=== PATIENT | male | born 1980 | race Caucasian/White ===

== ENCOUNTER 2024-05-30 06:26 | Inpatient (IN) | payer BC ==
[2024-05-30] MEDS: LORazepam 2 MG/ML INJ IV STA ×3 (06:37→07:33)
[2024-05-30] MEDS: SODIUM CHLORIDE 0.9% 1,000 ML IV STA (06:38)
--- NOTE | 2024-05-30 06:51 | ED ---
Seizure HPI <Bowen Ayers - Last Filed: 05/30/24 09:16> - General Source: EMS Mode of arrival: EMS Limitations: altered mental status - History of Present Illness MD Complaint: seizure -: minutes(s) Description of Episode: loss of consciousness, tonic-clonic movement -: second(s) Witnessed: yes - by bystander Trauma: No Seizure History: known seizure disorder Place: home Possible Precipitating Event: none <Amarjit Young - Last Filed: 05/30/24 18:15> - General Chief Complaint: Seizure Stated Complaint: Seizure Time Seen by Provider: 05/30/24 06:34 - History of Present Illness Initial Comments: This patient is a 44-year-old man who reportedly has history of PTSD, who presents by EMS to have evaluation after having had seizure. It was reported that the patient's had activated EMS. Patient reportedly had 1 seizure and then while EMS was in the process of the preparing to transfer he did have another seizure that was brief. On arrival the patient does appear postictal and not able to give any history. (Amarjit Young) - Related Data Home Medications Medication Instructions Recorded Confirmed Buprenorphine/Naloxone 8Mg/2Mg 1 film SL DAILY 05/30/24 05/30/24 [Suboxone 8-2Mg Film] Sertraline [Zoloft] 100 mg PO DAILY 05/30/24 05/30/24 Allergies Allergy/AdvReac Type Severity Reaction Status Date / Time Penicillins Allergy Unknown Verified 05/30/24 10:04 Review of Systems ROS Other: All systems not noted in ROS Statement are negative. <Bowen Ayers - Last Filed: 05/30/24 09:16> ROS Other: All systems not noted in ROS Statement are negative. Limitations: ROS unobtainable due to patients medical condition <Amarjit Young - Last Filed: 05/30/24 18:15> ROS Statement: Those systems with pertinent positive or pertinent negative responses have been documented in the HPI. Past Medical History - Past Family History Mother Family Medical History: Cancer, Diabetes Mellitus Additional Family Medical History / Comment(s): esophageal cancer resulting in (multiple aunts and uncles on the patient's mother side have various forms of cancer) Father Family Medical History: Congestive Heart Failure (CHF) <Amarjit Young - Last Filed: 07/28/24 18:15> General Exam Limitations: altered mental status General appearance: obtunded Head exam: Present: atraumatic, normocephalic Eye exam: Present: normal appearance, PERRL. Absent: scleral icterus, conjunctival injection ENT exam: Present: mucous membranes dry Neck exam: Present: normal inspection. Absent: tenderness Respiratory exam: Present: rhonchi. Absent: respiratory distress, wheezes, ral es, stridor, accessory muscle use Cardiovascular Exam: Present: normal rhythm, tachycardia, normal heart sounds. Absent: systolic murmur, diastolic murmur, rubs, gallop GI/Abdominal exam: Present: soft. Absent: distended, tenderness, guarding, rebo und, rigid, mass Extremities exam: Present: normal inspection, normal capillary refill. Absent: pedal edema, calf tenderness Back exam: Present: normal inspection Neurological exam: Present: altered. Absent: motor sensory deficit Skin exam: Present: warm, dry, intact, normal color. Absent: rash <Amarjit Young - Last Filed: 05/30/24 18:15> Course <Bowen Ayers - Last Filed: 05/30/24 09:16> Vital Signs 05/30/24 05/30/24 05/30/24 06:29 06:45 06:55 Temperature 97.5 F L Pulse Rate 117 H 81 91 Respiratory 22 16 24 Rate Blood Pressure 77/40 90/55 93/57 O2 Sat by Pulse 81 L 99 99 Oximetry Fraction of Inspired Oxygen (FIO2) 05/30/24 05/30/24 05/30/24 07:01 07:09 07:15 Temperature Pulse Rate 96 37 L 62 Respiratory 24 18 18 Rate Blood Pressure 92/62 61/33 153/89 O2 Sat by Pulse 98 90 L 94 L Oximetry Fraction of Inspired Oxygen (FIO2) 05/30/24 05/30/24 05/30/24 07:20 07:30 08:00 Temperature Pulse Rate 96 99 113 H Respiratory 18 36 H 20 Rate Blood Pressure 98/65 114/78 97/62 O2 Sat by Pulse 94 L 93 L 97 Oximetry Fraction of 100 Inspired Oxygen (FIO2) 05/30/24 05/30/24 05/30/24 08:08 08:35 08:54 Temperature Pulse Rate 112 H 112 H Respiratory 20 20 Rate Blood Pressure 98/63 108/69 O2 Sat by Pulse 96 96 Oximetry Fraction of 100 Inspired Oxygen (FIO2) 05/30/24 05/30/24 05/30/24 09:20 10:00 10:21 Temperature Pulse Rate 102 H 102 H 100 Respiratory 20 20 20 Rate Blood Pressure 91/64 91/64 94/66 O2 Sat by Pulse 99 99 99 Oximetry Fraction of Inspired Oxygen (FIO2) - Reevaluation(s) Reevaluation #1: 05/30/24 08:55 Patient reevaluated by myself several times. Case was discussed with cardiology, Dr. Mattson who will evaluate patient. He does agree with heparin. This will be started. (Bowen Ayers) Procedures - Intubation Laryngoscope: Porsha Size: 3 ET Tube Size: 8 ET Tube Uncuffed: Yes Tube Placement Confirmation: visualized tube passing through cords, equal breath sounds bilaterally, no breath sounds over epigastrium, confirmation by capnometry Patient Tolerated Procedure: well Intubation Complications: none - Restraint - Face to Face Restraint Occurrence 1 Patient's Immediate Situation: Endangers self safety, Endangers staff safety Patient's Reaction to the Intervention: Uncooperative, Fearful, Bizarre, Resistive to care Patient's Medical & Behavioral Condition: Agitated, Bizarre behavior Need to Continue or Terminate Restraint or Seclusion: Continue Face to Face Eval of Restraint Date: 05/30/24 Face to Face Eval of Restraint Time: 06:51 <Amarjit Young - Last Filed: 05/30/24 18:15> Medical Decision Making - Lab Data Result diagrams: 05/30/24 06:39 05/30/24 06:39 <Bowen Ayers - Last Filed: 05/30/24 09:16> - Lab Data Result diagrams: 05/30/24 06:39 05/30/24 14:44 - EKG Data -: EKG Interpreted by Tn EKG shows normal: sinus rhythm, axis, QRS complexes (For right ventricular conduction delay.) Rate: normal (Rate 79 bpm) Interpretation: nonspecific ST-T wave changes <Amarjit Young - Last Filed: 05/30/24 18:15> - Medical Decision Making Was pt. sent in by a medical professional or institution (, PA, OPHTHALMIC ASSISTANT, urgent care, hospital, or longterm...) When possible be specific @ -No Did you speak to anyone other than the patient for history (EMS, parent, family, police, friend...)? What history was obtained from this source @ -Family is present helps provide history including history of alcohol use and presentation Did you review nursing and triage notes (agree or disagree)? Why? @ -I reviewed and agree with nursing and triage notes Were old charts reviewed (outside hosp., previous admission, EMS record, old EKG, old radiological studies, urgent care reports/EKG's, longterm records)? Report findings @ -No old charts are available Differential Diagnosis (chest pain, altered mental status, abdominal pain women, abdominal pain men, vaginal bleeding, weakness, fever, dyspnea, syncope, headache, dizziness, GI bleed, back pain, seizure, CVA, palpatations, mental health, musculoskeletal)? @ -MDM differential ultimate this at EKG interpreted by me (3pts min.). @ -As above X-rays interpreted by me (1pt min.). @ -Chest x-ray shows right-sided infiltrates, endotracheal tube CT interpreted by me (1pt min.). @ -CT brain and CT abdomen pelvis without acute abnormality U/S interpreted by me (1pt. min.). @ -None done What testing was considered but not performed or refused? (CT, X-rays, U/S, labs)? Why? @ -None What meds were considered but not given or refused? Why? @ -None Did you discuss the management of the patient with other professionals (prof niravionals i.e. , PA, OPHTHALMIC ASSISTANT, lab, RT, psych nurse, elementary school social worker, dryland farmer, teacher, safety instruction police officer, internal controls manager)? Give summary @ -Case discussed with Dr. Rouse who will admit covering hospital call. Case is discussed with Dr. Mattson, see above. Case discussed with Dr. Whitlock who is evaluating patient emergency department. h Was smoking cessation discussed for >3mins.? @ -No Was critical care preformed (if so, how long)? @ -45 minutes critical care time Were there social determinants of health that impacted care today? How? (Homelessness, low income, unemployed, alcoholism, drug addiction, tra nsportation, low edu. Level, literacy, decrease access to med. care, residential, rehab)? @ -No Was there de-escalation of care discussed even if they declined (Discuss DNR or withdrawal of care, Hospice)? DNR status @ -No What co-morbidities impacted this encounter? (DM, HTN, Smoking, COPD, CAD, Cancer, CVA, ARF, Chemo, Hep., AIDS, mental health diagnosis, sleep apnea, morbid obesity)? @ -History of alcohol use, possibly relating to withdrawal seizure Was patient admitted / discharged? Hospital course, mention meds given and route, prescriptions, significant lab abnormalities, going to OR and other pertinent info. @ -Patient admitted. Patient presents with seizure, possibly 2-3 seizures. Patient became unresponsive and intubated and CPR through Dr. Henderson. Patient reevaluated by myself and stable at this time. Patient extremely acidotic. Troponin is elevated. Concern for pneumonia. Consults placed. Admission orders written. Undiagnosed new problem with uncertain prognosis? @ -No Drug Therapy requiring intensive monitoring for toxicity (Heparin, Nitro, Insulin, Cardizem)? @ -No Were any procedures done? @ -Intubation and CPR by Dr. Young Diagnosis/symptom? @ -Cardiac arrest, alcohol withdrawal seizure, acidosis, elevated troponin, pneumonia Acute, or Chronic, or Acute on Chronic? @ -Acute, acute, acute, acute, acute Uncomplicated (without systemic symptoms) or Complicated (systemic symptoms)? @ -Complicated multiple systemic symptoms Side effects of treatment? @ -No Exacerbation, Progression, or Severe Exacerbation? @ -No Poses a threat to life or bodily function? How? (Chest pain, USA, ID, pneumonia, PE, COPD, DKA, ARF, appy, cholecystitis, CVA, Diverticulitis, Homicidal, Suicidal, threat to staff... and all critical care pts) @ -Threat to life through cardiac arrest and others (Bowen Ayers) The patient's arrived and did give additional history. She states that the patient had been having a camp out in their living room with the patient's daughter. In the middle of the night he came and woke up his and stated th at something was wrong. She noted that his teeth were chattering. She told him that she was calling EMS. She states that he began to act strangely. She states that he sometimes does that when his PTSD flares. He told her that she was not his , and so she locked herself in the bathroom to make the EMS call. She states that when she got off the phone she checked him and he was having a seizure on the bed. EKG Following seizures in the department, the patient became bradycardic and hyp otensive. At 1 point the pulse was undetectable and ACLS was instituted. The patient did have epinephrine and bicarb, see the code sheet. The patient did regain spontaneous circulation. Patient was intubated. (Amarjit Young) - Lab Data Lab Results 05/30/24 05/30/24 05/30/24 Range/Units 06:39 06:39 06:39 WBC 16.6 H (3.8-10.6) k/uL RBC 4.45 (4.30-5.90) m/uL Hgb 14.8 (13.0-17.5) gm/dL Hct 46.1 (39.0-53.0) % MCV 103.6 H (80.0-100.0) fL MCH 33.2 (25.0-35.0) pg MCHC 32.0 (31.0-37.0) g/dL RDW 13.0 (11.5-15.5) % Plt Count 285 (150-450) k/uL MPV 9.1 Neutrophils % 24 % Lymphocytes % 64 % Monocytes % 5 % Eosinophils % 2 % Basophils % 1 % Neutrophils # 3.9 (1.3-7.7) k/uL Lymphocytes # 10.7 H (1.0-4.8) k/uL Monocytes # 0.8 (0-1.0) k/uL Eosinophils # 0.4 (0-0.7) k/uL Basophils # 0.2 (0-0.2) k/uL Manual Slide Review Performed Hypochromasia Moderate Macrocytosis Slight Sample Site ABG pH (7.35-7.45) ABG pCO2 (35-45) mmHg ABG pO2 (83-108) mmHg ABG HCO3 (21-25) mmol/L ABG Total CO2 (19-24) mmol/L ABG O2 Saturation (94-97) % ABG Base Excess mmol/L Jethro Test VBG pH (7.31-7.41) VBG pCO2 (37-51) mmHg VBG HCO3 (24-28) mmol/L FiO2 % Sodium 144 (137-145) mmol/L Potassium 5.8 H (3.5-5.1) mmol/L Chloride 105 (98-107) mmol/L Carbon Dioxide <5 L* (22-30) mmol/L Anion Gap mmol/L BUN 14 (9-20) mg/dL Creatinine 1.52 H (0.66-1.25) mg/dL Est GFR (CKD-EPI)AfAm 63 (>60 ml/min/1.73 sqM) Est GFR (CKD-EPI)NonAf 55 (>60 ml/min/1.73 sqM) Glucose 345 H (74-99) mg/dL POC Glucose (mg/dL) (70-110) mg/dL POC Glu Hunting Guide ID Plasma Lactic Acid Jonas (0.7-2.0) mmol/L Calcium 10.1 (8.4-10.2) mg/dL Magnesium 2.8 H (1.6-2.3) mg/dL Total Bilirubin 0.8 (0.2-1.3) mg/dL AST 52 (17-59) U/L ALT 29 (4-49) U/L Alkaline Phosphatase 74 (38-126) U/L Troponin I 0.151 H* (0.000-0.034) ng/mL NT-Pro-B Natriuret Pep pg/mL Total Protein 8.5 H (6.3-8.2) g/dL Albumin 5.3 H (3.5-5.0) g/dL Serum Alcohol <10 mg/dL Acetone, Qual (Negative) Influenza Type A (PCR) (Not Detectd) Influenza Type B (PCR) (Not Detectd) RSV (PCR) (Not Detectd) SARS-CoV-2 (PCR) (Not Detectd) 05/30/24 05/30/24 05/30/24 Range/Units 06:39 06:39 07:25 WBC (3.8-10.6) k/uL RBC (4.30-5.90) m/uL Hgb (13.0-17.5) gm/dL Hct (39.0-53.0) % MCV (80.0-100.0) fL MCH (25.0-35.0) pg MCHC (31.0-37.0) g/dL RDW (11.5-15.5) % Plt Count (150-450) k/uL MPV Neutrophils % % Lymphocytes % % Monocytes % % Eosinophils % % Basophils % % Neutrophils # (1.3-7.7) k/uL Lymphocytes # (1.0-4.8) k/uL Monocytes # (0-1.0) k/uL Eosinophils # (0-0.7) k/uL Basophils # (0-0.2) k/uL Manual Slide Review Hypochromasia Macrocytosis Sample Site ABG pH (7.35-7.45) ABG pCO2 (35-45) mmHg ABG pO2 (83-108) mmHg ABG HCO3 (21-25) mmol/L ABG Total CO2 (19-24) mmol/L ABG O2 Saturation (94-97) % ABG Base Excess mmol/L Jethro Test VBG pH 6.61 L* (7.31-7.41) VBG pCO2 62 H (37-51) mmHg VBG HCO3 6 L* (24-28) mmol/L FiO2 % Sodium (137-145) mmol/L Potassium (3.5-5.1) mmol/L Chloride (98-107) mmol/L Carbon Dioxide (22-30) mmol/L Anion Gap mmol/L BUN (9-20) mg/dL Creatinine (0.66-1.25) mg/dL Est GFR (CKD-EPI)AfAm (>60 ml/min/1.73 sqM) Est GFR (CKD-EPI)NonAf (>60 ml/min/1.73 sqM) Glucose (74-99) mg/dL POC Glucose (mg/dL) (70-110) mg/dL POC Glu Hunting Guide ID Plasma Lactic Acid Jonas (0.7-2.0) mmol/L Calcium (8.4-10.2) mg/dL Magnesium (1.6-2.3) mg/dL Total Bilirubin (0.2-1.3) mg/dL AST (17-59) U/L ALT (4-49) U/L Alkaline Phosphatase (38-126) U/L Troponin I (0.000-0.034) ng/mL NT-Pro-B Natriuret Pep 319 pg/mL Total Protein (6.3-8.2) g/dL Albumin (3.5-5.0) g/dL Serum Alcohol mg/dL Acetone, Qual Negative (Negative) Influenza Type A (PCR) (Not Detectd) Influenza Type B (PCR) (Not Detectd) RSV (PCR) (Not Detectd) SARS-CoV-2 (PCR) (Not Detectd) 05/30/24 05/30/24 05/30/24 Range/Units 08:11 08:17 08:53 WBC (3.8-10.6) k/uL RBC (4.30-5.90) m/uL Hgb (13.0-17.5) gm/dL Hct (39.0-53.0) % MCV (80.0-100.0) fL MCH (25.0-35.0) pg MCHC (31.0-37.0) g/dL RDW (11.5-15.5) % Plt Count (150-450) k/uL MPV Neutrophils % % Lymphocytes % % Monocytes % % Eosinophils % % Basophils % % Neutrophils # (1.3-7.7) k/uL Lymphocytes # (1.0-4.8) k/uL Monocytes # (0-1.0) k/uL Eosinophils # (0-0.7) k/uL Basophils # (0-0.2) k/uL Manual Slide Review Hypochromasia Macrocytosis Sample Site r rad ABG pH 6.99 L* (7.35-7.45) ABG pCO2 35 (35-45) mmHg ABG pO2 170 H (83-108) mmHg ABG HCO3 8 L* (21-25) mmol/L ABG Total CO2 9 L (19-24) mmol/L ABG O2 Saturation 98.2 H (94-97) % ABG Base Excess -22.4 mmol/L Jethro Test Yes VBG pH (7.31-7.41) VBG pCO2 (37-51) mmHg VBG HCO3 (24-28) mmol/L FiO2 100 % Sodium (137-145) mmol/L Potassium (3.5-5.1) mmol/L Chloride (98-107) mmol/L Carbon Dioxide (22-30) mmol/L Anion Gap mmol/L BUN (9-20) mg/dL Creatinine (0.66-1.25) mg/dL Est GFR (CKD-EPI)AfAm (>60 ml/min/1.73 sqM) Est GFR (CKD-EPI)NonAf (>60 ml/min/1.73 sqM) Glucose (74-99) mg/dL POC Glucose (mg/dL) 371 H (70-110) mg/dL POC Glu Hunting Guide ID Steven Jurado Plasma Lactic Acid Jonas 10.7 H* (0.7-2.0) mmol/L Calcium (8.4-10.2) mg/dL Magnesium (1.6-2.3) mg/dL Total Bilirubin (0.2-1.3) mg/dL AST (17-59) U/L ALT (4-49) U/L Alkaline Phosphatase (38-126) U/L Troponin I (0.000-0.034) ng/mL NT-Pro-B Natriuret Pep pg/mL Total Protein (6.3-8.2) g/dL Albumin (3.5-5.0) g/dL Serum Alcohol mg/dL Acetone, Qual (Negative) Influenza Type A (PCR) (Not Detectd) Influenza Type B (PCR) (Not Detectd) RSV (PCR) (Not Detectd) SARS-CoV-2 (PCR) (Not Detectd) 05/30/24 Range/Units 08:53 WBC (3.8-10.6) k/uL RBC (4.30-5.90) m/uL Hgb (13.0-17.5) gm/dL Hct (39.0-53.0) % MCV (80.0-100.0) fL MCH (25.0-35.0) pg MCHC (31.0-37.0) g/dL RDW (11.5-15.5) % Plt Count (150-450) k/uL MPV Neutrophils % % Lymphocytes % % Monocytes % % Eosinophils % % Basophils % % Neutrophils # (1.3-7.7) k/uL Lymphocytes # (1.0-4.8) k/uL Monocytes # (0-1.0) k/uL Eosinophils # (0-0.7) k/uL Basophils # (0-0.2) k/uL Manual Slide Review Hypochromasia Macrocytosis Sample Site ABG pH (7.35-7.45) ABG pCO2 (35-45) mmHg ABG pO2 (83-108) mmHg ABG HCO3 (21-25) mmol/L ABG Total CO2 (19-24) mmol/L ABG O2 Saturation (94-97) % ABG Base Excess mmol/L Jethro Test VBG pH (7.31-7.41) VBG pCO2 (37-51) mmHg VBG HCO3 (24-28) mmol/L FiO2 % Sodium (137-145) mmol/L Potassium (3.5-5.1) mmol/L Chloride (98-107) mmol/L Carbon Dioxide (22-30) mmol/L Anion Gap mmol/L BUN (9-20) mg/dL Creatinine (0.66-1.25) mg/dL Est GFR (CKD-EPI)AfAm (>60 ml/min/1.73 sqM) Est GFR (CKD-EPI)NonAf (>60 ml/min/1.73 sqM) Glucose (74-99) mg/dL POC Glucose (mg/dL) (70-110) mg/dL POC Glu Hunting Guide ID Plasma Lactic Acid Jonas (0.7-2.0) mmol/L Calcium (8.4-10.2) mg/dL Magnesium (1.6-2.3) mg/dL Total Bilirubin (0.2-1.3) mg/dL AST (17-59) U/L ALT (4-49) U/L Alkaline Phosphatase (38-126) U/L Troponin I (0.000-0.034) ng/mL NT-Pro-B Natriuret Pep pg/mL Total Protein (6.3-8.2) g/dL Albumin (3.5-5.0) g/dL Serum Alcohol mg/dL Acetone, Qual (Negative) Influenza Type A (PCR) Not Detected (Not Detectd) Influenza Type B (PCR) Not Detected (Not Detectd) RSV (PCR) Not Detected (Not Detectd) SARS-CoV-2 (PCR) Not Detected (Not Detectd) Critical Care Time Critical Care Time: Yes <Bowen Ayers - Last Filed: 05/30/24 09:16> Disposition Is patient prescribed a controlled substance at d/c from ED?: No Time of Disposition: 09:20 <Bowen Ayers - Last Filed: 05/30/24 09:16> <Amarjit Young - Last Filed: 05/30/24 18:15> Clinical Impression: New onset seizure Disposition: ADMITTED IP TO THIS HOSP Condition: Critical
[2024-05-30 06:57] LABS: Basophils # (A) 0.2 k/uL (0-0.2); Basophils % (A) 1 %; Eosinophils # (A) 0.4 k/uL (0-0.7); Eosinophils % (A) 2 %; HCT 46.1 % (39.0-53.0); HGB 14.8 gm/dL (13.0-17.5); Hypochromasia Moderate; Lymphocytes # (A) 10.7 k/uL (1.0-4.8); Lymphocytes % (A) 64 %; MCH 33.2 pg (25.0-35.0); MCV 103.6 fL (80.0-100.0); Macrocytosis Slight; Mean Platelet Volume 9.1; Monocytes # (A) 0.8 k/uL (0-1.0); Monocytes % (A) 5 %; Neutrophils # (A) 3.9 k/uL (1.3-7.7); Neutrophils % (A) 24 %; Platelet Count 285 k/uL (150-450); RBC 4.45 m/uL (4.30-5.90); WBC 16.6 k/uL (3.8-10.6)
[2024-05-30 07:03] LABS: ALT 29 U/L (4-49); AST 52 U/L (17-59); African American GFR (CKD) 63 (>60 ml/min/1.73 sqM); Albumin 5.3 g/dL (3.5-5.0); Alcohol <10 mg/dL; Alkaline Phosphatase 74 U/L (38-126); Blood Urea Nitrogen 14 mg/dL (9-20); Calcium 10.1 mg/dL (8.4-10.2); Chloride 105 mmol/L (98-107); Glucose 345 mg/dL (74-99); Magnesium 2.8 mg/dL (1.6-2.3); Non-African American GFR(CKD) 55 (>60 ml/min/1.73 sqM); Potassium 5.8 mmol/L (3.5-5.1); Sodium 144 mmol/L (137-145); Total Bilirubin 0.8 mg/dL (0.2-1.3); Total Protein 8.5 g/dL (6.3-8.2)
[2024-05-30 07:19] LABS: Carbon Dioxide <5 mmol/L (22-30)
[2024-05-30] MEDS: SODIUM CHLORIDE 0.9% 1,000 ML IV ONE (07:23)
--- NOTE | 2024-05-30 07:43 | XR ---
EXAMINATION TYPE: XR chest 1V confirm line [facility] DATE OF EXAM: 05/30/2024 COMPARISON: 05/30/2024 HISTORY: Line placement TECHNIQUE: Single frontal view of the chest is obtained. FINDINGS: ET tube is 7.8 cm above the erlinda. There is an NG tube within the stomach. Bilateral infiltrates are unchanged. IMPRESSION: IMPRESSION: 1. No change in acute cardiopulmonary disease. 2. ET tube 6.8 cm above the erlinda. 3. NG tube within the stomach
--- NOTE | 2024-05-30 07:45 | XR ---
EXAMINATION TYPE: XR chest 1V confirm line [facility] DATE OF EXAM: 05/30/2024 COMPARISON: 05/30/2024 HISTORY: Tube placement TECHNIQUE: Single frontal view of the chest is obtained. FINDINGS: The bilateral lung infiltrates are stable. ET tube is 6.8 cm above the erlinda. There is an NG tube within the stomach. IMPRESSION: 1. NG tube within stomach. 2. ET tube 6.8 cm above the erlinda 3. No change in acute cardiopulmonary disease.
[2024-05-30 08:00] LABS: VBG PH 6.61 (7.31-7.41)
--- NOTE | 2024-05-30 08:02 | CT ---
EXAMINATION TYPE: CT brain wo con DATE OF EXAM: 05/30/2024 COMPARISON: None HISTORY: ams/seizure CT DLP: 1154.4 mGycm. Automated Exposure Control for Dose Reduction was Utilized. TECHNIQUE: CT scan of the head is performed without contrast. Findings: The ventricles, basal cisterns and sulci over the convexities are within normal limits and there is n o mass effect or shift of midline structures. No abnormal density is seen throughout the brain parenchyma and there is no acute intra or extra-axia l hemorrhage. The posterior fossa including the brainstem, fourth ventricle and cerebellar pontine angles appear no rmal. Intraorbital contents appear normal and symmetric. Visualized paranasal sinuses and mastoid air cells are well aerated. The calvarium is intact. IMPRESSION: No significant abnormality seen. There is no acute bleed or mass effect.
--- NOTE | 2024-05-30 08:05 | CT ---
EXAMINATION TYPE: CT abdomen pelvis wo con DATE OF EXAM: 05/30/2024 HISTORY: seizure, unresponsive CT DLP: 695.7 mGycm. Automated Exposure Control for Dose Reduction was Utilized. TECHNIQUE: CT scan of the abdomen and pelvis is performed without oral or IV contrast. COMPARISON: None Findings: There are small to moderate bibasal infiltrates and small effusions. There is surgical absence of the gallbladder. There is an NG tube within the stomach. There is no biliary ductal dilatation. There is no organomegaly of the liver, pancreas, spleen or adrenal glands. There are no renal calcifications or hydronephrosis. The caliber of the abdominal aorta is normal and there is no retroperitoneal adenopathy or hemorrhage . The bowel loops are normal in caliber is no evidence of obstruction. No inflammatory changes are iden tified in the mesentery and there is no free intraperitoneal air or fluid. There is no pelvic mass, free fluid, abscess or adenopathy. . The osseous structures and soft tissues are unremarkable. IMPRESSION: No acute changes within the abdomen or pelvis.
[2024-05-30] MEDS: INSULIN REGULAR 100 UNIT/ML VIAL (IV) SQ STA (08:13)
[2024-05-30 08:20] LABS: Glucose,Whole Blood 371 mg/dL (70-110)
[2024-05-30] MEDS ORDERED: LORazepam 2 MG/ML INJ IV PRN ×2 (08:32)
[2024-05-30 08:48] LABS: ABG Base Excess -22.4 mmol/L; ABG Oxygen Saturation 98.2 % (94-97); ABG PCO2 35 mmHg (35-45); ABG PO2 170 mmHg (83-108); ABG TCO2 9 mmol/L (19-24); Allen Test Performed? Yes
[2024-05-30 08:49] LABS: ABG HCO3 8 mmol/L (21-25); ABG PH 6.99 (7.35-7.45)
[2024-05-30] MEDS: HEPARIN SODIUM 1,000 UN/ML (10ML VL) IV ONE (09:08)
[2024-05-30] MEDS: HEPARIN SOD,PORK IN 0.45% NACL 25,000 UNIT in 0.45% NACL 1 250ML.BAG IV SCH (09:10)
[2024-05-30] MEDS ORDERED: NALOXONE 0.4 MG/ML 1 ML VIAL IV PRN (09:20)
[2024-05-30] MEDS ORDERED: PNEUMONIA PROTOCOL UTILIZED 1 EACH MISC PO PRN ×2 (09:20→09:24)
[2024-05-30] MEDS: SODIUM BICARB 8.4% 50 ML SYR (1 MEQ/ML) IV STA (09:27)
[2024-05-30] MEDS: DEXTROSE 5% IN WATER 1,000 ML with SODIUM BICARB (1 MEQ/ML) 150 ML IV SCH (09:28)
[2024-05-30] MEDS: levETIRAcetam IV 500 MG/5 ML VIAL IVP SCH (09:29)
[2024-05-30] MEDS: SODIUM CHLORIDE 0.9% 1,000 ML IV SCH (09:58)
--- NOTE | 2024-05-30 10:32 | P.CRDCN ---
History of Present Illness Consult date: 05/30/24 History of present illness: This is a 45-year-old gentleman who requested to see the emergency department for further cardiac evaluation of abnormal cardiac enzymes. Currently the patient is intubated and he is on mechanical ventilation but the history was taken from the ER physician as well as from the patient's who was at bedside. The patient was noted to be in normal situation till yesterday. 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 Before that he was drinking excessively according to his . Ambulance was called and the patient was brought to the emergency department for further evaluation in the emergency department he was confused but subsequently he had a grand mal seizure witnessed by the ER staff. Subsequently the patient was intubated and placed on mechanical ventilation to protect the airway. Further evaluation was performed including an EKG. The first EKG showed sinus rhythm with nonspecific ST and T wave abnormalities and evidence of LVH. Second EKG showed sinus mechanism with no ST or T wave abnormalities. The troponin came in to be slightly elevated. According to the patient's he was not experiencing any cardiovascular symptoms of any chest pain or chest discomfort or shortness of breath. He never been diagnosed with diabetes. He was diagnosed in the past with hypertension and he was on medications but he stopped taking the medications. Please note that his blood glucose is elevated during the blood work today. The patient underwent also a CT scan of the brain which did show any acute abnormalities. Currently he is hemodynamically stable with soft blood pressure. Beside that he underwent a blood work and that revealed low GFR and elevated potassium. The chest x-ray showed possible underlying pneumonia and he was seen by the pulmonary/critical care team and he was placed on antibiotic. The examination is remarkable for patient to be intubated on mechanical ventilation with regular rate and rhythm and soft systolic murmur at the right upper sternal border and clear breathing sounds bilaterally and no edema was noted in the lower extremities with soft nontender abdomen Assessment Seizure, likely secondary to alcohol withdrawal. The patient's was drinking exc essively but alcohol level in the emergency department was within normal Evidence of myocardial injury with no evidence of ischemia. Renal failure Electrolytes abnormalities with hyperkalemia History of excessive alcohol use Plan Continue the current medical regimen Continue the current dose of aspirin Continue heparin IV Avoid any beta-kristian in the light of soft blood pressure Follow-up on the echocardiogram which was performed Further recommendation to follow Medications and Allergies Home Medications Medication Instructions Recorded Confirmed Type Buprenorphine/Naloxone 8Mg/2Mg 1 film SL DAILY 05/30/24 05/30/24 History [Suboxone 8-2Mg Film] Sertraline [Zoloft] 100 mg PO DAILY 05/30/24 05/30/24 History Allergies Allergy/AdvReac Type Severity Reaction Status Date / Time Penicillins Allergy Unknown Verified 05/30/24 10:04 Physical Exam Vitals: Vital Signs Temp Pulse Resp BP Pulse Ox FiO2 05/30/24 10:21 100 20 94/66 99 05/30/24 10:00 102 H 20 91/64 99 05/30/24 09:20 102 H 20 91/64 99 05/30/24 08:54 112 H 20 108/69 96 05/30/24 08:35 112 H 20 98/63 96 05/30/24 08:08 100 05/30/24 08:00 113 H 20 97/62 97 05/30/24 07:30 99 36 H 114/78 93 L 05/30/24 07:23 100 05/30/24 07:20 96 18 98/65 94 L 100 05/30/24 07:15 62 18 153/89 94 L 05/30/24 07:09 37 L 18 61/33 90 L 05/30/24 07:01 96 24 92/62 98 05/30/24 06:55 91 24 93/57 99 05/30/24 06:45 81 16 90/55 99 05/30/24 06:29 97.5 F L 117 H 22 77/40 81 L Intake and Output 05/29/24 05/30/24 05/30/24 22:59 06:59 14:59 Intake Total 0.112 Balance 0.112 Intake: Intake, IV Titration 0.112 Amount propofoL 1,000 mg In 0.112 Empty Bag 1 bag @ 15 MCG/ KG/MIN 6.736 mls/hr IV . [id number] [facility] Rx#:[id number] Other: Weight 74.843 kg Results 05/30/24 06:39 05/30/24 06:39 Cardiac Enzymes 05/30/24 05/30/24 Range/Units 06:39 06:39 AST 52 (17-59) U/L Troponin I 0.151 H* (0.000-0.034) ng/mL CBC 05/30/24 Range/Units 06:39 WBC 16.6 H (3.8-10.6) k/uL RBC 4.45 (4.30-5.90) m/uL Hgb 14.8 (13.0-17.5) gm/dL Hct 46.1 (39.0-53.0) % Plt Count 285 (150-450) k/uL Comprehensive Metabolic Panel 05/30/24 Range/Units 06:39 Sodium 144 (137-145) mmol/L Potassium 5.8 H (3.5-5.1) mmol/L Chloride 105 (98-107) mmol/L Carbon Dioxide <5 L* (22-30) mmol/L BUN 14 (9-20) mg/dL Creatinine 1.52 H (0.66-1.25) mg/dL Glucose 345 H (74-99) mg/dL Calcium 10.1 (8.4-10.2) mg/dL AST 52 (17-59) U/L ALT 29 (4-49) U/L Alkaline Phosphatase 74 (38-126) U/L Total Protein 8.5 H (6.3-8.2) g/dL Albumin 5.3 H (3.5-5.0) g/dL Current Medications Generic Name Dose Route Start Last Admin Trade Name Freq PRN Reason Stop Dose Admin Aspirin 325 mg 05/30/24 09:30 Aspirin 325 Mg Tab PO DAILY [facility] Heparin Sodium (Porcine) 0 unit 05/30/24 08:55 Heparin Sodium 1,000 Un/Ml (10ml Vl) IV PER PROTOCOL PRN Low PTT Protocol Propofol 1,000 mg/ IV Solution 100 mls @ 6.736 mls/hr 05/30/24 08:15 05/30/24 08:15 IV 30 mcg/kg/min .[id number] [facility] 13.472 mls/hr Titration Protocol 15 MCG/KG/MIN Heparin Sodium/Sodium Chloride 250 mls @ 8.981 mls/hr 05/30/24 09:00 05/30/24 09:10 25,000 unit/ Sodium Chloride IV 12 units/kg/hr .Q24H YESENIA 8.981 mls/hr Administration Protocol 12 UNITS/KG/HR Sodium Bicarbonate 150 ml/ 1,150 mls @ 100 mls/hr 05/30/24 09:00 05/30/24 09:28 Dextrose/Water IV 100 mls/hr .[id number] YESEN[facility] Administration Sodium Chloride 1,000 mls @ 130 mls/hr 05/30/24 09:30 05/30/24 09:58 Saline 0.9% IV 130 mls/hr .[id number] [facility] Administration Ceftriaxone Sodium 2 gm/ 50 mls @ 100 mls/hr 05/31/24 09:00 Sodium Chloride IVPB 06/03/24 09:29 Q24HR [facility] Protocol Metronidazole 500 mg/ IV 100 mls @ 100 mls/hr 05/30/24 10:00 Solution IVPB Q8H [facility] Protocol Levetiracetam 1,000 mg 05/30/24 09:30 05/30/24 09:29 Levetiracetam Iv 500 Mg/5 Ml Vial IVP 1,000 mg Q12HR [facility] Administration Lorazepam 2 mg 05/30/24 08:32 Lorazepam 2 Mg/Ml Inj IV 06/01/24 08:32 Q10M PRN CIWA 16 or higher Lorazepam 1 mg 05/30/24 08:32 Lorazepam 2 Mg/Ml Inj IV Q2HR PRN CIWA 8 or 9 Lorazepam 1 mg 05/30/24 08:32 Lorazepam 2 Mg/Ml Inj IV Q1HR PRN CIWA 10 to 15 Lorazepam 1 mg 05/30/24 09:20 Lorazepam 2 Mg/Ml Inj IV Q6HR PRN Anxiety Miscellaneous Information 1 each 05/30/24 09:20 Pneumonia Protocol Utilized 1 Each Misc PO ONCE PRN Per Protocol Miscellaneous Information 1 each 05/30/24 09:24 Pneumonia Protocol Utilized 1 Each Misc PO ONCE PRN Per Protocol Naloxone HCl 0.2 mg 05/30/24 09:20 Naloxone 0.4 Mg/Ml 1 Ml Vial IV Q2M PRN Opioid Reversal Intake and Output 05/29/24 05/30/24 05/30/24 22:59 06:59 14:59 Intake Total 0.112 Balance 0.112 Intake: Intake, IV Titration 0.112 Amount propofoL 1,000 mg In 0.112 Empty Bag 1 bag @ 15 MCG/ KG/MIN 6.736 mls/hr IV . [id number] [facility] Rx#:[id number] Other: Weight 74.843 kg 05/30/24 06:39 05/30/24 06:39
[2024-05-30 10:43] LABS: Glucose,Whole Blood 138 mg/dL (70-110)
[2024-05-30] MEDS ORDERED: IPRATROPIUM-ALBUTEROL 3 ML NEB INHALATION PRN (11:10)
[2024-05-30] MEDS ORDERED: DEXTROSE 50% SYRINGE 50 ML IVP PRN ×2 (11:12)
[2024-05-30] MEDS: metroNIDAZOLE-NS PMX 500 MG in SALINE 1 100ML.BAG IVPB SCH (11:41)
[2024-05-30] MEDS: IPRATROPIUM-ALBUTEROL 3 ML NEB INHALATION SCH (12:15)
[2024-05-30] MEDS: INSULIN ASPART (NovoLOG) 100 UNIT/ML VIAL SQ SCH (12:25)
[2024-05-30 12:32] LABS: ABG HCO3 25 mmol/L (21-25); ABG Oxygen Saturation 100.6 % (94-97); ABG PCO2 38 mmHg (35-45); ABG PH 7.43 (7.35-7.45); ABG TCO2 26 mmol/L (19-24); Allen Test Performed? Yes
[2024-05-30 12:36] LABS: ABG PO2 >420 mmHg (83-108)
[2024-05-30 12:42] LABS: Appearance,Urine Clear (Clear); Bacteria,Urine Rare /hpf; Benzodiazepines Screen,Urine Detected (NotDetected); Bilirubin,Urine Negative (Negative); Blood,Urine Moderate (Negative); Color,Urine Colorless; Glucose,Urine (UA) 3+ (Negative); Ketones,Urine Negative (Negative); Leukocyte Esterase,Urine Negative (Negative); Nitrite,Urine Negative (Negative); Protein,Urine 1+ (Negative); RBC,Urine 5 /hpf (0-5); Urn Cannabinoid Scrn Detected (NotDetected); Urobilinogen,Urine <2.0 mg/dL (<2.0); WBC,Urine 1 /hpf (0-5)
[2024-05-30 12:43] LABS: Amphetamine Screen,Urine Not Detected (NotDetected); Barbiturate Screen,Urine Not Detected (NotDetected); Cocaine Screen,Urine Not Detected (NotDetected); Methadone Screen, Urine Not Detected (NotDetected); Opiate Screen,Urine Not Detected (NotDetected); Oxycodone Screen, Urine Not Detected (NotDetected); Phencyclidine Screen,Urine Not Detected (NotDetected); Tricyclic Antidepressant,Urine Not Detected (NotDetected)
--- NOTE | 2024-05-30 12:49 | P.CNPUL ---
History of Present Illness Consult date: 05/30/24 Requesting physician: Kleber Keller Reason for consult: other Chief complaint: Respiratory failure, seizures. History of present illness: Pulmonary consult dated May 30, 2024. This is a 44-year-old male with a history of depression, possibly PTSD, and hypertension. The patient apparently had a new onset seizure today, and was found by his , at home. The patient apparently was acting strange, and subsequent to that, was found on the bedroom floor, having a seizure. EMS was called and brought the patient into the emergency room. The patient had at least 2 seizures in the emergency room, and could not protect his airway, and was intubated for airway protection. The patient is seen in the emergency department, in trauma room 1. The patient had a initial blood gas,, showing a pO2 of 170, pCO2 of 35, pH is 6.99. Subsequent blood gas on 100% showed a pO2 of greater than 420, pCO2 of 38, and a pH of 7.43. Lactic acid was 10.7. Glucose was 138. Additional labs include a white count of 16.6, hemoglobin 14.8, hematocrit 46.1, and a platelet count of 285,000. Sodium 144, potassium 5.8, chlorides 105, CO2 less than 5, BUN 14, creatinine 1.52. Glucose was 345. Lactic acid was 10.7. N-terminal proBNP was 319. Troponin was 0.151. Albumin 5.3. Viral screen was negative. Serum alcohol level was less than 10. Brain CT showed nothing acute. Chest x-ray showed no acute cardiopulmonary changes. CT of the abdomen and pelvis, was also negative. The did state, that the patient does use marijuana, does not smoke cigarettes at this time, and drinks occasionally heavily. Review of Systems REVIEW OF SYSTEMS: CONSTITUTIONAL: [Negative.] NEUROLOGIC: New onset seizures. HEENT: [ Negative.] CARDIAC: [Negative.] PULMONARY: [Negative.] GI: [Negative.] : [Negative.] RHEUMATOLOGIC: [ Negative.] IMMUNOLOGIC: [ Negative.] ENDOCRINE: [Negative. ] DERMATOLOGIC: [Negative.] Medications and Allergies Home Medications Medication Instructions Recorded Confirmed Type Buprenorphine/Naloxone 8Mg/2Mg 1 film SL DAILY 05/30/24 05/30/24 History [Suboxone 8-2Mg Film] Sertraline [Zoloft] 100 mg PO DAILY 05/30/24 05/30/24 History Allergies Allergy/AdvReac Type Severity Reaction Status Date / Time Penicillins Allergy Unknown Verified 05/30/24 10:04 Physical Exam Osteopathic Statement: *. No significant issues noted on an osteopathic structural exam other than those noted in the History and Physical/Consult. Vitals: Vital Signs Temp Pulse Resp BP Pulse Ox FiO2 05/30/24 12:38 50 05/30/24 12:36 50 05/30/24 12:29 93 05/30/24 12:15 91 05/30/24 11:00 100 05/30/24 10:21 100 20 94/66 99 05/30/24 10:00 102 H 20 91/64 99 05/30/24 09:20 102 H 20 91/64 99 05/30/24 08:54 112 H 20 108/69 96 05/30/24 08:35 112 H 20 98/63 96 05/30/24 08:08 100 05/30/24 08:00 113 H 20 97/62 97 05/30/24 07:30 99 36 H 114/78 93 L 05/30/24 07:20 96 18 98/65 94 L 100 05/30/24 07:15 62 18 153/89 94 L 05/30/24 07:09 37 L 18 61/33 90 L 05/30/24 07:01 96 24 92/62 98 05/30/24 06:55 91 24 93/57 99 05/30/24 06:45 81 16 90/55 99 05/30/24 06:29 97.5 F L 117 H 22 77/40 81 L Intake and Output 05/29/24 05/30/24 05/30/24 22:59 06:59 14:59 Intake Total 32.669 Balance 32.669 Intake: Intake, IV Titration 32.669 Amount propofoL 1,000 mg In 32.669 Empty Bag 1 bag @ 15 MCG/ KG/MIN 6.736 mls/hr IV . [id number] [facility] Rx#:[id number] Other: Weight 74.843 kg No acute distress, sedated, on propofol at 30 mcg/kg/min, with an orally placed endotracheal tube, and an NG tube. HEENT examination is grossly unremarkable. Neck supple. Full range of motion. No adenopathy thyromegaly or neck vein distention. Cardiovascular examination reveals regular rhythm rate. S1-S2 normal. No S3 or S4. No discernible murmur noted. Heart rate 93 bpm. Lungs reveal clear breath sounds. Breath sounds are equal bilaterally. No adventitious lung sounds including wheezes rhonchi or crackles. Abdomen soft without bowel sounds. No masses or tenderness. Extremities are intact. No cyanosis clubbing or edema. Skin is without rash or lesion. Neurologic examination cannot be adequately assessed as the patient is on the ventilator, and sedated. Results - Laboratory Findings CBC and BMP: 05/30/24 06:39 05/30/24 06:39 ABG ABG pH 7.43 (7.35-7.45) 05/30/24 12:25 ABG pCO2 38 mmHg (35-45) 05/30/24 12:25 ABG pO2 >420 mmHg (83-108) H 05/30/24 12:25 ABG O2 Saturation 100.6 % (94-97) H 05/30/24 12:25 Abnormal lab findings: Abnormal Labs 05/30/24 05/30/24 05/30/24 06:39 06:39 06:39 WBC 16.6 H MCV 103.6 H Lymphocytes # 10.7 H ABG pH ABG pO2 ABG HCO3 ABG Total CO2 ABG O2 Saturation VBG pH VBG pCO2 VBG HCO3 Potassium 5.8 H Carbon Dioxide <5 L* Creatinine 1.52 H Glucose 345 H POC Glucose (mg/dL) Plasma Lactic Acid Jonas Magnesium 2.8 H Troponin I 0.151 H* Total Protein 8.5 H Albumin 5.3 H 05/30/24 05/30/24 05/30/24 07:25 08:11 08:17 WBC MCV Lymphocytes # ABG pH 6.99 L* ABG pO2 170 H ABG HCO3 8 L* ABG Total CO2 9 L ABG O2 Saturation 98.2 H VBG pH 6.61 L* VBG pCO2 62 H VBG HCO3 6 L* Potassium Carbon Dioxide Creatinine Glucose POC Glucose (mg/dL) 371 H Plasma Lactic Acid Jonas Magnesium Troponin I Total Protein Albumin 05/30/24 05/30/24 05/30/24 08:53 10:41 12:25 WBC MCV Lymphocytes # ABG pH ABG pO2 >420 H ABG HCO3 ABG Total CO2 26 H ABG O2 Saturation 100.6 H VBG pH VBG pCO2 VBG HCO3 Potassium Carbon Dioxide Creatinine Glucose POC Glucose (mg/dL) 138 H Plasma Lactic Acid Jonas 10.7 H* Magnesium Troponin I Total Protein Albumin - Diagnostic Findings Chest x-ray: image reviewed Assessment and Plan Assessment: New onset seizures, with inability to protect his airway, S/P intubation with mechanical ventilation, May 30, 2024. History of hypertension. History of depression. History of PTSD. History of chronic alcohol use, and probably abuse. Plan: Plan dated May 30, 2024. The patient was seen in the emergency department, and at this point, the patient was intubated, and mechanically ventilated. The patient will be transferred to the intensive care unit for further monitoring and management. The patient presented with new onset seizure. The patient does have a history of hypertension, and also, may have a history of alcohol abuse. Additional recommendations and suggestions are forthcoming. Labs, x-rays, medications are reviewed. We were able to speak to the patient's , and get some additional history from her. Prognosis is guarded. Time with Patient: Greater than 30
[2024-05-30] MEDS: CISATRACURIUM 2 MG/ML 5 ML VIAL IV ONE (13:04)
[2024-05-30] MEDS: LACTATED RINGERS 1,000 ML IV SCH (13:38)
--- NOTE | 2024-05-30 13:46 | XR ---
EXAMINATION TYPE: XR chest 1V portable DATE OF EXAM: 05/30/2024 COMPARISON: 05/22/2024 HISTORY: New central line placement TECHNIQUE: Single frontal view of the chest is obtained. FINDINGS: There is an NG tube within the stomach. There is an ET tube 5.2 cm above the erlinda. There is a small caliber left subclavian central venous catheter the tip of which is in the SVC/RA ju nction. There is no pneumothorax or pleural effusion. There is no airspace consolidation. The heart and pulmonary vascularity are normal. IMPRESSION: 1. Central venous catheter tip in the SVC/RA junction. 2. ET tube 5.2 cm of the erlinda. 3. NG tube within the stomach. 4. No acute cardiopulmonary disease. Previous vascular congestion and infiltrates have resolved in e interval.
--- NOTE | 2024-05-30 14:35 | P.HPIM ---
History of Present Illness H&P Date: 05/30/24 44 year old M with PMH of EtOH abuse, PTSD, Depression, h/o hypertension presents to the ED. Patient is currently intubated and history is obtained from the at bedside. reports the patient woke up this morning and as he was coming back from the washroom he appeared to be shaking, confused and delirious. reports that he couldn't speak. She left the room to call EMS and found that patient having a seizure that lasted 3-4 minutes. 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 He recently lost his mother, father and sister in the past 7 years and has been dealing with depression. She reports that he drinks 2 tallboys daily (as far as she is aware). Previous history of drug abuse currently on Suboxone. Patient was noted to have a grand mal seizure in the ED given 7 mg of IV Ativan. Following his seizure, had an episode of bradycardia and hypotension with loss of pulse. ACLS was initiated requiring 4 minutes of CPR, epinephrine and bicarb, ROSC was achieved. CBC and CMP was significant for WBC 16.6, MCV 103.6, K 5.8, bicarb < 5, Cr 1.52, glu 345, alb 5.3. Mag 2.8, Lactic acid 10.7-2.6. UA 3+ glucose and moderate blood, no LE or nitrite. UDS + benzo and THC. Serum alcohol and acetone negative. COVID/RSV/Flu negative. VBG pH 6.61, pCO2 62. Troponin 0.151, 7.01. ABG post cardiac arrest pH 6.99, pCO2 35 and subsequently pH 7.43, pCO2 38. CXR shows ET tube with no acute process. Brain CT negative. CT AP negative. EKG showed sinus rhythm with nonspecific ST and T wave abnormalities and evidence of LVH. Patient is admitted to ICU for further workup and management. General: Intubated and sedated Derm: warm, dry Head: atraumatic, normocephalic, symmetric Eyes: no lid lag, anicteric sclera Mouth: no lip lesion, mucus membranes moist Cardiovascular: S1S2 reg, no murmur Lungs: Coarse ventilator BS bilateral, no rhonchi, no rales , no accessory muscle use Ext: no gross muscle atrophy, no edema, no contractures Neuro: Moving all 4 extremities Psych: Sedated Based on my assessment of this patient, this patient meets a high complexity level of care. Acute hypoxic respiratory failure likely related to below Cardiac arrest likely related to seizure and severe metabolic derangement: Underwent CPR and ROSC achieved in the ED. Grand mal seizure likely related to alcohol withdrawal: CIWA protocol with Ativan PRN. Keppra 1000 mg IV BID. EEG ordered. Seizure pads and precautions. Neurology consulted. NSTEMI: Uptrending troponins. ASA 325 mg PO QD. Started on low intensity Heparin drip. Add beta kristian when BP permits. Telemetry monitoring. Echocardiogram ordered. Cardiology consulted. Anion gap metabolic acidosis: Lactic acidosis. Likely related to multiple seizures. Status post multiple amps of sodium bicarb and sodium bicarb drip in the ED now discontinued. Most recent ABG shows improved bicarb of 25. Sepsis with unknown etiology: Versus SIRS. Leukocytosis, tachycardia, hypotensive which could all be reactive. No signs of active infection (CXR, UA). Antibiotics on hold at this time. Hyperkalemia: Status post IV insulin and bicarb. EKG with no peaked T waves. Repeat BMP tomorrow. Acute kidney injury: Currently on LR at 125 cc/hr. Avoid nephrotoxins. Repeat BMP tomorrow. Macrocytosis likely due to EtOH abuse PTSD and Depression: On Zoloft at home. History of drug abuse: On Suboxone at home. CODE STATUS: FULL CODE DVT Prophylaxis: Heparin drip. GI Prophylaxis: Protonix IV Designated medical POA if patient is not able to make medical decisions for themselves: I have reviewed the following software sales consultant notes: ED, Cardiology, Pulmonary note. I have reviewed the results of the following tests: As above. I have ordered the following tests: Echo and EEG. CBC and CMP tomorrow. Troponins I have discussed the care of this patient with the following independent historian: at bedside in the ED I have independently interpreted the following test below: EKG, CXR. I have discussed the management of this patient with the following physician: Dr. Henderson, Dr. Fish Medications and Allergies Home Medications Medication Instructions Recorded Confirmed Type Buprenorphine/Naloxone 8Mg/2Mg 1 film SL DAILY 05/30/24 05/30/24 History [Suboxone 8-2Mg Film] Sertraline [Zoloft] 100 mg PO DAILY 05/30/24 05/30/24 History Allergies Allergy/AdvReac Type Severity Reaction Status Date / Time Penicillins Allergy Unknown Verified 05/30/24 10:04 Physical Exam Vitals: Vital Signs Temp Pulse Resp BP Pulse Ox FiO2 05/30/24 13:00 87 20 92/70 100 50 05/30/24 12:45 91 90/63 99 05/30/24 12:38 50 05/30/24 12:36 50 05/30/24 12:30 95 91/68 100 05/30/24 12:29 93 05/30/24 12:15 92 93/69 100 05/30/24 12:00 93 20 89/67 100 50 05/30/24 11:45 94 87/66 100 05/30/24 11:30 96 86/65 99 05/30/24 11:15 98.3 F 93 20 86/69 100 100 05/30/24 11:00 100 05/30/24 10:21 100 20 94/66 99 05/30/24 10:00 102 H 20 91/64 99 05/30/24 09:20 102 H 20 91/64 99 05/30/24 08:54 112 H 20 108/69 96 05/30/24 08:35 112 H 20 98/63 96 05/30/24 08:08 100 05/30/24 08:00 113 H 20 97/62 97 05/30/24 07:30 99 36 H 114/78 93 L 05/30/24 07:20 96 18 98/65 94 L 100 05/30/24 07:15 62 18 153/89 94 L 05/30/24 07:09 37 L 18 61/33 90 L 05/30/24 07:01 96 24 92/62 98 05/30/24 06:55 91 24 93/57 99 05/30/24 06:45 81 16 90/55 99 05/30/24 06:29 97.5 F L 117 H 22 77/40 81 L Intake and Output 05/29/24 05/30/24 05/30/24 22:59 06:59 14:59 Intake Total 770.669 Output Total 420 Balance 350.669 Intake: IV 738 Dextrose 5% in Water 1, 250 000 ml @ 100 mls/hr IV . [id number] [facility] with Sodium Bicarb (1 Meq/ml) 150 ml Rx#:[id number] Lactated Ringers 1,000 ml 60 @ 125 mls/hr IV .Q8H [facility] Rx#:[id number] Normal Saline Pressure 3 Bag Sodium Chloride 0.9% 1, 325 000 ml @ 130 mls/hr IV . Q7H42M [facility] Rx#:[id number] metroNIDAZOLE-NS PMX 500 100 mg In Saline 1 100ml.bag @ 100 mls/hr IVPB Q8H [facility] Rx#:[id number] Intake, IV Titration 32.669 Amount propofoL 1,000 mg In 32.669 Empty Bag 1 bag @ 15 MCG/ KG/MIN 6.736 mls/hr IV . [id number] [facility] Rx#:[id number] Output: Urine 420 Other: Weight 74.843 kg Results CBC & Chem 7: 05/30/24 06:39 05/30/24 06:39 Labs: Abnormal Lab Results - Last 24 Hours (Table) 05/30/24 05/30/24 05/30/24 Range/Units 06:39 06:39 06:39 WBC 16.6 H (3.8-10.6) k/uL MCV 103.6 H (80.0-100.0) fL Lymphocytes # 10.7 H (1.0-4.8) k/uL ABG pH (7.35-7.45) ABG pO2 (83-108) mmHg ABG HCO3 (21-25) mmol/L ABG Total CO2 (19-24) mmol/L ABG O2 Saturation (94-97) % VBG pH (7.31-7.41) VBG pCO2 (37-51) mmHg VBG HCO3 (24-28) mmol/L Potassium 5.8 H (3.5-5.1) mmol/L Carbon Dioxide <5 L* (22-30) mmol/L Creatinine 1.52 H (0.66-1.25) mg/dL Glucose 345 H (74-99) mg/dL POC Glucose (mg/dL) (70-110) mg/dL Plasma Lactic Acid Jonas (0.7-2.0) mmol/L Magnesium 2.8 H (1.6-2.3) mg/dL Troponin I 0.151 H* (0.000-0.034) ng/mL Total Protein 8.5 H (6.3-8.2) g/dL Albumin 5.3 H (3.5-5.0) g/dL Urine Protein (Negative) Urine Glucose (UA) (Negative) Urine Blood (Negative) Urine Bacteria (None) /hpf U Benzodiazepines Scrn (NotDetected) U Marijuana (THC) Screen (NotDetected) 05/30/24 05/30/24 05/30/24 Range/Units 07:25 08:11 08:17 WBC (3.8-10.6) k/uL MCV (80.0-100.0) fL Lymphocytes # (1.0-4.8) k/uL ABG pH 6.99 L* (7.35-7.45) ABG pO2 170 H (83-108) mmHg ABG HCO3 8 L* (21-25) mmol/L ABG Total CO2 9 L (19-24) mmol/L ABG O2 Saturation 98.2 H (94-97) % VBG pH 6.61 L* (7.31-7.41) VBG pCO2 62 H (37-51) mmHg VBG HCO3 6 L* (24-28) mmol/L Potassium (3.5-5.1) mmol/L Carbon Dioxide (22-30) mmol/L Creatinine (0.66-1.25) mg/dL Glucose (74-99) mg/dL POC Glucose (mg/dL) 371 H (70-110) mg/dL Plasma Lactic Acid Jonas (0.7-2.0) mmol/L Magnesium (1.6-2.3) mg/dL Troponin I (0.000-0.034) ng/mL Total Protein (6.3-8.2) g/dL Albumin (3.5-5.0) g/dL Urine Protein (Negative) Urine Glucose (UA) (Negative) Urine Blood (Negative) Urine Bacteria (None) /hpf U Benzodiazepines Scrn (NotDetected) U Marijuana (THC) Screen (NotDetected) 05/30/24 05/30/24 05/30/24 Range/Units 08:53 10:41 11:00 WBC (3.8-10.6) k/uL MCV (80.0-100.0) fL Lymphocytes # (1.0-4.8) k/uL ABG pH (7.35-7.45) ABG pO2 (83-108) mmHg ABG HCO3 (21-25) mmol/L ABG Total CO2 (19-24) mmol/L ABG O2 Saturation (94-97) % VBG pH (7.31-7.41) VBG pCO2 (37-51) mmHg VBG HCO3 (24-28) mmol/L Potassium (3.5-5.1) mmol/L Carbon Dioxide (22-30) mmol/L Creatinine (0.66-1.25) mg/dL Glucose (74-99) mg/dL POC Glucose (mg/dL) 138 H (70-110) mg/dL Plasma Lactic Acid Jonas 10.7 H* (0.7-2.0) mmol/L Magnesium (1.6-2.3) mg/dL Troponin I (0.000-0.034) ng/mL Total Protein (6.3-8.2) g/dL Albumin (3.5-5.0) g/dL Urine Protein 1+ H (Negative) Urine Glucose (UA) 3+ H (Negative) Urine Blood Moderate H (Negative) Urine Bacteria Rare H (None) /hpf U Benzodiazepines Scrn Detected H (NotDetected) U Marijuana (THC) Screen Detected H (NotDetected) 05/30/24 05/30/24 05/30/24 Range/Units 12:18 12:25 12:25 WBC (3.8-10.6) k/uL MCV (80.0-100.0) fL Lymphocytes # (1.0-4.8) k/uL ABG pH (7.35-7.45) ABG pO2 >420 H (83-108) mmHg ABG HCO3 (21-25) mmol/L ABG Total CO2 26 H (19-24) mmol/L ABG O2 Saturation 100.6 H (94-97) % VBG pH (7.31-7.41) VBG pCO2 (37-51) mmHg VBG HCO3 (24-28) mmol/L Potassium (3.5-5.1) mmol/L Carbon Dioxide (22-30) mmol/L Creatinine (0.66-1.25) mg/dL Glucose (74-99) mg/dL POC Glucose (mg/dL) (70-110) mg/dL Plasma Lactic Acid Jonas 2.6 H* (0.7-2.0) mmol/L Magnesium (1.6-2.3) mg/dL Troponin I 7.010 H* (0.000-0.034) ng/mL Total Protein (6.3-8.2) g/dL Albumin (3.5-5.0) g/dL Urine Protein (Negative) Urine Glucose (UA) (Negative) Urine Blood (Negative) Urine Bacteria (None) /hpf U Benzodiazepines Scrn (NotDetected) U Marijuana (THC) Screen (NotDetected)
[2024-05-30] MEDS: ASPIRIN 325 MG TAB PO SCH (16:02)
[2024-05-30 16:13] LABS: African American GFR (CKD) 62 (>60 ml/min/1.73 sqM); Anion Gap 9 mmol/L; Calcium 8.1 mg/dL (8.4-10.2); Carbon Dioxide 22 mmol/L (22-30); Chloride 110 mmol/L (98-107); Glucose 103 mg/dL (74-99); Non-African American GFR(CKD) 54 (>60 ml/min/1.73 sqM); Potassium 2.8 mmol/L (3.5-5.1); Sodium 141 mmol/L (137-145)
--- NOTE | 2024-05-30 16:17 | P.CNNES ---
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 EMS flowsheet not available in the chart. Patient's was present, who provided with a history. She mentions that yesterday was a normal day, he made dinner at night and plan to do camping inside the living room with his daughter. At 10:30 PM, he told her that he was tired and wanted to sleep. Patient was laying on the couch and went to sleep. She went in her room. At around 5:30 AM this morning she heard him coughing in the bathroom. He then came into the bedroom, lifted her covers, trembling, told her that something is not right. He went back to the bathroom, threw some water on his face, dried with a towel, came in, and at that time was not able to formulate words or sentences. Patient then said to his "you are not my " and then had a blank stare. Patient's got very concerned, started calling 911. She closed the door behind him for her safety and then when she slowly opened the door after calling 911, patient was on the bed, seizing. He seized for about 3 to 4 minutes and was foaming from the mouth, was "out of it". He did not bite his tongue. He was brought to the hospital by ambulance. While patient was being prepared to transfer in the ambulance, patient had a second seizure. Vital signs on arrival blood pressure 77/40, pulse rate 1 and 17, temperature 97.5. Blood test shows WBC 16.6, hemoglobin 14.8 with elevated MCV 103.6. Platelets are normal. Sodium is normal potassium 5.8, BUN 14 creatinine 1.52. Hepatic panel is normal. Troponin is elevated. Blood alcohol level negative. Acetone negative. Influenza, RSV and coronavirus PCR negative. Lactate was 10.7. EKG showed sinus rhythm. Chest x-ray showed no change in acute cardiopulmonary disease. NG tube and ET tube present. CT of the head showed no significant abnormality. There is no acute process. I personally reviewed CT head, agree w ith the findings. On my review, there is somewhat questionable effacement of the sulci particularly in the frontal parietal region. No previous CT scans available for comparison. CT of the abdomen pelvis revealed no acute changes within the abdomen or pelvis. When patient arrived to the ER, patient was in postictal state. Patient had a third seizure in the ER, in which he had a cardiac arrest for about 4 minutes. Patient received 2 rounds of epi and 1 bicarbonate infusion. He was intubated, and transferred to ICU. No subsequent seizures has been noted since he arrived to the ICU. Patient takes Suboxone and Zoloft 100 mg. No previous history of seizure, childhood epilepsy, or any family history of epilepsy. No previous history of concussions. Patient vapes. He smokes marijuana. No drug use. He does drink 2 tall boys beer every day for as long as she can remember. They have been together for about 12 years. Patient's mentions that last week they went to [facility] where they stayed for 5 days. While he was in [place], he was drinking about 6 tall boys every day. On Friday he did not drink as he was driving back home. On Friday, yesterday he drank as usual 2 tall boys. And he had seizure this morning on Friday. Patient also suffered from confirmed COVID infection on 05/06/2024. Patient has history of PTSD. Patient has history of prescription pill abuse in his 20s. He has been on Suboxone, and has been clean for the last 11 or 12 years. They have an mutual daughter. Review of Systems Completely unremarkable, except as mentioned in HPI as per patient's . He has been otherwise healthy, although has sometimes anxiety. Medications and Allergies Home Medications Medication Instructions Recorded Confirmed Type Buprenorphine/Naloxone 8Mg/2Mg 1 film SL DAILY 05/30/24 05/30/24 History [Suboxone 8-2Mg Film] Sertraline [Zoloft] 100 mg PO DAILY 05/30/24 05/30/24 History Allergies Allergy/AdvReac Type Severity Reaction Status Date / Time Penicillins Allergy Unknown Verified 05/30/24 10:04 Physical Examination - Vital Signs Vital Signs: Vital Signs Temp Pulse Resp BP Pulse Ox FiO2 05/30/24 11:00 100 05/30/24 10:21 100 20 94/66 99 05/30/24 10:00 102 H 20 91/64 99 05/30/24 09:20 102 H 20 91/64 99 05/30/24 08:54 112 H 20 108/69 96 05/30/24 08:35 112 H 20 98/63 96 05/30/24 08:08 100 05/30/24 08:00 113 H 20 97/62 97 05/30/24 07:30 99 36 H 114/78 93 L 05/30/24 07:23 100 05/30/24 07:20 96 18 98/65 94 L 100 05/30/24 07:15 62 18 153/89 94 L 05/30/24 07:09 37 L 18 61/33 90 L 05/30/24 07:01 96 24 92/62 98 05/30/24 06:55 91 24 93/57 99 05/30/24 06:45 81 16 90/55 99 05/30/24 06:29 97.5 F L 117 H 22 77/40 81 L Intake and Output 05/29/24 05/30/24 05/30/24 22:59 06:59 14:59 Intake Total 32.669 Balance 32.669 Intake: Intake, IV Titration 32.669 Amount propofoL 1,000 mg In 32.669 Empty Bag 1 bag @ 15 MCG/ KG/MIN 6.736 mls/hr IV . [id number] [facility] Rx#:[id number] Other: Weight 74.843 kg Patient is a middle aged male, intubated, sedated with propofol 50 mcg/kg/min. No obvious seizure-like activity noted. Patient is medically sedated, completely unresponsive. On cranial nerve examination, pupils are equal, round and reacting to light, oculocephalics are absent. Patient does have a gag. On muscle strength testing, patient is not responding to painful stimuli. Deep tendon reflexes are symmetric 1 at the biceps, 1 brachioradialis, 2 at the knees, plantars are flat bilaterally. Sensory to touch and noxious stimuli does not produce any response. Patient is sedated. Cerebellar function cannot be assessed. Tone and bulk of muscles normal. Gait deferred.. On general examination, there is no carotid bruit or murmur, S1-S2 audible. Chest is clear on consultation. Abdomen is soft nontender. No organomegaly, bowel sounds present. Peripheral pulses are present. No peripheral edema. Neck is supple, no rigidity. Results - Laboratory Findings CBC and BMP: 05/30/24 06:39 05/30/24 14:44 Abnormal Lab Findings: Abnormal Labs 05/30/24 05/30/24 05/30/24 06:39 06:39 06:39 WBC 16.6 H MCV 103.6 H Lymphocytes # 10.7 H ABG pH ABG pO2 ABG HCO3 ABG Total CO2 ABG O2 Saturation VBG pH VBG pCO2 VBG HCO3 Potassium 5.8 H Carbon Dioxide <5 L* Creatinine 1.52 H Glucose 345 H POC Glucose (mg/dL) Plasma Lactic Acid Jonas Magnesium 2.8 H Troponin I 0.151 H* Total Protein 8.5 H Albumin 5.3 H 05/30/24 05/30/24 05/30/24 07:25 08:11 08:17 WBC MCV Lymphocytes # ABG pH 6.99 L* ABG pO2 170 H ABG HCO3 8 L* ABG Total CO2 9 L ABG O2 Saturation 98.2 H VBG pH 6.61 L* VBG pCO2 62 H VBG HCO3 6 L* Potassium Carbon Dioxide Creatinine Glucose POC Glucose (mg/dL) 371 H Plasma Lactic Acid Jonas Magnesium Troponin I Total Protein Albumin 05/30/24 05/30/24 08:53 10:41 WBC MCV Lymphocytes # ABG pH ABG pO2 ABG HCO3 ABG Total CO2 ABG O2 Saturation VBG pH VBG pCO2 VBG HCO3 Potassium Carbon Dioxide Creatinine Glucose POC Glucose (mg/dL) 138 H Plasma Lactic Acid Jonas 10.7 H* Magnesium Troponin I Total Protein Albumin Assessment and Plan Assessment: * New onset seizures, likely due to alcohol withdrawal. Patient has l ongstanding history of drinking 2 tall boys every day. He recently went to [facility] for 5 days where he was drinking much more heavily, then stop drinking on Friday, drank 2 tall boys on Friday and had a seizure this morning. Blood alcohol level was negative, likely indicating alcohol withdrawal seizure. * Status postcardiac arrest after third seizure, with downtime of 4 minutes. * Elevated cardiac enzymes, rule out acute MS * Lactic acidosis, due to recurrent seizures * Hyperkalemia * Elevated troponin * History of moderate alcoholism * Macrocytosis, likely due to alcoholism * Marijuana use * Vapes * History of PTSD Plan: * Patient is intubated, sedated with propofol 50 mcg/kg/min. No obvious signs of recurrent seizures. * Patient is on heparin for elevated cardiac enzymes. Cardiology on board. * Stat EEG rule out status epilepticus. * Hemoglobin A1c * Repeat CT head in the next 24 to 48 hours, if mentation does not improve. * Hold off on acyclovir, as seizure likely from alcohol withdrawal. Discussed with primary physician. * Patient's was informed of [place] state law of no driving unless seizure-free for 6 months, climbing ladders, operating dangerous machinery or unsupervised swimming. * Recommend abstinence from marijuana, alcoholism and vaping. * Other medical management as per IM and other specialties on board. * Dr. Bud Whitlock to resume neurology service in the morning. * Thank you for the consultation. Time with Patient: Greater than 30
[2024-05-30 16:23] LABS: Blood Urea Nitrogen 20 mg/dL (9-20)
[2024-05-30] MEDS ORDERED: Potassium Replacement Protocol 1 EACH MISC MISCELLANE PRN (16:29)
[2024-05-30] MEDS: POTASSIUM BICARBONATE/CIT AC 20 MEQ TABLET.EFF NG-TUBE SCH (17:02)
--- NOTE | 2024-05-30 20:12 | PCN ---
PROCEDURE NOTE PULMONARY/CRITICAL CARE PROCEDURE NOTE: PROCEDURE PERFORMED: Left subclavian triple-lumen catheter. PREOPERATIVE DIAGNOSIS: Administration of fluids and pressors. POSTOPERATIVE DIAGNOSIS: Administration of fluids and pressors. HYDRAULIC ROCKBREAKER OPERATOR: Dr. Whitlock. FIRST REINFORCING METAL WORKER: Dr. Lilliana Valentine. There was informed consent, there was universal time-out. A time-out was completed verifying correct patient, procedure, site, positioning, and implant or special equipment if applicable. DESCRIPTION OF PROCEDURE: The patient's procedure took place in room #259. We used the left subclavian approach. The patient was placed in a dependent position appropriate for triple lumen catheter placement based on the vein to be cannulated. The patient's left shoulder was prepped and draped in sterile fashion. 1% Lidocaine was used to anesthetize the surrounding skin area. A triple lumen 9F Cordis catheter was introduced into the left subclavian vein using Seldinger technique. The catheter was threaded smoothly over the guide wire and appropriate blood return was obtained. Each lumen of the catheter was evacuated of air and flushed with sterile saline. The catheter was then sutured in place to the skin and a sterile dressing applied. Perfusion to the extremity distal to the point of catheter insertion was checked and found to be adequate. There was good blood return from all 3 ports the patient tolerated the procedure well. There was no immediate complication. Triple catheter was seen at the junction of superior vena cava right atrium. A chest x-ray was ordered. The patient tolerated the procedure well without any difficulty. MMODL / IJN: [id number] /
--- NOTE | 2024-05-30 20:22 | PCN ---
PROCEDURE NOTE PULMONARY/CRITICAL CARE PROCEDURE NOTE PROCEDURE: Right radial art line. PREOPERATIVE DIAGNOSIS: Frequent blood draws and blood gas monitoring. POSTOPERATIVE DIAGNOSIS: Frequent blood draws and blood gas monitoring. FIRST GAS PLANT OPERATOR: Dr. Lilliana Valentine. The patient's procedure took place in room #259. There was informed consent. ARTERIAL LINE PLACEMENT: Indications: Hemodynamic monitoring. A time-out was completed verifying correct patient, procedure, site, positioning, and implant(s) or special equipment if applicable. Jethro's test was performed to ensure adequate perfusion. The patient's right wrist was prepped and draped in sterile fashion. 1% Lidocaine was used to anesthetize the area. An 18G Arrow arterial line was introduced into the radial/femoral artery. The catheter was threaded over the guide wire and the needle was removed with appropriate pulsatile blood return. Blood loss was minimal. The catheter was then sutured in place to the skin and a sterile dressing applied. Perfusion to the extremity distal to the point of catheter insertion was checked and found to be adequate. The patient tolerated the procedure well and there were no complications. There was good blood return and waveform. The patient tolerated the procedure well. There was no immediate complication. The catheter was sutured in place. A sterile dressing was applied by the nurse. MMODL / IJN: [id number] /
[2024-05-30] MEDS: CHLORHEXIDINE GLUCONATE 15 ML CUP MUCOUS MEM SCH (20:57)
[2024-05-30 22:00] LABS: Glucose,Whole Blood 112 mg/dL (70-110)
[2024-05-31 00:12] LABS: Glucose,Whole Blood 96 mg/dL (70-110)
[2024-05-31] MEDS: POTASSIUM BICARBONATE/CIT AC 20 MEQ TABLET.EFF NG-TUBE SCH (00:51)
--- NOTE | 2024-05-31 03:03 | EEG ---
ELECTROENCEPHALOGRAM REPORT PREAMBLE: This is a 44-year-old male with new-onset seizure and the third one was associated with cardiac arrest with down time of 4 minutes. This study is performed to evaluate for encephalopathy, rule out any epileptiform activity. EEG FINDINGS: This is a 21-channel digital EEG recorded with video component, utilizing 10/20 international system with referential and bipolar montages. The recording starts and continues with presence of predominantly low to medium amplitude fast frequency beta activity seen in bihemispheric region. Intermittent slowing in theta and occasional delta range was seen. Occasional periods of suppression were seen. Different stages of sleep were not clearly seen. No focal or generalized epileptiform activity was seen. No electrographic seizure was recorded. IMPRESSION: This is an abnormal EEG due to the presence of excessive amount of low-voltage fast frequency beta activity suggestive of benzodiazepine effect. Otherwise, some intermittent slowing was seen with some periods of suppression, suggestive of encephalopathy/medication effect. No focal, lateralized, or epileptiform activity was seen. Clinical correlation strongly recommended. MMYASMNAI / AGUSTO: [id number] /
[2024-05-31] MEDS: LORazepam 2 MG/ML INJ IV PRN (03:19)
[2024-05-31 05:10] LABS: Glucose,Whole Blood 121 mg/dL (70-110)
[2024-05-31 05:13] LABS: ABG HCO3 25 mmol/L (21-25); ABG PCO2 34 mmHg (35-45); ABG PH 7.48 (7.35-7.45); ABG PO2 155 mmHg (83-108); ABG TCO2 26 mmol/L (19-24)
[2024-05-31 05:28] LABS: Allen Test Performed? no
[2024-05-31 05:45] LABS: Partial Thromboplastin Time 60.1 sec (22.0-30.0); Prothrombin Time 11.1 sec (10.0-12.5)
[2024-05-31 05:57] LABS: Basophils % (A) 0 %; Eosinophils % (A) 1 %; HCT 28.7 % (39.0-53.0); Lymphocytes % (A) 16 %; MCH 32.9 pg (25.0-35.0); MCHC 34.9 g/dL (31.0-37.0); Mean Platelet Volume 8.2; Monocytes # (A) 0.4 k/uL (0-1.0); Monocytes % (A) 7 %; Neutrophils # (A) 4.6 k/uL (1.3-7.7); Neutrophils % (A) 75 %; RBC 3.05 m/uL (4.30-5.90); RDW 13.5 % (11.5-15.5); WBC 6.1 k/uL (3.8-10.6)
[2024-05-31 06:06] LABS: MCV 94.2 fL (80.0-100.0)
[2024-05-31 06:37] LABS: Platelet Count 101 k/uL (150-450); RBC Morphology Normal
[2024-05-31 07:01] LABS: ALT 41 U/L (4-49); AST 102 U/L (17-59); African American GFR (CKD) 28 (>60 ml/min/1.73 sqM); Alkaline Phosphatase 68 U/L (38-126); Anion Gap 7 mmol/L; Blood Urea Nitrogen 24 mg/dL (9-20); Carbon Dioxide 23 mmol/L (22-30); Chloride 111 mmol/L (98-107); Glucose 121 mg/dL (74-99); Magnesium 2.9 mg/dL (1.6-2.3); Non-African American GFR(CKD) 24 (>60 ml/min/1.73 sqM); Potassium 4.4 mmol/L (3.5-5.1); Sodium 141 mmol/L (137-145); Total Bilirubin 0.5 mg/dL (0.2-1.3); Total Protein 5.6 g/dL (6.3-8.2)
--- NOTE | 2024-05-31 08:05 | XR ---
EXAMINATION TYPE: XR chest 1V portable DATE OF EXAM: 05/31/2024 4:54 AM CLINICAL INDICATION:Male, 44 years old with history of Tube placement; [facility] COMPARISON: Chest radiographs from TECHNIQUE: XR chest 1V portable Frontal view of the chest. FINDINGS: Lungs/Pleura: There is no evidence of pleural effusion, focal consolidation, or pneumothorax. Pulmonary vascularity: Unremarkable. Heart/mediastinum: Cardiomediastinal silhouette is unremarkable. Musculoskeletal: No acute osseous pathology. Other findings: None Lines/Tubes: Endotracheal tube with distal tip 5.5 cm above the erlinda. Nasogastric tube with its distal tip and side-port projecting under the diaphragm. Left internal jugular central venous catheter with distal tip at the cavoatrial junction. IMPRESSION: Stable exam, stable support tubes and line.
[2024-05-31] MEDS: PANTOPRAZOLE 40 MG/10 ML VIAL IV SCH (08:09)
--- NOTE | 2024-05-31 09:50 | US ---
EXAMINATION TYPE: US renals and bladder DATE OF EXAM: 05/31/2024 COMPARISON: 05/22/2024. CLINICAL INDICATION: Male, 44 years old with history of raine; Intubated ICU patient with seizures, abn labs EXAM MEASUREMENTS: Right Kidney: 10.7 x 5.3 x 4.7 cm Left Kidney: 13.0 x 5.0 x 5.3 cm Right Kidney: mild hydronephrosis Left Kidney: No hydronephrosis or masses seen Bladder: fatima seen There is no evidence for hydronephrosis at this point in time. No nephrolithiasis is seen. No griselda s are identified. The urinary bladder is anechoic. Bilateral ureteral jets are seen. IMPRESSION: 1. Mild right renal dilation possibly extrarenal pelvis. Findings similar CT. 2. Fatima catheter in place.
--- NOTE | 2024-05-31 11:34 | P.PN ---
Subjective Progress Note Date: 05/31/24 44 year old M with PMH of EtOH abuse, PTSD, Depression, h/o hypertension presents to the ED. Patient is currently intubated and history is obtained from the at bedside. reports the patient woke up this morning and as he was coming back from the washroom he appeared to be shaking, confused and delirious. reports that he couldn't speak. She left the room to call EMS and found that patient having a seizure that lasted 3-4 minutes. 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 He recently lost his mother, father and sister in the past 7 years and has been dealing with depression. She reports that he drinks 2 tallboys daily (as far as she is aware). Previous his tory of drug abuse currently on Suboxone. Patient was noted to have a grand mal seizure in the ED given 7 mg of IV Ativan. Following his seizure, had an episode of bradycardia and hypotension with loss of pulse. ACLS was initiated requiring 4 minutes of CPR, epinephrine and bicarb, ROSC was achieved. CBC and CMP was significant for WBC 16.6, MCV 103.6, K 5.8, bicarb < 5, Cr 1.52, glu 345, alb 5.3. Mag 2.8, Lactic acid 10.7-2.6. UA 3+ glucose and moderate blood, no LE or nitrite. UDS + benzo and THC. Serum alcohol and acetone negative. COVID/RSV/Flu negative. VBG pH 6.61, pCO2 62. Troponin 0.151, 7.01. ABG post cardiac arrest pH 6.99, pCO2 35 and subsequently pH 7.43, pCO2 38. CXR shows ET tube with no acute process. Brain CT negative. CT AP negative. EKG showed sinus rhythm with nonspecific ST and T wave abnormalities and evidence of LVH. Patient is admitted to ICU for further workup and management. Started on Keppra 1000 mg IV BID, Neurology consulted, EEG ordered showing excessive amount of low-voltage fast frequency beta activity suggestive of benzodiazepine effect. Troponin 0.151, 7.01, 7.08, 4.[address] elevation on EKG. Cardiology consulted, started on a Heparin drip and Echo ordered. Worsening renal function, renal US showing mild R hydro, Urology and Nephrology consulted. Sputum Cx growing Group C strep. ID consulted to guide antibiotic therapy. 7/29 Patient was seen and examined. Currently intubated. Currently on Propofol 50 mcg/kg/min. Maintained on Keppra 1000 mg IV BID. Maintained on Heparin drip at 10 units/kg/hr. LR running at 125 cc/hr. Sputum Cx growing beta hemolytic strep. CXR shows no focal consolidation. Renal US shows mild right renal dilation. ABG pH 7.48, pCO2 34. CBC, Coag panel, CMP significant for RBC 3.05, Hg 10, Hct 28.7, Plt 101, APTT 60.1, Cl 111, BUN 24, Cr 2.99, glu 121, AST 102, alb 3. Mag 2.9. Pro-elisabeth is 3.96. General: Intubated and sedated Derm: warm, dry Head: atraumatic, normocephalic, symmetric Eyes: no lid lag, anicteric sclera Mouth: no lip lesion, mucus membranes moist Cardiovascular: S1S2 reg, no murmur Lungs: Coarse ventilator BS bilateral, no rhonchi, no rales , no accessory muscle use Ext: no gross muscle atrophy, no edema, no contractures Neuro: Moving all 4 extremities Psych: Sedated Based on my assessment of this patient, this patient meets a high complexity level of care. Acute hypoxic respiratory failure likely related to below Cardiac arrest likely related to seizure and severe metabolic derangement: Underwent CPR and ROSC achieved in the ED. Grand mal seizure likely related to alcohol withdrawal: CIWA protocol with Ativan PRN. Keppra 1000 mg IV BID. EEG as above. Seizure pads and precautions. Neurology on board. NSTEMI: Uptrending troponins. ASA 325 mg PO QD. Started on low intensity Heparin drip. Add beta kristian when BP permits. Telemetry monitoring. Echocardiogram pending. Cardiology on board. Sepsis with unknown etiology: Versus SIRS. Leukocytosis, tachycardia, hypotensive which could all be reactive. No signs of active infection (CXR, UA). Sputum Cx growing Group C strep. Allergy to PCN. Follow BCx. Consult ID. Acute kidney injury: Prerenal component given cardiac arrest. Renal US shows mild right hydro. Currently on LR at 125 cc/hr. Avoid nephrotoxins. Nephrology and Urology consulted. Macrocytic anemia likely due to EtOH abuse: Drop in Hg is likely dilutional. Thrombocytopenia: Likely related to EtOH abuse. Intermediate probability of HIT. Order HIT panel. Trend. PTSD and Depression: On Zoloft at home. History of drug abuse: On Suboxone at home. Resolved: Anion gap metabolic acidosis due to lactic acidosis, HyperK CODE STATUS: FULL CODE DVT Prophylaxis: Heparin drip. GI Prophylaxis: Protonix IV Designated medical POA if patient is not able to make medical decisions for themselves: I have reviewed the following store sales consultant notes: Neurology note. I have reviewed the results of the following tests: CBC, Coag panel, CMP, Troponin, Mag, Pro-elisabeth, Renal US, ABG, Sputum Cx, EEG. I have ordered the following tests: CBC and BMP tomorrow. HIT panel. Echo is sherry amato. I have discussed the care of this patient with the following independent historian: RN at bedside. I have independently interpreted the following test below: CXR. I have discussed the management of this patient with the following physician: Objective - Vital Signs Vital signs: Vital Signs Temp 98.2 F 05/31/24 08:00 Pulse 76 05/31/24 11:00 Resp 18 05/31/24 11:00 BP 126/91 05/31/24 11:00 Pulse Ox 99 05/31/24 11:00 FiO2 35 05/31/24 11:00 Intake & Output 05/30/24 05/31/24 05/31/24 18:59 06:59 18:59 Intake Total 8276.984 7609.543 83.861 Output Total 503 715 Balance 3065.896 4625.543 83.861 Weight 81.9 kg 86 kg Intake: IV 1378 1664 Dextrose 5% in Water 1, 250 000 ml @ 100 mls/hr IV . [id number] YESENIA with Sodium Bicarb (1 Meq/ml) 150 ml Rx#:[id number] Lactated Ringers 1,000 ml 685 1625 @ 125 mls/hr IV .Q8H YESENIA Rx#:[id number] Normal Saline Pressure 18 39 Bag Sodium Chloride 0.9% 1, 325 000 ml @ 130 mls/hr IV . [id number] YESENIA Rx#:[id number] metroNIDAZOLE-NS PMX 500 100 mg In Saline 1 100ml.bag @ 100 mls/hr IVPB Q8H YESENIA Rx#:[id number] Intake, IV Titration 163.466 300.543 83.861 Amount Heparin Sod,Pork in 0.45% 63.466 NaCl 25,000 unit In 0.45 % NaCl 1 250ml.bag @ 12 UNITS/KG/HR 8.981 mls/hr IV .Q24H YESENIA Rx#: [id number] propofoL 1,000 mg In 100.000 300.543 83.861 Empty Bag 1 bag @ 15 MCG/ KG/MIN 6.736 mls/hr IV . [id number] YESENIA Rx#:[id number] Output: Urine 503 715 Other: Voiding Method Indwelling Catheter Indwelling Catheter ABP, PAP, CO, CI - Last Documented Arterial Blood Pressure 144/89 - Labs CBC & Chem 7: 05/31/24 05:10 05/31/24 05:10 Labs: Abnormal Lab Results - Last 24 Hours (Table) 05/30/24 05/30/24 05/30/24 Range/Units 06:39 11:00 12:18 RBC (4.30-5.90) m/uL Hgb (13.0-17.5) gm/dL Hct (39.0-53.0) % Plt Count (150-450) k/uL APTT (22.0-30.0) sec ABG pH (7.35-7.45) ABG pCO2 (35-45) mmHg ABG pO2 (83-108) mmHg ABG Total CO2 (19-24) mmol/L ABG O2 Saturation (94-97) % Potassium (3.5-5.1) mmol/L Chloride (98-107) mmol/L BUN (9-20) mg/dL Creatinine (0.66-1.25) mg/dL Glucose (74-99) mg/dL POC Glucose (mg/dL) (70-110) mg/dL Plasma Lactic Acid Jonas (0.7-2.0) mmol/L Calcium (8.4-10.2) mg/dL Magnesium (1.6-2.3) mg/dL AST (17-59) U/L Troponin I 7.010 H* (0.000-0.034) ng/mL Total Protein (6.3-8.2) g/dL Albumin (3.5-5.0) g/dL Procalcitonin 3.96 H (0.02-0.50) ng/mL Urine Protein 1+ H (Negative) Urine Glucose (UA) 3+ H (Negative) Urine Blood Moderate H (Negative) Urine Bacteria Rare H (None) /hpf U Benzodiazepines Scrn Detected H (NotDetected) U Marijuana (THC) Screen Detected H (NotDetected) 05/30/24 05/30/24 05/30/24 Range/Units 12:25 12:25 14:44 RBC (4.30-5.90) m/uL Hgb (13.0-17.5) gm/dL Hct (39.0-53.0) % Plt Count (150-450) k/uL APTT 84.4 H (22.0-30.0) sec ABG pH (7.35-7.45) ABG pCO2 (35-45) mmHg ABG pO2 >420 H (83-108) mmHg ABG Total CO2 26 H (19-24) mmol/L ABG O2 Saturation 100.6 H (94-97) % Potassium (3.5-5.1) mmol/L Chloride (98-107) mmol/L BUN (9-20) mg/dL Creatinine (0.66-1.25) mg/dL Glucose (74-99) mg/dL POC Glucose (mg/dL) (70-110) mg/dL Plasma Lactic Acid Jonas 2.6 H* (0.7-2.0) mmol/L Calcium (8.4-10.2) mg/dL Magnesium (1.6-2.3) mg/dL AST (17-59) U/L Troponin I (0.000-0.034) ng/mL Total Protein (6.3-8.2) g/dL Albumin (3.5-5.0) g/dL Procalcitonin (0.02-0.50) ng/mL Urine Protein (Negative) Urine Glucose (UA) (Negative) Urine Blood (Negative) Urine Bacteria (None) /hpf U Benzodiazepines Scrn (NotDetected) U Marijuana (THC) Screen (NotDetected) 05/30/24 05/30/24 05/30/24 Range/Units 14:44 17:54 21:59 RBC (4.30-5.90) m/uL Hgb (13.0-17.5) gm/dL Hct (39.0-53.0) % Plt Count (150-450) k/uL APTT (22.0-30.0) sec ABG pH (7.35-7.45) ABG pCO2 (35-45) mmHg ABG pO2 (83-108) mmHg ABG Total CO2 (19-24) mmol/L ABG O2 Saturation (94-97) % Potassium 2.8 L (3.5-5.1) mmol/L Chloride 110 H (98-107) mmol/L BUN (9-20) mg/dL Creatinine 1.54 H (0.66-1.25) mg/dL Glucose 103 H (74-99) mg/dL POC Glucose (mg/dL) 112 H (70-110) mg/dL Plasma Lactic Acid Jonas (0.7-2.0) mmol/L Calcium 8.1 L (8.4-10.2) mg/dL Magnesium (1.6-2.3) mg/dL AST (17-59) U/L Troponin I 7.080 H* (0.000-0.034) ng/mL Total Protein (6.3-8.2) g/dL Albumin (3.5-5.0) g/dL Procalcitonin (0.02-0.50) ng/mL Urine Protein (Negative) Urine Glucose (UA) (Negative) Urine Blood (Negative) Urine Bacteria (None) /hpf U Benzodiazepines Scrn (NotDetected) U Marijuana (THC) Screen (NotDetected) 05/30/24 05/31/24 05/31/24 Range/Units 22:01 00:56 05:08 RBC (4.30-5.90) m/uL Hgb (13.0-17.5) gm/dL Hct (39.0-53.0) % Plt Count (150-450) k/uL APTT 66.2 H (22.0-30.0) sec ABG pH (7.35-7.45) ABG pCO2 (35-45) mmHg ABG pO2 (83-108) mmHg ABG Total CO2 (19-24) mmol/L ABG O2 Saturation (94-97) % Potassium (3.5-5.1) mmol/L Chloride (98-107) mmol/L BUN (9-20) mg/dL Creatinine (0.66-1.25) mg/dL Glucose (74-99) mg/dL POC Glucose (mg/dL) 121 H (70-110) mg/dL Plasma Lactic Acid Jonas (0.7-2.0) mmol/L Calcium (8.4-10.2) mg/dL Magnesium (1.6-2.3) mg/dL AST (17-59) U/L Troponin I 4.320 H* (0.000-0.034) ng/mL Total Protein (6.3-8.2) g/dL Albumin (3.5-5.0) g/dL Procalcitonin (0.02-0.50) ng/mL Urine Protein (Negative) Urine Glucose (UA) (Negative) Urine Blood (Negative) Urine Bacteria (None) /hpf U Benzodiazepines Scrn (NotDetected) U Marijuana (THC) Screen (NotDetected) 05/31/24 05/31/24 05/31/24 Range/Units 05:10 05:10 05:10 RBC 3.05 L (4.30-5.90) m/uL Hgb 10.0 L D (13.0-17.5) gm/dL Hct 28.7 L (39.0-53.0) % Plt Count 101 L D (150-450) k/uL APTT 60.1 H (22.0-30.0) sec ABG pH (7.35-7.45) ABG pCO2 (35-45) mmHg ABG pO2 (83-108) mmHg ABG Total CO2 (19-24) mmol/L ABG O2 Saturation (94-97) % Potassium (3.5-5.1) mmol/L Chloride 111 H (98-107) mmol/L BUN 24 H (9-20) mg/dL Creatinine 2.99 H (0.66-1.25) mg/dL Glucose 121 H (74-99) mg/dL POC Glucose (mg/dL) (70-110) mg/dL Plasma Lactic Acid Jonas (0.7-2.0) mmol/L Calcium (8.4-10.2) mg/dL Magnesium 2.9 H (1.6-2.3) mg/dL AST 102 H (17-59) U/L Troponin I (0.000-0.034) ng/mL Total Protein 5.6 L (6.3-8.2) g/dL Albumin 3.0 L (3.5-5.0) g/dL Procalcitonin (0.02-0.50) ng/mL Urine Protein (Negative) Urine Glucose (UA) (Negative) Urine Blood (Negative) Urine Bacteria (None) /hpf U Benzodiazepines Scrn (NotDetected) U Marijuana (THC) Screen (NotDetected) 05/31/24 Range/Units 05:11 RBC (4.30-5.90) m/uL Hgb (13.0-17.5) gm/dL Hct (39.0-53.0) % Plt Count (150-450) k/uL APTT (22.0-30.0) sec ABG pH 7.48 H (7.35-7.45) ABG pCO2 34 L (35-45) mmHg ABG pO2 155 H (83-108) mmHg ABG Total CO2 26 H (19-24) mmol/L ABG O2 Saturation 100.0 H (94-97) % Potassium (3.5-5.1) mmol/L Chloride (98-107) mmol/L BUN (9-20) mg/dL Creatinine (0.66-1.25) mg/dL Glucose (74-99) mg/dL POC Glucose (mg/dL) (70-110) mg/dL Plasma Lactic Acid Jonas (0.7-2.0) mmol/L Calcium (8.4-10.2) mg/dL Magnesium (1.6-2.3) mg/dL AST (17-59) U/L Troponin I (0.000-0.034) ng/mL Total Protein (6.3-8.2) g/dL Albumin (3.5-5.0) g/dL Procalcitonin (0.02-0.50) ng/mL Urine Protein (Negative) Urine Glucose (UA) (Negative) Urine Blood (Negative) Urine Bacteria (None) /hpf U Benzodiazepines Scrn (NotDetected) U Marijuana (THC) Screen (NotDetected) Microbiology - Last 24 Hours (Table) 05/30/24 08:12 Gram Stain - Preliminary Sputum Sputum Culture - Preliminary Beta Hemolytic Strep Group C
[2024-05-31 11:37] LABS: Glucose,Whole Blood 113 mg/dL (70-110)
--- NOTE | 2024-05-31 13:15 | P.PN ---
Subjective Progress Note Date: 05/31/24 Principal diagnosis: New onset seizures, inability to protect airways, requiring intubation mechanical ventilation, May 30 2024 This is a 44-year-old male with a history of depression, possibly PTSD, and hypertension. The patient apparently had a new onset seizure today, and was found by his , at home. The patient apparently was acting strange, and subsequent to that, was found on the bedroom floor, having a seizure. EMS was called and brought the patient into the emergency room. The patient had at least 2 seizures in the emergency room, and could not protect his airway, and was intubated for airway protection. The patient is seen in the emergency department, in trauma room 1. The patient had a initial blood gas,, showing a pO2 of 170, pCO2 of 35, pH is 6.99. Subsequent blood gas on 100% showed a pO2 of greater than 420, pCO2 of 38, and a pH of 7.43. Lactic acid was 10.7. Glucose was 138. Additional labs include a white count of 16.6, hemoglobin 14. 8, hematocrit 46.1, and a platelet count of 285,000. Sodium 144, potassium 5.8, chlorides 105, CO2 less than 5, BUN 14, creatinine 1.52. Glucose was 345. Lactic acid was 10.7. N-terminal proBNP was 319. Troponin was 0.151. Albumin 5.3. Viral screen was negative. Serum alcohol level was less than 10. Brain CT showed nothing acute. Chest x-ray showed no acute cardiopulmonary changes. CT of the abdomen and pelvis, was also negative. The did state, that the patient does use marijuana, does not smoke cigarettes at this time, and drinks occasionally heavily. Patient was evaluated today on 05/31/2024, patient remains intubated Niccoli ventilated. He is on assist-control rate of 20 tidal volume 500 FiO2 40% PEEP of 5 ABG showed a pO2 of 155 pCO2 34 pH of 7.48. Patient remains on the [facility] protocol for history of alcoholism. Remains on propofol at 40 mcg/kg/min he is also on LR at 125 mL/h chest x-ray showed no evidence of active disease. Labs were reviewed WBC count 6.1 hemoglobin is 10.0. PTT is 60 ABG showed a pO2 of 155 pCO2 34 pH of 7.48, hence vent settings were adjusted with rate down to 18 FiO2 down to 35%. Basic metabolic profile is normal however BUN is 24 cr eatinine 2.99, patient apparently developed acute tubular necrosis/acute kidney injury being addressed by nephrology on the case CPK is elevated at 799, troponin 4.32 and total protein is 5.6 albumin 3.0, looking back at this patient presentation, he had a brief cardiac arrest in the ER, received 2 epinephrines, downtime was few minutes, hence we will try to assess his mental status today for possible weaning and extubation. After going off sedation, patient seems to be arousable, follows simple instructions but was extremely agitated and restless, could not proceed to full extubation on this patient. Objective - Vital Signs Vital signs: Vital Signs Temp 98.2 F 05/31/24 08:00 Pulse 74 05/31/24 11:47 Resp 18 05/31/24 11:00 BP 126/91 05/31/24 11:00 Pulse Ox 99 05/31/24 11:00 FiO2 35 05/31/24 12:00 Intake & Output 05/30/24 05/31/24 05/31/24 18:59 06:59 18:59 Intake Total 4598.732 2459.543 723.861 Output Total 503 715 540 Balance 0659.257 9879.543 183.861 Weight 81.9 kg 86 kg 86 kg Intake: IV 1378 1664 640 Dextrose 5% in Water 1, 250 000 ml @ 100 mls/hr IV . [id number] YESENIA with Sodium Bicarb (1 Meq/ml) 150 ml Rx#:[id number] Lactated Ringers 1,000 ml 685 1625 625 @ 125 mls/hr IV .Q8H YESENIA Rx#:[id number] Normal Saline Pressure 18 39 15 Bag Sodium Chloride 0.9% 1, 325 000 ml @ 130 mls/hr IV . Q7H42M YESENIA Rx#:[id number] metroNIDAZOLE-NS PMX 500 100 mg In Saline 1 100ml.bag @ 100 mls/hr IVPB Q8H [facility] Rx#:[id number] Intake, IV Titration 163.466 300.543 83.861 Amount Heparin Sod,Pork in 0.45% 63.466 NaCl 25,000 unit In 0.45 % NaCl 1 250ml.bag @ 12 UNITS/KG/HR 8.981 mls/hr IV .Q24H YESENIA Rx#: [id number] propofoL 1,000 mg In 100.000 300.543 83.861 Empty Bag 1 bag @ 15 MCG/ KG/MIN 6.736 mls/hr IV . [id number] YESENIA Rx#:[id number] Output: Urine 503 715 540 Other: Voiding Method Indwelling Catheter Indwelling Catheter Indwelling Catheter ABP, PAP, CO, CI - Last Documented Arterial Blood Pressure 144/89 - Exam General: Revealed 44-year-old white male intubated mechanically ventilated. Endotracheal tube and orogastric tube are intact. Skin: Skin is warm and dry and no rashes or lesions are noted. Eye: Pupils are equal, round and reactive to light, extra-ocular movements are intact; there is normal conjunctiva bilaterally. Ears, nose, mouth and throat: There are moist mucous membranes and no oral lesions. Neck: The neck is supple, there is no tenderness or JVD. Cardiovascular: There is a regular rate and rhythm. No murmur, rub or gallop is appreciated. Respiratory: Clear throughout no crackles rhonchi or wheezes Gastrointestinal: Soft, non-distended, non-tender abdomen without masses or organomegaly noted. There is no rebound or guarding present. Bowel sounds are unremarkable. Neurological: Brief assessment of sedation showed that the patient is appropriate, but seems to be extremely restless and agitated. Psychiatric: Anxious mood, but relatively normal mental status, and flat affect - Labs CBC & Chem 7: 05/31/24 05:10 05/31/24 05:10 Labs: Abnormal Lab Results - Last 24 Hours (Table) 05/30/24 05/30/24 05/30/24 Range/Units 06:39 12:18 14:44 RBC (4.30-5.90) m/uL Hgb (13.0-17.5) gm/dL Hct (39.0-53.0) % Plt Count (150-450) k/uL APTT 84.4 H (22.0-30.0) sec ABG pH (7.35-7.45) ABG pCO2 (35-45) mmHg ABG pO2 (83-108) mmHg ABG Total CO2 (19-24) mmol/L ABG O2 Saturation (94-97) % Potassium (3.5-5.1) mmol/L Chloride (98-107) mmol/L BUN (9-20) mg/dL Creatinine (0.66-1.25) mg/dL Glucose (74-99) mg/dL POC Glucose (mg/dL) (70-110) mg/dL Calcium (8.4-10.2) mg/dL Magnesium (1.6-2.3) mg/dL AST (17-59) U/L Troponin I 7.010 H* (0.000-0.034) ng/mL Total Protein (6.3-8.2) g/dL Albumin (3.5-5.0) g/dL Procalcitonin 3.96 H (0.02-0.50) ng/mL 05/30/24 05/30/24 05/30/24 Range/Units 14:44 17:54 21:59 RBC (4.30-5.90) m/uL Hgb (13.0-17.5) gm/dL Hct (39.0-53.0) % Plt Count (150-450) k/uL APTT (22.0-30.0) sec ABG pH (7.35-7.45) ABG pCO2 (35-45) mmHg ABG pO2 (83-108) mmHg ABG Total CO2 (19-24) mmol/L ABG O2 Saturation (94-97) % Potassium 2.8 L (3.5-5.1) mmol/L Chloride 110 H (98-107) mmol/L BUN (9-20) mg/dL Creatinine 1.54 H (0.66-1.25) mg/dL Glucose 103 H (74-99) mg/dL POC Glucose (mg/dL) 112 H (70-110) mg/dL Calcium 8.1 L (8.4-10.2) mg/dL Magnesium (1.6-2.3) mg/dL AST (17-59) U/L Troponin I 7.080 H* (0.000-0.034) ng/mL Total Protein (6.3-8.2) g/dL Albumin (3.5-5.0) g/dL Procalcitonin (0.02-0.50) ng/mL 05/30/24 05/31/24 05/31/24 Range/Units 22:01 00:56 05:08 RBC (4.30-5.90) m/uL Hgb (13.0-17.5) gm/dL Hct (39.0-53.0) % Plt Count (150-450) k/uL APTT 66.2 H (22.0-30.0) sec ABG pH (7.35-7.45) ABG pCO2 (35-45) mmHg ABG pO2 (83-108) mmHg ABG Total CO2 (19-24) mmol/L ABG O2 Saturation (94-97) % Potassium (3.5-5.1) mmol/L Chloride (98-107) mmol/L BUN (9-20) mg/dL Creatinine (0.66-1.25) mg/dL Glucose (74-99) mg/dL POC Glucose (mg/dL) 121 H (70-110) mg/dL Calcium (8.4-10.2) mg/dL Magnesium (1.6-2.3) mg/dL AST (17-59) U/L Troponin I 4.320 H* (0.000-0.034) ng/mL Total Protein (6.3-8.2) g/dL Albumin (3.5-5.0) g/dL Procalcitonin (0.02-0.50) ng/mL 05/31/24 05/31/24 05/31/24 Range/Units 05:10 05:10 05:10 RBC 3.05 L (4.30-5.90) m/uL Hgb 10.0 L D (13.0-17.5) gm/dL Hct 28.7 L (39.0-53.0) % Plt Count 101 L D (150-450) k/uL APTT 60.1 H (22.0-30.0) sec ABG pH (7.35-7.45) ABG pCO2 (35-45) mmHg ABG pO2 (83-108) mmHg ABG Total CO2 (19-24) mmol/L ABG O2 Saturation (94-97) % Potassium (3.5-5.1) mmol/L Chloride 111 H (98-107) mmol/L BUN 24 H (9-20) mg/dL Creatinine 2.99 H (0.66-1.25) mg/dL Glucose 121 H (74-99) mg/dL POC Glucose (mg/dL) (70-110) mg/dL Calcium (8.4-10.2) mg/dL Magnesium 2.9 H (1.6-2.3) mg/dL AST 102 H (17-59) U/L Troponin I (0.000-0.034) ng/mL Total Protein 5.6 L (6.3-8.2) g/dL Albumin 3.0 L (3.5-5.0) g/dL Procalcitonin (0.02-0.50) ng/mL 05/31/24 05/31/24 Range/Units 05:11 11:36 RBC (4.30-5.90) m/uL Hgb (13.0-17.5) gm/dL Hct (39.0-53.0) % Plt Count (150-450) k/uL APTT (22.0-30.0) sec ABG pH 7.48 H (7.35-7.45) ABG pCO2 34 L (35-45) mmHg ABG pO2 155 H (83-108) mmHg ABG Total CO2 26 H (19-24) mmol/L ABG O2 Saturation 100.0 H (94-97) % Potassium (3.5-5.1) mmol/L Chloride (98-107) mmol/L BUN (9-20) mg/dL Creatinine (0.66-1.25) mg/dL Glucose (74-99) mg/dL POC Glucose (mg/dL) 113 H (70-110) mg/dL Calcium (8.4-10.2) mg/dL Magnesium (1.6-2.3) mg/dL AST (17-59) U/L Troponin I (0.000-0.034) ng/mL Total Protein (6.3-8.2) g/dL Albumin (3.5-5.0) g/dL Procalcitonin (0.02-0.50) ng/mL Microbiology - Last 24 Hours (Table) 05/30/24 08:12 Gram Stain - Preliminary Sputum Sputum Culture - Preliminary Beta Hemolytic Strep Group C Assessment and Plan Assessment: Impression: New onset seizures with inability to protect airway is required requiring intubation mechanical ventilation May 30 Brief cardiac arrest/asystole while in the ER requiring 2 doses of epinephrine History of alcoholism History of PTSD History of depression Benign essential hypertension Acute kidney injury, acute tubular necrosis Recommendations: Continue ventilatory support Patient was given a trial off sedation but was extremely restless and agitated, hence did not proceed to extubating the patient Continue seizure meds and seizure precautions Continue nutritional support/enteral feeding Continue DVT prophylaxis and GI prophylaxis Continue CIWA protocol Resume home meds Continue Keppra Will continue to Patient is critically ill and updated on his condition at bedside. Critical care time is over 30-minute Time with Patient: Greater than 30
--- NOTE | 2024-05-31 13:15 | P.NPCON ---
History of Present Illness - Reason for Consult acute renal failure - History of Present Illness patient is a 44-year-old male with history of depression, EtOH abuse who was admitted to the hospital with history of mental status changes and seizures reported by . Family had noticed that patient was acting weird and confused a few hours of before. there is no history of fever nausea vomiting abdominal pain or diarrhea. It appears that they had just returned from [place] a few days ago. Patient had another seizure in the ER and unfortunately also had a cardiac arrest. Initial labs showed significant metabolic acidosis. Drug screen was negative for alcohol and positive for benzodiazepines and marijuana. Serum acetone was negative as well. Blood sugar was elevated at 371. No previous history of diabetes. No major medications except for Zoloft and Suboxone. Lactic acid was elevated at 10.3, this was drawn after cardiac arrest. Initial CO2 was less than 5 with potassium of 5.8 and creatinine 1.5 currently maintained on LR. Neurology has been consulted. urine output has improved to about 50-60 mL an hour. Review of Systems as per HPI Past Medical History Past Medical History: GERD/Reflux, Hypertension, Seizure Disorder Additional Past Medical History / Comment(s): Hep C - treated and resolved "when we see the doctor in 2022 they tell use everything is ok", new onset SZ May 2024 History of Any Multi-Drug Resistant Organisms: None Reported Past Surgical History: Cholecystectomy Additional Past Surgical History / Comment(s): Choley 2020 Past Anesthesia/Blood Transfusion Reactions: No Reported Reaction Past Psychological History: Anxiety, Depression, PTSD Additional Psychological History / Comment(s): Bipolar runs on pt.'s mother side of family Smoking Status: Vaper Past Alcohol Use History: Heavy Additional Past Alcohol Use History / Comment(s): "he can't just have one when he does drink but can go days without drinking" Past Drug Use History: Heroin, Marijuana - Past Family History Mother Family Medical History: Cancer, Diabetes Mellitus Additional Family Medical History / Comment(s): esophageal cancer resulting in (multiple aunts and uncles on the patient's mother side have various forms of cancer) Father Family Medical History: Congestive Heart Failure (CHF) Medications and Allergies Home Medications Medication Instructions Recorded Confirmed Type Buprenorphine/Naloxone 8Mg/2Mg 1 film SL DAILY 05/30/24 05/30/24 History [Suboxone 8-2Mg Film] Sertraline [Zoloft] 100 mg PO DAILY 05/30/24 05/30/24 History Allergies Allergy/AdvReac Type Severity Reaction Status Date / Time Penicillins Allergy Unknown Verified 05/30/24 10:04 Physical Exam Vitals: Vital Signs Temp Pulse Resp BP Pulse Ox FiO2 05/31/24 12:00 35 05/31/24 11:47 74 05/31/24 11:37 73 05/31/24 11:12 35 05/31/24 11:00 76 18 126/91 99 35 05/31/24 10:01 35 05/31/24 10:00 98 34 H 116/88 98 35 05/31/24 09:30 35 05/31/24 09:00 79 24 113/82 99 40 05/31/24 08:15 82 05/31/24 08:04 81 05/31/24 08:00 98.2 F 78 26 H 121/91 99 40 05/31/24 07:34 40 05/31/24 07:00 81 20 100 05/31/24 06:30 85 24 99 05/31/24 06:00 80 20 99 05/31/24 05:30 81 24 99 05/31/24 05:00 85 21 99 05/31/24 04:30 83 21 99 05/31/24 04:00 98.8 F 84 24 99 40 05/31/24 03:30 86 24 99 05/31/24 03:23 86 05/31/24 03:08 89 40 05/31/24 03:00 86 20 99 05/31/24 02:30 85 20 99 05/31/24 02:00 85 20 99 05/31/24 01:30 87 24 99 05/31/24 01:00 87 20 99 05/31/24 00:30 90 24 100 05/31/24 00:16 94 20 100 05/31/24 00:11 93 05/31/24 00:00 98.6 F 99 20 100 40 05/30/24 23:49 86 05/30/24 23:48 40 05/30/24 23:30 80 20 99 05/30/24 23:00 80 20 99 05/30/24 22:30 82 20 99 05/30/24 22:00 80 20 99 05/30/24 21:30 85 20 99 05/30/24 21:00 86 20 98 05/30/24 20:30 86 20 98 05/30/24 20:14 84 05/30/24 20:00 98.1 F 83 20 98 40 05/30/24 19:57 82 40 05/30/24 19:30 81 22 98 05/30/24 19:00 81 20 99/73 98 40 05/30/24 18:30 83 20 99 05/30/24 18:00 81 20 104/74 99 40 05/30/24 17:30 84 20 99 05/30/24 17:00 84 20 92/69 99 40 05/30/24 16:42 82 05/30/24 16:40 40 05/30/24 16:39 40 05/30/24 16:35 86 05/30/24 16:30 80 20 99 05/30/24 16:00 98.1 F 80 20 99 40 05/30/24 15:30 82 20 99 05/30/24 15:00 83 20 94/66 99 40 05/30/24 14:45 84 20 99 05/30/24 14:30 83 20 99 05/30/24 14:15 81 20 100 05/30/24 14:00 84 20 99 40 05/30/24 13:45 86 20 99 05/30/24 13:30 89 20 93/67 100 05/30/24 13:15 89 20 93/67 100 05/30/24 13:00 87 20 92/70 100 50 Intake and Output 05/30/24 05/31/24 05/31/24 22:59 06:59 14:59 Intake Total 3433.270 2235.169 723.861 Output Total 213 575 540 Balance 974.840 777.169 183.861 Intake: IV 1024 1152 640 Lactated Ringers 1,000 ml 1000 1125 625 @ 125 mls/hr IV .Q8H [facility] Rx#:[id number] Normal Saline Pressure 24 27 15 Bag Intake, IV Titration 163.840 200.169 83.861 Amount Heparin Sod,Pork in 0.45% 63.466 NaCl 25,000 unit In 0.45 % NaCl 1 250ml.bag @ 12 UNITS/KG/HR 8.981 mls/hr IV .Q24H [facility] Rx#: [id number] propofoL 1,000 mg In 100.374 200.169 83.861 Empty Bag 1 bag @ 15 MCG/ KG/MIN 6.736 mls/hr IV . [id number] [facility] Rx#:[id number] Output: Urine 213 575 540 Other: Voiding Method Indwelling Catheter Indwelling Catheter Indwelling Catheter Weight 81.9 kg 86 kg 86 kg ABP, PAP, CO, CI - Last 8 Hours Arterial Blood Pressure 144/89 Arterial Blood Pressure 137/86 Arterial Blood Pressure 110/68 Arterial Blood Pressure 110/67 Arterial Blood Pressure 120/76 Arterial Blood Pressure 121/77 Arterial Blood Pressure 110/64 Arterial Blood Pressure 101/59 Arterial Blood Pressure 116/69 patient is currently sedated and on the vent. Examination of the heart S1 and S2 Examination of the lungs bilateral breath sounds are heard Abdomen is soft nontender Examination of lower extremity shows no evidence of edema No rashes noted Results - Lab Results Most recent lab results ABG pH 7.48 (7.35-7.45) H 05/31/24 05:11 ABG pCO2 34 mmHg (35-45) L 05/31/24 05:11 ABG pO2 155 mmHg (83-108) H 05/31/24 05:11 ABG HCO3 25 mmol/L (21-25) 05/31/24 05:11 ABG O2 Saturation 100.0 % (94-97) H 05/31/24 05:11 Calcium 9.0 mg/dL (8.4-10.2) 05/31/24 05:10 Magnesium 2.9 mg/dL (1.6-2.3) H 05/31/24 05:10 05/31/24 05:10 05/31/24 05:10 Assessment and Plan Assessment: 1. Acute kidney injury, ATN, nonoliguric secondary to hypotension and cardiac arrest. UA shows 1+ protein 3+ blood in ( it was a difficult Castellanos catheter placement). CT of the abdomen negative for any obstructive uropathy. Rule out rhabdomyolysis 2. New onset seizures, maintained on Keppra. Neurology on consult. ? related to alcohol withdrawal. 3. Severe metabolic acidosis possibly related to lactic acidosis and rule out other causes including salicylate and volatile screen will also be sent out. Serum acetone and alcohol is negative. 4. Hyperkalemia associated with acute kidney injury and severe metabolic acidosis, improved. 5. New onset diabetes 6. Elevated troponins being followed by cardiology. Rule out acute ischemic event. Plan: check CK level to rule out rhabdo myolysis continue with LR, aggressive IV hydration Add volatile screen and salicylate level for workup for acidosis.. repeat labs in a.m. Avoid nephrotoxic medications. check phosphorus. Thank you for the consultation. We will continue to follow the patient with you during his hospitalization.
--- NOTE | 2024-05-31 14:58 | P.PN ---
Subjective Progress Note Date: 05/31/24 I am seeing the patient for the first time during this admission. Please refer to Dr. Fish's notes for further details. Seems the patient has new onset seizure likely due to alcohol withdrawal. Per the nurse she stated that it seems that the patient had a recent trip recently outside of [place] and he has been behaving off returning. Patient continues to be intubated on the ventilator. His white blood cell has resolved and patient is afebrile. No seizure-like activity noted. He is on IV propofol drip. His sputum culture is positive for beta-hemolytic strep group C. Objective - Vital Signs Vital signs: Vital Signs Temp 98.4 F 05/31/24 12:00 Pulse 76 05/31/24 14:00 Resp 18 05/31/24 14:00 BP 115/81 05/31/24 14:00 Pulse Ox 99 05/31/24 14:00 FiO2 35 05/31/24 14:00 Intake & Output 05/30/24 05/31/24 05/31/24 18:59 06:59 18:59 Intake Total 8796.920 8122.543 979.861 Output Total 503 715 760 Balance 9476.495 9368.543 219.861 Weight 81.9 kg 86 kg 86 kg Intake: IV 1378 1664 896 Dextrose 5% in Water 1, 250 000 ml @ 100 mls/hr IV . [id number] [facility] with Sodium Bicarb (1 Meq/ml) 150 ml Rx#:[id number] Lactated Ringers 1,000 ml 685 1625 875 @ 125 mls/hr IV .Q8H [facility] Rx#:[id number] Normal Saline Pressure 18 39 21 Bag Sodium Chloride 0.9% 1, 325 000 ml @ 130 mls/hr IV . [id number] [facility] Rx#:[id number] metroNIDAZOLE-NS PMX 500 100 mg In Saline 1 100ml.bag @ 100 mls/hr IVPB Q8H [facility] Rx#:[id number] Intake, IV Titration 163.466 300.543 83.861 Amount Heparin Sod,Pork in 0.45% 63.466 NaCl 25,000 unit In 0.45 % NaCl 1 250ml.bag @ 12 UNITS/KG/HR 8.981 mls/hr IV .Q24H [facility] Rx#: [id number] propofoL 1,000 mg In 100.000 300.543 83.861 Empty Bag 1 bag @ 15 MCG/ KG/MIN 6.736 mls/hr IV . [id number] [facility] Rx#:[id number] Output: Urine 503 715 760 Other: Voiding Method Indwelling Catheter Indwelling Catheter Indwelling Catheter ABP, PAP, CO, CI - Last Documented Arterial Blood Pressure 120/66 - Exam General: Lying in bed and does not appear in acute distress. Resp: Intubated on a ventilator. Neuro: Limited. Patient is on IV Propofol 50mcg/kg/min. I have to manually open his eyes and pupils are pinpoint. Primary gaze is midline. Motor strength is unable to assess because of his overall condition. He has decreased tone throughout. - Labs CBC & Chem 7: 05/31/24 05:10 05/31/24 05:10 Labs: Abnormal Lab Results - Last 24 Hours (Table) 05/30/24 05/30/24 05/30/24 Range/Units 06:39 14:44 14:44 RBC (4.30-5.90) m/uL Hgb (13.0-17.5) gm/dL Hct (39.0-53.0) % Plt Count (150-450) k/uL APTT 84.4 H (22.0-30.0) sec ABG pH (7.35-7.45) ABG pCO2 (35-45) mmHg ABG pO2 (83-108) mmHg ABG Total CO2 (19-24) mmol/L ABG O2 Saturation (94-97) % Potassium 2.8 L (3.5-5.1) mmol/L Chloride 110 H (98-107) mmol/L BUN (9-20) mg/dL Creatinine 1.54 H (0.66-1.25) mg/dL Glucose 103 H (74-99) mg/dL POC Glucose (mg/dL) (70-110) mg/dL Calcium 8.1 L (8.4-10.2) mg/dL Magnesium (1.6-2.3) mg/dL AST (17-59) U/L Creatine Kinase (55-170) U/L Troponin I (0.000-0.034) ng/mL Total Protein (6.3-8.2) g/dL Albumin (3.5-5.0) g/dL Procalcitonin 3.96 H (0.02-0.50) ng/mL 05/30/24 05/30/24 05/30/24 Range/Units 17:54 21:59 22:01 RBC (4.30-5.90) m/uL Hgb (13.0-17.5) gm/dL Hct (39.0-53.0) % Plt Count (150-450) k/uL APTT 66.2 H (22.0-30.0) sec ABG pH (7.35-7.45) ABG pCO2 (35-45) mmHg ABG pO2 (83-108) mmHg ABG Total CO2 (19-24) mmol/L ABG O2 Saturation (94-97) % Potassium (3.5-5.1) mmol/L Chloride (98-107) mmol/L BUN (9-20) mg/dL Creatinine (0.66-1.25) mg/dL Glucose (74-99) mg/dL POC Glucose (mg/dL) 112 H (70-110) mg/dL Calcium (8.4-10.2) mg/dL Magnesium (1.6-2.3) mg/dL AST (17-59) U/L Creatine Kinase (55-170) U/L Troponin I 7.080 H* (0.000-0.034) ng/mL Total Protein (6.3-8.2) g/dL Albumin (3.5-5.0) g/dL Procalcitonin (0.02-0.50) ng/mL 05/31/24 05/31/24 05/31/24 Range/Units 00:56 05:08 05:10 RBC (4.30-5.90) m/uL Hgb (13.0-17.5) gm/dL Hct (39.0-53.0) % Plt Count (150-450) k/uL APTT (22.0-30.0) sec ABG pH (7.35-7.45) ABG pCO2 (35-45) mmHg ABG pO2 (83-108) mmHg ABG Total CO2 (19-24) mmol/L ABG O2 Saturation (94-97) % Potassium (3.5-5.1) mmol/L Chloride 111 H (98-107) mmol/L BUN 24 H (9-20) mg/dL Creatinine 2.99 H (0.66-1.25) mg/dL Glucose 121 H (74-99) mg/dL POC Glucose (mg/dL) 121 H (70-110) mg/dL Calcium (8.4-10.2) mg/dL Magnesium 2.9 H (1.6-2.3) mg/dL AST 102 H (17-59) U/L Creatine Kinase (55-170) U/L Troponin I 4.320 H* (0.000-0.034) ng/mL Total Protein 5.6 L (6.3-8.2) g/dL Albumin 3.0 L (3.5-5.0) g/dL Procalcitonin (0.02-0.50) ng/mL 05/31/24 05/31/24 05/31/24 Range/Units 05:10 05:10 05:11 RBC 3.05 L (4.30-5.90) m/uL Hgb 10.0 L D (13.0-17.5) gm/dL Hct 28.7 L (39.0-53.0) % Plt Count 101 L D (150-450) k/uL APTT 60.1 H (22.0-30.0) sec ABG pH 7.48 H (7.35-7.45) ABG pCO2 34 L (35-45) mmHg ABG pO2 155 H (83-108) mmHg ABG Total CO2 26 H (19-24) mmol/L ABG O2 Saturation 100.0 H (94-97) % Potassium (3.5-5.1) mmol/L Chloride (98-107) mmol/L BUN (9-20) mg/dL Creatinine (0.66-1.25) mg/dL Glucose (74-99) mg/dL POC Glucose (mg/dL) (70-110) mg/dL Calcium (8.4-10.2) mg/dL Magnesium (1.6-2.3) mg/dL AST (17-59) U/L Creatine Kinase (55-170) U/L Troponin I (0.000-0.034) ng/mL Total Protein (6.3-8.2) g/dL Albumin (3.5-5.0) g/dL Procalcitonin (0.02-0.50) ng/mL 05/31/24 05/31/24 Range/Units 11:36 11:36 RBC (4.30-5.90) m/uL Hgb (13.0-17.5) gm/dL Hct (39.0-53.0) % Plt Count (150-450) k/uL APTT (22.0-30.0) sec ABG pH (7.35-7.45) ABG pCO2 (35-45) mmHg ABG pO2 (83-108) mmHg ABG Total CO2 (19-24) mmol/L ABG O2 Saturation (94-97) % Potassium (3.5-5.1) mmol/L Chloride (98-107) mmol/L BUN (9-20) mg/dL Creatinine (0.66-1.25) mg/dL Glucose (74-99) mg/dL POC Glucose (mg/dL) 113 H (70-110) mg/dL Calcium (8.4-10.2) mg/dL Magnesium (1.6-2.3) mg/dL AST (17-59) U/L Creatine Kinase 799 H (55-170) U/L Troponin I (0.000-0.034) ng/mL Total Protein (6.3-8.2) g/dL Albumin (3.5-5.0) g/dL Procalcitonin (0.02-0.50) ng/mL Microbiology - Last 24 Hours (Table) 05/30/24 08:12 Gram Stain - Preliminary Sputum Sputum Culture - Preliminary Beta Hemolytic Strep Group C Assessment and Plan Assessment: * New onset seizures, and there is suspicion of alcohol withdrawal. Patient presented afebrile and felt likely leukocytosis are reactive due to seizure which resolved. Rule out any underlying central infection (?viral) because of his recent confusion but highly doubt it. * Status postcardiac arrest after third seizure, with downtime of 4 minutes. * Elevated cardiac enzymes, rule out acute CT * Lactic acidosis, due to recurrent seizures * Hyperkalemia * Elevated troponin * Leukocytosis on presentation that resolved--likely reactive. Is afebrile * History of moderate alcoholism * Macrocytosis, likely due to alcoholism * Marijuana use * Vapes * History of PTSD Plan: * Patient is intubated, sedated with propofol 50 mcg/kg/min. No obvious signs of recurrent seizures per Dr. Fish yesterday and today no further recurrent seizure. * Patient is on heparin for elevated cardiac enzymes. Cardiology on board. * EEG: It is reported as abnormal with the presence of excessive amount of low voltage fast frequency beta activity suggestions of benzodiazepine effect. Otherwise some intermittent slowing was seen with some periods of suppression, suggestive of encephalopathy/medication effect. No focal, lateralizing or epileptiform activity was seen. * Hemoglobin A1c 5.5 * Will consider repeat EEG tomorrow. * Repeat CT head in the next 24 hours, if mentation does not improve. * I will consider obtaining lumbar puncture tomorrow because of his current episode of confusion to rule out any central cause besides alcohol withdrawal. Spoke with primary team and will coordinate Lumbar puncture tomorrow and coordinate stopping heparin drip if possible prior to lumbar puncture. * Ordered Herpes 1/2 PCR, VZV PCR and Lyme testing. * Per Dr. Fish, Hold off on acyclovir, as seizure likely from alcohol withdrawal. Discussed with primary physician. * His sputum culture is positive for beta hemolytic strep group C. * Patient's was informed of [place] state law of no driving unless seizure-free for 6 months, climbing ladders, operating dangerous machinery or unsupervised swimming. * Recommend abstinence from marijuana, alcoholism and vaping. * Other medical management as per IM and other specialties on board. The plan is discussed with patient's primary attending and his nurse. ADDENDUM: I spoke later again with primary attending and we agree to start on Acylcovir for viral infection coverage and will obtain Lumbar puncture. Will start on Acyclovir every 8 hours and will adjust dose because of LUCY (rather than typical dose of 10mg/kg). Time with Patient: Less than 30
--- NOTE | 2024-05-31 17:27 | CA ---
Transthoracic Echo Report Name: Power Felix Age: 44 Gender: M : 1980 Exam Date: 05/31/2024 08:27 Exam Location: [facility] Ht (in): 68 Wt (lb): 165 Ordering Physician: Kleber Keller MD Attending/Referring Phys: Olive Grower Bette Pinedo RDCS Procedure CPT: Indications: trop Cardiac Hx: Technical Quality: Fair Contrast 1: Total Dose (mL): Contrast 2: Total Dose (mL): MEASUREMENTS (Male / Female) Normal Values 2D ECHO LV Diastolic Diameter PLAX 4.9 cm 4.2 - 5.9 / 3.9 - 5.3 cm LV Systolic Diameter PLAX 4.2 cm IVS Diastolic Thickness 1.0 cm 0.6 - 1.0 / 0.6 - 0.9 cm LVPW Diastolic Thickness 1.1 cm 0.6 - 1.0 / 0.6 - 0.9 cm LV Relative Wall Thickness 0.4 LVOT Diameter 2.4 cm LV Diastolic Volume MOD BP 241.1 cm??? 67 - 155 / 56 - 104 cm??? LV Systolic Volume MOD BP 144.0 cm??? 22 - 58 / 19 - 49 cm??? LV Ejection Fraction MOD BP 40.3 % >= 55 % LV Cardiac Index MOD BP 4078.1 cm???/min???m??? LV Diastolic Volume MOD 4C 220.5 cm??? LV Systolic Volume MOD 4C 148.0 cm??? LV Ejection Fraction MOD 4C 32.9 % LV Cardiac Index MOD 4C 3042.8 cm???/min???m??? LV Diastolic Length 4C 8.9 cm LV Systolic Length 4C 7.6 cm LV Diastolic Volume MOD 2C 234.3 cm??? LV Systolic Volume MOD 2C 129.6 cm??? LV Ejection Fraction MOD 2C 44.7 % LV Cardiac Index MOD 2C 4398.4 cm???/min???m??? LV Diastolic Length 2C 10.1 cm LV Systolic Length 2C 8.3 cm LA Volume 64.2 cm??? 18 - 58 / 22 - 52 cm??? LA Volume Index 33.7 cm???/m??? 16 - 28 cm???/m??? DOPPLER AV Peak Velocity 83.5 cm/s AV Peak Gradient 2.8 mmHg AV Mean Velocity 60.9 cm/s AV Mean Gradient 1.6 mmHg AV Velocity Time Integral 15.9 cm LVOT Peak Velocity 75.7 cm/s LVOT Peak Gradient 2.3 mmHg LVOT Velocity Time Integral 14.8 cm LVOT Stroke Volume 65.8 cm??? LVOT Stroke Volume Index 34.9 ml/m??? LVOT Cardiac Index 2763.7 cm???/min???m??? AV Area Cont Eq vti 4.1 cm??? AV Area Cont Eq pk 4.0 cm??? MV Area PHT 5.1 cm??? Mitral E Point Velocity 51.0 cm/s Mitral A Point Velocity 45.9 cm/s Mitral E to A Ratio 1.1 MV Deceleration Time 149.3 ms TR Peak Velocity 234.6 cm/s TR Peak Gradient 22.0 mmHg Right Atrial Pressure 20.0 mmHg Pulmonary Artery Systolic Pressu 42.0 mmHg Right Ventricular Systolic Press 42.0 mmHg PV Peak Velocity 76.3 cm/s PV Peak Gradient 2.3 mmHg FINDINGS Left Ventricle Left ventricular ejection fraction is estimated at 35-40 %. Severely increased left ventricular diastolic volume. Severely increased left ventricular systolic volume. Moderately decreased left ventricular ejection fraction with regional variability. Right Ventricle Right ventricular dilatation with mildly reduced function. Mild pulmonary hypertension. Right Atrium Right atrial dilatation. Left Atrium Mildly increased left atrial volume. Mildly increased left atrial area. Mitral Valve Structurally normal mitral valve. No evidence for mitral valve prolapse. No mitral stenosis. Mild mitral regurgitation. Aortic Valve Trileaflet aortic valve. No aortic valve stenosis or regurgitation. Tricuspid Valve Structurally normal tricuspid valve. No tricuspid stenosis. Mild tricuspid regurgitation. Pulmonic Valve Pulmonic valve not well visualized. No pulmonic stenosis. No pulmonic regurgitation. Pericardium No pericardial effusion. Aorta Aortic annulus normal. Ascending aorta not well visualized. CONCLUSIONS Dilated LV with severe LV dysfunction Dilated RV with reduced systolic function Previewed by: Dr. Ming Roberto MD (Electronically Signed) Final Date: 31 May 2024 17:26
[2024-05-31] MEDS ORDERED: SODIUM CHLORIDE 0.9% IVPB SCH (18:00)
[2024-05-31] MEDS ORDERED: ACYCLOVIR SODIUM IVPB SCH (18:00)
[2024-05-31 18:01] LABS: Chol/HDL Ratio 3.71 Ratio
[2024-05-31 18:06] LABS: Glucose,Whole Blood 124 mg/dL (70-110)
[2024-05-31] MEDS: ACYCLOVIR SODIUM 450 MG in SODIUM CHLORIDE 0.9% 100 ML IVPB SCH (18:17)
--- NOTE | 2024-05-31 21:56 | P.CONS ---
History of Present Illness - Reason for Consult Consult date: 05/31/24 Positive sputum culture and penicillin allergy Requesting physician: Klebre Keller - Chief Complaint Seizure x 1 day - History of Present Illness Patient is a 44-year-old male with a past medical history significant for hypertension reflux chronic hepatitis C treated seizure disorder heavy drinking presented to hospital yesterday morning for evaluation of having a seizure at home patient was brought into the ER by the EMS and apparently the patient continued to have seizure activity ended up getting intubated to protect his airways patient on presentation to the hospital was afebrile and no fever have recorded subsequently patient was tachycardic at 1 point but that resolved not hypotensive not on pressor support patient is currently on the vent FiO2 stable at 35% patient did have a white count of 16.6 on admission repeat is down to 6.1 creatinine is 1.5 4 repeat is 2.99 liver isms are normal urine has been negative urine drug screen was positive for benzos marijuana influenza RSV COVID testing was negative patient did have a chest x-ray bilateral lung infiltrates patient sputum came back positive for beta-hemolytic group C strep from blood culture has been negative patient received of ceftriaxone which was subsequently discontinued infectious disease was consulted today for further management of antibiotic therapy most information has been obtained from review the chart talking to nursing staff as the patient was on the vent and did not provide any history Review of Systems Positive points has been mentioned in HPI complete review could not be obtained because patient intubated on the vent Past Medical History Past Medical History: GERD/Reflux, Hypertension, Seizure Disorder Additional Past Medical History / Comment(s): Hep C - treated and resolved "when we see the doctor in 2022 they tell use everything is ok", new onset SZ May 22 History of Any Multi-Drug Resistant Organisms: None Reported Past Surgical History: Cholecystectomy Additional Past Surgical History / Comment(s): Reuben 2020 Past Anesthesia/Blood Transfusion Reactions: No Reported Reaction Past Psychological History: Anxiety, Depression, PTSD Additional Psychological History / Comment(s): Bipolar runs on pt.'s mother side of family Smoking Status: Vaper Past Alcohol Use History: Heavy Additional Past Alcohol Use History / Comment(s): "he can't just have one when he does drink but can go days without drinking" Past Drug Use History: Heroin, Marijuana - Past Family History Mother Family Medical History: Cancer, Diabetes Mellitus Additional Family Medical History / Comment(s): esophageal cancer resulting in (multiple aunts and uncles on the patient's mother side have various forms of cancer) Father Family Medical History: Congestive Heart Failure (CHF) Medications and Allergies Home Medications Medication Instructions Recorded Confirmed Type Buprenorphine/Naloxone 8Mg/2Mg 1 film SL DAILY 05/30/24 05/30/24 History [Suboxone 8-2Mg Film] Sertraline [Zoloft] 100 mg PO DAILY 05/30/24 05/30/24 History Allergies Allergy/AdvReac Type Severity Reaction Status Date / Time Penicillins Allergy Unknown Verified 05/30/24 10:04 Physical Exam Vitals: Vital Signs Temp Pulse Resp BP Pulse Ox FiO2 05/31/24 12:00 35 05/31/24 11:47 74 05/31/24 11:37 73 05/31/24 11:12 35 05/31/24 11:00 76 18 126/91 99 35 05/31/24 10:01 35 05/31/24 10:00 98 34 H 116/88 98 35 05/31/24 09:30 35 05/31/24 09:00 79 24 113/82 99 40 05/31/24 08:15 82 05/31/24 08:04 81 05/31/24 08:00 98.2 F 78 26 H 121/91 99 40 05/31/24 07:34 40 05/31/24 07:00 81 20 100 05/31/24 06:30 85 24 99 05/31/24 06:00 80 20 99 05/31/24 05:30 81 24 99 05/31/24 05:00 85 21 99 05/31/24 04:30 83 21 99 05/31/24 04:00 98.8 F 84 24 99 40 05/31/24 03:30 86 24 99 05/31/24 03:23 86 05/31/24 03:08 89 40 05/31/24 03:00 86 20 99 05/31/24 02:30 85 20 99 05/31/24 02:00 85 20 99 05/31/24 01:30 87 24 99 05/31/24 01:00 87 20 99 05/31/24 00:30 90 24 100 05/31/24 00:16 94 20 100 05/31/24 00:11 93 05/31/24 00:00 98.6 F 99 20 100 40 05/30/24 23:49 86 05/30/24 23:48 40 05/30/24 23:30 80 20 99 05/30/24 23:00 80 20 99 05/30/24 22:30 82 20 99 05/30/24 22:00 80 20 99 05/30/24 21:30 85 20 99 05/30/24 21:00 86 20 98 05/30/24 20:30 86 20 98 05/30/24 20:14 84 05/30/24 20:00 98.1 F 83 20 98 40 05/30/24 19:57 82 40 05/30/24 19:30 81 22 98 05/30/24 19:00 81 20 99/73 98 40 05/30/24 18:30 83 20 99 05/30/24 18:00 81 20 104/74 99 40 05/30/24 17:30 84 20 99 05/30/24 17:00 84 20 92/69 99 40 05/30/24 16:42 82 05/30/24 16:40 40 05/30/24 16:39 40 05/30/24 16:35 86 05/30/24 16:30 80 20 99 05/30/24 16:00 98.1 F 80 20 99 40 05/30/24 15:30 82 20 99 05/30/24 15:00 83 20 94/66 99 40 05/30/24 14:45 84 20 99 05/30/24 14:30 83 20 99 05/30/24 14:15 81 20 100 05/30/24 14:00 84 20 99 40 05/30/24 13:45 86 20 99 05/30/24 13:30 89 20 93/67 100 05/30/24 13:15 89 20 93/67 100 05/30/24 13:00 87 20 92/70 100 50 05/30/24 12:45 91 90/63 99 05/30/24 12:36 50 05/30/24 12:30 95 91/68 100 05/30/24 12:29 93 Intake and Output 05/30/24 05/31/24 05/31/24 22:59 06:59 14:59 Intake Total 9952.411 1188.169 723.861 Output Total 213 575 540 Balance 974.840 777.169 183.861 Intake: IV 1024 1152 640 Lactated Ringers 1,000 ml 1000 1125 625 @ 125 mls/hr IV .Q8H YESENIA Rx#:[id number] Normal Saline Pressure 24 27 15 Bag Intake, IV Titration 163.840 200.169 83.861 Amount Heparin Sod,Pork in 0.45% 63.466 NaCl 25,000 unit In 0.45 % NaCl 1 250ml.bag @ 12 UNITS/KG/HR 8.981 mls/hr IV .Q24H YESENIA Rx#: [id number] propofoL 1,000 mg In 100.374 200.169 83.861 Empty Bag 1 bag @ 15 MCG/ KG/MIN 6.736 mls/hr IV . [id number] YESENIA Rx#:[id number] Output: Urine 213 575 540 Other: Voiding Method Indwelling Catheter Indwelling Catheter Indwelling Catheter Weight 81.9 kg 86 kg ABP, PAP, CO, CI - Last 8 Hours Arterial Blood Pressure 144/89 Arterial Blood Pressure 137/86 Arterial Blood Pressure 110/68 Arterial Blood Pressure 110/67 Arterial Blood Pressure 120/76 Arterial Blood Pressure 121/77 Arterial Blood Pressure 110/64 Arterial Blood Pressure 101/59 Arterial Blood Pressure 116/69 Arterial Blood Pressure 104/59 GENERAL DESCRIPTION: Middle-age male intubated on the vent HEENT: Shows Pallor , no scleral icterus. Oral mucous membrane is dry. NECK: Trachea central, no thyromegaly. LUNGS: Unlabored breathing. Decreased breath sounds at the base HEART: S1, S2, regular rate and rhythm. No loud murmur ABDOMEN: Soft, no tenderness , guarding or rigidity, no organomegaly EXTREMITIES: No edema of feet. SKIN: No rash, no masses palpable. NEUROLOGICAL: The patient is sedated on the vent Results CBC & Chem 7: 05/31/24 05:10 05/31/24 05:10 Labs: Abnormal Lab Results - Last 24 Hours (Table) 05/30/24 05/30/24 05/30/24 Range/Units 06:39 11:00 12:18 RBC (4.30-5.90) m/uL Hgb (13.0-17.5) gm/dL Hct (39.0-53.0) % Plt Count (150-450) k/uL APTT (22.0-30.0) sec ABG pH (7.35-7.45) ABG pCO2 (35-45) mmHg ABG pO2 (83-108) mmHg ABG Total CO2 (19-24) mmol/L ABG O2 Saturation (94-97) % Potassium (3.5-5.1) mmol/L Chloride (98-107) mmol/L BUN (9-20) mg/dL Creatinine (0.66-1.25) mg/dL Glucose (74-99) mg/dL POC Glucose (mg/dL) (70-110) mg/dL Plasma Lactic Acid Jonas (0.7-2.0) mmol/L Calcium (8.4-10.2) mg/dL Magnesium (1.6-2.3) mg/dL AST (17-59) U/L Troponin I 7.010 H* (0.000-0.034) ng/mL Total Protein (6.3-8.2) g/dL Albumin (3.5-5.0) g/dL Procalcitonin 3.96 H (0.02-0.50) ng/mL Urine Protein 1+ H (Negative) Urine Glucose (UA) 3+ H (Negative) Urine Blood Moderate H (Negative) Urine Bacteria Rare H (None) /hpf U Benzodiazepines Scrn Detected H (NotDetected) U Marijuana (THC) Screen Detected H (NotDetected) 05/30/24 05/30/24 05/30/24 Range/Units 12:25 12:25 14:44 RBC (4.30-5.90) m/uL Hgb (13.0-17.5) gm/dL Hct (39.0-53.0) % Plt Count (150-450) k/uL APTT 84.4 H (22.0-30.0) sec ABG pH (7.35-7.45) ABG pCO2 (35-45) mmHg ABG pO2 >420 H (83-108) mmHg ABG Total CO2 26 H (19-24) mmol/L ABG O2 Saturation 100.6 H (94-97) % Potassium (3.5-5.1) mmol/L Chloride (98-107) mmol/L BUN (9-20) mg/dL Creatinine (0.66-1.25) mg/dL Glucose (74-99) mg/dL POC Glucose (mg/dL) (70-110) mg/dL Plasma Lactic Acid Jonas 2.6 H* (0.7-2.0) mmol/L Calcium (8.4-10.2) mg/dL Magnesium (1.6-2.3) mg/dL AST (17-59) U/L Troponin I (0.000-0.034) ng/mL Total Protein (6.3-8.2) g/dL Albumin (3.5-5.0) g/dL Procalcitonin (0.02-0.50) ng/mL Urine Protein (Negative) Urine Glucose (UA) (Negative) Urine Blood (Negative) Urine Bacteria (None) /hpf U Benzodiazepines Scrn (NotDetected) U Marijuana (THC) Screen (NotDetected) 05/30/24 05/30/24 05/30/24 Range/Units 14:44 17:54 21:59 RBC (4.30-5.90) m/uL Hgb (13.0-17.5) gm/dL Hct (39.0-53.0) % Plt Count (150-450) k/uL APTT (22.0-30.0) sec ABG pH (7.35-7.45) ABG pCO2 (35-45) mmHg ABG pO2 (83-108) mmHg ABG Total CO2 (19-24) mmol/L ABG O2 Saturation (94-97) % Potassium 2.8 L (3.5-5.1) mmol/L Chloride 110 H (98-107) mmol/L BUN (9-20) mg/dL Creatinine 1.54 H (0.66-1.25) mg/dL Glucose 103 H (74-99) mg/dL POC Glucose (mg/dL) 112 H (70-110) mg/dL Plasma Lactic Acid Jonas (0.7-2.0) mmol/L Calcium 8.1 L (8.4-10.2) mg/dL Magnesium (1.6-2.3) mg/dL AST (17-59) U/L Troponin I 7.080 H* (0.000-0.034) ng/mL Total Protein (6.3-8.2) g/dL Albumin (3.5-5.0) g/dL Procalcitonin (0.02-0.50) ng/mL Urine Protein (Negative) Urine Glucose (UA) (Negative) Urine Blood (Negative) Urine Bacteria (None) /hpf U Benzodiazepines Scrn (NotDetected) U Marijuana (THC) Screen (NotDetected) 05/30/24 05/31/24 05/31/24 Range/Units 22:01 00:56 05:08 RBC (4.30-5.90) m/uL Hgb (13.0-17.5) gm/dL Hct (39.0-53.0) % Plt Count (150-450) k/uL APTT 66.2 H (22.0-30.0) sec ABG pH (7.35-7.45) ABG pCO2 (35-45) mmHg ABG pO2 (83-108) mmHg ABG Total CO2 (19-24) mmol/L ABG O2 Saturation (94-97) % Potassium (3.5-5.1) mmol/L Chloride (98-107) mmol/L BUN (9-20) mg/dL Creatinine (0.66-1.25) mg/dL Glucose (74-99) mg/dL POC Glucose (mg/dL) 121 H (70-110) mg/dL Plasma Lactic Acid Jonas (0.7-2.0) mmol/L Calcium (8.4-10.2) mg/dL Magnesium (1.6-2.3) mg/dL AST (17-59) U/L Troponin I 4.320 H* (0.000-0.034) ng/mL Total Protein (6.3-8.2) g/dL Albumin (3.5-5.0) g/dL Procalcitonin (0.02-0.50) ng/mL Urine Protein (Negative) Urine Glucose (UA) (Negative) Urine Blood (Negative) Urine Bacteria (None) /hpf U Benzodiazepines Scrn (NotDetected) U Marijuana (THC) Screen (NotDetected) 05/31/24 05/31/24 05/31/24 Range/Units 05:10 05:10 05:10 RBC 3.05 L (4.30-5.90) m/uL Hgb 10.0 L D (13.0-17.5) gm/dL Hct 28.7 L (39.0-53.0) % Plt Count 101 L D (150-450) k/uL APTT 60.1 H (22.0-30.0) sec ABG pH (7.35-7.45) ABG pCO2 (35-45) mmHg ABG pO2 (83-108) mmHg ABG Total CO2 (19-24) mmol/L ABG O2 Saturation (94-97) % Potassium (3.5-5.1) mmol/L Chloride 111 H (98-107) mmol/L BUN 24 H (9-20) mg/dL Creatinine 2.99 H (0.66-1.25) mg/dL Glucose 121 H (74-99) mg/dL POC Glucose (mg/dL) (70-110) mg/dL Plasma Lactic Acid Jonas (0.7-2.0) mmol/L Calcium (8.4-10.2) mg/dL Magnesium 2.9 H (1.6-2.3) mg/dL AST 102 H (17-59) U/L Troponin I (0.000-0.034) ng/mL Total Protein 5.6 L (6.3-8.2) g/dL Albumin 3.0 L (3.5-5.0) g/dL Procalcitonin (0.02-0.50) ng/mL Urine Protein (Negative) Urine Glucose (UA) (Negative) Urine Blood (Negative) Urine Bacteria (None) /hpf U Benzodiazepines Scrn (NotDetected) U Marijuana (THC) Screen (NotDetected) 05/31/24 05/31/24 Range/Units 05:11 11:36 RBC (4.30-5.90) m/uL Hgb (13.0-17.5) gm/dL Hct (39.0-53.0) % Plt Count (150-450) k/uL APTT (22.0-30.0) sec ABG pH 7.48 H (7.35-7.45) ABG pCO2 34 L (35-45) mmHg ABG pO2 155 H (83-108) mmHg ABG Total CO2 26 H (19-24) mmol/L ABG O2 Saturation 100.0 H (94-97) % Potassium (3.5-5.1) mmol/L Chloride (98-107) mmol/L BUN (9-20) mg/dL Creatinine (0.66-1.25) mg/dL Glucose (74-99) mg/dL POC Glucose (mg/dL) 113 H (70-110) mg/dL Plasma Lactic Acid Jonas (0.7-2.0) mmol/L Calcium (8.4-10.2) mg/dL Magnesium (1.6-2.3) mg/dL AST (17-59) U/L Troponin I (0.000-0.034) ng/mL Total Protein (6.3-8.2) g/dL Albumin (3.5-5.0) g/dL Procalcitonin (0.02-0.50) ng/mL Urine Protein (Negative) Urine Glucose (UA) (Negative) Urine Blood (Negative) Urine Bacteria (None) /hpf U Benzodiazepines Scrn (NotDetected) U Marijuana (THC) Screen (NotDetected) Microbiology - Last 24 Hours (Table) 05/30/24 08:12 Gram Stain - Preliminary Sputum Sputum Culture - Preliminary Beta Hemolytic Strep Group C Assessment and Plan (1) Positive culture findings in sputum Current Visit: Yes Status: Acute Code(s): R84.5 - ABNORMAL MICROBIOLOG FINDINGS IN SPECMN FROM RESP ORG/THRX SNOMED Code(s): 698029804 (2) Penicillin allergy Current Visit: Yes Status: Acute Code(s): Z88.0 - ALLERGY STATUS TO PENICILLIN SNOMED Code(s): 84477178 (3) Pneumonia Current Visit: Yes Status: Acute Code(s): J18.9 - PNEUMONIA, UNSPECIFIED ORGANISM SNOMED Code(s): 534254405 Plan: 1patient presented to hospital with seizure activity and this patient got intubated to protect airways chest x-ray did shows bilateral basilar infiltrate and concern for possible pneumonia not entirely excluded with a sputum positive for group C strep blood culture has been negative 2-penicillin allergy that will limit the number of antibiotics safe to use 3-we will obtain CRP and a procalcitonin level 4-start the patient Rocephin 2 g daily We will follow on clinical condition and cultures to further adjust medication if needed Thank you for this consultation we will follow the patient along with you Dictation was produced using [employer] dictation software. please excuse any grammatical, word or spelling errors. Time with Patient: Greater than 30
[2024-05-31 23:05] LABS: Glucose,Whole Blood 122 mg/dL (70-110)
[2024-06-01 05:09] LABS: ABG Base Excess 0.9 mmol/L; ABG HCO3 26 mmol/L (21-25); ABG Oxygen Saturation 99.6 % (94-97); ABG PCO2 40 mmHg (35-45); ABG PH 7.42 (7.35-7.45); ABG PO2 132 mmHg (83-108); ABG TCO2 27 mmol/L (19-24)
[2024-06-01 05:30] LABS: HCT 29.1 % (39.0-53.0); MCHC 34.3 g/dL (31.0-37.0); MCV 96.3 fL (80.0-100.0); Mean Platelet Volume 8.4; Platelet Count 109 k/uL (150-450); RBC 3.02 m/uL (4.30-5.90); RDW 13.4 % (11.5-15.5); WBC 5.2 k/uL (3.8-10.6)
[2024-06-01 05:34] LABS: Glucose,Whole Blood 114 mg/dL (70-110)
[2024-06-01 05:46] LABS: ALT 30 U/L (4-49); AST 63 U/L (17-59); African American GFR (CKD) 24 (>60 ml/min/1.73 sqM); Albumin 2.8 g/dL (3.5-5.0); Alkaline Phosphatase 58 U/L (38-126); Anion Gap 6 mmol/L; Blood Urea Nitrogen 29 mg/dL (9-20); Calcium 7.9 mg/dL (8.4-10.2); Carbon Dioxide 24 mmol/L (22-30); Chloride 111 mmol/L (98-107); Glucose 114 mg/dL (74-99); Magnesium 2.4 mg/dL (1.6-2.3); Non-African American GFR(CKD) 21 (>60 ml/min/1.73 sqM); Phosphorus 4.7 mg/dL (2.5-4.5); Potassium 3.5 mmol/L (3.5-5.1); Sodium 141 mmol/L (137-145); Total Bilirubin 0.3 mg/dL (0.2-1.3); Total Protein 5.2 g/dL (6.3-8.2)
[2024-06-01 05:48] LABS: Allen Test Performed? no
[2024-06-01] MEDS: POTASSIUM BICARBONATE/CIT AC 20 MEQ TABLET.EFF NG-TUBE SCH (06:59)
--- NOTE | 2024-06-01 08:13 | XR ---
EXAMINATION TYPE: XR chest 1V portable DATE OF EXAM: 06/01/2024 5:19 AM CLINICAL INDICATION:Male, 44 years old with history of Tube placement; COMPARISON: Chest radiographs from 05/31/2024. TECHNIQUE: XR chest 1V portable Frontal view of the chest. FINDINGS: Lungs/Pleura: Diffuse haziness the lungs. Low lung volumes are present. There is no evidence of pleur al effusion, focal consolidation, or pneumothorax. Pulmonary vascularity: Unremarkable. Heart/mediastinum: Cardiomediastinal silhouette is unremarkable. Musculoskeletal: No acute osseous pathology. Other findings: None Lines/Tubes: Endotracheal tube with distal tip 4.7 cm above the erlinda. Nasogastric tube with its distal tip and side-port projecting under the diaphragm. Left internal jugular central venous catheter with distal tip at the cavoatrial junction. IMPRESSION: 1. Stable support tubes. 2. Low lung volumes with diffuse haziness likely representing atelectasis..
--- NOTE | 2024-06-01 08:23 | CT ---
EXAMINATION TYPE: CT brain wo con DATE OF EXAM: 06/01/2024 COMPARISON: 05/30/2024 HISTORY: mental status changes, intubated, multiple seizures CT DLP: 1154.[address] of the brain was performed. The ventricles, basal cisterns and sulci overlying the cerebral convexities demonstrate a normal appe arance. There is no evidence for intracranial hemorrhage or sulcal effacement. No mass effects are seen. Osseous calvarium is intact. If symptoms persist consider MRI as clinically warranted. IMPRESSION: 1. No acute intracranial process is seen at this time.
[2024-06-01] MEDS: NICOTINE 21MG/24HR PATCH TRANSDERM SCH (10:22)
[2024-06-01] MEDS: DEXMEDETOMIDINE/0.9% NACL(PMX) 400 MCG in EMPTY BAG 1 BAG IV SCH (10:23)
--- NOTE | 2024-06-01 10:36 | P.PN ---
Subjective Progress Note Date: 06/01/24 44 year old M with PMH of EtOH abuse, PTSD, Depression, h/o hypertension presents to the ED. Patient is currently intubated and history is obtained from the at bedside. reports the patient woke up this morning and as he was coming back from the washroom he appeared to be shaking, confused and delirious. reports that he couldn't speak. She left the room to call EMS and found that patient having a seizure that lasted 3-4 minutes. 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 He recently lost his mother, father and sister in the past 7 years and has been dealing with depression. She reports that he drinks 2 tallboys daily (as far as she is aware). Previous his tory of drug abuse currently on Suboxone. Patient was noted to have a grand mal seizure in the ED given 7 mg of IV Ativan. Following his seizure, had an episode of bradycardia and hypotension with loss of pulse. ACLS was initiated requiring 4 minutes of CPR, epinephrine and bicarb, ROSC was achieved. CBC and CMP was significant for WBC 16.6, MCV 103.6, K 5.8, bicarb < 5, Cr 1.52, glu 345, alb 5.3. Mag 2.8, Lactic acid 10.7-2.6. UA 3+ glucose and moderate blood, no LE or nitrite. UDS + benzo and THC. Serum alcohol and acetone negative. COVID/RSV/Flu negative. VBG pH 6.61, pCO2 62. Troponin 0.151, 7.01. ABG post cardiac arrest pH 6.99, pCO2 35 and subsequently pH 7.43, pCO2 38. CXR shows ET tube with no acute process. Brain CT negative. CT AP negative. EKG showed sinus rhythm with nonspecific ST and T wave abnormalities and evidence of LVH. Patient is admitted to ICU for further workup and management. Started on Keppra 1000 mg IV BID, Neurology consulted, EEG ordered showing excessive amount of low-voltage fast frequency beta activity suggestive of benzodiazepine effect. Started on Acyclovir and HSV/VZV/Lyme ordered. Plans for LP on 06/01. Troponin 0.151, 7.01, 7.08, 4.[address] elevation on EKG. Cardiology consulted, started on a Heparin drip and Echo ordered. Echo showing EF 35-40%. Worsening renal function, renal US showing mild R hydro (not seen on CT), Nephrology consulted. Sputum Cx growing Group C strep. ID consulted to guide antibiotic therapy. Started on Rocephin 05/31. 06/01 Patient was seen and examined. Currently intubated. Currently on Propofol 50 mcg/kg/min. Maintained on Keppra 1000 mg IV BID. Started on Acyclovir 450 mg IV TID yesterday by Neurology. Maintained on Heparin drip at 10 units/kg/hr. LR running at 125 cc/hr. Sputum Cx growing beta hemolytic strep, maintained on Rocephin 2g IV QD by ID. CXR shows diffuse haziness likely atelectasis. Discus sed with Dr. Whitlock yesterday, plans for LP today. Discussed with ANGELES Ramos to hold Heparin drip for 6 hours in preparation for LP. ABG pH 7.42, pCO2 40. CBC, Coag panel, CMP significant for RBC 3.02, Hg 10, Hct 29.1, Plt 109, APTT 49.9, Cl 111, BUN 29, Cr 3.41, glu 114, Ca 7.9, AST 63, alb 2.8. Mag 2.8. Phos 4.7. UCx negative. Blood Cx prelim negative. Echo shows EF 35-40%. General: Intubated and sedated Derm: warm, dry Head: atraumatic, normocephalic, symmetric Eyes: no lid lag, anicteric sclera Mouth: no lip lesion, mucus membranes moist Cardiovascular: S1S2 reg, no murmur Lungs: Coarse ventilator BS bilateral, no rhonchi, no rales , no accessory muscle use Ext: no gross muscle atrophy, no edema, no contractures Neuro: Unable to determine Psych: Sedated Based on my assessment of this patient, this patient meets a high complexity level of care. Acute hypoxic respiratory failure likely related to below Cardiac arrest likely related to seizure and severe metabolic derangement: U nderwent CPR and ROSC achieved in the ED. Grand mal seizure likely related to alcohol withdrawal: CIWA protocol with Ativan PRN. Keppra 1000 mg IV BID. EEG as above. Seizure pads and precautions. Repeat CT head ordered today and pending. Neurology on board. NSTEMI: Uptrending troponins in the setting of cardiac arrest. ASA 325 mg PO QD. Started on low intensity Heparin drip. Add beta kristian when BP permits. Telemetry monitoring. Echocardiogram as above. Cardiology on board. Sepsis with unknown etiology: Versus SIRS. Leukocytosis, tachycardia, hypotensive which could all be reactive. Pro-elisabeth 3.96. Sputum Cx growing Group C strep. Rocephin 2g IV QD (D2). Concerns for encephalitis, started on Acyclovir 450 mg IV TID (D2), plans for LP 06/01. ID on board. Acute kidney injury: Worsening. Prerenal component given cardiac arrest. Renal US shows mild right hydro (not seen on CT). Currently on LR at 125 cc/hr. Avoid nephrotoxins. Nephrology on board. HFrEF: EF 35-40% seen on Echo. Not in acute exacerbation. Cardiology on board. Macrocytic anemia likely due to EtOH abuse: Drop in Hg is likely dilutional. Thrombocytopenia: Likely related to EtOH abuse. Intermediate probability of HIT. Order HIT panel. Trend. PTSD and Depression: On Zoloft at home. History of drug abuse: On Suboxone at home. Resolved: Anion gap metabolic acidosis due to lactic acidosis, HyperK CODE STATUS: FULL CODE DVT Prophylaxis: Heparin drip. GI Prophylaxis: Protonix IV Designated medical POA if patient is not able to make medical decisions for themselves: I have reviewed the following digital marketing consultant notes: Neurology note. I have reviewed the results of the following tests: CBC, Coag panel, CMP, Phos, Mag, Echo, UCx, BCx. I have ordered the following tests: CBC and BMP tomorrow. HIT panel pending. I have discussed the care of this patient with the following independent historian: RN regarding holding heparin drip. at bedside I have independently interpreted the following test below: I have discussed the management of this patient with the following physician: Dr. Whitlock, Dr. Bridges. Objective - Vital Signs Vital signs: Vital Signs Temp 98.1 F 06/01/24 04:00 Pulse 79 06/01/24 07:00 Resp 24 06/01/24 07:00 BP 133/80 06/01/24 07:00 Pulse Ox 99 06/01/24 07:00 FiO2 35 06/01/24 07:37 Intake & Output 05/31/24 06/01/24 06/01/24 18:59 06:59 18:59 Intake Total 2044.221 2124.335 148 Output Total 1315 1615 150 Balance 729.221 509.335 -2 Weight 86 kg 85 kg Intake: IV 1608 1636 128 Acyclovir Sodium 450 mg 100 100 In Sodium Chloride 0.9% 100 ml @ 100 mls/hr IVPB Q8H [facility] Rx#:[id number] Lactated Ringers 1,000 ml 1375 1500 125 @ 125 mls/hr IV .Q8H [facility] Rx#:[id number] Normal Saline Pressure 33 36 3 Bag cefTRIAXone 2 gm In 100 Sodium Chloride 0.9% 50 ml @ 100 mls/hr IVPB Q24HR [facility] Rx#:[id number] Intake, IV Titration 366.221 198.335 Amount Heparin Sod,Pork in 0.45% 182.36 NaCl 25,000 unit In 0.45 % NaCl 1 250ml.bag @ 12 UNITS/KG/HR 8.981 mls/hr IV .Q24H [facility] Rx#: [id number] propofoL 1,000 mg In 183.861 198.335 Empty Bag 1 bag @ 15 MCG/ KG/MIN 6.736 mls/hr IV . [id number] [facility] Rx#:[id number] Tube Feeding 40 200 20 Other 30 90 Output: Urine 1315 1615 150 Other: Voiding Method Indwelling Catheter Indwelling Catheter ABP, PAP, CO, CI - Last Documented Arterial Blood Pressure 151/73 - Labs CBC & Chem 7: 06/01/24 05:10 06/01/24 05:10 Labs: Abnormal Lab Results - Last 24 Hours (Table) 05/30/24 05/31/24 05/31/24 Range/Units 06:39 05:10 11:36 RBC (4.30-5.90) m/uL Hgb (13.0-17.5) gm/dL Hct (39.0-53.0) % Plt Count (150-450) k/uL APTT (22.0-30.0) sec ABG pO2 (83-108) mmHg ABG HCO3 (21-25) mmol/L ABG Total CO2 (19-24) mmol/L ABG O2 Saturation (94-97) % Chloride 111 H (98-107) mmol/L BUN 24 H (9-20) mg/dL Creatinine 2.99 H (0.66-1.25) mg/dL Glucose 121 H (74-99) mg/dL POC Glucose (mg/dL) 113 H (70-110) mg/dL Calcium (8.4-10.2) mg/dL Phosphorus (2.5-4.5) mg/dL Magnesium 2.9 H (1.6-2.3) mg/dL AST 102 H (17-59) U/L Creatine Kinase (55-170) U/L Total Protein 5.6 L (6.3-8.2) g/dL Albumin 3.0 L (3.5-5.0) g/dL Procalcitonin 3.96 H (0.02-0.50) ng/mL 05/31/24 05/31/24 05/31/24 Range/Units 11:36 18:05 23:02 RBC (4.30-5.90) m/uL Hgb (13.0-17.5) gm/dL Hct (39.0-53.0) % Plt Count (150-450) k/uL APTT (22.0-30.0) sec ABG pO2 (83-108) mmHg ABG HCO3 (21-25) mmol/L ABG Total CO2 (19-24) mmol/L ABG O2 Saturation (94-97) % Chloride (98-107) mmol/L BUN (9-20) mg/dL Creatinine (0.66-1.25) mg/dL Glucose (74-99) mg/dL POC Glucose (mg/dL) 124 H 122 H (70-110) mg/dL Calcium (8.4-10.2) mg/dL Phosphorus (2.5-4.5) mg/dL Magnesium (1.6-2.3) mg/dL AST (17-59) U/L Creatine Kinase 799 H (55-170) U/L Total Protein (6.3-8.2) g/dL Albumin (3.5-5.0) g/dL Procalcitonin (0.02-0.50) ng/mL 06/01/24 06/01/24 06/01/24 Range/Units 05:06 05:10 05:10 RBC 3.02 L (4.30-5.90) m/uL Hgb 10.0 L (13.0-17.5) gm/dL Hct 29.1 L (39.0-53.0) % Plt Count 109 L (150-450) k/uL APTT (22.0-30.0) sec ABG pO2 132 H (83-108) mmHg ABG HCO3 26 H (21-25) mmol/L ABG Total CO2 27 H (19-24) mmol/L ABG O2 Saturation 99.6 H (94-97) % Chloride 111 H (98-107) mmol/L BUN 29 H (9-20) mg/dL Creatinine 3.41 H (0.66-1.25) mg/dL Glucose 114 H (74-99) mg/dL POC Glucose (mg/dL) (70-110) mg/dL Calcium 7.9 L (8.4-10.2) mg/dL Phosphorus 4.7 H (2.5-4.5) mg/dL Magnesium 2.4 H (1.6-2.3) mg/dL AST 63 H (17-59) U/L Creatine Kinase (55-170) U/L Total Protein 5.2 L (6.3-8.2) g/dL Albumin 2.8 L (3.5-5.0) g/dL Procalcitonin (0.02-0.50) ng/mL 06/01/24 06/01/24 Range/Units 05:10 05:33 RBC (4.30-5.90) m/uL Hgb (13.0-17.5) gm/dL Hct (39.0-53.0) % Plt Count (150-450) k/uL APTT 49.9 H (22.0-30.0) sec ABG pO2 (83-108) mmHg ABG HCO3 (21-25) mmol/L ABG Total CO2 (19-24) mmol/L ABG O2 Saturation (94-97) % Chloride (98-107) mmol/L BUN (9-20) mg/dL Creatinine (0.66-1.25) mg/dL Glucose (74-99) mg/dL POC Glucose (mg/dL) 114 H (70-110) mg/dL Calcium (8.4-10.2) mg/dL Phosphorus (2.5-4.5) mg/dL Magnesium (1.6-2.3) mg/dL AST (17-59) U/L Creatine Kinase (55-170) U/L Total Protein (6.3-8.2) g/dL Albumin (3.5-5.0) g/dL Procalcitonin (0.02-0.50) ng/mL Microbiology - Last 24 Hours (Table) 05/30/24 08:12 Gram Stain - Final Sputum Sputum Culture - Final Beta Hemolytic Strep Group C 05/30/24 11:00 Urine Culture - Final Urine,Catheterized 05/30/24 07:30 Blood Culture - Preliminary Blood 05/30/24 07:25 Blood Culture - Preliminary Blood
[2024-06-01 11:28] LABS: Glucose,Whole Blood 123 mg/dL (70-110)
[2024-06-01 12:27] LABS: Ethanol Negative (Negative); Isopropanol Negative (Negative)
--- NOTE | 2024-06-01 12:43 | P.GSCN ---
History of Present Illness Consult date: 06/01/24 Reason for Consult: Right-sided hydronephrosis History of present illness: This is a 44 old male with history of alcohol abuse, presented to the hospital with seizures, subsequently had an another seizure while in the hospital and developed cardiac arrest requiring CPR for 4 minutes. He underwent a CT abdomen and pelvis on presentation that showed evidence of an extrarenal pelvis on the right side, subsequently underwent a renal ultrasound that showed a possible mild mild right hide sided hydronephrosis. Creatinine today is 3.4, on pre sentation was 1.5. He is making urine. No previous history of kidney stones recurrent UTIs or renal surgeries per . Review of Systems ROS unobtainable: due to endotracheal tube Past Medical History Past Medical History: GERD/Reflux, Hypertension, Seizure Disorder Additional Past Medical History / Comment(s): Hep C - treated and resolved "when we see the doctor in 2022 they tell use everything is ok", new onset SZ May 2024 History of Any Multi-Drug Resistant Organisms: None Reported Past Surgical History: Cholecystectomy Additional Past Surgical History / Comment(s): Choley 2020 Past Anesthesia/Blood Transfusion Reactions: No Reported Reaction Past Psychological History: Anxiety, Depression, PTSD Additional Psychological History / Comment(s): Bipolar runs on pt.'s mother side of family Smoking Status: Vaper Past Alcohol Use History: Heavy Additional Past Alcohol Use History / Comment(s): "he can't just have one when he does drink but can go days without drinking" Past Drug Use History: Heroin, Marijuana - Past Family History Mother Family Medical History: Cancer, Diabetes Mellitus Additional Family Medical History / Comment(s): esophageal cancer resulting in (multiple aunts and uncles on the patient's mother side have various forms of cancer) Father Family Medical History: Congestive Heart Failure (CHF) Medications and Allergies Home Medications Medication Instructions Recorded Confirmed Type Buprenorphine/Naloxone 8Mg/2Mg 1 film SL DAILY 05/30/24 05/30/24 History [Suboxone 8-2Mg Film] Sertraline [Zoloft] 100 mg PO DAILY 05/30/24 05/30/24 History Allergies Allergy/AdvReac Type Severity Reaction Status Date / Time Penicillins Allergy Unknown Verified 05/30/24 10:04 Surgical - Exam Vital Signs Temp Pulse Resp BP Pulse Ox 97.5 F L 117 H 22 77/40 81 L 07/28/24 06:29 05/30/24 06:29 05/30/24 06:29 05/30/24 06:29 05/30/24 06:29 - General no distress, no pain - Respiratory Intubated on the ventilator - Abdomen Abdomen: soft, non tender, no distended - Genitourinary Castellanos catheter in place draining clear yellow urine Results - Labs 06/01/24 05:10 06/01/24 05:10 Abnormal Lab Results - Last 24 Hours (Table) 05/31/24 05/31/24 05/31/24 Range/Units 05:10 11:36 11:36 RBC (4.30-5.90) m/uL Hgb (13.0-17.5) gm/dL Hct (39.0-53.0) % Plt Count (150-450) k/uL APTT (22.0-30.0) sec ABG pO2 (83-108) mmHg ABG HCO3 (21-25) mmol/L ABG Total CO2 (19-24) mmol/L ABG O2 Saturation (94-97) % Chloride 111 H (98-107) mmol/L BUN 24 H (9-20) mg/dL Creatinine 2.99 H (0.66-1.25) mg/dL Glucose 121 H (74-99) mg/dL POC Glucose (mg/dL) 113 H (70-110) mg/dL Calcium (8.4-10.2) mg/dL Phosphorus (2.5-4.5) mg/dL Magnesium 2.9 H (1.6-2.3) mg/dL AST 102 H (17-59) U/L Creatine Kinase 799 H (55-170) U/L Total Protein 5.6 L (6.3-8.2) g/dL Albumin 3.0 L (3.5-5.0) g/dL 05/31/24 05/31/24 06/01/24 Range/Units 18:05 23:02 05:06 RBC (4.30-5.90) m/uL Hgb (13.0-17.5) gm/dL Hct (39.0-53.0) % Plt Count (150-450) k/uL APTT (22.0-30.0) sec ABG pO2 132 H (83-108) mmHg ABG HCO3 26 H (21-25) mmol/L ABG Total CO2 27 H (19-24) mmol/L ABG O2 Saturation 99.6 H (94-97) % Chloride (98-107) mmol/L BUN (9-20) mg/dL Creatinine (0.66-1.25) mg/dL Glucose (74-99) mg/dL POC Glucose (mg/dL) 124 H 122 H (70-110) mg/dL Calcium (8.4-10.2) mg/dL Phosphorus (2.5-4.5) mg/dL Magnesium (1.6-2.3) mg/dL AST (17-59) U/L Creatine Kinase (55-170) U/L Total Protein (6.3-8.2) g/dL Albumin (3.5-5.0) g/dL 06/01/24 06/01/24 06/01/24 Range/Units 05:10 05:10 05:10 RBC 3.02 L (4.30-5.90) m/uL Hgb 10.0 L (13.0-17.5) gm/dL Hct 29.1 L (39.0-53.0) % Plt Count 109 L (150-450) k/uL APTT 49.9 H (22.0-30.0) sec ABG pO2 (83-108) mmHg ABG HCO3 (21-25) mmol/L ABG Total CO2 (19-24) mmol/L ABG O2 Saturation (94-97) % Chloride 111 H (98-107) mmol/L BUN 29 H (9-20) mg/dL Creatinine 3.41 H (0.66-1.25) mg/dL Glucose 114 H (74-99) mg/dL POC Glucose (mg/dL) (70-110) mg/dL Calcium 7.9 L (8.4-10.2) mg/dL Phosphorus 4.7 H (2.5-4.5) mg/dL Magnesium 2.4 H (1.6-2.3) mg/dL AST 63 H (17-59) U/L Creatine Kinase (55-170) U/L Total Protein 5.2 L (6.3-8.2) g/dL Albumin 2.8 L (3.5-5.0) g/dL 06/01/24 06/01/24 Range/Units 05:33 11:26 RBC (4.30-5.90) m/uL Hgb (13.0-17.5) gm/dL Hct (39.0-53.0) % Plt Count (150-450) k/uL APTT (22.0-30.0) sec ABG pO2 (83-108) mmHg ABG HCO3 (21-25) mmol/L ABG Total CO2 (19-24) mmol/L ABG O2 Saturation (94-97) % Chloride (98-107) mmol/L BUN (9-20) mg/dL Creatinine (0.66-1.25) mg/dL Glucose (74-99) mg/dL POC Glucose (mg/dL) 114 H 123 H (70-110) mg/dL Calcium (8.4-10.2) mg/dL Phosphorus (2.5-4.5) mg/dL Magnesium (1.6-2.3) mg/dL AST (17-59) U/L Creatine Kinase (55-170) U/L Total Protein (6.3-8.2) g/dL Albumin (3.5-5.0) g/dL Microbiology - Last 24 Hours (Table) 05/30/24 08:12 Gram Stain - Final Sputum Sputum Culture - Final Beta Hemolytic Strep Group C 05/30/24 11:00 Urine Culture - Final Urine,Catheterized 05/30/24 07:30 Blood Culture - Preliminary Blood 05/30/24 07:25 Blood Culture - Preliminary Blood Diabetes panel 05/31/24 06/01/24 Range/Units 05:10 05:10 Sodium 141 141 (137-145) mmol/L Potassium 4.4 3.5 (3.5-5.1) mmol/L Chloride 111 H 111 H (98-107) mmol/L Carbon Dioxide 23 24 (22-30) mmol/L BUN 24 H 29 H (9-20) mg/dL Creatinine 2.99 H 3.41 H (0.66-1.25) mg/dL Glucose 121 H 114 H (74-99) mg/dL Calcium 9.0 7.9 L (8.4-10.2) mg/dL AST 102 H 63 H (17-59) U/L ALT 41 30 (4-49) U/L Alkaline Phosphatase 68 58 (38-126) U/L Total Protein 5.6 L 5.2 L (6.3-8.2) g/dL Albumin 3.0 L 2.8 L (3.5-5.0) g/dL Triglycerides 141.00 (0.00-149.00) mg/dL HDL Cholesterol 45.80 (40.00-60.00) mg/dL Calcium panel 05/31/24 06/01/24 Range/Units 05:10 05:10 Calcium 9.0 7.9 L (8.4-10.2) mg/dL Phosphorus 4.7 H (2.5-4.5) mg/dL Albumin 3.0 L 2.8 L (3.5-5.0) g/dL Pituitary panel 05/31/24 06/01/24 Range/Units 05:10 05:10 Sodium 141 141 (137-145) mmol/L Potassium 4.4 3.5 (3.5-5.1) mmol/L Chloride 111 H 111 H (98-107) mmol/L Carbon Dioxide 23 24 (22-30) mmol/L BUN 24 H 29 H (9-20) mg/dL Creatinine 2.99 H 3.41 H (0.66-1.25) mg/dL Glucose 121 H 114 H (74-99) mg/dL Calcium 9.0 7.9 L (8.4-10.2) mg/dL Adrenal panel 05/31/24 06/01/24 Range/Units 05:10 05:10 Sodium 141 141 (137-145) mmol/L Potassium 4.4 3.5 (3.5-5.1) mmol/L Chloride 111 H 111 H (98-107) mmol/L Carbon Dioxide 23 24 (22-30) mmol/L BUN 24 H 29 H (9-20) mg/dL Creatinine 2.99 H 3.41 H (0.66-1.25) mg/dL Glucose 121 H 114 H (74-99) mg/dL Calcium 9.0 7.9 L (8.4-10.2) mg/dL Total Bilirubin 0.5 0.3 (0.2-1.3) mg/dL AST 102 H 63 H (17-59) U/L ALT 41 30 (4-49) U/L Alkaline Phosphatase 68 58 (38-126) U/L Total Protein 5.6 L 5.2 L (6.3-8.2) g/dL Albumin 3.0 L 2.8 L (3.5-5.0) g/dL Assessment and Plan Assessment: This is a 44-year-old male admitted to the hospital with seizure and cardiac arrest requiring 4 minutes of CPR. Urology is consulted for possible right- sided hydronephrosis. Reviewed his CT there is evidence of an extrarenal pelvis on the right side not hydronephrosis, this is a normal anatomical variation. His acute kidney injury is not secondary to an obstructive etiology. Nephrology is on board. From urology standpoint no further intervention is needed.
[2024-06-01 12:59] LABS: INR 0.9 (<1.2); Prothrombin Time 10.4 sec (10.0-12.5)
--- NOTE | 2024-06-01 13:01 | P.PN ---
Subjective patient is seen for follow-up for acute kidney injury. He is sedated and on the ventilator. Urine output at 175-200 ML per hour. Maintained on LR at 1 25 mL an hour. Serum creatinine at 3.4 today Objective - Vital Signs Vital signs: Vital Signs Temp 98.2 F 06/01/24 09:00 Pulse 75 06/01/24 12:00 Resp 18 06/01/24 12:00 BP 132/83 06/01/24 12:00 Pulse Ox 98 06/01/24 12:00 FiO2 35 06/01/24 12:00 Intake & Output 05/31/24 06/01/24 06/01/24 18:59 06:59 18:59 Intake Total 2044.221 2124.335 1144.501 Output Total 1315 1615 1100 Balance 729.221 509.335 44.501 Weight 86 kg 85 kg 85 kg Intake: IV 1608 1636 768 Acyclovir Sodium 450 mg 100 100 In Sodium Chloride 0.9% 100 ml @ 100 mls/hr IVPB Q8H [facility] Rx#:[id number] Lactated Ringers 1,000 ml 1375 1500 750 @ 125 mls/hr IV .Q8H [facility] Rx#:[id number] Normal Saline Pressure 33 36 18 Bag cefTRIAXone 2 gm In 100 Sodium Chloride 0.9% 50 ml @ 100 mls/hr IVPB Q24HR [facility] Rx#:[id number] Intake, IV Titration 366.221 198.335 216.501 Amount Heparin Sod,Pork in 0.45% 182.36 116.501 NaCl 25,000 unit In 0.45 % NaCl 1 250ml.bag @ 12 UNITS/KG/HR 8.981 mls/hr IV .Q24H [facility] Rx#: [id number] propofoL 1,000 mg In 183.861 198.335 100 Empty Bag 1 bag @ 15 MCG/ KG/MIN 6.736 mls/hr IV . [id number] [facility] Rx#:[id number] Tube Feeding 40 200 160 Other 30 90 Output: Urine 1315 1615 1100 Other: Voiding Method Indwelling Catheter Indwelling Catheter Indwelling Catheter ABP, PAP, CO, CI - Last Documented Arterial Blood Pressure 138/71 - Exam patient is sedated and on the vent Examination of the heart S1 and S2 Examination of the lungs bilateral breath sounds are heard Abdomen is soft nontender Examination of lower extremity shows no significant edema - Labs CBC & Chem 7: 06/01/24 05:10 06/01/24 05:10 Labs: Abnormal Lab Results - Last 24 Hours (Table) 05/31/24 05/31/24 05/31/24 Range/Units 05:10 11:36 18:05 RBC (4.30-5.90) m/uL Hgb (13.0-17.5) gm/dL Hct (39.0-53.0) % Plt Count (150-450) k/uL APTT (22.0-30.0) sec ABG pO2 (83-108) mmHg ABG HCO3 (21-25) mmol/L ABG Total CO2 (19-24) mmol/L ABG O2 Saturation (94-97) % Chloride 111 H (98-107) mmol/L BUN 24 H (9-20) mg/dL Creatinine 2.99 H (0.66-1.25) mg/dL Glucose 121 H (74-99) mg/dL POC Glucose (mg/dL) 124 H (70-110) mg/dL Calcium (8.4-10.2) mg/dL Phosphorus (2.5-4.5) mg/dL Magnesium 2.9 H (1.6-2.3) mg/dL AST 102 H (17-59) U/L Creatine Kinase 799 H (55-170) U/L Total Protein 5.6 L (6.3-8.2) g/dL Albumin 3.0 L (3.5-5.0) g/dL 05/31/24 06/01/24 06/01/24 Range/Units 23:02 05:06 05:10 RBC 3.02 L (4.30-5.90) m/uL Hgb 10.0 L (13.0-17.5) gm/dL Hct 29.1 L (39.0-53.0) % Plt Count 109 L (150-450) k/uL APTT (22.0-30.0) sec ABG pO2 132 H (83-108) mmHg ABG HCO3 26 H (21-25) mmol/L ABG Total CO2 27 H (19-24) mmol/L ABG O2 Saturation 99.6 H (94-97) % Chloride (98-107) mmol/L BUN (9-20) mg/dL Creatinine (0.66-1.25) mg/dL Glucose (74-99) mg/dL POC Glucose (mg/dL) 122 H (70-110) mg/dL Calcium (8.4-10.2) mg/dL Phosphorus (2.5-4.5) mg/dL Magnesium (1.6-2.3) mg/dL AST (17-59) U/L Creatine Kinase (55-170) U/L Total Protein (6.3-8.2) g/dL Albumin (3.5-5.0) g/dL 06/01/24 06/01/24 06/01/24 Range/Units 05:10 05:10 05:33 RBC (4.30-5.90) m/uL Hgb (13.0-17.5) gm/dL Hct (39.0-53.0) % Plt Count (150-450) k/uL APTT 49.9 H (22.0-30.0) sec ABG pO2 (83-108) mmHg ABG HCO3 (21-25) mmol/L ABG Total CO2 (19-24) mmol/L ABG O2 Saturation (94-97) % Chloride 111 H (98-107) mmol/L BUN 29 H (9-20) mg/dL Creatinine 3.41 H (0.66-1.25) mg/dL Glucose 114 H (74-99) mg/dL POC Glucose (mg/dL) 114 H (70-110) mg/dL Calcium 7.9 L (8.4-10.2) mg/dL Phosphorus 4.7 H (2.5-4.5) mg/dL Magnesium 2.4 H (1.6-2.3) mg/dL AST 63 H (17-59) U/L Creatine Kinase (55-170) U/L Total Protein 5.2 L (6.3-8.2) g/dL Albumin 2.8 L (3.5-5.0) g/dL 06/01/24 Range/Units 11:26 RBC (4.30-5.90) m/uL Hgb (13.0-17.5) gm/dL Hct (39.0-53.0) % Plt Count (150-450) k/uL APTT (22.0-30.0) sec ABG pO2 (83-108) mmHg ABG HCO3 (21-25) mmol/L ABG Total CO2 (19-24) mmol/L ABG O2 Saturation (94-97) % Chloride (98-107) mmol/L BUN (9-20) mg/dL Creatinine (0.66-1.25) mg/dL Glucose (74-99) mg/dL POC Glucose (mg/dL) 123 H (70-110) mg/dL Calcium (8.4-10.2) mg/dL Phosphorus (2.5-4.5) mg/dL Magnesium (1.6-2.3) mg/dL AST (17-59) U/L Creatine Kinase (55-170) U/L Total Protein (6.3-8.2) g/dL Albumin (3.5-5.0) g/dL Microbiology - Last 24 Hours (Table) 05/30/24 08:12 Gram Stain - Final Sputum Sputum Culture - Final Beta Hemolytic Strep Group C 05/30/24 11:00 Urine Culture - Final Urine,Catheterized 05/30/24 07:30 Blood Culture - Preliminary Blood 05/30/24 07:25 Blood Culture - Preliminary Blood Assessment and Plan Assessment: 1. Acute kidney injury, ATN, nonoliguric secondary to hypotension and cardiac arrest. UA shows 1+ protein 3+ blood in ( it was a difficult Castellanos catheter placement). CT of the abdomen negative for any obstructive uropathy. CK is mildly elevated at 799 2. New onset seizures, maintained on Keppra. Neurology on consult. ? related to alcohol withdrawal. 3. Severe metabolic acidosis possibly related to lactic acidosis volatile screen is pending.. Serum acetone, salicylate and alcohol is negative. 4. Hyperkalemia associated with acute kidney injury and severe metabolic acidosis, improved. 5. New onset diabetes 6. Elevated troponins being followed by cardiology. Rule out acute ischemic event. Plan: continue IV fluids. Repeat labs in a.m. Expect improvement in labs over the next 1-2 days given the increased urine output. Continue to avoid nephrotoxic agents.
--- NOTE | 2024-06-01 13:05 | P.PN ---
Subjective Progress Note Date: 06/01/24 Principal diagnosis: New onset seizures, inability to protect airways, requiring intubation mechanical ventilation, May 30 2024 This is a 44-year-old male with a history of depression, possibly PTSD, and hypertension. The patient apparently had a new onset seizure today, and was found by his , at home. The patient apparently was acting strange, and subsequent to that, was found on the bedroom floor, having a seizure. EMS was called and brought the patient into the emergency room. The patient had at least 2 seizures in the emergency room, and could not protect his airway, and was intubated for airway protection. The patient is seen in the emergency department, in trauma room 1. The patient had a initial blood gas,, showing a pO2 of 170, pCO2 of 35, pH is 6.99. Subsequent blood gas on 100% showed a pO2 of greater than 420, pCO2 of 38, and a pH of 7.43. Lactic acid was 10.7. Glucose was 138. Additional labs include a white count of 16.6, hemoglobin 14. 8, hematocrit 46.1, and a platelet count of 285,000. Sodium 144, potassium 5.8, chlorides 105, CO2 less than 5, BUN 14, creatinine 1.52. Glucose was 345. Lactic acid was 10.7. N-terminal proBNP was 319. Troponin was 0.151. Albumin 5.3. Viral screen was negative. Serum alcohol level was less than 10. Brain CT showed nothing acute. Chest x-ray showed no acute cardiopulmonary changes. CT of the abdomen and pelvis, was also negative. The did state, that the patient does use marijuana, does not smoke cigarettes at this time, and drinks occasionally heavily. Patient was evaluated today on 05/31/2024, patient remains intubated [place] ventilated. He is on assist-control rate of 20 tidal volume 500 FiO2 40% PEEP of 5 ABG showed a pO2 of 155 pCO2 34 pH of 7.48. Patient remains on the [facility] protocol for history of alcoholism. Remains on propofol at 40 mcg/kg/min he is also on LR at 125 mL/h chest x-ray showed no evidence of active disease. Labs were reviewed WBC count 6.1 hemoglobin is 10.0. PTT is 60 ABG showed a pO2 of 155 pCO2 34 pH of 7.48, hence vent settings were adjusted with rate down to 18 FiO2 down to 35%. Basic metabolic profile is normal however BUN is 24 cr eatinine 2.99, patient apparently developed acute tubular necrosis/acute kidney injury being addressed by nephrology on the case CPK is elevated at 799, troponin 4.32 and total protein is 5.6 albumin 3.0, looking back at this patient presentation, he had a brief cardiac arrest in the ER, received 2 epinephrines, downtime was few minutes, hence we will try to assess his mental status today for possible weaning and extubation. After going off sedation, patient seems to be arousable, follows simple instructions but was extremely agitated and restless, could not proceed to full extubation on this patient. Patient was evaluated today on , patient remains in the ICU, intubated and mechanically ventilated. He is presently on assist-control rate of 18 tidal volume 500 FiO2 35% PEEP of 5 ABG showed a pO2 of 132 pCO2 40 pH of 7.42 hence no changes were made in present vent settings. Patient is being considered for lumbar puncture today by neurology. Patient remains on propofol at 50 mcg/kg/min, he is also on LR at 125 cc/h heparin drip, and I will likely transition the patient from propofol to Precedex to hopefully consider a weaning trial and possibly extubation. Patient has not had any seizures overnight, he is maintained on Keppra and ceftriaxone and he was also placed on acyclovir. Again neurology is considering a lumbar puncture to be done today. WBC count today is 5.2 hemoglobin is 10 electrolytes are normal BUN is 29 creatinine on the rise up to 3.41. Patient was seen by urology, did not feel that the patient had hydronephrosis, and recommended no intervention. Did not feel his acute kidney injury is secondary to any obstructive uropathy renal status is being closely monitored by nephrology on the case. X-ray showed no pulmonary process. Patient is showing group C beta-hemolytic strep in the sputum significance of which is not clear Objective - Vital Signs Vital signs: Vital Signs Temp 98.2 F 06/01/24 09:00 Pulse 75 06/01/24 12:00 Resp 18 06/01/24 12:00 BP 132/83 06/01/24 12:00 Pulse Ox 98 06/01/24 12:00 FiO2 35 06/01/24 12:00 Intake & Output 05/31/24 06/01/24 06/01/24 18:59 06:59 18:59 Intake Total 2044.221 2124.335 1203.462 Output Total 1315 1615 1100 Balance 729.221 509.335 103.462 Weight 86 kg 85 kg 85 kg Intake: IV 1608 1636 768 Acyclovir Sodium 450 mg 100 100 In Sodium Chloride 0.9% 100 ml @ 100 mls/hr IVPB Q8H [facility] Rx#:[id number] Lactated Ringers 1,000 ml 1375 1500 750 @ 125 mls/hr IV .Q8H [facility] Rx#:[id number] Normal Saline Pressure 33 36 18 Bag cefTRIAXone 2 gm In 100 Sodium Chloride 0.9% 50 ml @ 100 mls/hr IVPB Q24HR [facility] Rx#:[id number] Intake, IV Titration 366.221 198.335 275.462 Amount Dexmedetomidine/0.9% NaCl 12.184 (Pmx) 400 mcg In Empty Bag 1 bag @ 0.2 MCG/KG/HR 4.25 mls/hr IV .[id number] [facility] Rx#:[id number] Heparin Sod,Pork in 0.45% 182.36 116.501 NaCl 25,000 unit In 0.45 % NaCl 1 250ml.bag @ 12 UNITS/KG/HR 8.981 mls/hr IV .Q24H [facility] Rx#: [id number] propofoL 1,000 mg In 183.861 198.335 146.777 Empty Bag 1 bag @ 15 MCG/ KG/MIN 6.736 mls/hr IV . [id number] [facility] Rx#:[id number] Tube Feeding 40 200 160 Other 30 90 Output: Urine 1315 1615 1100 Other: Voiding Method Indwelling Catheter Indwelling Catheter Indwelling Catheter ABP, PAP, CO, CI - Last Documented Arterial Blood Pressure 138/71 - Exam General: Revealed 44-year-old white male intubated mechanically ventilated. Endotracheal tube and orogastric tube are intact. Skin: Skin is warm and dry and no rashes or lesions are noted. Eye: Pupils are equal, round and reactive to light, extra-ocular movements are intact; there is normal conjunctiva bilaterally. Ears, nose, mouth and throat: There are moist mucous membranes and no oral lesions. Neck: The neck is supple, there is no tenderness or JVD. Cardiovascular: There is a regular rate and rhythm. No murmur, rub or gallop is appreciated. Respiratory: Clear throughout no crackles rhonchi or wheezes Gastrointestinal: Soft, non-distended, non-tender abdomen without masses or organomegaly noted. There is no rebound or guarding present. Bowel sounds are unremarkable. Neurological: Sedated, could not assess Psychiatric: Fully sedated, could not assess - Labs CBC & Chem 7: 06/01/24 05:10 06/01/24 05:10 Labs: Abnormal Lab Results - Last 24 Hours (Table) 05/31/24 05/31/24 05/31/24 Range/Units 05:10 11:36 18:05 RBC (4.30-5.90) m/uL Hgb (13.0-17.5) gm/dL Hct (39.0-53.0) % Plt Count (150-450) k/uL APTT (22.0-30.0) sec ABG pO2 (83-108) mmHg ABG HCO3 (21-25) mmol/L ABG Total CO2 (19-24) mmol/L ABG O2 Saturation (94-97) % Chloride 111 H (98-107) mmol/L BUN 24 H (9-20) mg/dL Creatinine 2.99 H (0.66-1.25) mg/dL Glucose 121 H (74-99) mg/dL POC Glucose (mg/dL) 124 H (70-110) mg/dL Calcium (8.4-10.2) mg/dL Phosphorus (2.5-4.5) mg/dL Magnesium 2.9 H (1.6-2.3) mg/dL AST 102 H (17-59) U/L Creatine Kinase 799 H (55-170) U/L Total Protein 5.6 L (6.3-8.2) g/dL Albumin 3.0 L (3.5-5.0) g/dL 05/31/24 06/01/24 06/01/24 Range/Units 23:02 05:06 05:10 RBC 3.02 L (4.30-5.90) m/uL Hgb 10.0 L (13.0-17.5) gm/dL Hct 29.1 L (39.0-53.0) % Plt Count 109 L (150-450) k/uL APTT (22.0-30.0) sec ABG pO2 132 H (83-108) mmHg ABG HCO3 26 H (21-25) mmol/L ABG Total CO2 27 H (19-24) mmol/L ABG O2 Saturation 99.6 H (94-97) % Chloride (98-107) mmol/L BUN (9-20) mg/dL Creatinine (0.66-1.25) mg/dL Glucose (74-99) mg/dL POC Glucose (mg/dL) 122 H (70-110) mg/dL Calcium (8.4-10.2) mg/dL Phosphorus (2.5-4.5) mg/dL Magnesium (1.6-2.3) mg/dL AST (17-59) U/L Creatine Kinase (55-170) U/L Total Protein (6.3-8.2) g/dL Albumin (3.5-5.0) g/dL 06/01/24 06/01/24 06/01/24 Range/Units 05:10 05:10 05:33 RBC (4.30-5.90) m/uL Hgb (13.0-17.5) gm/dL Hct (39.0-53.0) % Plt Count (150-450) k/uL APTT 49.9 H (22.0-30.0) sec ABG pO2 (83-108) mmHg ABG HCO3 (21-25) mmol/L ABG Total CO2 (19-24) mmol/L ABG O2 Saturation (94-97) % Chloride 111 H (98-107) mmol/L BUN 29 H (9-20) mg/dL Creatinine 3.41 H (0.66-1.25) mg/dL Glucose 114 H (74-99) mg/dL POC Glucose (mg/dL) 114 H (70-110) mg/dL Calcium 7.9 L (8.4-10.2) mg/dL Phosphorus 4.7 H (2.5-4.5) mg/dL Magnesium 2.4 H (1.6-2.3) mg/dL AST 63 H (17-59) U/L Creatine Kinase (55-170) U/L Total Protein 5.2 L (6.3-8.2) g/dL Albumin 2.8 L (3.5-5.0) g/dL 06/01/24 Range/Units 11:26 RBC (4.30-5.90) m/uL Hgb (13.0-17.5) gm/dL Hct (39.0-53.0) % Plt Count (150-450) k/uL APTT (22.0-30.0) sec ABG pO2 (83-108) mmHg ABG HCO3 (21-25) mmol/L ABG Total CO2 (19-24) mmol/L ABG O2 Saturation (94-97) % Chloride (98-107) mmol/L BUN (9-20) mg/dL Creatinine (0.66-1.25) mg/dL Glucose (74-99) mg/dL POC Glucose (mg/dL) 123 H (70-110) mg/dL Calcium (8.4-10.2) mg/dL Phosphorus (2.5-4.5) mg/dL Magnesium (1.6-2.3) mg/dL AST (17-59) U/L Creatine Kinase (55-170) U/L Total Protein (6.3-8.2) g/dL Albumin (3.5-5.0) g/dL Microbiology - Last 24 Hours (Table) 05/30/24 08:12 Gram Stain - Final Sputum Sputum Culture - Final Beta Hemolytic Strep Group C 05/30/24 11:00 Urine Culture - Final Urine,Catheterized 05/30/24 07:30 Blood Culture - Preliminary Blood 05/30/24 07:25 Blood Culture - Preliminary Blood Assessment and Plan Assessment: Impression: New onset seizures with inability to protect airway is required requiring intubation mechanical ventilation May 30 Brief cardiac arrest/asystole while in the ER requiring 2 doses of epinephrine Acute kidney injury/acute tubular necrosis History of alcoholism History of PTSD History of depression Benign essential hypertension Recommendations: Continue ventilatory support Continue antibiotics and continue acyclovir, neurology is planning lumbar puncture on this patient. Continue seizure meds and seizure precautions Continue nutritional support/enteral feeding Continue DVT prophylaxis and GI prophylaxis Continue CIWA protocol Continue Lidia Updated his on his condition Consider giving the patient a weaning trial today on Precedex. Instead of propofol Discussed his overall condition with the neurologist on the case Patient is critically ill Critical care time is over 30-minute Time with Patient: Greater than 30
--- NOTE | 2024-06-01 13:31 | P.PN ---
Subjective Progress Note Date: 06/01/24 I am following up with the patient. Patient continues to be intubated on a ventilator and is on IV propofol 50mcg/kg/min and per nurse no further clinical seizures. Patient's is at bedside who states that the patient has history of hepatitis C due to substance abuse in the past but he is in remission. She stated that the patient drinks about 2 tall boys of beer almost daily without any significant alcohol use. She stated that the patient and herself had COVID- 19 symptoms beginning of May of this year and she stated patient was doing well otherwise and did not require any hospitalization and was functional. Then towards the /end of May they went to [place] and they did multiple outdoor activity and the patient was fine without any issues. She did acknowledge that he did drink more than normal during that 1 week but still he was doing well. Then they headed back to [place] This past Friday and the patient was still doing well. Then Friday he was also doing well and he went back to his usual 2 tall boy of beer. But then the next day which is Friday he stated that the patient notified her that he was not feeling well. Then it seems that he was having nausea vomiting episode. Patient behavior was different and he notified her that she was not his . Initially she that she thought the patient symptoms were due to his PTSD. Then later she noticed the patient was having new onset seizure-like activity. Patient does not have any history of seizures. Does not have any history of stroke. Objective - Vital Signs Vital signs: Vital Signs Temp 98.2 F 06/01/24 09:00 Pulse 75 06/01/24 12:00 Resp 18 06/01/24 12:00 BP 132/83 06/01/24 12:00 Pulse Ox 98 06/01/24 12:00 FiO2 35 06/01/24 12:00 Intake & Output 05/31/24 06/01/24 06/01/24 18:59 06:59 18:59 Intake Total 2044.221 2124.335 1203.462 Output Total 1315 1615 1100 Balance 729.221 509.335 103.462 Weight 86 kg 85 kg 85 kg Intake: IV 1608 1636 768 Acyclovir Sodium 450 mg 100 100 In Sodium Chloride 0.9% 100 ml @ 100 mls/hr IVPB Q8H [facility] Rx#:[id number] Lactated Ringers 1,000 ml 1375 1500 750 @ 125 mls/hr IV .Q8H [facility] Rx#:[id number] Normal Saline Pressure 33 36 18 Bag cefTRIAXone 2 gm In 100 Sodium Chloride 0.9% 50 ml @ 100 mls/hr IVPB Q24HR [facility] Rx#:[id number] Intake, IV Titration 366.221 198.335 275.462 Amount Dexmedetomidine/0.9% NaCl 12.184 (Pmx) 400 mcg In Empty Bag 1 bag @ 0.2 MCG/KG/HR 4.25 mls/hr IV .[id number] [facility] Rx#:[id number] Heparin Sod,Pork in 0.45% 182.36 116.501 NaCl 25,000 unit In 0.45 % NaCl 1 250ml.bag @ 12 UNITS/KG/HR 8.981 mls/hr IV .Q24H [facility] Rx#: [id number] propofoL 1,000 mg In 183.861 198.335 146.777 Empty Bag 1 bag @ 15 MCG/ KG/MIN 6.736 mls/hr IV . [id number] [facility] Rx#:[id number] Tube Feeding 40 200 160 Other 30 90 Output: Urine 1315 1615 1100 Other: Voiding Method Indwelling Catheter Indwelling Catheter Indwelling Catheter ABP, PAP, CO, CI - Last Documented Arterial Blood Pressure 138/71 - Exam General: Lying in bed and does not appear in acute distress. Resp: Intubated on a ventilator. Neuro: Limited. Patient is on IV Propofol 50mcg/kg/min. I have to manually open his eyes and pupils are pinpoint. Primary gaze is midline. Motor strength is unable to assess because of his overall condition. He has decreased tone throughout. - Labs CBC & Chem 7: 06/01/24 05:10 06/01/24 05:10 Labs: Abnormal Lab Results - Last 24 Hours (Table) 05/31/24 05/31/24 05/31/24 Range/Units 05:10 18:05 23:02 RBC (4.30-5.90) m/uL Hgb (13.0-17.5) gm/dL Hct (39.0-53.0) % Plt Count (150-450) k/uL APTT (22.0-30.0) sec ABG pO2 (83-108) mmHg ABG HCO3 (21-25) mmol/L ABG Total CO2 (19-24) mmol/L ABG O2 Saturation (94-97) % Chloride 111 H (98-107) mmol/L BUN 24 H (9-20) mg/dL Creatinine 2.99 H (0.66-1.25) mg/dL Glucose 121 H (74-99) mg/dL POC Glucose (mg/dL) 124 H 122 H (70-110) mg/dL Calcium (8.4-10.2) mg/dL Phosphorus (2.5-4.5) mg/dL Magnesium 2.9 H (1.6-2.3) mg/dL AST 102 H (17-59) U/L Total Protein 5.6 L (6.3-8.2) g/dL Albumin 3.0 L (3.5-5.0) g/dL 06/01/24 06/01/24 06/01/24 Range/Units 05:06 05:10 05:10 RBC 3.02 L (4.30-5.90) m/uL Hgb 10.0 L (13.0-17.5) gm/dL Hct 29.1 L (39.0-53.0) % Plt Count 109 L (150-450) k/uL APTT (22.0-30.0) sec ABG pO2 132 H (83-108) mmHg ABG HCO3 26 H (21-25) mmol/L ABG Total CO2 27 H (19-24) mmol/L ABG O2 Saturation 99.6 H (94-97) % Chloride 111 H (98-107) mmol/L BUN 29 H (9-20) mg/dL Creatinine 3.41 H (0.66-1.25) mg/dL Glucose 114 H (74-99) mg/dL POC Glucose (mg/dL) (70-110) mg/dL Calcium 7.9 L (8.4-10.2) mg/dL Phosphorus 4.7 H (2.5-4.5) mg/dL Magnesium 2.4 H (1.6-2.3) mg/dL AST 63 H (17-59) U/L Total Protein 5.2 L (6.3-8.2) g/dL Albumin 2.8 L (3.5-5.0) g/dL 06/01/24 06/01/24 06/01/24 Range/Units 05:10 05:33 11:26 RBC (4.30-5.90) m/uL Hgb (13.0-17.5) gm/dL Hct (39.0-53.0) % Plt Count (150-450) k/uL APTT 49.9 H (22.0-30.0) sec ABG pO2 (83-108) mmHg ABG HCO3 (21-25) mmol/L ABG Total CO2 (19-24) mmol/L ABG O2 Saturation (94-97) % Chloride (98-107) mmol/L BUN (9-20) mg/dL Creatinine (0.66-1.25) mg/dL Glucose (74-99) mg/dL POC Glucose (mg/dL) 114 H 123 H (70-110) mg/dL Calcium (8.4-10.2) mg/dL Phosphorus (2.5-4.5) mg/dL Magnesium (1.6-2.3) mg/dL AST (17-59) U/L Total Protein (6.3-8.2) g/dL Albumin (3.5-5.0) g/dL Microbiology - Last 24 Hours (Table) 05/30/24 08:12 Gram Stain - Final Sputum Sputum Culture - Final Beta Hemolytic Strep Group C 05/30/24 11:00 Urine Culture - Final Urine,Catheterized 05/30/24 07:30 Blood Culture - Preliminary Blood 05/30/24 07:25 Blood Culture - Preliminary Blood Assessment and Plan Assessment: Is a 44-year-old gentleman with a history of alcohol use in which she drinks 2 tall boys who recently went to [place] for a week and was in multiple outdoor events. He did drink heavily during that week 1 week. They headed back him and his this past Friday and there is no issues. Also the next day he was doing well which was Friday and he was drinking back to his baseline without any issues. Then this past Friday he started having behavioral changes and had new onset seizure. Then had further seizure that led to postcardiac arrest. * New onset seizures, and there is ? due to alcohol withdrawal but I am not totally convinced since patient drank heavily only for 1 week and I am not sure how much dependence a person get only for 1 week. Secondly we need to rule out other central infection especially since the patient had multiple outdoor activity while at [place]. Patient presented afebrile and felt likely leukocytosis are reactive due to seizure which resolved. Urine culture is positive for beta-hemolytic strep group C and unsure if this is normal remy vs ?pathogenic. Secondly patient's states that he does a lot of gardening and chews tobacco and unsure if he developed an infection while picking up contaminated soil. * Status postcardiac arrest after third seizure, with downtime of 4 minutes. * Elevated cardiac enzymes, rule out acute [place] * Lactic acidosis, due to recurrent seizures * Hyperkalemia * Elevated troponin * Leukocytosis on presentation that resolved--likely reactive. Is afebrile---resolved * Acute kidney injury * History of moderate alcoholism * Macrocytosis, likely due to alcoholism--resolved * Marijuana use * Vapes * History of PTSD Plan: * Is on Keppra 1gm bid. * Seizure precaution and pads. * EEG: It is reported as abnormal with the presence of excessive amount of low voltage fast frequency beta activity suggestions of benzodiazepine effect. Otherwise some intermittent slowing was seen with some periods of suppression, suggestive of encephalopathy/medication effect. No focal, lateralizing or epileptiform activity was seen. * I will get repeat EEG * Will plan for lumbar puncture today. consented for it. Will get routine CSF study and comprehensive viral panel. Primary team spoke with cardiology team who okayed holding heparin drip for LP. * Pending lyme testing, VZV, Herpes 1/2 PCR. * Repeat CT head: No acute intracranial process seen at this time. * Hemoglobin A1c 5.5 * I started the patient on Acylovir IV for empiric treatment of viral encephalitis which I feel is unlikely and patient is on renal dose. If CSF study is negative will discontinue it. * His sputum culture is positive for beta hemolytic strep group C. * I.D. is on board * Patient is on heparin for elevated cardiac enzymes. Cardiology on board. * Recommend abstinence from marijuana, alcoholism and vaping. * Other medical management as per IM and other specialties on board. The plan is discussed with patient's , ICU attending, primary attending and I.D. team. primary attending and his nurse. Spent a total of 50 minutes on care. Time with Patient: Greater than 30
--- NOTE | 2024-06-01 16:55 | P.PN ---
Progress Note - Text Progress Note Date: 06/01/24 Lumbar Puncture Date: 06/01/2024 Time: 2:40pm Indication: Altered Mental Status Resident: Dr. Stew Dow Attending: Dr. Bud Whitlock The patient was placed in the LEFT lateral decubitus position in a semi- position with help from the nursing staff. The area was cleansed and draped in usual sterile fashion. 1% lidocaine was used anesthetize the surrounding skin area. A 20-gauge 3.5-inch spinal needle was placed in the L4-L5 interspace. Clear cerebral spinal fluid was obtained and the opening pressure was noted to be 27cm H20. Four tubes were filled with 3-3.5 mL of CSF in each tube. Closing pressure was noted to be 26cm H20. These were sent for the usual tests. Estimated Blood Loss: Minimal. The patient tolerated the procedure well and there were no complications. Bud Whitlock M.D.
[2024-06-01] MEDS: hydrALAZINE HCL 25 MG TAB PO SCH (17:11)
[2024-06-01 17:17] LABS: Glucose,Whole Blood 121 mg/dL (70-110)
[2024-06-01 18:07] LABS: Glucose,CSF 71 mg/dL (40-70); Total Protein,CSF 45 mg/dL (12-60)
[2024-06-01] MEDS: CLEVIDIPINE BUTYRATE 25 MG in EMPTY BAG 1 BAG IV SCH (18:44)
[2024-06-01 19:00] LABS: Appearance,CSF Clear; CSF Tube Number 3; CSF Tube Volume 3.2
[2024-06-01 19:01] LABS: Nucleated Cells, CSF 3 u/L (0-5); Red Blood Cell,CSF 108 u/L (0-10)
[2024-06-01 19:05] LABS: Red Blood Cell, CSF Crenated 0 %; Red Blood Cell, CSF Fresh 100 %
--- NOTE | 2024-06-01 20:54 | P.PN ---
Subjective Progress Note Date: 05/31/24 This is a 45-year-old gentleman who requested to see the emergency department for further cardiac evaluation of abnormal cardiac enzymes. Currently the patient is intubated and he is on mechanical ventilation but the history was taken from the ER physician as well as from the patient's who was at be dside. The patient was noted to be in normal situation till yesterday. 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 Before that he was drinking excessively according to his . Ambulance was called and the patient was brought to the emergency department for further evaluation in the emergency department he was confused but subsequently he had a grand mal seizure witnessed by the ER staff. Subsequently the patient was intubated and placed on mechanical ventilation to protect the airway. Further evaluation was performed including an EKG. The first EKG showed sinus rhythm with nonspecific ST and T wave abnormalities and evidence of LVH. Second EKG showed sinus mechanism with no ST or T wave abnormalities. The troponin came in to be slightly elevated. According to the patient's he was not experiencing any cardiovascular symptoms of any chest pain or chest discomfort or shortness of breath. He never been diagnosed with diabetes. He was diagnosed in the past with hypertension and he was on medications but he stopped taking the medications. Please note that his blood glucose is elevated during the blood work today. The patient underwent also a CT scan of the brain which did show any acute abnormalities. Currently he is hemodynamically stable with soft blood pressure. Beside that he underwent a blood work and that revealed low GFR and elevated potassium. The chest x-ray showed possible underlying pneumonia and he was seen by the pulmon acosta/critical care team and he was placed on antibiotic. The examination is remarkable for patient to be intubated on mechanical ventilation with regular rate and rhythm and soft systolic murmur at the right upper sternal border and clear breathing sounds bilaterally and no edema was noted in the lower extremities with soft nontender abdomen May 31, 2024 Patient seen and examined at bedside. Family was present at bedside. Echocardiogram still pending, hemodynamic stable. No further episodes of asystole or any other pauses or any arrhythmias on telemetry monitoring. Appropriate urine output. No signs of bleeding on IV heparin drip. Assessment Asystolic cardiac arrest after a Grand mall seziure, required 4 mins of CPR Elevated troponin due to cardiac arrest, Likely Type II nstemi Vent dependent respiratory failure after cardiac arrest Grand Mal seizure Electrolytes abnormalities with hyperkalemia History of excessive alcohol use Plan Continue the current dose of aspirin Continue heparin IV Avoid any beta-kristian in the light of soft blood pressure Follow-up on the echocardiogram which was performed Further recommendation to follow Objective - Vital Signs Vital signs: Vital Signs Temp 97.6 F 06/01/24 20:00 Pulse 86 06/01/24 20:44 Resp 18 06/01/24 20:15 BP 135/92 06/01/24 20:15 Pulse Ox 98 06/01/24 20:15 FiO2 35 06/01/24 20:44 Intake & Output 06/01/24 06/01/24 06/02/24 06:59 18:59 06:59 Intake Total 2124.335 2167.696 251.167 Output Total 1615 2250 550 Balance 509.335 -82.304 -298.833 Weight 85 kg 85 kg Intake: IV 1636 1533 250 Acyclovir Sodium 450 mg 100 In Sodium Chloride 0.9% 100 ml @ 100 mls/hr IVPB Q8H [facility] Rx#:[id number] Lactated Ringers 1,000 ml 1500 1500 250 @ 125 mls/hr IV .Q8H YESENIA Rx#:[id number] Normal Saline Pressure 36 33 Bag Intake, IV Titration 198.335 474.696 1.167 Amount Clevidipine Butyrate 25 1.167 mg In Empty Bag 1 bag @ 1 MG/HR 2 mls/hr IV .Q24H [facility] Rx#:[id number] Dexmedetomidine/0.9% NaCl 76.430 (Pmx) 400 mcg In Empty Bag 1 bag @ 0.2 MCG/KG/HR 4.25 mls/hr IV .[id number] [facility] Rx#:[id number] Heparin Sod,Pork in 0.45% 116.501 NaCl 25,000 unit In 0.45 % NaCl 1 250ml.bag @ 12 UNITS/KG/HR 8.981 mls/hr IV .Q24H YESENIA Rx#: [id number] propofoL 1,000 mg In 198.335 281.765 Empty Bag 1 bag @ 15 MCG/ KG/MIN 6.736 mls/hr IV . [id number] [facility]ENIA Rx#:[id number] Tube Feeding 200 160 Other 90 Output: Urine 1615 2250 550 Other: Voiding Method Indwelling Catheter Indwelling Catheter ABP, PAP, CO, CI - Last Documented Arterial Blood Pressure 140/78 - Labs CBC & Chem 7: 06/01/24 05:10 06/01/24 17:01 Labs: Abnormal Lab Results - Last 24 Hours (Table) 05/31/24 06/01/24 06/01/24 Range/Units 23:02 05:06 05:10 RBC 3.02 L (4.30-5.90) m/uL Hgb 10.0 L (13.0-17.5) gm/dL Hct 29.1 L (39.0-53.0) % Plt Count 109 L (150-450) k/uL APTT (22.0-30.0) sec ABG pO2 132 H (83-108) mmHg ABG HCO3 26 H (21-25) mmol/L ABG Total CO2 27 H (19-24) mmol/L ABG O2 Saturation 99.6 H (94-97) % Chloride (98-107) mmol/L BUN (9-20) mg/dL Creatinine (0.66-1.25) mg/dL Glucose (74-99) mg/dL POC Glucose (mg/dL) 122 H (70-110) mg/dL Calcium (8.4-10.2) mg/dL Phosphorus (2.5-4.5) mg/dL Magnesium (1.6-2.3) mg/dL AST (17-59) U/L Total Protein (6.3-8.2) g/dL Albumin (3.5-5.0) g/dL CSF RBC (0-10) u/L CSF Glucose (40-70) mg/dL 06/01/24 06/01/24 06/01/24 Range/Units 05:10 05:10 05:33 RBC (4.30-5.90) m/uL Hgb (13.0-17.5) gm/dL Hct (39.0-53.0) % Plt Count (150-450) k/uL APTT 49.9 H (22.0-30.0) sec ABG pO2 (83-108) mmHg ABG HCO3 (21-25) mmol/L ABG Total CO2 (19-24) mmol/L ABG O2 Saturation (94-97) % Chloride 111 H (98-107) mmol/L BUN 29 H (9-20) mg/dL Creatinine 3.41 H (0.66-1.25) mg/dL Glucose 114 H (74-99) mg/dL POC Glucose (mg/dL) 114 H (70-110) mg/dL Calcium 7.9 L (8.4-10.2) mg/dL Phosphorus 4.7 H (2.5-4.5) mg/dL Magnesium 2.4 H (1.6-2.3) mg/dL AST 63 H (17-59) U/L Total Protein 5.2 L (6.3-8.2) g/dL Albumin 2.8 L (3.5-5.0) g/dL CSF RBC (0-10) u/L CSF Glucose (40-70) mg/dL 06/01/24 06/01/24 06/01/24 Range/Units 11:26 14:45 17:01 RBC (4.30-5.90) m/uL Hgb (13.0-17.5) gm/dL Hct (39.0-53.0) % Plt Count (150-450) k/uL APTT (22.0-30.0) sec ABG pO2 (83-108) mmHg ABG HCO3 (21-25) mmol/L ABG Total CO2 (19-24) mmol/L ABG O2 Saturation (94-97) % Chloride (98-107) mmol/L BUN (9-20) mg/dL Creatinine (0.66-1.25) mg/dL Glucose 116 H (74-99) mg/dL POC Glucose (mg/dL) 123 H (70-110) mg/dL Calcium (8.4-10.2) mg/dL Phosphorus (2.5-4.5) mg/dL Magnesium (1.6-2.3) mg/dL AST (17-59) U/L Total Protein (6.3-8.2) g/dL Albumin (3.5-5.0) g/dL CSF RBC 108 H (0-10) u/L CSF Glucose 71 H (40-70) mg/dL 06/01/24 Range/Units 17:16 RBC (4.30-5.90) m/uL Hgb (13.0-17.5) gm/dL Hct (39.0-53.0) % Plt Count (150-450) k/uL APTT (22.0-30.0) sec ABG pO2 (83-108) mmHg ABG HCO3 (21-25) mmol/L ABG Total CO2 (19-24) mmol/L ABG O2 Saturation (94-97) % Chloride (98-107) mmol/L BUN (9-20) mg/dL Creatinine (0.66-1.25) mg/dL Glucose (74-99) mg/dL POC Glucose (mg/dL) 121 H (70-110) mg/dL Calcium (8.4-10.2) mg/dL Phosphorus (2.5-4.5) mg/dL Magnesium (1.6-2.3) mg/dL AST (17-59) U/L Total Protein (6.3-8.2) g/dL Albumin (3.5-5.0) g/dL CSF RBC (0-10) u/L CSF Glucose (40-70) mg/dL Microbiology - Last 24 Hours (Table) 05/30/24 07:30 Blood Culture - Preliminary Blood 05/30/24 07:25 Blood Culture - Preliminary Blood 05/30/24 08:12 Gram Stain - Final Sputum Sputum Culture - Final Beta Hemolytic Strep Group C 05/30/24 11:00 Urine Culture - Final Urine,Catheterized
--- NOTE | 2024-06-01 20:58 | P.PN ---
Subjective Progress Note Date: 06/01/24 This is a 45-year-old gentleman who requested to see the emergency department for further cardiac evaluation of abnormal cardiac enzymes. Currently the patient is intubated and he is on mechanical ventilation but the history was taken from the ER physician as well as from the patient's who was at be dside. The patient was noted to be in normal situation till yesterday. 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 Before that he was drinking excessively according to his . Ambulance was called and the patient was brought to the emergency department for further evaluation in the emergency department he was confused but subsequently he had a grand mal seizure witnessed by the ER staff. Subsequently the patient was intubated and placed on mechanical ventilation to protect the airway. Further evaluation was performed including an EKG. The first EKG showed sinus rhythm with nonspecific ST and T wave abnormalities and evidence of LVH. Second EKG showed sinus mechanism with no ST or T wave abnormalities. The troponin came in to be slightly elevated. According to the patient's he was not experiencing any cardiovascular symptoms of any chest pain or chest discomfort or shortness of breath. He never been diagnosed with diabetes. He was diagnosed in the past with hypertension and he was on medications but he stopped taking the medications. Please note that his blood glucose is elevated during the blood work today. The patient underwent also a CT scan of the brain which did show any acute abnormalities. Currently he is hemodynamically stable with soft blood pressure. Beside that he underwent a blood work and that revealed low GFR and elevated potassium. The chest x-ray showed possible underlying pneumonia and he was seen by the pulmon acosta/critical care team and he was placed on antibiotic. The examination is remarkable for patient to be intubated on mechanical ventilation with regular rate and rhythm and soft systolic murmur at the right upper sternal border and clear breathing sounds bilaterally and no edema was noted in the lower extremities with soft nontender abdomen May 31, 2024 Patient seen and examined at bedside. Family was present at bedside. Echocardiogram still pending, hemodynamic stable. No further episodes of asystole or any other pauses or any arrhythmias on telemetry monitoring. Appropriate urine output. No signs of bleeding on IV heparin drip. June 01, 2024 Patient is seen and examined at bedside this a.m. patient's echocardiogram showed an EF of 35 to 40% with no significant valvular abnormality. Appropriate urine output. No further episodes of seizure. Propofol was reduced and was started on Precedex. On exam S1-S2 is audible, regular pulses, On vent support, ET tube in place, good air entry bilateral lung lzao with no significant crackles or rhonchi Mild swelling in right upper extremity, no JVD, left IJ central line in place On propofol and Precedex, due to neuroexam was not performed Assessment Asystolic cardiac arrest after a [place] seziure, required 4 mins of CPR Elevated troponin due to cardiac arrest, Likely Type II nstemi Vent dependent respiratory failure after cardiac arrest Cardiomyopathy with EF 35 to 40%, likely stress-induced cardiomyopathy. Possibility of ischemic heart disease cannot be ruled out LUCY, due to ATN likely due to hypoxic injury from cardiac arrest Grand Mal seizure Electrolytes abnormalities with hyperkalemia History of excessive alcohol use Plan Continue aspirin Okay to hold IV heparin for lumbar puncture. Okay to resume IV heparin 2 hours after the lumbar puncture Consider starting hydralazine 25 mg 4 times daily for elevated blood pressure Monitor renal function and urine output. Once kidney function improves and patient is weaned off from ventilator, patient should get ischemic evaluation by heart catheterization. Eventually patient would benefit from dilated to medical therapy for cardiomyopathy Avoid any beta-kristian or other AV davie blocking agents at present Objective - Vital Signs Vital signs: Vital Signs Temp 97.6 F 06/01/24 20:00 Pulse 88 06/01/24 20:53 Resp 18 06/01/24 20:15 BP 135/92 06/01/24 20:15 Pulse Ox 98 06/01/24 20:15 FiO2 35 06/01/24 20:44 Intake & Output 06/01/24 06/01/24 06/02/24 06:59 18:59 06:59 Intake Total 2124.335 2167.696 251.167 Output Total 1615 2250 550 Balance 509.335 -82.304 -298.833 Weight 85 kg 85 kg Intake: IV 1636 1533 250 Acyclovir Sodium 450 mg 100 In Sodium Chloride 0.9% 100 ml @ 100 mls/hr IVPB Q8H [facility] Rx#:[id number] Lactated Ringers 1,000 ml 1500 1500 250 @ 125 mls/hr IV .Q8H [facility] Rx#:[id number] Normal Saline Pressure 36 33 Bag Intake, IV Titration 198.335 474.696 1.167 Amount Clevidipine Butyrate 25 1.167 mg In Empty Bag 1 bag @ 1 MG/HR 2 mls/hr IV .Q24H [facility] Rx#:[id number] Dexmedetomidine/0.9% NaCl 76.430 (Pmx) 400 mcg In Empty Bag 1 bag @ 0.2 MCG/KG/HR 4.25 mls/hr IV .[id number] [facility] Rx#:[id number] Heparin Sod,Pork in 0.45% 116.501 NaCl 25,000 unit In 0.45 % NaCl 1 250ml.bag @ 12 UNITS/KG/HR 8.981 mls/hr IV .Q24H [facility] Rx#: [id number] propofoL 1,000 mg In 198.335 281.765 Empty Bag 1 bag @ 15 MCG/ KG/MIN 6.736 mls/hr IV . [id number] [facility] Rx#:[id number] Tube Feeding 200 160 Other 90 Output: Urine 1615 2250 550 Other: Voiding Method Indwelling Catheter Indwelling Catheter Indwelling Catheter ABP, PAP, CO, CI - Last Documented Arterial Blood Pressure 140/78 - Labs CBC & Chem 7: 06/01/24 05:10 06/01/24 17:01 Labs: Abnormal Lab Results - Last 24 Hours (Table) 05/31/24 06/01/24 06/01/24 Range/Units 23:02 05:06 05:10 RBC 3.02 L (4.30-5.90) m/uL Hgb 10.0 L (13.0-17.5) gm/dL Hct 29.1 L (39.0-53.0) % Plt Count 109 L (150-450) k/uL APTT (22.0-30.0) sec ABG pO2 132 H (83-108) mmHg ABG HCO3 26 H (21-25) mmol/L ABG Total CO2 27 H (19-24) mmol/L ABG O2 Saturation 99.6 H (94-97) % Chloride (98-107) mmol/L BUN (9-20) mg/dL Creatinine (0.66-1.25) mg/dL Glucose (74-99) mg/dL POC Glucose (mg/dL) 122 H (70-110) mg/dL Calcium (8.4-10.2) mg/dL Phosphorus (2.5-4.5) mg/dL Magnesium (1.6-2.3) mg/dL AST (17-59) U/L Total Protein (6.3-8.2) g/dL Albumin (3.5-5.0) g/dL CSF RBC (0-10) u/L CSF Glucose (40-70) mg/dL 06/01/24 06/01/24 06/01/24 Range/Units 05:10 05:10 05:33 RBC (4.30-5.90) m/uL Hgb (13.0-17.5) gm/dL Hct (39.0-53.0) % Plt Count (150-450) k/uL APTT 49.9 H (22.0-30.0) sec ABG pO2 (83-108) mmHg ABG HCO3 (21-25) mmol/L ABG Total CO2 (19-24) mmol/L ABG O2 Saturation (94-97) % Chloride 111 H (98-107) mmol/L BUN 29 H (9-20) mg/dL Creatinine 3.41 H (0.66-1.25) mg/dL Glucose 114 H (74-99) mg/dL POC Glucose (mg/dL) 114 H (70-110) mg/dL Calcium 7.9 L (8.4-10.2) mg/dL Phosphorus 4.7 H (2.5-4.5) mg/dL Magnesium 2.4 H (1.6-2.3) mg/dL AST 63 H (17-59) U/L Total Protein 5.2 L (6.3-8.2) g/dL Albumin 2.8 L (3.5-5.0) g/dL CSF RBC (0-10) u/L CSF Glucose (40-70) mg/dL 06/01/24 06/01/24 06/01/24 Range/Units 11:26 14:45 17:01 RBC (4.30-5.90) m/uL Hgb (13.0-17.5) gm/dL Hct (39.0-53.0) % Plt Count (150-450) k/uL APTT (22.0-30.0) sec ABG pO2 (83-108) mmHg ABG HCO3 (21-25) mmol/L ABG Total CO2 (19-24) mmol/L ABG O2 Saturation (94-97) % Chloride (98-107) mmol/L BUN (9-20) mg/dL Creatinine (0.66-1.25) mg/dL Glucose 116 H (74-99) mg/dL POC Glucose (mg/dL) 123 H (70-110) mg/dL Calcium (8.4-10.2) mg/dL Phosphorus (2.5-4.5) mg/dL Magnesium (1.6-2.3) mg/dL AST (17-59) U/L Total Protein (6.3-8.2) g/dL Albumin (3.5-5.0) g/dL CSF RBC 108 H (0-10) u/L CSF Glucose 71 H (40-70) mg/dL 06/01/24 Range/Units 17:16 RBC (4.30-5.90) m/uL Hgb (13.0-17.5) gm/dL Hct (39.0-53.0) % Plt Count (150-450) k/uL APTT (22.0-30.0) sec ABG pO2 (83-108) mmHg ABG HCO3 (21-25) mmol/L ABG Total CO2 (19-24) mmol/L ABG O2 Saturation (94-97) % Chloride (98-107) mmol/L BUN (9-20) mg/dL Creatinine (0.66-1.25) mg/dL Glucose (74-99) mg/dL POC Glucose (mg/dL) 121 H (70-110) mg/dL Calcium (8.4-10.2) mg/dL Phosphorus (2.5-4.5) mg/dL Magnesium (1.6-2.3) mg/dL AST (17-59) U/L Total Protein (6.3-8.2) g/dL Albumin (3.5-5.0) g/dL CSF RBC (0-10) u/L CSF Glucose (40-70) mg/dL Microbiology - Last 24 Hours (Table) 05/30/24 07:30 Blood Culture - Preliminary Blood 05/30/24 07:25 Blood Culture - Preliminary Blood 05/30/24 08:12 Gram Stain - Final Sputum Sputum Culture - Final Beta Hemolytic Strep Group C 05/30/24 11:00 Urine Culture - Final Urine,Catheterized
[2024-06-01] MEDS: ACYCLOVIR SODIUM 450 MG in SODIUM CHLORIDE 0.9% 100 ML IVPB SCH (21:13)
--- NOTE | 2024-06-01 21:48 | EEG ---
ELECTROENCEPHALOGRAM REPORT CLINICAL HISTORY: This is a 44-year-old gentleman with altered mental status and recent new onset seizure. The video EEG is obtained to evaluate for seizure epileptiform activity. RELEVANT MEDICATIONS: 1. IV propofol. 2. Keppra. EEG TYPE: This is a routine 21-channel EEG with video using the 10/20 electrode placement system. DESCRIPTION: The patient is intubated on a ventilator. The background consists of [id number] voltage of 7.5 to 8.5 hertz activity alternating with diffuse nonrhythmic, polymorphic delta activity. There is no physiological stage 2 sleep architecture. There is no focal slowing. Interictal and ictal is none. ACTIVATION PROCEDURE: Photic stimulation did not evoke a posterior driving response. There is no abnormality during the photic stimulation. Hyperventilation was not performed. CLINICAL INTERPRETATION: This is an abnormal routine EEG. The background slowing is suggestive of mild to moderate encephalopathy. Otherwise, there is no focal slowing, epileptiform discharge, or seizure on the EEG. Clinical correlation is recommended. JOVANA / AGUSTO: [id number] / JEANNIE
[2024-06-01] MEDS: HEPARIN SODIUM 1,000 UN/ML (10ML VL) IV PRN (23:29)
[2024-06-01 23:40] LABS: Glucose,Whole Blood 142 mg/dL (70-110)
[2024-06-02 04:17] LABS: HCT 33.8 % (39.0-53.0); HGB 11.8 gm/dL (13.0-17.5); MCH 33.7 pg (25.0-35.0); MCHC 34.9 g/dL (31.0-37.0); MCV 96.6 fL (80.0-100.0); Mean Platelet Volume 8.8; Platelet Count 129 k/uL (150-450); RDW 13.3 % (11.5-15.5); WBC 6.1 k/uL (3.8-10.6)
[2024-06-02 05:32] LABS: Glucose,Whole Blood 160 mg/dL (70-110)
[2024-06-02 05:53] LABS: ALT 35 U/L (4-49); AST 58 U/L (17-59); African American GFR (CKD) 36 (>60 ml/min/1.73 sqM); Albumin 3.7 g/dL (3.5-5.0); Alkaline Phosphatase 87 U/L (38-126); Anion Gap 7 mmol/L; Blood Urea Nitrogen 22 mg/dL (9-20); Calcium 9.7 mg/dL (8.4-10.2); Carbon Dioxide 25 mmol/L (22-30); Chloride 113 mmol/L (98-107); Glucose 140 mg/dL (74-99); Non-African American GFR(CKD) 31 (>60 ml/min/1.73 sqM); Potassium 4.4 mmol/L (3.5-5.1); Sodium 145 mmol/L (137-145); Total Bilirubin 0.5 mg/dL (0.2-1.3); Total Protein 6.6 g/dL (6.3-8.2)
[2024-06-02 06:25] LABS: ABG Base Excess 3.9 mmol/L; ABG HCO3 28 mmol/L (21-25); ABG Oxygen Saturation 98.7 % (94-97); ABG PCO2 40 mmHg (35-45); ABG PH 7.46 (7.35-7.45); ABG PO2 102 mmHg (83-108); ABG TCO2 29 mmol/L (19-24); Allen Test Performed? Yes
--- NOTE | 2024-06-02 08:32 | XR ---
EXAMINATION TYPE: XR chest 1V portable DATE OF EXAM: 06/02/2024 5:50 AM CLINICAL INDICATION:Male, 44 years old with history of Tube placement; [facility] COMPARISON: Chest radiograph from one day prior. TECHNIQUE: XR chest 1V portable Frontal view of the chest. FINDINGS: Lungs/Pleura: There is no evidence of pleural effusion, focal consolidation, or pneumothorax. Pulmonary vascularity: Unremarkable. Heart/mediastinum: Cardiomediastinal silhouette is unremarkable. Musculoskeletal: No acute osseous pathology. Other findings: None Lines/Tubes: Endotracheal tube with distal tip 6.7 cm above the erlinda. Nasogastric tube with its distal tip and side-port projecting under the diaphragm. Left internal jugular central venous catheter with distal tip at the cavoatrial junction. IMPRESSION: Basilar atelectasis with support tubes and left central venous catheter in appropriate position.
--- NOTE | 2024-06-02 10:49 | P.PN ---
Subjective Progress Note Date: 06/02/24 Hospital Course: 44 year old M with PMH of EtOH abuse, PTSD, Depression, h/o hypertension prese nts to the ED with seizure lasting 3 to 4 minutes. Patient was noted to have a grand mal seizure in the ED given 7 mg of IV Ativan. Following his seizure, had an episode of bradycardia and hypotension with loss of pulse. ACLS was initiated requiring 4 minutes of CPR, epinephrine and bicarb, ROSC was achieved. CBC and CMP was significant for WBC 16.6, MCV 103.6, K 5.8, bicarb < 5, Cr 1.52, glu 345, alb 5.3. Mag 2.8, Lactic acid 10.7-2.6. UA 3+ glucose and moderate blood, no LE or nitrite. UDS + benzo and THC. Serum alcohol and acetone negative. COVID/RSV/Flu negative. VBG pH 6.61, pCO2 62. Troponin 0.151, 7.01. ABG post cardiac arrest pH 6.99, pCO2 35 and subsequently pH 7.43, pCO2 38. CXR shows ET tube with no acute process. Brain CT negative. CT AP negative. EKG showed sinus rhythm with nonspecific ST and T wave abnormalities and evidence of LVH. Patient is admitted to ICU for further workup and management. Started on Keppra 1000 mg IV BID, Neurology consulted, EEG ordered showing excessive amount of low-voltage fast frequency beta activity suggestive of benzodiazepine effect. Due to elevated troponin, Cardiology consulted, started on a Heparin drip and Echo ordered. Echo showing EF 35-40%. Due to worsening renal function, nephrology also consulted. LP completed, unlikely to be meningitis. Patient remains on IV antibiotics per ID, on IV Keppra. Now extubated. Subjective: Patient seen and examined at bedside. No acute events overnight. Extubated this morning. Pertinent positives and negatives as discussed above, a complete review of systems was performed and all other systems are negative. Vitals Signs Reviewed. General: Nontoxic, no distress, appears at stated age Derm: Warm, dry Head: Atraumatic, normocephalic, symmetric Eyes: EOMI, no lid lag, anicteric sclera Mouth: No lip lesion, mucus membranes moist Cardiovascular: S1S2 reg, no murmur Lungs: CTA bilateral, no rhonchi, no rales, no accessory muscle use Abdominal: Soft, nontender to palpation, no guarding, no appreciable organomegaly, NG tube in place Ext: No gross muscle atrophy, no edema, no contractures Neuro: CN II-XI grossly intact, no focal neuro deficits Psych: Alert, appropriate affect Data Reviewed Today: Pertinent Labs: WBC 6.1, hemoglobin 11.8, platelet 129, pH 7.46, pCO2 40, potassium 4.4, BUN 22, creatinine 2.43, glucose range between 1 40-1 60 Imaging: Chest x-ray independently interpreted from this morning, shows no significant opacities, blunting of bilateral CP angles, concerning for possible atelectasis Assessment and Plan: Status post cardiac arrest New onset seizures NSTEMI, likely secondary to cardiac arrest Cardiomyopathy, possibly secondary to above, EF 35 to 40%, not in exacerbation Hypertension Acute hypoxic respiratory failure, secondary to above LUCY, likely ATN secondary to above Sepsis, suspected pneumonia versus [employer] source (less likely) -Discussed management with neurology, discontinued acyclovir as LP does not show any signs of viral meningitis, continue IV Keppra 1000 mg every 12 hours, Ativan as needed for seizures -May benefit from MRI brain now that the patient is extubated, is unsure if he has any history of concussions or TBI -Continue telemetry monitoring -Currently on aspirin 325 mg daily, also continued on IV heparin, monitor APTT -Cardiology following, he will likely need ischemic evaluation and will need to be started on guideline directed medical therapy for heart failure, also started on hydralazine 25 every 6 hours -Shot Bagger following, continue to wean oxygen -Nephrology following, patient is maintained on lactated Ringer at 60 cc an hour, renal function improving, strict I's and O's, Castellanos in place -ID following, patient maintained on Rocephin 2 g IV every 24 hours Alcohol dependence History of opioid dependence -On CIWA protocol, IV Ativan as needed, monitor for sedation, started on oral thiamine 100 mg daily -Was on Suboxone at home, will continue once patient is more stable PTSD/depression - Restarted home sertraline 100 mg daily Macrocytic anemia Thrombocytopenia -Stable, likely secondary to alcohol use Resolved: Anion gap metabolic acidosis due to lactic acidosis, HyperK DVT ppx: Heparin drip Code status: Full code Anticipated discharge place: Pending clinical course Anticipated discharge time: Pending clinical course Objective - Vital Signs Vital signs: Vital Signs Temp 98.2 F 06/02/24 04:00 Pulse 98 06/02/24 10:15 Resp 9 L 06/02/24 10:15 BP 135/94 06/02/24 10:15 Pulse Ox 96 06/02/24 10:15 FiO2 35 06/02/24 09:29 Intake & Output 06/01/24 06/02/24 06/02/24 18:59 06:59 18:59 Intake Total 2167.696 2575.976 678.677 Output Total 2250 4555 950 Balance -82.304 -1979.024 -271.323 Weight 85 kg 82.6 kg Intake: IV 1533 1500 500 Lactated Ringers 1,000 ml 1500 1500 500 @ 60 mls/hr IV .[id number] [facility] Rx#:[id number] Normal Saline Pressure 33 Bag Intake, IV Titration 474.696 545.976 138.677 Amount Clevidipine Butyrate 25 24.567 37 mg In Empty Bag 1 bag @ 1 MG/HR 2 mls/hr IV .Q24H [facility] Rx#:[id number] Dexmedetomidine/0.9% NaCl 76.430 227.075 31.805 (Pmx) 400 mcg In Empty Bag 1 bag @ 0.2 MCG/KG/HR 4.25 mls/hr IV .[id number] [facility] Rx#:[id number] Heparin Sod,Pork in 0.45% 116.501 114.112 NaCl 25,000 unit In 0.45 % NaCl 1 250ml.bag @ 12 UNITS/KG/HR 8.981 mls/hr IV .Q24H [facility] Rx#: [id number] cefTRIAXone 2 gm In 50 Sodium Chloride 0.9% 50 ml @ 100 mls/hr IVPB Q24HR [facility] Rx#:[id number] propofoL 1,000 mg In 281.765 180.222 19.872 Empty Bag 1 bag @ 15 MCG/ KG/MIN 6.736 mls/hr IV . [id number] [facility] Rx#:[id number] Tube Feeding 160 440 40 Other 90 Output: Urine 2250 4555 950 Other: Voiding Method Indwelling Catheter Indwelling Catheter Indwelling Catheter ABP, PAP, CO, CI - Last Documented Arterial Blood Pressure 141/84 - Labs CBC & Chem 7: 06/02/24 04:09 06/02/24 04:09 Labs: Abnormal Lab Results - Last 24 Hours (Table) 06/01/24 06/01/24 06/01/24 Range/Units 11:26 14:45 17:01 RBC (4.30-5.90) m/uL Hgb (13.0-17.5) gm/dL Hct (39.0-53.0) % Plt Count (150-450) k/uL APTT (22.0-30.0) sec ABG pH (7.35-7.45) ABG HCO3 (21-25) mmol/L ABG Total CO2 (19-24) mmol/L ABG O2 Saturation (94-97) % Chloride (98-107) mmol/L BUN (9-20) mg/dL Creatinine (0.66-1.25) mg/dL Glucose 116 H (74-99) mg/dL POC Glucose (mg/dL) 123 H (70-110) mg/dL CSF RBC 108 H (0-10) u/L CSF Glucose 71 H (40-70) mg/dL 06/01/24 06/01/24 06/01/24 Range/Units 17:16 22:42 23:38 RBC (4.30-5.90) m/uL Hgb (13.0-17.5) gm/dL Hct (39.0-53.0) % Plt Count (150-450) k/uL APTT 33.1 H (22.0-30.0) sec ABG pH (7.35-7.45) ABG HCO3 (21-25) mmol/L ABG Total CO2 (19-24) mmol/L ABG O2 Saturation (94-97) % Chloride (98-107) mmol/L BUN (9-20) mg/dL Creatinine (0.66-1.25) mg/dL Glucose (74-99) mg/dL POC Glucose (mg/dL) 121 H 142 H (70-110) mg/dL CSF RBC (0-10) u/L CSF Glucose (40-70) mg/dL 06/02/24 06/02/24 06/02/24 Range/Units 04:09 04:09 05:30 RBC 3.50 L (4.30-5.90) m/uL Hgb 11.8 L (13.0-17.5) gm/dL Hct 33.8 L (39.0-53.0) % Plt Count 129 L (150-450) k/uL APTT (22.0-30.0) sec ABG pH (7.35-7.45) ABG HCO3 (21-25) mmol/L ABG Total CO2 (19-24) mmol/L ABG O2 Saturation (94-97) % Chloride 113 H (98-107) mmol/L BUN 22 H (9-20) mg/dL Creatinine 2.43 H (0.66-1.25) mg/dL Glucose 140 H (74-99) mg/dL POC Glucose (mg/dL) 160 H (70-110) mg/dL CSF RBC (0-10) u/L CSF Glucose (40-70) mg/dL 06/02/24 06/02/24 Range/Units 06:20 06:32 RBC (4.30-5.90) m/uL Hgb (13.0-17.5) gm/dL Hct (39.0-53.0) % Plt Count (150-450) k/uL APTT 49.4 H (22.0-30.0) sec ABG pH 7.46 H (7.35-7.45) ABG HCO3 28 H (21-25) mmol/L ABG Total CO2 29 H (19-24) mmol/L ABG O2 Saturation 98.7 H (94-97) % Chloride (98-107) mmol/L BUN (9-20) mg/dL Creatinine (0.66-1.25) mg/dL Glucose (74-99) mg/dL POC Glucose (mg/dL) (70-110) mg/dL CSF RBC (0-10) u/L CSF Glucose (40-70) mg/dL Microbiology - Last 24 Hours (Table) 06/01/24 14:45 CSF Gram Stain - Preliminary Cerebral Spinal Fluid 05/30/24 07:30 Blood Culture - Preliminary Blood 05/30/24 07:25 Blood Culture - Preliminary Blood 05/30/24 08:12 Gram Stain - Final Sputum Sputum Culture - Final Beta Hemolytic Strep Group C
[2024-06-02] MEDS: THIAMINE 100 MG TAB PO SCH (11:07)
[2024-06-02 11:39] LABS: Glucose,Whole Blood 133 mg/dL (70-110)
--- NOTE | 2024-06-02 11:45 | P.PN ---
Subjective Patient is seen for follow-up for acute kidney injury. He is extubated this morning. Urine output at 175-200 ML per hour. Maintained on LR at 1 25 mL an hour. Serum creatinine it is down to 2.4 today. Maintained on Cleviprex drip for hypertension. Blood pressure has improved and the drip is being weaned. Objective - Vital Signs Vital signs: Vital Signs Temp 98.2 F 06/02/24 04:00 Pulse 96 06/02/24 11:00 Resp 28 H 06/02/24 11:00 BP 135/94 06/02/24 11:00 Pulse Ox 95 06/02/24 11:00 FiO2 35 06/02/24 09:29 Intake & Output 06/01/24 06/02/24 06/02/24 18:59 06:59 18:59 Intake Total 2167.696 2575.976 780.472 Output Total 2250 4555 1300 Balance -82.304 -1979.024 -519.528 Weight 85 kg 82.6 kg Intake: IV 1533 1500 560 Lactated Ringers 1,000 ml 1500 1500 560 @ 60 mls/hr IV .[id number] [facility] Rx#:[id number] Normal Saline Pressure 33 Bag Intake, IV Titration 474.696 545.976 180.472 Amount Clevidipine Butyrate 25 24.567 41 mg In Empty Bag 1 bag @ 1 MG/HR 2 mls/hr IV .Q24H [facility] Rx#:[id number] Dexmedetomidine/0.9% NaCl 76.430 227.075 31.805 (Pmx) 400 mcg In Empty Bag 1 bag @ 0.2 MCG/KG/HR 4.25 mls/hr IV .[id number] [facility] Rx#:[id number] Heparin Sod,Pork in 0.45% 116.501 114.112 NaCl 25,000 unit In 0.45 % NaCl 1 250ml.bag @ 12 UNITS/KG/HR 8.981 mls/hr IV .Q24H [facility] Rx#: [id number] cefTRIAXone 2 gm In 50 Sodium Chloride 0.9% 50 ml @ 100 mls/hr IVPB Q24HR [facility] Rx#:[id number] propofoL 1,000 mg In 281.765 180.222 57.667 Empty Bag 1 bag @ 15 MCG/ KG/MIN 6.736 mls/hr IV . [id number] [facility] Rx#:[id number] Tube Feeding 160 440 40 Other 90 Output: Urine 2250 4555 1300 Other: Voiding Method Indwelling Catheter Indwelling Catheter Indwelling Catheter ABP, PAP, CO, CI - Last Documented Arterial Blood Pressure 141/85 - Exam patient is awake and extubated. Examination of the heart S1 and S2 Examination of the lungs bilateral breath sounds are heard Abdomen is soft nontender Examination of lower extremity shows no significant edema - Labs CBC & Chem 7: 06/02/24 04:09 06/02/24 04:09 Labs: Abnormal Lab Results - Last 24 Hours (Table) 06/01/24 06/01/24 06/01/24 Range/Units 14:45 17:01 17:16 RBC (4.30-5.90) m/uL Hgb (13.0-17.5) gm/dL Hct (39.0-53.0) % Plt Count (150-450) k/uL APTT (22.0-30.0) sec ABG pH (7.35-7.45) ABG HCO3 (21-25) mmol/L ABG Total CO2 (19-24) mmol/L ABG O2 Saturation (94-97) % Chloride (98-107) mmol/L BUN (9-20) mg/dL Creatinine (0.66-1.25) mg/dL Glucose 116 H (74-99) mg/dL POC Glucose (mg/dL) 121 H (70-110) mg/dL CSF RBC 108 H (0-10) u/L CSF Glucose 71 H (40-70) mg/dL 06/01/24 06/01/24 06/02/24 Range/Units 22:42 23:38 04:09 RBC 3.50 L (4.30-5.90) m/uL Hgb 11.8 L (13.0-17.5) gm/dL Hct 33.8 L (39.0-53.0) % Plt Count 129 L (150-450) k/uL APTT 33.1 H (22.0-30.0) sec ABG pH (7.35-7.45) ABG HCO3 (21-25) mmol/L ABG Total CO2 (19-24) mmol/L ABG O2 Saturation (94-97) % Chloride (98-107) mmol/L BUN (9-20) mg/dL Creatinine (0.66-1.25) mg/dL Glucose (74-99) mg/dL POC Glucose (mg/dL) 142 H (70-110) mg/dL CSF RBC (0-10) u/L CSF Glucose (40-70) mg/dL 06/02/24 06/02/24 06/02/24 Range/Units 04:09 05:30 06:20 RBC (4.30-5.90) m/uL Hgb (13.0-17.5) gm/dL Hct (39.0-53.0) % Plt Count (150-450) k/uL APTT (22.0-30.0) sec ABG pH 7.46 H (7.35-7.45) ABG HCO3 28 H (21-25) mmol/L ABG Total CO2 29 H (19-24) mmol/L ABG O2 Saturation 98.7 H (94-97) % Chloride 113 H (98-107) mmol/L BUN 22 H (9-20) mg/dL Creatinine 2.43 H (0.66-1.25) mg/dL Glucose 140 H (74-99) mg/dL POC Glucose (mg/dL) 160 H (70-110) mg/dL CSF RBC (0-10) u/L CSF Glucose (40-70) mg/dL 06/02/24 06/02/24 Range/Units 06:32 11:38 RBC (4.30-5.90) m/uL Hgb (13.0-17.5) gm/dL Hct (39.0-53.0) % Plt Count (150-450) k/uL APTT 49.4 H (22.0-30.0) sec ABG pH (7.35-7.45) ABG HCO3 (21-25) mmol/L ABG Total CO2 (19-24) mmol/L ABG O2 Saturation (94-97) % Chloride (98-107) mmol/L BUN (9-20) mg/dL Creatinine (0.66-1.25) mg/dL Glucose (74-99) mg/dL POC Glucose (mg/dL) 133 H (70-110) mg/dL CSF RBC (0-10) u/L CSF Glucose (40-70) mg/dL Microbiology - Last 24 Hours (Table) 06/01/24 14:45 CSF Gram Stain - Preliminary Cerebral Spinal Fluid 05/30/24 07:30 Blood Culture - Preliminary Blood 05/30/24 07:25 Blood Culture - Preliminary Blood Assessment and Plan Assessment: 1. Acute kidney injury, ATN, nonoliguric secondary to hypotension and cardiac arrest. UA shows 1+ protein 3+ blood in ( it was a difficult Castellanos catheter placement). CT of the abdomen negative for any obstructive uropathy. CK is mildly elevated at 799 2. New onset seizures, maintained on Keppra. Neurology on consult. ? related to alcohol withdrawal. 3. Severe metabolic acidosis possibly related to lactic acidosis volatile screen is negative. Serum acetone, salicylate and alcohol is negative. 4. Hyperkalemia associated with acute kidney injury and severe metabolic acidosis, improved. 5. New onset diabetes 6. Elevated troponins being followed by cardiology. Plan: decrease IV fluids. Continue to wean off cleviprex Add Norvasc if blood pressure remains elevated. Repeat labs in a.m. Continue to avoid nephrotoxic agents.
--- NOTE | 2024-06-02 11:46 | P.PN ---
Subjective Progress Note Date: 06/02/24 Principal diagnosis: New onset seizures, inability to protect airways, requiring intubation mechanical ventilation, May 30 2024 This is a 44-year-old male with a history of depression, possibly PTSD, and hypertension. The patient apparently had a new onset seizure today, and was found by his , at home. The patient apparently was acting strange, and subsequent to that, was found on the bedroom floor, having a seizure. EMS was called and brought the patient into the emergency room. The patient had at least 2 seizures in the emergency room, and could not protect his airway, and was intubated for airway protection. The patient is seen in the emergency department, in trauma room 1. The patient had a initial blood gas,, showing a pO2 of 170, pCO2 of 35, pH is 6.99. Subsequent blood gas on 100% showed a pO2 of greater than 420, pCO2 of 38, and a pH of 7.43. Lactic acid was 10.7. Glucose was 138. Additional labs include a white count of 16.6, hemoglobin 14. 8, hematocrit 46.1, and a platelet count of 285,000. Sodium 144, potassium 5.8, chlorides 105, CO2 less than 5, BUN 14, creatinine 1.52. Glucose was 345. Lactic acid was 10.7. N-terminal proBNP was 319. Troponin was 0.151. Albumin 5.3. Viral screen was negative. Serum alcohol level was less than 10. Brain CT showed nothing acute. Chest x-ray showed no acute cardiopulmonary changes. CT of the abdomen and pelvis, was also negative. The did state, that the patient does use marijuana, does not smoke cigarettes at this time, and drinks occasionally heavily. Patient was evaluated today on 05/31/2024, patient remains intubated Niccoli ventilated. He is on assist-control rate of 20 tidal volume 500 FiO2 40% PEEP of 5 ABG showed a pO2 of 155 pCO2 34 pH of 7.48. Patient remains on the [facility] protocol for history of alcoholism. Remains on propofol at 40 mcg/kg/min he is also on LR at 125 mL/h chest x-ray showed no evidence of active disease. Labs were reviewed WBC count 6.1 hemoglobin is 10.0. PTT is 60 ABG showed a pO2 of 155 pCO2 34 pH of 7.48, hence vent settings were adjusted with rate down to 18 FiO2 down to 35%. Basic metabolic profile is normal however BUN is 24 cr eatinine 2.99, patient apparently developed acute tubular necrosis/acute kidney injury being addressed by nephrology on the case CPK is elevated at 799, troponin 4.32 and total protein is 5.6 albumin 3.0, looking back at this patient presentation, he had a brief cardiac arrest in the ER, received 2 epinephrines, downtime was few minutes, hence we will try to assess his mental status today for possible weaning and extubation. After going off sedation, patient seems to be arousable, follows simple instructions but was extremely agitated and restless, could not proceed to full extubation on this patient. Patient was evaluated today on 06/01/24, patient remains in the ICU, intubated and mechanically ventilated. He is presently on assist-control rate of 18 tidal volume 500 FiO2 35% PEEP of 5 ABG showed a pO2 of 132 pCO2 40 pH of 7.42 hence no changes were made in present vent settings. Patient is being considered for lumbar puncture today by neurology. Patient remains on propofol at 50 mcg/kg/min, he is also on LR at 125 cc/h heparin drip, and I will likely transition the patient from propofol to Precedex to hopefully consider a weaning trial and possibly extubation. Patient has not had any seizures overnight, he is maintained on Keppra and ceftriaxone and he was also placed on acyclovir. Again neurology is considering a lumbar puncture to be done today. WBC count today is 5.2 hemoglobin is 10 electrolytes are normal BUN is 29 creatinine on the rise up to 3.41. Patient was seen by urology, did not feel that the patient had hydronephrosis, and recommended no intervention. Did not feel his acute kidney injury is secondary to any obstructive uropathy renal status is being closely monitored by nephrology on the case. X-ray showed no pulmonary process. Patient is showing group C beta-hemolytic strep in the sputum significance of which is not clear Patient was a on 06/02/24, patient remains in the tube, intubated and mechanically ventilated. He is on assist-control rate of 18 tidal volume 500 FiO2 35% and PEEP of 5 his ABG showed a pO2 of 102 pCO2 40 0 pH of 7.46. Patient remains on multiple drips including Precedex at 1.1 mcg/kg/h Cleviprex at 2 mg/h he is on LR at 125 cc/h he is also on propofol which was 30 mcg/kg/min, and I stopped it to wean and extubate the patient hopefully today. Patient remains on acyclovir and ceftriaxone, his preliminary findings on the spinal fluid seems to be unremarkable. Patient did undergo a lumbar puncture yesterday, the preliminary report is relatively normal. Chest x-ray is relatively unremarkable, endotracheal tube is sitting high up in the trachea. PTT is 49.4 WBC count is 6.1 hemoglobin 11.8 electrolytes are normal BUN is 22 creatinine trending down to 2.43. Liver enzymes are unremarkable Objective - Vital Signs Vital signs: Vital Signs Temp 98.2 F 06/02/24 04:00 Pulse 96 06/02/24 11:00 Resp 28 H 06/02/24 11:00 BP 135/94 06/02/24 11:00 Pulse Ox 95 06/02/24 11:00 FiO2 35 06/02/24 09:29 Intake & Output 06/01/24 06/02/24 06/02/24 18:59 06:59 18:59 Intake Total 2167.696 2575.976 780.472 Output Total 2250 4555 1300 Balance -82.304 -1979.024 -519.528 Weight 85 kg 82.6 kg Intake: IV 1533 1500 560 Lactated Ringers 1,000 ml 1500 1500 560 @ 60 mls/hr IV .[id number] [facility] Rx#:[id number] Normal Saline Pressure 33 Bag Intake, IV Titration 474.696 545.976 180.472 Amount Clevidipine Butyrate 25 24.567 41 mg In Empty Bag 1 bag @ 1 MG/HR 2 mls/hr IV .Q24H [facility] Rx#:[id number] Dexmedetomidine/0.9% NaCl 76.430 227.075 31.805 (Pmx) 400 mcg In Empty Bag 1 bag @ 0.2 MCG/KG/HR 4.25 mls/hr IV .[id number] [facility] Rx#:[id number] Heparin Sod,Pork in 0.45% 116.501 114.112 NaCl 25,000 unit In 0.45 % NaCl 1 250ml.bag @ 12 UNITS/KG/HR 8.981 mls/hr IV .Q24H [facility] Rx#: [id number] cefTRIAXone 2 gm In 50 Sodium Chloride 0.9% 50 ml @ 100 mls/hr IVPB Q24HR [facility] Rx#:[id number] propofoL 1,000 mg In 281.765 180.222 57.667 Empty Bag 1 bag @ 15 MCG/ KG/MIN 6.736 mls/hr IV . [id number] [facility] Rx#:[id number] Tube Feeding 160 440 40 Other 90 Output: Urine 2250 4555 1300 Other: Voiding Method Indwelling Catheter Indwelling Catheter Indwelling Catheter ABP, PAP, CO, CI - Last Documented Arterial Blood Pressure 141/85 - Exam General: Revealed 44-year-old white male intubated mechanically ventilated. Endotracheal tube and orogastric tube are intact. Skin: Skin is warm and dry and no rashes or lesions are noted. Eye: Pupils are equal, round and reactive to light, extra-ocular movements are intact; there is normal conjunctiva bilaterally. Ears, nose, mouth and throat: There are moist mucous membranes and no oral lesions. Neck: The neck is supple, there is no tenderness or JVD. Cardiovascular: There is a regular rate and rhythm. No murmur, rub or gallop is appreciated. Respiratory: Clear throughout no crackles rhonchi or wheezes Gastrointestinal: Soft, non-distended, non-tender abdomen without masses or organomegaly noted. There is no rebound or guarding present. Bowel sounds are unremarkable. Neurological: Patient is arousable, gets better restless and agitated but follows simple instructions. Psychiatric: Flat affect, anxious mood, relatively normal mental status for - Labs CBC & Chem 7: 06/02/24 04:09 06/02/24 04:09 Labs: Abnormal Lab Results - Last 24 Hours (Table) 06/01/24 06/01/24 06/01/24 Range/Units 14:45 17:01 17:16 RBC (4.30-5.90) m/uL Hgb (13.0-17.5) gm/dL Hct (39.0-53.0) % Plt Count (150-450) k/uL APTT (22.0-30.0) sec ABG pH (7.35-7.45) ABG HCO3 (21-25) mmol/L ABG Total CO2 (19-24) mmol/L ABG O2 Saturation (94-97) % Chloride (98-107) mmol/L BUN (9-20) mg/dL Creatinine (0.66-1.25) mg/dL Glucose 116 H (74-99) mg/dL POC Glucose (mg/dL) 121 H (70-110) mg/dL CSF RBC 108 H (0-10) u/L CSF Glucose 71 H (40-70) mg/dL 06/01/24 06/01/24 06/02/24 Range/Units 22:42 23:38 04:09 RBC 3.50 L (4.30-5.90) m/uL Hgb 11.8 L (13.0-17.5) gm/dL Hct 33.8 L (39.0-53.0) % Plt Count 129 L (150-450) k/uL APTT 33.1 H (22.0-30.0) sec ABG pH (7.35-7.45) ABG HCO3 (21-25) mmol/L ABG Total CO2 (19-24) mmol/L ABG O2 Saturation (94-97) % Chloride (98-107) mmol/L BUN (9-20) mg/dL Creatinine (0.66-1.25) mg/dL Glucose (74-99) mg/dL POC Glucose (mg/dL) 142 H (70-110) mg/dL CSF RBC (0-10) u/L CSF Glucose (40-70) mg/dL 06/02/24 06/02/24 06/02/24 Range/Units 04:09 05:30 06:20 RBC (4.30-5.90) m/uL Hgb (13.0-17.5) gm/dL Hct (39.0-53.0) % Plt Count (150-450) k/uL APTT (22.0-30.0) sec ABG pH 7.46 H (7.35-7.45) ABG HCO3 28 H (21-25) mmol/L ABG Total CO2 29 H (19-24) mmol/L ABG O2 Saturation 98.7 H (94-97) % Chloride 113 H (98-107) mmol/L BUN 22 H (9-20) mg/dL Creatinine 2.43 H (0.66-1.25) mg/dL Glucose 140 H (74-99) mg/dL POC Glucose (mg/dL) 160 H (70-110) mg/dL CSF RBC (0-10) u/L CSF Glucose (40-70) mg/dL 06/02/24 06/02/24 Range/Units 06:32 11:38 RBC (4.30-5.90) m/uL Hgb (13.0-17.5) gm/dL Hct (39.0-53.0) % Plt Count (150-450) k/uL APTT 49.4 H (22.0-30.0) sec ABG pH (7.35-7.45) ABG HCO3 (21-25) mmol/L ABG Total CO2 (19-24) mmol/L ABG O2 Saturation (94-97) % Chloride (98-107) mmol/L BUN (9-20) mg/dL Creatinine (0.66-1.25) mg/dL Glucose (74-99) mg/dL POC Glucose (mg/dL) 133 H (70-110) mg/dL CSF RBC (0-10) u/L CSF Glucose (40-70) mg/dL Microbiology - Last 24 Hours (Table) 06/01/24 14:45 CSF Gram Stain - Preliminary Cerebral Spinal Fluid 05/30/24 07:30 Blood Culture - Preliminary Blood 05/30/24 07:25 Blood Culture - Preliminary Blood Assessment and Plan Assessment: Impression: New onset seizures with inability to protect airway is required requiring intubation mechanical ventilation May 30 Brief cardiac arrest/asystole while in the ER requiring 2 doses of epinephrine Acute kidney injury/acute tubular necrosis, improving today History of alcoholism History of PTSD History of depression Benign essential hypertension Recommendations: Continue ventilatory support, however the patient will be given a weaning trial and if tolerated may extubate Continue antibiotics and continue acyclovir, results from spinal fluid were noted. Final report is pending Continue seizure meds and seizure precautions Continue nutritional support/enteral feeding Continue DVT prophylaxis and GI prophylaxis Continue CIWA protocol Continue Keppra Continue Precedex, discontinue propofol, continue Cleviprex Remains relatively critically ill and will need to be in the ICU even if extubated today Critical care time is over 30-minute Time with Patient: Greater than 30
--- NOTE | 2024-06-02 13:07 | P.PN ---
Subjective Progress Note Date: 06/01/24 Principal diagnosis: Reason for follow-up is positive sputum cultures with group C strep/pneumonia Patient is a 44-year-old male with a past medical history significant for hypertension reflux chronic hepatitis C treated seizure disorder heavy drinking presented to hospital for evaluation of some weakness mental status changes did have seizure activity subsequently got intubated and admitted to ICU. On today's visit that is 06/01/2024, Patient remains to be afebrile patient is currently on ventilator FiO2 is down to 35% no significant purulent secretions through the ET patient not requiring any pressor support no diarrhea has been reported. Patient white count is 5.2, creatinine 3.41 blood cultures pending Objective - Vital Signs Vital signs: Vital Signs Temp 98.2 F 06/01/24 09:00 Pulse 75 06/01/24 12:00 Resp 18 06/01/24 12:00 BP 132/83 06/01/24 12:00 Pulse Ox 98 06/01/24 12:00 FiO2 35 06/01/24 12:00 Intake & Output 05/31/24 06/01/24 06/01/24 18:59 06:59 18:59 Intake Total 2044.221 2124.335 1203.462 Output Total 1315 1615 1100 Balance 729.221 509.335 103.462 Weight 86 kg 85 kg 85 kg Intake: IV 1608 1636 768 Acyclovir Sodium 450 mg 100 100 In Sodium Chloride 0.9% 100 ml @ 100 mls/hr IVPB Q8H [facility] Rx#:[id number] Lactated Ringers 1,000 ml 1375 1500 750 @ 125 mls/hr IV .Q8H [facility] Rx#:[id number] Normal Saline Pressure 33 36 18 Bag cefTRIAXone 2 gm In 100 Sodium Chloride 0.9% 50 ml @ 100 mls/hr IVPB Q24HR [facility] Rx#:[id number] Intake, IV Titration 366.221 198.335 275.462 Amount Dexmedetomidine/0.9% NaCl 12.184 (Pmx) 400 mcg In Empty Bag 1 bag @ 0.2 MCG/KG/HR 4.25 mls/hr IV .[id number] [facility] Rx#:[id number] Heparin Sod,Pork in 0.45% 182.36 116.501 NaCl 25,000 unit In 0.45 % NaCl 1 250ml.bag @ 12 UNITS/KG/HR 8.981 mls/hr IV .Q24H [facility] Rx#: [id number] propofoL 1,000 mg In 183.861 198.335 146.777 Empty Bag 1 bag @ 15 MCG/ KG/MIN 6.736 mls/hr IV . [id number] [facility] Rx#:[id number] Tube Feeding 40 200 160 Other 30 90 Output: Urine 1315 1615 1100 Other: Voiding Method Indwelling Catheter Indwelling Catheter Indwelling Catheter ABP, PAP, CO, CI - Last Documented Arterial Blood Pressure 138/71 - Exam GENERAL DESCRIPTION: Middle-age male intubated on the vent RESPIRATORY SYSTEM: Unlabored breathing , decreased breath sounds at bases HEART: S1 S2 regular rate and rhythm , ABDOMEN: Soft , no tenderness EXTREMITIES: No edema feet - Labs CBC & Chem 7: 06/01/24 05:10 06/01/24 05:10 Labs: Abnormal Lab Results - Last 24 Hours (Table) 05/31/24 05/31/24 05/31/24 Range/Units 05:10 18:05 23:02 RBC (4.30-5.90) m/uL Hgb (13.0-17.5) gm/dL Hct (39.0-53.0) % Plt Count (150-450) k/uL APTT (22.0-30.0) sec ABG pO2 (83-108) mmHg ABG HCO3 (21-25) mmol/L ABG Total CO2 (19-24) mmol/L ABG O2 Saturation (94-97) % Chloride 111 H (98-107) mmol/L BUN 24 H (9-20) mg/dL Creatinine 2.99 H (0.66-1.25) mg/dL Glucose 121 H (74-99) mg/dL POC Glucose (mg/dL) 124 H 122 H (70-110) mg/dL Calcium (8.4-10.2) mg/dL Phosphorus (2.5-4.5) mg/dL Magnesium 2.9 H (1.6-2.3) mg/dL AST 102 H (17-59) U/L Total Protein 5.6 L (6.3-8.2) g/dL Albumin 3.0 L (3.5-5.0) g/dL 06/01/24 06/01/24 06/01/24 Range/Units 05:06 05:10 05:10 RBC 3.02 L (4.30-5.90) m/uL Hgb 10.0 L (13.0-17.5) gm/dL Hct 29.1 L (39.0-53.0) % Plt Count 109 L (150-450) k/uL APTT (22.0-30.0) sec ABG pO2 132 H (83-108) mmHg ABG HCO3 26 H (21-25) mmol/L ABG Total CO2 27 H (19-24) mmol/L ABG O2 Saturation 99.6 H (94-97) % Chloride 111 H (98-107) mmol/L BUN 29 H (9-20) mg/dL Creatinine 3.41 H (0.66-1.25) mg/dL Glucose 114 H (74-99) mg/dL POC Glucose (mg/dL) (70-110) mg/dL Calcium 7.9 L (8.4-10.2) mg/dL Phosphorus 4.7 H (2.5-4.5) mg/dL Magnesium 2.4 H (1.6-2.3) mg/dL AST 63 H (17-59) U/L Total Protein 5.2 L (6.3-8.2) g/dL Albumin 2.8 L (3.5-5.0) g/dL 06/01/24 06/01/24 06/01/24 Range/Units 05:10 05:33 11:26 RBC (4.30-5.90) m/uL Hgb (13.0-17.5) gm/dL Hct (39.0-53.0) % Plt Count (150-450) k/uL APTT 49.9 H (22.0-30.0) sec ABG pO2 (83-108) mmHg ABG HCO3 (21-25) mmol/L ABG Total CO2 (19-24) mmol/L ABG O2 Saturation (94-97) % Chloride (98-107) mmol/L BUN (9-20) mg/dL Creatinine (0.66-1.25) mg/dL Glucose (74-99) mg/dL POC Glucose (mg/dL) 114 H 123 H (70-110) mg/dL Calcium (8.4-10.2) mg/dL Phosphorus (2.5-4.5) mg/dL Magnesium (1.6-2.3) mg/dL AST (17-59) U/L Total Protein (6.3-8.2) g/dL Albumin (3.5-5.0) g/dL Microbiology - Last 24 Hours (Table) 05/30/24 08:12 Gram Stain - Final Sputum Sputum Culture - Final Beta Hemolytic Strep Group C 05/30/24 11:00 Urine Culture - Final Urine,Catheterized 05/30/24 07:30 Blood Culture - Preliminary Blood 05/30/24 07:25 Blood Culture - Preliminary Blood Assessment and Plan (1) Positive culture findings in sputum Current Visit: Yes Status: Acute Code(s): R84.5 - ABNORMAL MICROBIOLOG FINDINGS IN SPECMN FROM RESP ORG/THRX SNOMED Code(s): 282495267 (2) Penicillin allergy Current Visit: Yes Status: Acute Code(s): Z88.0 - ALLERGY STATUS TO PENICILLIN SNOMED Code(s): 36400241 (3) Pneumonia Current Visit: Yes Status: Acute Code(s): J18.9 - PNEUMONIA, UNSPECIFIED ORGANISM SNOMED Code(s): 874194502 Plan: 1patient presented to hospital with seizure activity and this patient got intubated to protect airways chest x-ray did shows bilateral basilar infiltrate and concern for possible pneumonia not entirely excluded with a sputum positive for group C strep blood culture has been negative 2-penicillin allergy that will limit the number of antibiotics safe to use 3-patient to continue with Rocephin 2 g daily antibiotic and monitor clinical course closely Dictation was produced using [employer] dictation software. please excuse any grammatical, word or spelling errors.
[2024-06-02] MEDS ORDERED: NITROGLYCERIN SL TABS 0.4 MG TAB SUBLINGUAL PRN (15:52)
[2024-06-02 17:48] LABS: Glucose,Whole Blood 135 mg/dL (70-110)
--- NOTE | 2024-06-02 17:48 | P.PN ---
Subjective Progress Note Date: 06/02/24 I am following up with the patient and the patient was extubated in the morning today. He seems somewhat agitated. Per the he is doing better but as stated earlier he was agitated and is confused not back to baseline. Patient feels he is doing better. He denies of any headache. Objective - Vital Signs Vital signs: Vital Signs Temp 98.2 F 06/02/24 12:15 Pulse 82 06/02/24 17:00 Resp 11 L 06/02/24 17:00 BP 136/95 06/02/24 17:00 Pulse Ox 96 06/02/24 17:00 FiO2 35 06/02/24 09:29 Intake & Output 06/01/24 06/02/24 06/02/24 18:59 06:59 18:59 Intake Total 2167.696 2575.976 1291.901 Output Total 2250 4555 1795 Balance -82.304 -1979.024 -503.099 Weight 85 kg 82.6 kg Intake: IV 1533 1500 932 Lactated Ringers 1,000 ml 1500 1500 920 @ 60 mls/hr IV .[id number] [facility] Rx#:[id number] Normal Saline Pressure 33 12 Bag Intake, IV Titration 474.696 545.976 319.901 Amount Clevidipine Butyrate 25 24.567 41 mg In Empty Bag 1 bag @ 1 MG/HR 2 mls/hr IV .Q24H [facility] Rx#:[id number] Dexmedetomidine/0.9% NaCl 76.430 227.075 171.047 (Pmx) 400 mcg In Empty Bag 1 bag @ 0.2 MCG/KG/HR 4.25 mls/hr IV .[id number] [facility] Rx#:[id number] Heparin Sod,Pork in 0.45% 116.501 114.112 NaCl 25,000 unit In 0.45 % NaCl 1 250ml.bag @ 12 UNITS/KG/HR 8.981 mls/hr IV .Q24H [facility] Rx#: [id number] cefTRIAXone 2 gm In 50 Sodium Chloride 0.9% 50 ml @ 100 mls/hr IVPB Q24HR [facility] Rx#:[id number] propofoL 1,000 mg In 281.765 180.222 57.854 Empty Bag 1 bag @ 15 MCG/ KG/MIN 6.736 mls/hr IV . [id number] [facility] Rx#:[id number] Tube Feeding 160 440 40 Other 90 Output: Urine 2250 4965 1795 Other: Voiding Method Indwelling Catheter Indwelling Catheter Indwelling Catheter ABP, PAP, CO, CI - Last Documented Arterial Blood Pressure 146/92 - Exam General: Lying in bed and is not in acute distress. Neuro: Limited. Patient is awake alert oriented to self place. He stated that the year is 2000 and then later to stated it is 2001. Stated the month is June. His attention is poor and seems easily agitated. Is following some simple commands. No aphasia. Pupils are round equal reactive to light. Visual lazo are full to confrontation. Extraocular is intact no nystagmus. No facial weakness. No dysarthria. Tongue is midline moves [id number] without any difficulty Motor: Strength is limited in assessment of individual muscle strength because of his cooperation but is able to lift all extremities above gravity and appears symmetrical. Cerebellar: Normal of upper extremity bilaterally - Labs CBC & Chem 7: 06/02/24 04:09 06/02/24 04:09 Labs: Abnormal Lab Results - Last 24 Hours (Table) 06/01/24 06/01/24 06/01/24 Range/Units 14:45 22:42 23:38 RBC (4.30-5.90) m/uL Hgb (13.0-17.5) gm/dL Hct (39.0-53.0) % Plt Count (150-450) k/uL APTT 33.1 H (22.0-30.0) sec ABG pH (7.35-7.45) ABG HCO3 (21-25) mmol/L ABG Total CO2 (19-24) mmol/L ABG O2 Saturation (94-97) % Chloride (98-107) mmol/L BUN (9-20) mg/dL Creatinine (0.66-1.25) mg/dL Glucose (74-99) mg/dL POC Glucose (mg/dL) 142 H (70-110) mg/dL CSF RBC 108 H (0-10) u/L CSF Glucose 71 H (40-70) mg/dL 06/02/24 06/02/24 06/02/24 Range/Units 04:09 04:09 05:30 RBC 3.50 L (4.30-5.90) m/uL Hgb 11.8 L (13.0-17.5) gm/dL Hct 33.8 L (39.0-53.0) % Plt Count 129 L (150-450) k/uL APTT (22.0-30.0) sec ABG pH (7.35-7.45) ABG HCO3 (21-25) mmol/L ABG Total CO2 (19-24) mmol/L ABG O2 Saturation (94-97) % Chloride 113 H (98-107) mmol/L BUN 22 H (9-20) mg/dL Creatinine 2.43 H (0.66-1.25) mg/dL Glucose 140 H (74-99) mg/dL POC Glucose (mg/dL) 160 H (70-110) mg/dL CSF RBC (0-10) u/L CSF Glucose (40-70) mg/dL 06/02/24 06/02/24 06/02/24 Range/Units 06:20 06:32 11:38 RBC (4.30-5.90) m/uL Hgb (13.0-17.5) gm/dL Hct (39.0-53.0) % Plt Count (150-450) k/uL APTT 49.4 H (22.0-30.0) sec ABG pH 7.46 H (7.35-7.45) ABG HCO3 28 H (21-25) mmol/L ABG Total CO2 29 H (19-24) mmol/L ABG O2 Saturation 98.7 H (94-97) % Chloride (98-107) mmol/L BUN (9-20) mg/dL Creatinine (0.66-1.25) mg/dL Glucose (74-99) mg/dL POC Glucose (mg/dL) 133 H (70-110) mg/dL CSF RBC (0-10) u/L CSF Glucose (40-70) mg/dL Microbiology - Last 24 Hours (Table) 05/30/24 07:30 Blood Culture - Preliminary Blood 05/30/24 07:25 Blood Culture - Preliminary Blood 06/01/24 14:45 CSF Gram Stain - Preliminary Cerebral Spinal Fluid Assessment and Plan Assessment: Is a 44-year-old gentleman with a history of alcohol use in which she drinks 2 tall boys who recently went to [place] for a week and was in multiple outdoor events. He did drink heavily during that week 1 week. They headed back him and his this past Friday and there is no issues. Also the next day he was doing well which was Friday and he was drinking back to his baseline without any issues. Then this past Friday he started having behavioral changes and had new onset seizure. Then had further seizure that led to postcardiac arrest. * New onset seizures, and there is ? due to alcohol withdrawal but I am not totally convinced since patient drank heavily only for 1 week and I am not sure how much dependence a person get only for 1 week. This is not encephalitis or meningitis and CSF nucleated cell is 3 which is normal and during this hospitalization patient is afebrile. He had one-time leukocytosis and I felt was reactive and which resolved. Sputum culture is positive for beta-hemolytic strep group C and unsure if this is normal remy vs ?pathogenic. Secondly patient's states that he does a lot of gardening and chews tobacco and unsure if he developed an infection while picking up contaminated soil. * Status postcardiac arrest after third seizure, with downtime of 4 minutes. * Elevated cardiac enzymes, rule out acute NE * Lactic acidosis, due to recurrent seizures * Hyperkalemia * Elevated troponin * Leukocytosis on presentation that resolved--likely reactive. Is afebrile---resolved * Acute kidney injury * History of moderate alcoholism * Macrocytosis, likely due to alcoholism--resolved * Marijuana use * Vapes * History of PTSD Plan: * Is on Keppra 1gm bid. * Seizure precaution and pads. * EEG: It is reported as abnormal with the presence of excessive amount of low voltage fast frequency beta activity suggestions of benzodiazepine effect. Otherwise some intermittent slowing was seen with some periods of suppression, suggestive of encephalopathy/medication effect. No focal, lateralizing or epileptiform activity was seen. * Repeat EEG: Is abnormal. The background slowing suggestive of mild to moderate encephalopathy. Otherwise there is no focal slowing, OptiForm discharge or seizure on the EEG. * CSF study: Clear, colorless, red blood cells 108, total nucleated cells 3, fresh red blood cells 100, CSF glucose is 71 and the total protein is 45. CSF culture is no organisms detected * Lyme serum is negative. * VZV, Herpes 1/2 PCR is pending * Repeat CT head: No acute intracranial process seen at this time. * I will plan for MRI Brain tomorrow (not today since patient will not cooperate for it). * Hemoglobin A1c 5.5 * No need for acyclovir from my side and I notified the primary team early in the morning and they discontinue it. * Patient is on thiamine 100mg daily. * His sputum culture is positive for beta hemolytic strep group C. * I.D. is on board * Patient is on heparin for elevated cardiac enzymes. Cardiology on board. * Recommend abstinence from marijuana, alcoholism and vaping. * Other medical management as per IM and other specialties on board. The plan is discussed with patient, his who is at bedside, primary attending and ICU nurse. Time with Patient: Less than 30
--- NOTE | 2024-06-02 18:32 | P.PN ---
Subjective Progress Note Date: 06/02/24 This is a 45-year-old gentleman who requested to see the emergency department for further cardiac evaluation of abnormal cardiac enzymes. Currently the patient is intubated and he is on mechanical ventilation but the history was taken from the ER physician as well as from the patient's who was at be dside. The patient was noted to be in normal situation till yesterday. 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 Before that he was drinking excessively according to his . Ambulance was called and the patient was brought to the emergency department for further evaluation in the emergency department he was confused but subsequently he had a grand mal seizure witnessed by the ER staff. Subsequently the patient was intubated and placed on mechanical ventilation to protect the airway. Further evaluation was performed including an EKG. The first EKG showed sinus rhythm with nonspecific ST and T wave abnormalities and evidence of LVH. Second EKG showed sinus mechanism with no ST or T wave abnormalities. The troponin came in to be slightly elevated. According to the patient's he was not experiencing any cardiovascular symptoms of any chest pain or chest discomfort or shortness of breath. He never been diagnosed with diabetes. He was diagnosed in the past with hypertension and he was on medications but he stopped taking the medications. Please note that his blood glucose is elevated during the blood work today. The patient underwent also a CT scan of the brain which did show any acute abnormalities. Currently he is hemodynamically stable with soft blood pressure. Beside that he underwent a blood work and that revealed low GFR and elevated potassium. The chest x-ray showed possible underlying pneumonia and he was seen by the pulmon acosta/critical care team and he was placed on antibiotic. The examination is remarkable for patient to be intubated on mechanical ventilation with regular rate and rhythm and soft systolic murmur at the right upper sternal border and clear breathing sounds bilaterally and no edema was noted in the lower extremities with soft nontender abdomen May 31, 2024 Patient seen and examined at bedside. Family was present at bedside. Echocardiogram still pending, hemodynamic stable. No further episodes of asystole or any other pauses or any arrhythmias on telemetry monitoring. Appropriate urine output. No signs of bleeding on IV heparin drip. June 01, 2024 Patient is seen and examined at bedside this a.m. patient's echocardiogram showed an EF of 35 to 40% with no significant valvular abnormality. Appropriate urine output. No further episodes of seizure. Propofol was reduced and was started on Precedex. June 02, 2024 Patient is seen and examined at bedside this a.m. Patient was successfully extubated this morning. Since extubation patient's heart rate is much better. He was hypertensive last night for which she was started on clevidipine drip. This was weaned off this morning. He is currently under restraints as since extubation he has been confused and agitated. Renal function is improving, appropriate urine output On exam S1-S2 is audible, regular pulses, Mild crackles audible in bilateral lung lazo, diminished breath sounds, no significant rhonchi Patient is slightly agitated and is in delirium since extubation No swelling in bilateral lower extremity Assessment Asystolic cardiac arrest after a [place] seziure, required 4 mins of CPR Elevated troponin due to cardiac arrest, Likely Type II nstemi Vent dependent respiratory failure after cardiac arrest Cardiomyopathy with EF 35 to 40%, likely stress-induced cardiomyopathy. Possibility of ischemic heart disease cannot be ruled out LUCY, due to ATN likely due to hypoxic injury from cardiac arrest Grand Mal seizure Electrolytes abnormalities with hyperkalemia History of excessive alcohol use Plan Continue aspirin Continue IV heparin drip Plan for cardiac catheterization on Friday with Dr. Mattson Continue hydralazine 25 mg every 6 hours. Start Coreg 3.125 mg twice daily Once renal function improves, consider starting Entresto and Jardiance for cardiomyopathy Monitor renal function and urine output. Once kidney function improves and patient is weaned off from ventilator, patient should get ischemic evaluation by heart catheterization. Objective - Vital Signs Vital signs: Vital Signs Temp 98.2 F 06/02/24 12:15 Pulse 90 06/02/24 18:00 Resp 16 06/02/24 18:00 BP 138/99 06/02/24 18:00 Pulse Ox 95 06/02/24 18:00 FiO2 35 06/02/24 09:29 Intake & Output 06/01/24 06/02/24 06/02/24 18:59 06:59 18:59 Intake Total 2167.696 2575.976 1415.659 Output Total 2250 4555 1855 Balance -82.304 -1979.024 -439.341 Weight 85 kg 82.6 kg Intake: IV 1533 1500 995 Lactated Ringers 1,000 ml 1500 1500 980 @ 60 mls/hr IV .[id number] [facility] Rx#:[id number] Normal Saline Pressure 33 15 Bag Intake, IV Titration 474.696 545.976 380.659 Amount Clevidipine Butyrate 25 24.567 41 mg In Empty Bag 1 bag @ 1 MG/HR 2 mls/hr IV .Q24H [facility] Rx#:[id number] Dexmedetomidine/0.9% NaCl 76.430 227.075 231.805 (Pmx) 400 mcg In Empty Bag 1 bag @ 0.2 MCG/KG/HR 4.25 mls/hr IV .[id number] [facility] Rx#:[id number] Heparin Sod,Pork in 0.45% 116.501 114.112 NaCl 25,000 unit In 0.45 % NaCl 1 250ml.bag @ 12 UNITS/KG/HR 8.981 mls/hr IV .Q24H [facility] Rx#: [id number] cefTRIAXone 2 gm In 50 Sodium Chloride 0.9% 50 ml @ 100 mls/hr IVPB Q24HR [facility] Rx#:[id number] propofoL 1,000 mg In 281.765 180.222 57.854 Empty Bag 1 bag @ 15 MCG/ KG/MIN 6.736 mls/hr IV . [id number] [facility] Rx#:[id number] Tube Feeding 160 440 40 Other 90 Output: Urine 2250 4555 1855 Other: Voiding Method Indwelling Catheter Indwelling Catheter Indwelling Catheter ABP, PAP, CO, CI - Last Documented Arterial Blood Pressure 139/94 - Labs CBC & Chem 7: 06/02/24 04:09 06/02/24 04:09 Labs: Abnormal Lab Results - Last 24 Hours (Table) 06/01/24 06/01/24 06/01/24 Range/Units 14:45 22:42 23:38 RBC (4.30-5.90) m/uL Hgb (13.0-17.5) gm/dL Hct (39.0-53.0) % Plt Count (150-450) k/uL APTT 33.1 H (22.0-30.0) sec ABG pH (7.35-7.45) ABG HCO3 (21-25) mmol/L ABG Total CO2 (19-24) mmol/L ABG O2 Saturation (94-97) % Chloride (98-107) mmol/L BUN (9-20) mg/dL Creatinine (0.66-1.25) mg/dL Glucose (74-99) mg/dL POC Glucose (mg/dL) 142 H (70-110) mg/dL CSF RBC 108 H (0-10) u/L CSF Glucose 71 H (40-70) mg/dL 06/02/24 06/02/24 06/02/24 Range/Units 04:09 04:09 05:30 RBC 3.50 L (4.30-5.90) m/uL Hgb 11.8 L (13.0-17.5) gm/dL Hct 33.8 L (39.0-53.0) % Plt Count 129 L (150-450) k/uL APTT (22.0-30.0) sec ABG pH (7.35-7.45) ABG HCO3 (21-25) mmol/L ABG Total CO2 (19-24) mmol/L ABG O2 Saturation (94-97) % Chloride 113 H (98-107) mmol/L BUN 22 H (9-20) mg/dL Creatinine 2.43 H (0.66-1.25) mg/dL Glucose 140 H (74-99) mg/dL POC Glucose (mg/dL) 160 H (70-110) mg/dL CSF RBC (0-10) u/L CSF Glucose (40-70) mg/dL 06/02/24 06/02/24 06/02/24 Range/Units 06:20 06:32 11:38 RBC (4.30-5.90) m/uL Hgb (13.0-17.5) gm/dL Hct (39.0-53.0) % Plt Count (150-450) k/uL APTT 49.4 H (22.0-30.0) sec ABG pH 7.46 H (7.35-7.45) ABG HCO3 28 H (21-25) mmol/L ABG Total CO2 29 H (19-24) mmol/L ABG O2 Saturation 98.7 H (94-97) % Chloride (98-107) mmol/L BUN (9-20) mg/dL Creatinine (0.66-1.25) mg/dL Glucose (74-99) mg/dL POC Glucose (mg/dL) 133 H (70-110) mg/dL CSF RBC (0-10) u/L CSF Glucose (40-70) mg/dL 06/02/24 Range/Units 17:47 RBC (4.30-5.90) m/uL Hgb (13.0-17.5) gm/dL Hct (39.0-53.0) % Plt Count (150-450) k/uL APTT (22.0-30.0) sec ABG pH (7.35-7.45) ABG HCO3 (21-25) mmol/L ABG Total CO2 (19-24) mmol/L ABG O2 Saturation (94-97) % Chloride (98-107) mmol/L BUN (9-20) mg/dL Creatinine (0.66-1.25) mg/dL Glucose (74-99) mg/dL POC Glucose (mg/dL) 135 H (70-110) mg/dL CSF RBC (0-10) u/L CSF Glucose (40-70) mg/dL Microbiology - Last 24 Hours (Table) 05/30/24 07:30 Blood Culture - Preliminary Blood 05/30/24 07:25 Blood Culture - Preliminary Blood 06/01/24 14:45 CSF Gram Stain - Preliminary Cerebral Spinal Fluid
[2024-06-02] MEDS: carvediloL 3.125 MG TAB PO SCH (21:14)
[2024-06-02 23:41] LABS: Glucose,Whole Blood 95 mg/dL (70-110)
[2024-06-03 04:20] LABS: Basophils % (A) 0 %; Eosinophils # (A) 0.2 k/uL (0-0.7); Eosinophils % (A) 2 %; HCT 32.9 % (39.0-53.0); HGB 11.2 gm/dL (13.0-17.5); Lymphocytes # (A) 1.4 k/uL (1.0-4.8); Lymphocytes % (A) 16 %; MCH 33.2 pg (25.0-35.0); MCHC 34.1 g/dL (31.0-37.0); MCV 97.3 fL (80.0-100.0); Mean Platelet Volume 8.5; Monocytes # (A) 0.6 k/uL (0-1.0); Monocytes % (A) 6 %; Neutrophils # (A) 6.6 k/uL (1.3-7.7); Neutrophils % (A) 75 %; Platelet Count 119 k/uL (150-450); RBC 3.38 m/uL (4.30-5.90); RDW 13.3 % (11.5-15.5); WBC 8.9 k/uL (3.8-10.6)
[2024-06-03 04:49] LABS: ALT 44 U/L (4-49); AST 108 U/L (17-59); African American GFR (CKD) 59 (>60 ml/min/1.73 sqM); Albumin 3.4 g/dL (3.5-5.0); Alkaline Phosphatase 106 U/L (38-126); Anion Gap 7 mmol/L; Blood Urea Nitrogen 22 mg/dL (9-20); Calcium 8.8 mg/dL (8.4-10.2); Carbon Dioxide 24 mmol/L (22-30); Chloride 111 mmol/L (98-107); Glucose 97 mg/dL (74-99); Non-African American GFR(CKD) 51 (>60 ml/min/1.73 sqM); Potassium 4.1 mmol/L (3.5-5.1); Sodium 142 mmol/L (137-145); Total Bilirubin 1.1 mg/dL (0.2-1.3); Total Protein 6.2 g/dL (6.3-8.2)
[2024-06-03 06:11] LABS: Glucose,Whole Blood 87 mg/dL (70-110)
[2024-06-03] MEDS ORDERED: HEPARIN SODIUM,PORCINE 10,000 UNIT in SODIUM CHLORIDE 0.9% 1,000 ML IRRIGATION PRN (07:00)
[2024-06-03] MEDS ORDERED: HEPARIN SODIUM,PORCINE (1 ML) 2,500 UNIT in SODIUM CHLORIDE 0.9% 250 ML IRRIGATION PRN (07:00)
[2024-06-03 07:45] LABS: V. zoster Source Blood - Plasma; Varicella zoster Virus by PCR Not detected (Not detected)
[2024-06-03] MEDS: LORazepam 2 MG/ML INJ IV PRN (09:26)
[2024-06-03] MEDS: SERTRALINE 100 MG TAB PO SCH (10:42)
[2024-06-03] MEDS: ATORVASTATIN 20 MG TAB PO SCH (10:42)
[2024-06-03] MEDS: ASPIRIN 81 MG PO SCH (10:42)
[2024-06-03 11:43] LABS: Glucose,Whole Blood 108 mg/dL (70-110)
--- NOTE | 2024-06-03 12:39 | P.PN ---
Subjective Progress Note Date: 06/03/24 Principal diagnosis: New onset seizures, inability to protect airways, requiring intubation mechanical ventilation, May 30 2024 This is a 44-year-old male with a history of depression, possibly PTSD, and hypertension. The patient apparently had a new onset seizure today, and was found by his , at home. The patient apparently was acting strange, and subsequent to that, was found on the bedroom floor, having a seizure. EMS was called and brought the patient into the emergency room. The patient had at least 2 seizures in the emergency room, and could not protect his airway, and was intubated for airway protection. The patient is seen in the emergency department, in trauma room 1. The patient had a initial blood gas,, showing a pO2 of 170, pCO2 of 35, pH is 6.99. Subsequent blood gas on 100% showed a pO2 of greater than 420, pCO2 of 38, and a pH of 7.43. Lactic acid was 10.7. Glucose was 138. Additional labs include a white count of 16.6, hemoglobin 14. 8, hematocrit 46.1, and a platelet count of 285,000. Sodium 144, potassium 5.8, chlorides 105, CO2 less than 5, BUN 14, creatinine 1.52. Glucose was 345. Lactic acid was 10.7. N-terminal proBNP was 319. Troponin was 0.151. Albumin 5.3. Viral screen was negative. Serum alcohol level was less than 10. Brain CT showed nothing acute. Chest x-ray showed no acute cardiopulmonary changes. CT of the abdomen and pelvis, was also negative. The did state, that the patient does use marijuana, does not smoke cigarettes at this time, and drinks occasionally heavily. Patient was evaluated today on 05/31/2024, patient remains intubated [place] ventilated. He is on assist-control rate of 20 tidal volume 500 FiO2 40% PEEP of 5 ABG showed a pO2 of 155 pCO2 34 pH of 7.48. Patient remains on the [facility] protocol for history of alcoholism. Remains on propofol at 40 mcg/kg/min he is also on LR at 125 mL/h chest x-ray showed no evidence of active disease. Labs were reviewed WBC count 6.1 hemoglobin is 10.0. PTT is 60 ABG showed a pO2 of 155 pCO2 34 pH of 7.48, hence vent settings were adjusted with rate down to 18 FiO2 down to 35%. Basic metabolic profile is normal however BUN is 24 cr eatinine 2.99, patient apparently developed acute tubular necrosis/acute kidney injury being addressed by nephrology on the case CPK is elevated at 799, troponin 4.32 and total protein is 5.6 albumin 3.0, looking back at this patient presentation, he had a brief cardiac arrest in the ER, received 2 epinephrines, downtime was few minutes, hence we will try to assess his mental status today for possible weaning and extubation. After going off sedation, patient seems to be arousable, follows simple instructions but was extremely agitated and restless, could not proceed to full extubation on this patient. Patient was evaluated today on 06/01/24, patient remains in the ICU, intubated and mechanically ventilated. He is presently on assist-control rate of 18 tidal volume 500 FiO2 35% PEEP of 5 ABG showed a pO2 of 132 pCO2 40 pH of 7.42 hence no changes were made in present vent settings. Patient is being considered for lumbar puncture today by neurology. Patient remains on propofol at 50 mcg/kg/min, he is also on LR at 125 cc/h heparin drip, and I will likely transition the patient from propofol to Precedex to hopefully consider a weaning trial and possibly extubation. Patient has not had any seizures overnight, he is maintained on Keppra and ceftriaxone and he was also placed on acyclovir. Again neurology is considering a lumbar puncture to be done today. WBC count today is 5.2 hemoglobin is 10 electrolytes are normal BUN is 29 creatinine on the rise up to 3.41. Patient was seen by urology, did not feel that the patient had hydronephrosis, and recommended no intervention. Did not feel his acute kidney injury is secondary to any obstructive uropathy renal status is being closely monitored by nephrology on the case. X-ray showed no pulmonary process. Patient is showing group C beta-hemolytic strep in the sputum significance of which is not clear Patient was a on 06/02/24, patient remains in the tube, intubated and mechanically ventilated. He is on assist-control rate of 18 tidal volume 500 FiO2 35% and PEEP of 5 his ABG showed a pO2 of 102 pCO2 40 0 pH of 7.46. Patient remains on multiple drips including Precedex at 1.1 mcg/kg/h Cleviprex at 2 mg/h he is on LR at 125 cc/h he is also on propofol which was 30 mcg/kg/min, and I stopped it to wean and extubate the patient hopefully today. Patient remains on acyclovir and ceftriaxone, his preliminary findings on the spinal fluid seems to be unremarkable. Patient did undergo a lumbar puncture yesterday, the preliminary report is relatively normal. Chest x-ray is relatively unremarkable, endotracheal tube is sitting high up in the trachea. PTT is 49.4 WBC count is 6.1 hemoglobin 11.8 electrolytes are normal BUN is 22 creatinine trending down to 2.43. Liver enzymes are unremarkable Patient was evaluated today on 11/26, remains in the ICU, on Precedex at 1.4 mcg/kg/h patient is having intermittent episodes of agitations, restless at times, requiring Ativan intermittently clearly the patient has symptoms of alcohol withdrawal. Patient is supposed to have cardiac catheterization today, however considering his overall condition, may have to be placed on hold.WBC count is 8.9 hemoglobin 11.2 PTT is 59 electrolytes are normal renal profile is improving BUN is 22 creatinine 1.61 Objective - Vital Signs Vital signs: Vital Signs Temp 99.1 F 06/03/24 12:00 Pulse 78 06/03/24 12:00 Resp 18 06/03/24 12:00 BP 133/93 06/03/24 12:00 Pulse Ox 99 06/03/24 12:00 FiO2 50 06/03/24 12:08 Intake & Output 06/02/24 06/03/24 06/03/24 18:59 06:59 18:59 Intake Total 4318.298 7781.782 451.919 Output Total 1855 1485 625 Balance -439.341 -311.218 -173.081 Weight 84.6 kg Intake: IV 995 756 303 Lactated Ringers 1,000 ml 980 720 300 @ 60 mls/hr IV .[id number] YESENIA Rx#:[id number] Normal Saline Pressure 15 36 3 Bag Intake, IV Titration 380.659 417.782 148.919 Amount Clevidipine Butyrate 25 41 mg In Empty Bag 1 bag @ 1 MG/HR 2 mls/hr IV .Q24H YESENIA Rx#:[id number] Dexmedetomidine/0.9% NaCl 231.805 181.955 98.919 (Pmx) 400 mcg In Empty Bag 1 bag @ 0.2 MCG/KG/HR 4.25 mls/hr IV .[id number] YESENIA Rx#:[id number] Heparin Sod,Pork in 0.45% 235.827 NaCl 25,000 unit In 0.45 % NaCl 1 250ml.bag @ 12 UNITS/KG/HR 8.981 mls/hr IV .Q24H YESENIA Rx#: [id number] cefTRIAXone 2 gm In 50 50 Sodium Chloride 0.9% 50 ml @ 100 mls/hr IVPB Q24HR YESENIA Rx#:[id number] propofoL 1,000 mg In 57.854 Empty Bag 1 bag @ 15 MCG/ KG/MIN 6.736 mls/hr IV . [id number] YESENIA Rx#:[id number] Tube Feeding 40 Output: Urine 1855 1485 625 Other: Voiding Method Indwelling Catheter Indwelling Catheter Indwelling Catheter ABP, PAP, CO, CI - Last Documented Arterial Blood Pressure 149/85 - Exam General: Revealed 44-year-old white male, anxious, on nasal cannula, not in distress however noted to be a bit tachypneic. Skin: Skin is warm and dry and no rashes or lesions are noted. Eye: Pupils are equal, round and reactive to light, extra-ocular movements are intact; there is normal conjunctiva bilaterally. Ears, nose, mouth and throat: There are moist mucous membranes and no oral lesions. Neck: The neck is supple, there is no tenderness or JVD. Cardiovascular: There is a regular rate and rhythm. No murmur, rub or gallop is appreciated. Respiratory: Clear throughout no crackles rhonchi or wheezes Gastrointestinal: Soft, non-distended, non-tender abdomen without masses or organomegaly noted. There is no rebound or guarding present. Bowel sounds are unremarkable. Neurological: Awake, follows instructions, no gross focal neurologic deficit however seems to be a bit anxious and agitated easily Psychiatric: Flat affect, anxious mood, normal mental status otherwise - Labs CBC & Chem 7: 06/03/24 04:01 06/03/24 04:01 Labs: Abnormal Lab Results - Last 24 Hours (Table) 06/02/24 06/03/24 06/03/24 Range/Units 17:47 04:01 04:01 RBC 3.38 L (4.30-5.90) m/uL Hgb 11.2 L (13.0-17.5) gm/dL Hct 32.9 L (39.0-53.0) % Plt Count 119 L (150-450) k/uL APTT (22.0-30.0) sec Chloride 111 H (98-107) mmol/L BUN 22 H (9-20) mg/dL Creatinine 1.61 H (0.66-1.25) mg/dL POC Glucose (mg/dL) 135 H (70-110) mg/dL AST 108 H (17-59) U/L Total Protein 6.2 L (6.3-8.2) g/dL Albumin 3.4 L (3.5-5.0) g/dL 06/03/24 06/03/24 Range/Units 04:01 11:26 RBC (4.30-5.90) m/uL Hgb (13.0-17.5) gm/dL Hct (39.0-53.0) % Plt Count (150-450) k/uL APTT 39.5 H 59.0 H (22.0-30.0) sec Chloride (98-107) mmol/L BUN (9-20) mg/dL Creatinine (0.66-1.25) mg/dL POC Glucose (mg/dL) (70-110) mg/dL AST (17-59) U/L Total Protein (6.3-8.2) g/dL Albumin (3.5-5.0) g/dL Microbiology - Last 24 Hours (Table) 06/01/24 14:45 CSF Gram Stain - Preliminary Cerebral Spinal Fluid CSF Culture - Preliminary 05/30/24 07:30 Blood Culture - Preliminary Blood 05/30/24 07:25 Blood Culture - Preliminary Blood Assessment and Plan Assessment: Impression: New onset seizures with inability to protect airway is required requiring intubation mechanical ventilation May 30, extubated on 06/02/2024 Brief cardiac arrest/asystole while in the ER requiring 2 doses of epinephrine Acute kidney injury/acute tubular necrosis, continues to improve History of alcoholism History of PTSD History of depression Benign essential hypertension Recommendations: Continue to monitor in the ICU for now, continue CIWA protocol occluding Ativan and Precedex Continue antibiotics/ceftriaxone, discontinue acyclovir Continue seizure meds and seizure precautions Continue nutritional support/enteral feeding Continue DVT prophylaxis and GI prophylaxis Continue Keppra Considering that the patient is marginal, will continue to monitor in the ICU Will continue to follow Time with Patient: Less than 30
--- NOTE | 2024-06-03 12:47 | P.PN ---
Subjective Patient is seen for follow-up for acute kidney injury. He is on BiPAP this morning. Patient is also maintained on Precedex. He has had significant withdrawal symptoms today. Urine output at 175-200 ML per hour. Maintained on LR at 60 mL an hour. Serum creatinine is down to 1.6 today. Objective - Vital Signs Vital signs: Vital Signs Temp 99.1 F 06/03/24 12:00 Pulse 78 06/03/24 12:00 Resp 18 06/03/24 12:00 BP 133/93 06/03/24 12:00 Pulse Ox 99 06/03/24 12:00 FiO2 50 06/03/24 12:08 Intake & Output 06/02/24 06/03/24 06/03/24 18:59 06:59 18:59 Intake Total 9197.237 4449.782 451.919 Output Total 1855 1485 625 Balance -439.341 -311.218 -173.081 Weight 84.6 kg Intake: IV 995 756 303 Lactated Ringers 1,000 ml 980 720 300 @ 60 mls/hr IV .[id number] YESENIA Rx#:[id number] Normal Saline Pressure 15 36 3 Bag Intake, IV Titration 380.659 417.782 148.919 Amount Clevidipine Butyrate 25 41 mg In Empty Bag 1 bag @ 1 MG/HR 2 mls/hr IV .Q24H YESENIA Rx#:[id number] Dexmedetomidine/0.9% NaCl 231.805 181.955 98.919 (Pmx) 400 mcg In Empty Bag 1 bag @ 0.2 MCG/KG/HR 4.25 mls/hr IV .[id number] YESENIA Rx#:[id number] Heparin Sod,Pork in 0.45% 235.827 NaCl 25,000 unit In 0.45 % NaCl 1 250ml.bag @ 12 UNITS/KG/HR 8.981 mls/hr IV .Q24H YESENIA Rx#: [id number] cefTRIAXone 2 gm In 50 50 Sodium Chloride 0.9% 50 ml @ 100 mls/hr IVPB Q24HR YESENIA Rx#:[id number] propofoL 1,000 mg In 57.854 Empty Bag 1 bag @ 15 MCG/ KG/MIN 6.736 mls/hr IV . [id number] YESENIA Rx#:[id number] Tube Feeding 40 Output: Urine 6243 7650 512 Other: Voiding Method Indwelling Catheter Indwelling Catheter Indwelling Catheter ABP, PAP, CO, CI - Last Documented Arterial Blood Pressure 149/85 - Exam patient is sleeping and maintained on BiPAP currently. Examination of the heart S1 and S2 Examination of the lungs bilateral breath sounds are heard Abdomen is soft nontender Examination of lower extremity shows no significant edema - Labs CBC & Chem 7: 06/03/24 04:01 06/03/24 04:01 Labs: Abnormal Lab Results - Last 24 Hours (Table) 06/02/24 06/03/24 06/03/24 Range/Units 17:47 04:01 04:01 RBC 3.38 L (4.30-5.90) m/uL Hgb 11.2 L (13.0-17.5) gm/dL Hct 32.9 L (39.0-53.0) % Plt Count 119 L (150-450) k/uL APTT (22.0-30.0) sec Chloride 111 H (98-107) mmol/L BUN 22 H (9-20) mg/dL Creatinine 1.61 H (0.66-1.25) mg/dL POC Glucose (mg/dL) 135 H (70-110) mg/dL AST 108 H (17-59) U/L Total Protein 6.2 L (6.3-8.2) g/dL Albumin 3.4 L (3.5-5.0) g/dL 06/03/24 06/03/24 Range/Units 04:01 11:26 RBC (4.30-5.90) m/uL Hgb (13.0-17.5) gm/dL Hct (39.0-53.0) % Plt Count (150-450) k/uL APTT 39.5 H 59.0 H (22.0-30.0) sec Chloride (98-107) mmol/L BUN (9-20) mg/dL Creatinine (0.66-1.25) mg/dL POC Glucose (mg/dL) (70-110) mg/dL AST (17-59) U/L Total Protein (6.3-8.2) g/dL Albumin (3.5-5.0) g/dL Microbiology - Last 24 Hours (Table) 06/01/24 14:45 CSF Gram Stain - Preliminary Cerebral Spinal Fluid CSF Culture - Preliminary 05/30/24 07:30 Blood Culture - Preliminary Blood 05/30/24 07:25 Blood Culture - Preliminary Blood Assessment and Plan Assessment: 1. Acute kidney injury, ATN, nonoliguric secondary to hypotension and cardiac arrest. UA shows 1+ protein 3+ blood in ( it was a difficult Castellanos catheter p lacement). CT of the abdomen negative for any obstructive uropathy. CK is mildly elevated at 799 2. New onset seizures, maintained on Keppra. Neurology on consult. ? related to alcohol withdrawal. 3. Severe metabolic acidosis possibly related to lactic acidosis volatile screen is negative. Serum acetone, salicylate and alcohol is negative. 4. Hyperkalemia associated with acute kidney injury and severe metabolic acidosis, improved. 5. New onset diabetes 6. Elevated troponins being followed by cardiology. Plan: Continue IV fluids Repeat labs in a.m. Continue to avoid nephrotoxic agents.
--- NOTE | 2024-06-03 13:17 | P.PN ---
Subjective Progress Note Date: 06/03/24 I am following-up with patient and per the nurse, patient is having agitation and restlessness and requiring intermittent Ativan and IV Precedex. ICU team feels he is withdrawaling and possibly from alcohol. Objective - Vital Signs Vital signs: Vital Signs Temp 99.1 F 06/03/24 12:00 Pulse 78 06/03/24 12:00 Resp 18 06/03/24 12:00 BP 133/93 06/03/24 12:00 Pulse Ox 99 06/03/24 12:00 FiO2 50 06/03/24 12:08 Intake & Output 06/02/24 06/03/24 06/03/24 18:59 06:59 18:59 Intake Total 3312.855 4804.782 521.333 Output Total 1855 1485 625 Balance -439.341 -311.218 -103.667 Weight 84.6 kg Intake: IV 995 756 303 Lactated Ringers 1,000 ml 980 720 300 @ 60 mls/hr IV .[id number] YESENIA Rx#:[id number] Normal Saline Pressure 15 36 3 Bag Intake, IV Titration 380.659 417.782 218.333 Amount Clevidipine Butyrate 25 41 mg In Empty Bag 1 bag @ 1 MG/HR 2 mls/hr IV .Q24H YESENIA Rx#:[id number] Dexmedetomidine/0.9% NaCl 231.805 181.955 98.919 (Pmx) 400 mcg In Empty Bag 1 bag @ 0.2 MCG/KG/HR 4.25 mls/hr IV .[id number] YESENIA Rx#:[id number] Heparin Sod,Pork in 0.45% 235.827 69.414 NaCl 25,000 unit In 0.45 % NaCl 1 250ml.bag @ 12 UNITS/KG/HR 8.981 mls/hr IV .Q24H YESENIA Rx#: [id number] cefTRIAXone 2 gm In 50 50 Sodium Chloride 0.9% 50 ml @ 100 mls/hr IVPB Q24HR YESENIA Rx#:[id number] propofoL 1,000 mg In 57.854 Empty Bag 1 bag @ 15 MCG/ KG/MIN 6.736 mls/hr IV . [id number] YESENIA Rx#:[id number] Tube Feeding 40 Output: Urine 1855 1485 625 Other: Voiding Method Indwelling Catheter Indwelling Catheter Indwelling Catheter ABP, PAP, CO, CI - Last Documented Arterial Blood Pressure 149/85 - Exam General: Lying in bed and does not appear in acute distress. Neuro: Very Limited. Getting Ativan and IV Precedex. Is severely drowsy. - Labs CBC & Chem 7: 06/03/24 04:01 06/03/24 04:01 Labs: Abnormal Lab Results - Last 24 Hours (Table) 06/02/24 06/03/24 06/03/24 Range/Units 17:47 04:01 04:01 RBC 3.38 L (4.30-5.90) m/uL Hgb 11.2 L (13.0-17.5) gm/dL Hct 32.9 L (39.0-53.0) % Plt Count 119 L (150-450) k/uL APTT (22.0-30.0) sec Chloride 111 H (98-107) mmol/L BUN 22 H (9-20) mg/dL Creatinine 1.61 H (0.66-1.25) mg/dL POC Glucose (mg/dL) 135 H (70-110) mg/dL AST 108 H (17-59) U/L Total Protein 6.2 L (6.3-8.2) g/dL Albumin 3.4 L (3.5-5.0) g/dL 06/03/24 06/03/24 Range/Units 04:01 11:26 RBC (4.30-5.90) m/uL Hgb (13.0-17.5) gm/dL Hct (39.0-53.0) % Plt Count (150-450) k/uL APTT 39.5 H 59.0 H (22.0-30.0) sec Chloride (98-107) mmol/L BUN (9-20) mg/dL Creatinine (0.66-1.25) mg/dL POC Glucose (mg/dL) (70-110) mg/dL AST (17-59) U/L Total Protein (6.3-8.2) g/dL Albumin (3.5-5.0) g/dL Microbiology - Last 24 Hours (Table) 06/01/24 14:45 CSF Gram Stain - Preliminary Cerebral Spinal Fluid CSF Culture - Preliminary 05/30/24 07:30 Blood Culture - Preliminary Blood 05/30/24 07:25 Blood Culture - Preliminary Blood Assessment and Plan Assessment: Is a 44-year-old gentleman with a history of alcohol use in which she drinks 2 tall boys who recently went to [place] for a week and was in multiple outdoor events. He did drink heavily during that week 1 week. They headed back him and his this past Friday and there is no issues. Also the next day he was doing well which was Friday and he was drinking back to his baseline without any issues. Then this past Friday he started having behavioral changes and had new onset seizure. Then had further seizure that led to postcardiac arrest. * New onset seizures, and there is ? due to alcohol withdrawal but I am not totally convinced since patient drank heavily only for 1 week and I am not sure how much dependence a person get only for 1 week unless patient is drinking more and not transparent. This is not encephalitis or meningitis and CSF nucleated cell is 3 which is normal and during this hospitalization patient is afebrile. He had one-time leukocytosis and I felt was reactive and which resolved. Sputum culture is positive for beta-hemolytic strep group C and unsure if this is normal remy vs ?pathogenic. Secondly patient's states that he does a lot of gardening and chews tobacco and unsure if he developed an infection while picking up contaminated soil. * Status postcardiac arrest after third seizure, with downtime of 4 minutes. * Elevated cardiac enzymes, rule out acute AK * Lactic acidosis, due to recurrent seizures * Hyperkalemia * Elevated troponin * Leukocytosis on presentation that resolved--likely reactive. Is afebrile---resolved * Acute kidney injury * History of moderate alcoholism * Macrocytosis, likely due to alcoholism--resolved * Marijuana use * Vapes * History of PTSD Plan: * Is on Keppra 1gm bid. * Seizure precaution and pads. * EEG: It is reported as abnormal with the presence of excessive amount of low voltage fast frequency beta activity suggestions of benzodiazepine effect. Otherwise some intermittent slowing was seen with some periods of suppression, suggestive of encephalopathy/medication effect. No focal, lateralizing or epileptiform activity was seen. * Repeat EEG: Is abnormal. The background slowing suggestive of mild to moderate encephalopathy. Otherwise there is no focal slowing, [employer] discharge or seizure on the EEG. * CSF study: Clear, colorless, red blood cells 108, total nucleated cells 3, fresh red blood cells 100, CSF glucose is 71 and the total protein is 45. CSF culture is no organisms detected. Opening anc losing pressure is 27/26 cm H20 respectively and felt slightly elevated due to position. * Lyme serum is negative. * VZV, Herpes 1/2 PCR is pending * Repeat CT head: No acute intracranial process seen at this time. * Once stable will obtain MRI Brain w/ and w/o. * Hemoglobin A1c 5.5 * Patient is on thiamine 100mg daily. * His sputum culture is positive for beta hemolytic strep group C. * I.D. is on board * Patient is on heparin for elevated cardiac enzymes. Cardiology on board. * Psychiatry is consulted for his emotion lability with psychiatry history. * Recommend abstinence from marijuana, alcoholism and vaping. * Other medical management as per IM and other specialties on board. The plan is discussed with ICU nurse. Time with Patient: Less than 30
--- NOTE | 2024-06-03 14:16 | P.PN ---
Subjective Progress Note Date: 06/03/24 Hospital Course: 44 year old M with PMH of EtOH abuse, PTSD, Depression, h/o hypertension prese nts to the ED with seizure lasting 3 to 4 minutes. Patient was noted to have a grand mal seizure in the ED given 7 mg of IV Ativan. Following his seizure, had an episode of bradycardia and hypotension with loss of pulse. ACLS was initiated requiring 4 minutes of CPR, epinephrine and bicarb, ROSC was achieved. CBC and CMP was significant for WBC 16.6, MCV 103.6, K 5.8, bicarb < 5, Cr 1.52, glu 345, alb 5.3. Mag 2.8, Lactic acid 10.7-2.6. UA 3+ glucose and moderate blood, no LE or nitrite. UDS + benzo and THC. Serum alcohol and acetone negative. COVID/RSV/Flu negative. VBG pH 6.61, pCO2 62. Troponin 0.151, 7.01. ABG post cardiac arrest pH 6.99, pCO2 35 and subsequently pH 7.43, pCO2 38. CXR shows ET tube with no acute process. Brain CT negative. CT AP negative. EKG showed sinus rhythm with nonspecific ST and T wave abnormalities and evidence of LVH. Patient is admitted to ICU for further workup and management. Started on Keppra 1000 mg IV BID, Neurology consulted, EEG ordered showing excessive amount of low-voltage fast frequency beta activity suggestive of benzodiazepine effect. Due to elevated troponin, Cardiology consulted, started on a Heparin drip and Echo ordered. Echo showing EF 35-40%. Due to worsening renal function, nephrology also consulted. LP completed, unlikely to be meningitis. Patient remains on IV antibiotics per ID, on IV Keppra. Now extubated. Patient also having acute encephalopathy, possible alcohol withdrawal versus worsening PTSD versus ICU delirium. Psychiatry consulted. Subjective: Patient seen and examined at bedside. Has been having episodes of agitation, was started on Precedex. Requiring BiPAP. Pertinent positives and negatives as discussed above, a complete review of systems was performed and all other systems are negative. Vitals Signs Reviewed. General: Nontoxic, no distress, appears at stated age, Castellanos catheter in place Derm: Warm, dry Head: Atraumatic, normocephalic, symmetric Eyes: EOMI, no lid lag, anicteric sclera Mouth: No lip lesion, mucus membranes moist Cardiovascular: S1S2 reg, no murmur Lungs: CTA bilateral, no rhonchi, no rales, no accessory muscle use, on BiPAP Abdominal: Soft, nontender to palpation, no guarding, no appreciable organomegaly Ext: No gross muscle atrophy, no edema, no contractures Neuro: CN II-XI grossly intact, no focal neuro deficits Psych: Alert, appropriate affect Data Reviewed Today: Pertinent Labs: WBC 8.9, hemoglobin 11.2, platelet 119, bicarb 22, creatinine 1.61, blood sugars range between 87-1 08 Imaging: No new imaging Assessment and Plan: Patient is critically ill, in medical ICU. Prognosis guarded. Acute encephalopathy Alcohol dependence, no alcohol withdrawal History of opiate dependence Status post cardiac arrest New onset seizures NSTEMI, likely secondary to cardiac arrest Cardiomyopathy, possibly secondary to above, EF 35 to 40%, not in exacerbation Hypertension Acute hypoxic respiratory failure, secondary to above LUCY, likely ATN secondary to above, improving Sepsis, suspected pneumonia versus [employer] source (less likely) -Discussed management with neurology, continue IV Keppra 1000 mg every 12 hours, Ativan as needed for seizures, MRI brain when stable -May benefit from MRI brain now that the patient is extubated, is unsure if he has any history of concussions or TBI -On CIWA protocol, IV Ativan as needed, monitor for sedation, on oral thiamine 100 mg daily -Was on Suboxone at home, restarted -Possibly ICU delirium versus worsening PTSD, psychiatry consulted -Pulmonology note reviewed, maintained on Precedex drip, and BiPAP, continue to wean -Continue telemetry monitoring -Currently on aspirin 81 mg daily, also continued on IV heparin, monitor APTT -Cardiology following, he will likely need ischemic evaluation and will need to be started on guideline directed medical therapy for heart failure, also started on hydralazine 25 every 6 hours -Nephrology note reviewed, patient is maintained on lactated Ringer at 60 cc an hour, renal function improving, strict I's and O's, Castellanos in place -ID following, patient maintained on Rocephin 2 g IV every 24 hours Alcohol dependence History of opioid dependence PTSD/depression -Continue home sertraline 100 mg daily Macrocytic anemia Thrombocytopenia -Stable, likely secondary to alcohol use Resolved: Anion gap metabolic acidosis due to lactic acidosis, HyperK DVT ppx: Heparin drip Code status: Full code Anticipated discharge place: Pending clinical course Anticipated discharge time: Pending clinical course Objective - Vital Signs Vital signs: Vital Signs Temp 99.1 F 06/03/24 12:00 Pulse 78 06/03/24 12:00 Resp 18 06/03/24 12:00 BP 133/93 06/03/24 12:00 Pulse Ox 99 06/03/24 12:00 FiO2 50 06/03/24 12:08 Intake & Output 06/02/24 06/03/24 06/03/24 18:59 06:59 18:59 Intake Total 7956.398 1070.782 521.333 Output Total 1855 1485 625 Balance -439.341 -311.218 -103.667 Weight 84.6 kg Intake: IV 995 756 303 Lactated Ringers 1,000 ml 980 720 300 @ 60 mls/hr IV .[id number] YESENIA Rx#:[id number] Normal Saline Pressure 15 36 3 Bag Intake, IV Titration 380.659 417.782 218.333 Amount Clevidipine Butyrate 25 41 mg In Empty Bag 1 bag @ 1 MG/HR 2 mls/hr IV .Q24H YESENIA Rx#:[id number] Dexmedetomidine/0.9% NaCl 231.805 181.955 98.919 (Pmx) 400 mcg In Empty Bag 1 bag @ 0.2 MCG/KG/HR 4.25 mls/hr IV .[id number] YES[facility]IA Rx#:[id number] Heparin Sod,Pork in 0.45% 235.827 69.414 NaCl 25,000 unit In 0.45 % NaCl 1 250ml.bag @ 12 UNITS/KG/HR 8.981 mls/hr IV .Q24H YESENIA Rx#: [id number] cefTRIAXone 2 gm In 50 50 Sodium Chloride 0.9% 50 ml @ 100 mls/hr IVPB Q24HR YESENIA Rx#:[id number] propofoL 1,000 mg In 57.854 Empty Bag 1 bag @ 15 MCG/ KG/MIN 6.736 mls/hr IV . [id number] YESENIA Rx#:[id number] Tube Feeding 40 Output: Urine 1855 1485 625 Other: Voiding Method Indwelling Catheter Indwelling Catheter Indwelling Catheter ABP, PAP, CO, CI - Last Documented Arterial Blood Pressure 149/85 - Labs CBC & Chem 7: 06/03/24 04:01 06/03/24 04:01 Labs: Abnormal Lab Results - Last 24 Hours (Table) 06/02/24 06/03/24 06/03/24 Range/Units 17:47 04:01 04:01 RBC 3.38 L (4.30-5.90) m/uL Hgb 11.2 L (13.0-17.5) gm/dL Hct 32.9 L (39.0-53.0) % Plt Count 119 L (150-450) k/uL APTT (22.0-30.0) sec Chloride 111 H (98-107) mmol/L BUN 22 H (9-20) mg/dL Creatinine 1.61 H (0.66-1.25) mg/dL POC Glucose (mg/dL) 135 H (70-110) mg/dL AST 108 H (17-59) U/L Total Protein 6.2 L (6.3-8.2) g/dL Albumin 3.4 L (3.5-5.0) g/dL 06/03/24 06/03/24 Range/Units 04:01 11:26 RBC (4.30-5.90) m/uL Hgb (13.0-17.5) gm/dL Hct (39.0-53.0) % Plt Count (150-450) k/uL APTT 39.5 H 59.0 H (22.0-30.0) sec Chloride (98-107) mmol/L BUN (9-20) mg/dL Creatinine (0.66-1.25) mg/dL POC Glucose (mg/dL) (70-110) mg/dL AST (17-59) U/L Total Protein (6.3-8.2) g/dL Albumin (3.5-5.0) g/dL Microbiology - Last 24 Hours (Table) 06/01/24 14:45 CSF Gram Stain - Preliminary Cerebral Spinal Fluid CSF Culture - Preliminary 05/30/24 07:30 Blood Culture - Preliminary Blood 05/30/24 07:25 Blood Culture - Preliminary Blood
--- NOTE | 2024-06-03 14:39 | P.PN ---
Subjective Progress Note Date: 06/03/24 Principal diagnosis: Reason for follow-up is positive sputum cultures with group C strep/pneumonia Patient is a 44-year-old male with a past medical history significant for hypertension reflux chronic hepatitis C treated seizure disorder heavy drinking presented to hospital for evaluation of some weakness mental status changes did have seizure activity subsequently got intubated and admitted to ICU. On today's visit that is 06/03/2024, Patient is afebrile this morning patient did have worsening of his clinical condition apparently patient going to withdrawal as reported by the nursing staff patient be put on BiPAP currently on 50% FiO2 the patient is lethargic cannot provide any history no vomiting or diarrhea has been reported by nursing staff. The patient white count is 8.9, creatinine is 1.61 Objective - Vital Signs Vital signs: Vital Signs Temp 99.1 F 06/03/24 12:00 Pulse 78 06/03/24 12:00 Resp 18 06/03/24 12:00 BP 133/93 06/03/24 12:00 Pulse Ox 99 06/03/24 12:00 FiO2 50 06/03/24 12:08 Intake & Output 06/02/24 06/03/24 06/03/24 18:59 06:59 18:59 Intake Total 2812.721 7270.782 521.333 Output Total 1855 1485 625 Balance -439.341 -311.218 -103.667 Weight 84.6 kg Intake: IV 995 756 303 Lactated Ringers 1,000 ml 980 720 300 @ 60 mls/hr IV .[id number] YESENIA Rx#:[id number] Normal Saline Pressure 15 36 3 Bag Intake, IV Titration 380.659 417.782 218.333 Amount Clevidipine Butyrate 25 41 mg In Empty Bag 1 bag @ 1 MG/HR 2 mls/hr IV .Q24H [facility]IA Rx#:[id number] Dexmedetomidine/0.9% NaCl 231.805 181.955 98.919 (Pmx) 400 mcg In Empty Bag 1 bag @ 0.2 MCG/KG/HR 4.25 mls/hr IV .[id number] YES[facility]IA Rx#:[id number] Heparin Sod,Pork in 0.45% 235.827 69.414 NaCl 25,000 unit In 0.45 % NaCl 1 250ml.bag @ 12 UNITS/KG/HR 8.981 mls/hr IV .Q24H YESENIA Rx#: [id number] cefTRIAXone 2 gm In 50 50 Sodium Chloride 0.9% 50 ml @ 100 mls/hr IVPB Q24HR [facility] Rx#:[id number] propofoL 1,000 mg In 57.854 Empty Bag 1 bag @ 15 MCG/ KG/MIN 6.736 mls/hr IV . [id number] YESENIA Rx#:[id number] Tube Feeding 40 Output: Urine 1855 1485 625 Other: Voiding Method Indwelling Catheter Indwelling Catheter Indwelling Catheter ABP, PAP, CO, CI - Last Documented Arterial Blood Pressure 149/85 - Exam GENERAL DESCRIPTION: Middle-age male intubated on the vent RESPIRATORY SYSTEM: Unlabored breathing , decreased breath sounds at bases HEART: S1 S2 regular rate and rhythm , ABDOMEN: Soft , no tenderness EXTREMITIES: No edema feet - Labs CBC & Chem 7: 06/03/24 04:01 06/03/24 04:01 Labs: Abnormal Lab Results - Last 24 Hours (Table) 06/02/24 06/03/24 06/03/24 Range/Units 17:47 04:01 04:01 RBC 3.38 L (4.30-5.90) m/uL Hgb 11.2 L (13.0-17.5) gm/dL Hct 32.9 L (39.0-53.0) % Plt Count 119 L (150-450) k/uL APTT (22.0-30.0) sec Chloride 111 H (98-107) mmol/L BUN 22 H (9-20) mg/dL Creatinine 1.61 H (0.66-1.25) mg/dL POC Glucose (mg/dL) 135 H (70-110) mg/dL AST 108 H (17-59) U/L Total Protein 6.2 L (6.3-8.2) g/dL Albumin 3.4 L (3.5-5.0) g/dL 06/03/24 06/03/24 Range/Units 04:01 11:26 RBC (4.30-5.90) m/uL Hgb (13.0-17.5) gm/dL Hct (39.0-53.0) % Plt Count (150-450) k/uL APTT 39.5 H 59.0 H (22.0-30.0) sec Chloride (98-107) mmol/L BUN (9-20) mg/dL Creatinine (0.66-1.25) mg/dL POC Glucose (mg/dL) (70-110) mg/dL AST (17-59) U/L Total Protein (6.3-8.2) g/dL Albumin (3.5-5.0) g/dL Microbiology - Last 24 Hours (Table) 06/01/24 14:45 CSF Gram Stain - Preliminary Cerebral Spinal Fluid CSF Culture - Preliminary 05/30/24 07:30 Blood Culture - Preliminary Blood 05/30/24 07:25 Blood Culture - Preliminary Blood Assessment and Plan (1) Positive culture findings in sputum Current Visit: Yes Status: Acute Code(s): R84.5 - ABNORMAL MICROBIOLOG FINDINGS IN SPECMN FROM RESP ORG/THRX SNOMED Code(s): 441009591 (2) Penicillin allergy Current Visit: Yes Status: Acute Code(s): Z88.0 - ALLERGY STATUS TO PENICILLIN SNOMED Code(s): 95786474 (3) Pneumonia Current Visit: Yes Status: Acute Code(s): J18.9 - PNEUMONIA, UNSPECIFIED ORGANISM SNOMED Code(s): 962932391 Plan: 1patient presented to hospital with seizure activity and this patient got intubated to protect airways chest x-ray did shows bilateral basilar infiltrate and concern for possible pneumonia not entirely excluded with a sputum positive for group C strep blood culture has been negative 2-penicillin allergy that will limit the number of antibiotics safe to use 3-patient remains to be afebrile we will keep the patient on Rocephin and monitor clinical course closely Dictation was produced using [employer] dictation software. please excuse any grammatical, word or spelling errors. Time with Patient: Less than 30
--- NOTE | 2024-06-03 14:39 | P.PN ---
Subjective Progress Note Date: 06/02/24 Principal diagnosis: Reason for follow-up is positive sputum cultures with group C strep/pneumonia Patient is a 44-year-old male with a past medical history significant for hypertension reflux chronic hepatitis C treated seizure disorder heavy drinking presented to hospital for evaluation of some weakness mental status changes did have seizure activity subsequently got intubated and admitted to ICU. On today's visit that is 06/02/2024, patient has been afebrile, patient has been extubated Is breathing comfortably and is currently on 2 L current oxygen patient denies having any significant cough no chest pain shortness of breath, patient denies nausea vomiting or diarrhea and no abdominal pain Patient white count 6.1, creatinine is 2.43 Objective - Vital Signs Vital signs: Vital Signs Temp 98.2 F 06/02/24 12:15 Pulse 88 06/02/24 13:00 Resp 18 06/02/24 13:00 BP 138/95 06/02/24 13:00 Pulse Ox 96 06/02/24 13:00 FiO2 35 06/02/24 09:29 Intake & Output 06/01/24 06/02/24 06/02/24 18:59 06:59 18:59 Intake Total 2167.696 2575.976 1005.076 Output Total 2250 4555 1525 Balance -82.304 -1979.024 -519.924 Weight 85 kg 82.6 kg Intake: IV 1533 1500 680 Lactated Ringers 1,000 ml 1500 1500 680 @ 60 mls/hr IV .[id number] [facility] Rx#:[id number] Normal Saline Pressure 33 Bag Intake, IV Titration 474.696 545.976 285.076 Amount Clevidipine Butyrate 25 24.567 41 mg In Empty Bag 1 bag @ 1 MG/HR 2 mls/hr IV .Q24H [facility] Rx#:[id number] Dexmedetomidine/0.9% NaCl 76.430 227.075 136.409 (Pmx) 400 mcg In Empty Bag 1 bag @ 0.2 MCG/KG/HR 4.25 mls/hr IV .[id number] [facility] Rx#:[id number] Heparin Sod,Pork in 0.45% 116.501 114.112 NaCl 25,000 unit In 0.45 % NaCl 1 250ml.bag @ 12 UNITS/KG/HR 8.981 mls/hr IV .Q24H YESENIA Rx#: [id number] cefTRIAXone 2 gm In 50 Sodium Chloride 0.9% 50 ml @ 100 mls/hr IVPB Q24HR [facility] Rx#:[id number] propofoL 1,000 mg In 281.765 180.222 57.667 Empty Bag 1 bag @ 15 MCG/ KG/MIN 6.736 mls/hr IV . [id number] [facility] Rx#:[id number] Tube Feeding 160 440 40 Other 90 Output: Urine 2250 4555 1525 Other: Voiding Method Indwelling Catheter Indwelling Catheter Indwelling Catheter ABP, PAP, CO, CI - Last Documented Arterial Blood Pressure 146/88 - Exam GENERAL DESCRIPTION: Middle-age male intubated on the vent RESPIRATORY SYSTEM: Unlabored breathing , decreased breath sounds at bases HEART: S1 S2 regular rate and rhythm , ABDOMEN: Soft , no tenderness EXTREMITIES: No edema feet - Labs CBC & Chem 7: 06/03/24 04:01 06/03/24 04:01 Labs: Abnormal Lab Results - Last 24 Hours (Table) 06/01/24 06/01/24 06/01/24 Range/Units 14:45 17:01 17:16 RBC (4.30-5.90) m/uL Hgb (13.0-17.5) gm/dL Hct (39.0-53.0) % Plt Count (150-450) k/uL APTT (22.0-30.0) sec ABG pH (7.35-7.45) ABG HCO3 (21-25) mmol/L ABG Total CO2 (19-24) mmol/L ABG O2 Saturation (94-97) % Chloride (98-107) mmol/L BUN (9-20) mg/dL Creatinine (0.66-1.25) mg/dL Glucose 116 H (74-99) mg/dL POC Glucose (mg/dL) 121 H (70-110) mg/dL CSF RBC 108 H (0-10) u/L CSF Glucose 71 H (40-70) mg/dL 06/01/24 06/01/24 06/02/24 Range/Units 22:42 23:38 04:09 RBC 3.50 L (4.30-5.90) m/uL Hgb 11.8 L (13.0-17.5) gm/dL Hct 33.8 L (39.0-53.0) % Plt Count 129 L (150-450) k/uL APTT 33.1 H (22.0-30.0) sec ABG pH (7.35-7.45) ABG HCO3 (21-25) mmol/L ABG Total CO2 (19-24) mmol/L ABG O2 Saturation (94-97) % Chloride (98-107) mmol/L BUN (9-20) mg/dL Creatinine (0.66-1.25) mg/dL Glucose (74-99) mg/dL POC Glucose (mg/dL) 142 H (70-110) mg/dL CSF RBC (0-10) u/L CSF Glucose (40-70) mg/dL 06/02/24 06/02/24 06/02/24 Range/Units 04:09 05:30 06:20 RBC (4.30-5.90) m/uL Hgb (13.0-17.5) gm/dL Hct (39.0-53.0) % Plt Count (150-450) k/uL APTT (22.0-30.0) sec ABG pH 7.46 H (7.35-7.45) ABG HCO3 28 H (21-25) mmol/L ABG Total CO2 29 H (19-24) mmol/L ABG O2 Saturation 98.7 H (94-97) % Chloride 113 H (98-107) mmol/L BUN 22 H (9-20) mg/dL Creatinine 2.43 H (0.66-1.25) mg/dL Glucose 140 H (74-99) mg/dL POC Glucose (mg/dL) 160 H (70-110) mg/dL CSF RBC (0-10) u/L CSF Glucose (40-70) mg/dL 06/02/24 06/02/24 Range/Units 06:32 11:38 RBC (4.30-5.90) m/uL Hgb (13.0-17.5) gm/dL Hct (39.0-53.0) % Plt Count (150-450) k/uL APTT 49.4 H (22.0-30.0) sec ABG pH (7.35-7.45) ABG HCO3 (21-25) mmol/L ABG Total CO2 (19-24) mmol/L ABG O2 Saturation (94-97) % Chloride (98-107) mmol/L BUN (9-20) mg/dL Creatinine (0.66-1.25) mg/dL Glucose (74-99) mg/dL POC Glucose (mg/dL) 133 H (70-110) mg/dL CSF RBC (0-10) u/L CSF Glucose (40-70) mg/dL Microbiology - Last 24 Hours (Table) 06/01/24 14:45 CSF Gram Stain - Preliminary Cerebral Spinal Fluid 05/30/24 07:30 Blood Culture - Preliminary Blood 05/30/24 07:25 Blood Culture - Preliminary Blood Assessment and Plan (1) Positive culture findings in sputum Current Visit: Yes Status: Acute Code(s): R84.5 - ABNORMAL MICROBIOLOG FINDINGS IN SPECMN FROM RESP ORG/THRX SNOMED Code(s): 854418590 (2) Penicillin allergy Current Visit: Yes Status: Acute Code(s): Z88.0 - ALLERGY STATUS TO PENICILLIN SNOMED Code(s): 04721831 (3) Pneumonia Current Visit: Yes Status: Acute Code(s): J18.9 - PNEUMONIA, UNSPECIFIED ORGANISM SNOMED Code(s): 292181300 Plan: 1patient presented to hospital with seizure activity and this patient got intubated to protect airways chest x-ray did shows bilateral basilar infiltrate and concern for possible pneumonia not entirely excluded with a sputum positive for group C strep blood culture has been negative 2-penicillin allergy that will limit the number of antibiotics safe to use 3-patient to continue with Rocephin 2 g daily patient did have LP that was reported to be negative acyclovir should be discontinued at the bedside questions were answered Dictation was produced using [employer] dictation software. please excuse any grammatical, word or spelling errors. Time with Patient: Less than 30
[2024-06-03] MEDS: SODIUM CHLORIDE 0.9% 1,000 ML in EMPTY BAG 1 BAG IV SCH (15:31)
--- NOTE | 2024-06-03 16:43 | P.CN ---
Psychiatric Consult - . Consult date: 06/03/24 Consult:: 06/03/24 16:40 CONSULTATION Reason for consult: Altered mental status with agitation. identifying Data: The patient is 44 years old, , white male, who lives in [place], [place] with his and 5 years old child. Reason for admission: Seizure disorder History of present illness: The patient was brought to the emergency department for new onset seizure. Patient's reported the history. The patient was unable to give any meaningful history. As per , the patient had a seizure around 5am in the morning. She called 911. EMS came and brought the patient to ER. The patient had a second seizure before getting in to the ambulance. He had another grand mal seizure witnessed in ER following which he developed cardiac arrest and was moved to ICU and intubated. During this evaluation, the patient was unable to give any information secondary to deep sedation. As per nursing staff, the patient was weaned off Precedex last evening and was doing well but in the morning, he became very restless, agitated, anxious and started pulling IVs. He was started back on Precedex. He is currently on BiPaP Most of the history was obtained from the patients chart and his . On leading questions, the denied anxiety, hopelessness, worthlessness, suicidal or homicidal ideations prior to this hospitalization or the past. She denied to any symptoms of paranoia, or any other delusional thinking, A/V hallucinations prior to hospitalization or in the past. Current and past medications: The patient has been on Suboxone for 13 years and Zoloft since he came out of service around 2006. He was diagnosed with PDSD. He never went for treatment for PDSD. He has been on other psychotropics but does not know the names. She has known him for 13 years. He is being prescribed these medications by Dr. Burns. He is taking Suboxone for opioid dependence. He was abusing Narcotic analgesics but later he started using Heroin. Out-pt follow-up: No psychiatric follow-up, as per . None. She stated that he got his medications from PCP. History of past psychiatric illness: No other than stated in HPI. No history of suicidal or homicidal ideations or behavior. Past medical history: HTN Substance abuse history: Alcohol abuse. Opioid abuse. Currently on Suboxone. MSE: The patient deeply sedated. He could not give any information or interact. Diagnosis: Delirium secondary to medical causes-multifactorial. H/O PTSD, Alcohol dependence, Opioid dependence. Rec: Medication recommendations: Ativan 1mg po q4hrs for severe agitation. Hold Zoloft. To be reinstated after medical stabilization. Will discourage use of Antipsychotics Please call for any questions. 06/03/24 16:42
[2024-06-03] MEDS: NON FORMULARY DRUG (Buprenorphine/Naloxone 8mg/2mg 1 EACH Film) SUBLINGUAL SCH (17:11)
--- NOTE | 2024-06-03 21:46 | P.PN ---
Subjective Progress Note Date: 06/03/24 This is a 45-year-old gentleman who requested to see the emergency department for further cardiac evaluation of abnormal cardiac enzymes. Currently the patient is intubated and he is on mechanical ventilation but the history was taken from the ER physician as well as from the patient's who was at be dside. The patient was noted to be in normal situation till yesterday. 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 Before that he was drinking excessively according to his . Ambulance was called and the patient was brought to the emergency department for further evaluation in the emergency department he was confused but subsequently he had a grand mal seizure witnessed by the ER staff. Subsequently the patient was intubated and placed on mechanical ventilation to protect the airway. Further evaluation was performed including an EKG. The first EKG showed sinus rhythm with nonspecific ST and T wave abnormalities and evidence of LVH. Second EKG showed sinus mechanism with no ST or T wave abnormalities. The troponin came in to be slightly elevated. According to the patient's he was not experiencing any cardiovascular symptoms of any chest pain or chest discomfort or shortness of breath. He never been diagnosed with diabetes. He was diagnosed in the past with hypertension and he was on medications but he stopped taking the medications. Please note that his blood glucose is elevated during the blood work today. The patient underwent also a CT scan of the brain which did show any acute abnormalities. Currently he is hemodynamically stable with soft blood pressure. Beside that he underwent a blood work and that revealed low GFR and elevated potassium. The chest x-ray showed possible underlying pneumonia and he was seen by the pulmon acosta/critical care team and he was placed on antibiotic. The examination is remarkable for patient to be intubated on mechanical ventilation with regular rate and rhythm and soft systolic murmur at the right upper sternal border and clear breathing sounds bilaterally and no edema was noted in the lower extremities with soft nontender abdomen May 31, 2024 Patient seen and examined at bedside. Family was present at bedside. Echocardiogram still pending, hemodynamic stable. No further episodes of asystole or any other pauses or any arrhythmias on telemetry monitoring. Appropriate urine output. No signs of bleeding on IV heparin drip. June 01, 2024 Patient is seen and examined at bedside this a.m. patient's echocardiogram showed an EF of 35 to 40% with no significant valvular abnormality. Appropriate urine output. No further episodes of seizure. Propofol was reduced and was started on Precedex. June 02, 2024 Patient is seen and examined at bedside this a.m. Patient was successfully extubated this morning. Since extubation patient's heart rate is much better. He was hypertensive last night for which she was started on clevidipine drip. This was weaned off this morning. He is currently under restraints as since extubation he has been confused and agitated. Renal function is improving, appropriate urine output June 03, 2024 Patient is seen and examined at bedside this a.m. His kidney function is continuing to be improving. His creatinine is 1.6 today. Appropriate urine output. Patient appears to be in some delirium. He continues to be in sinus rhythm with no concerns of arrhythmias on telemetry monitoring. His systolic blood pressure is around 140s. On exam S1-S2 is audible, regular pulses, Mild crackles audible in bilateral lung lazo, diminished breath sounds, no significant rhonchi Patient is slightly agitated and is in delirium since extubation No swelling in bilateral lower extremity Assessment Asystolic cardiac arrest after a [place] seziure, required 4 mins of CPR Elevated troponin due to cardiac arrest, Likely Type II nstemi Vent dependent respiratory failure after cardiac arrest Cardiomyopathy with EF 35 to 40%, likely stress-induced cardiomyopathy. Possibility of ischemic heart disease cannot be ruled out LUCY, due to ATN likely due to hypoxic injury from cardiac arrest Grand Mal seizure Electrolytes abnormalities with hyperkalemia History of excessive alcohol use Plan Continue aspirin Continue IV heparin drip Plan for cardiac catheterization on Friday with Dr. Mattson Continue hydralazine 25 mg every 6 hours. Start Coreg 3.125 mg twice daily Once renal function improves, consider starting Entresto and Jardiance for cardiomyopathy Monitor renal function and urine output. Once kidney function improves and patient is weaned off from ventilator, patient should get ischemic evaluation by heart catheterization. Objective - Vital Signs Vital signs: Vital Signs Temp 99.1 F 06/03/24 12:00 Pulse 80 06/03/24 21:00 Resp 28 H 06/03/24 21:00 BP 114/76 06/03/24 21:00 Pulse Ox 96 06/03/24 21:00 FiO2 50 06/03/24 12:08 Intake & Output 06/03/24 06/03/24 06/04/24 06:59 18:59 06:59 Intake Total 3308.029 2896.427 211.875 Output Total 1485 1155 260 Balance -311.218 -67.573 -48.125 Weight 84.6 kg 84.6 kg Intake: IV 756 723 180 Lactated Ringers 1,000 ml 720 720 180 @ 60 mls/hr IV .[id number] YESENIA Rx#:[id number] Normal Saline Pressure 36 3 Bag Intake, IV Titration 417.782 364.427 31.875 Amount Dexmedetomidine/0.9% NaCl 181.955 245.013 31.875 (Pmx) 400 mcg In Empty Bag 1 bag @ 0.2 MCG/KG/HR 4.25 mls/hr IV .[id number] YESENIA Rx#:[id number] Heparin Sod,Pork in 0.45% 235.827 69.414 NaCl 25,000 unit In 0.45 % NaCl 1 250ml.bag @ 12 UNITS/KG/HR 8.981 mls/hr IV .Q24H YESENIA Rx#: [id number] cefTRIAXone 2 gm In 50 Sodium Chloride 0.9% 50 ml @ 100 mls/hr IVPB Q24HR YESENIA Rx#:[id number] Output: Urine 1485 1155 260 Other: Voiding Method Indwelling Catheter Indwelling Catheter Indwelling Catheter ABP, PAP, CO, CI - Last Documented Arterial Blood Pressure 149/85 - Labs CBC & Chem 7: 06/03/24 04:01 06/03/24 04:01 Labs: Abnormal Lab Results - Last 24 Hours (Table) 06/03/24 06/03/24 06/03/24 Range/Units 04:01 04:01 04:01 RBC 3.38 L (4.30-5.90) m/uL Hgb 11.2 L (13.0-17.5) gm/dL Hct 32.9 L (39.0-53.0) % Plt Count 119 L (150-450) k/uL APTT 39.5 H (22.0-30.0) sec Chloride 111 H (98-107) mmol/L BUN 22 H (9-20) mg/dL Creatinine 1.61 H (0.66-1.25) mg/dL AST 108 H (17-59) U/L Total Protein 6.2 L (6.3-8.2) g/dL Albumin 3.4 L (3.5-5.0) g/dL 06/03/24 Range/Units 11:26 RBC (4.30-5.90) m/uL Hgb (13.0-17.5) gm/dL Hct (39.0-53.0) % Plt Count (150-450) k/uL APTT 59.0 H (22.0-30.0) sec Chloride (98-107) mmol/L BUN (9-20) mg/dL Creatinine (0.66-1.25) mg/dL AST (17-59) U/L Total Protein (6.3-8.2) g/dL Albumin (3.5-5.0) g/dL Microbiology - Last 24 Hours (Table) 06/01/24 14:45 CSF Gram Stain - Preliminary Cerebral Spinal Fluid CSF Culture - Preliminary
[2024-06-03 23:46] LABS: Glucose,Whole Blood 164 mg/dL (70-110)
[2024-06-04 05:30] LABS: Glucose,Whole Blood 102 mg/dL (70-110)
[2024-06-04 06:06] LABS: Basophils % (A) 0 %; Eosinophils # (A) 0.2 k/uL (0-0.7); Eosinophils % (A) 3 %; HCT 30.7 % (39.0-53.0); HGB 10.3 gm/dL (13.0-17.5); Lymphocytes # (A) 1.1 k/uL (1.0-4.8); Lymphocytes % (A) 15 %; MCH 32.9 pg (25.0-35.0); MCHC 33.6 g/dL (31.0-37.0); MCV 97.9 fL (80.0-100.0); Mean Platelet Volume 8.7; Monocytes # (A) 0.6 k/uL (0-1.0); Monocytes % (A) 8 %; Neutrophils # (A) 5.2 k/uL (1.3-7.7); Neutrophils % (A) 73 %; Platelet Count 113 k/uL (150-450); RBC 3.13 m/uL (4.30-5.90); RDW 13.1 % (11.5-15.5); WBC 7.2 k/uL (3.8-10.6)
[2024-06-04 06:27] LABS: African American GFR (CKD) >90 (>60 ml/min/1.73 sqM); Anion Gap 1 mmol/L; Blood Urea Nitrogen 23 mg/dL (9-20); Calcium 8.1 mg/dL (8.4-10.2); Carbon Dioxide 24 mmol/L (22-30); Chloride 106 mmol/L (98-107); Glucose 101 mg/dL (74-99); Non-African American GFR(CKD) 80 (>60 ml/min/1.73 sqM); Potassium 3.6 mmol/L (3.5-5.1); Sodium 131 mmol/L (137-145)
[2024-06-04] MEDS: ALPRAZolam 0.25 MG TAB PO PRN (07:03)
[2024-06-04] MEDS: LIDOCAINE 1% INJ 10MG/ML (20 ML MDV) SQ ONE (07:45)
[2024-06-04] MEDS: VERAPAMIL SYRINGE (5 MG/10 ML) INTRAARTER ONE (07:45)
[2024-06-04] MEDS: HEPARIN SODIUM 1,000 UN/ML (10ML VL) IVP ONE (07:57)
[2024-06-04] MEDS: SODIUM CHLORIDE 0.9% 1,000 ML IV ONE (07:59)
[2024-06-04] MEDS: IOPAMIDOL-370 100ML BTL INJ ONE (08:00)
[2024-06-04] MEDS ORDERED: RX INFO: IV CONTRAST WAS GIVEN 1 EACH MISC MISCELLANE PRN (08:01)
--- NOTE | 2024-06-04 08:04 | P.PCN ---
Date of Procedure: 06/04/24 Operative Findings: CARDIAC CATHETERIZATION PERFORMING PHYSICIAN: Edison White MD, RPVI PROCEDURE PERFORMED: 1. Selective right and left coronary angiogram 2. Left heart catheterization 3. Ultrasound-guided access of the right radial artery INDICATION: Newly diagnosis cardiomyopathy and evidence of myocardial injury COMPLICATION: None APPROACH: Right radial artery LEVEL OF SEDATION: Moderate with a sedation length of 14 minutes PROCEDURE DESCRIPTION: After obtaining an informed consent, the patient was brought to cardiac odd job laborer. Local anesthesia was performed using lidocaine subcutaneously. The right radial artery was cannulated using Seldinger technique, the guidewire passed easily, following that we advanced a 5-[place] sheath dilator assembly, the wire and dilator were removed and sheath was flushed. Following that, 2 mg of verapamil along with 5000 unit heparin were given. Selective right and left coronary angiogram using a 6-[place] JR4 and JL 3.5 catheters. Following that we did left heart catheterization using 6-[place] pigtail catheter. The procedure was completed there was no complication. SELECTIVE CORONARY ANGIOGRAM: The right coronary artery: Large-caliber vessel and a dominant vessel appears to be angiographically normal Left main: Is angiographically normal The left circumflex: Large-caliber vessel and codominant vessel appears to be angiographically normal The left anterior descending artery: Large-caliber vessel with mild disease in the midportion. No high-grade stenosis was identified HEMODYNAMICS: LVEDP was 13 mmHg with no gradient was identified across aortic valve CONCLUSION: 1. Mild nonobstructive coronary artery disease 2. Severely elevated left-sided filling pressure POSTPROCEDURE MANAGEMENT: Medical treatment
[2024-06-04] MEDS: MORPHINE SULFATE 2 MG/ML SYRINGE IVP STA (08:50)
[2024-06-04] MEDS: SODIUM CHLORIDE 0.9% 1,000 ML IV SCH (09:23)
[2024-06-04] MEDS: LORazepam 2 MG/ML INJ IV STA (10:03)
--- NOTE | 2024-06-04 10:09 | XR ---
EXAMINATION TYPE: XR chest 1V portable DATE OF EXAM: 06/04/2024 9:50 AM CLINICAL INDICATION:Male, 44 years old with history of Dyspnea; H COMPARISON: Chest radiographs from 06/02/2024 TECHNIQUE: XR chest 1V portable Frontal view of the chest. FINDINGS: Lungs/Pleura: There is no evidence of pleural effusion, focal consolidation, or pneumothorax. Pulmonary vascularity: Pulmonary vascular congestion. Heart/mediastinum: Cardiomediastinal silhouette is enlarged and stable. Musculoskeletal: No acute osseous pathology. IMPRESSION: New pulmonary mass or congestion with cardiomegaly. Correlate with BNP for congestive heart failure.
[2024-06-04] MEDS: FUROSEMIDE 10 MG/ML 4 ML VIAL IV STA (10:21)
[2024-06-04] MEDS: POTASSIUM CHLORIDE ER 20 MEQ TAB.ER PO SCH (11:10)
[2024-06-04] MEDS: PROMETHAZINE 25 MG TAB PO PRN (11:10)
[2024-06-04 11:29] LABS: VDRL, Qualitative CSF Nonreactive (Nonreactive)
--- NOTE | 2024-06-04 11:35 | P.PN ---
Subjective Patient is seen for follow-up for acute kidney injury. status post cardiac cath this morning. no evidence of coronary artery disease. Patient developed significant shortness of breath following the procedure. X- ray showed evidence of coronary vascular congestion and patient received a dose of Lasix. He has had about 1 L of urine output and respiratory status has improved. IV fluids are now discontinued. serum creatinine down to 1.1 mg/dL. Objective - Vital Signs Vital signs: Vital Signs Temp 98.1 F 06/04/24 04:00 Pulse 94 06/04/24 07:00 Resp 39 H 06/04/24 07:00 BP 108/78 06/04/24 07:00 Pulse Ox 93 L 06/04/24 07:00 FiO2 50 06/03/24 12:08 Intake & Output 06/03/24 06/04/24 06/04/24 18:59 06:59 18:59 Intake Total 2996.229 1660.003 362.279 Output Total 1155 1065 1600 Balance -67.573 116.003 -1237.721 Weight 84.6 kg 85.5 kg Intake: IV 723 780 285 Lactated Ringers 1,000 ml 720 480 @ 60 mls/hr IV .[id number] YESENIA Rx#:[id number] Normal Saline Pressure 3 Bag Sodium Chloride 0.9% 1, 300 235 000 ml In Empty Bag 1 bag @ 75 mls/hr IV .[id number] YESENIA Rx#:[id number] Intake, IV Titration 364.427 401.003 77.279 Amount Dexmedetomidine/0.9% NaCl 245.013 220.417 77.279 (Pmx) 400 mcg In Empty Bag 1 bag @ 0.2 MCG/KG/HR 4.25 mls/hr IV .[id number] YESENIA Rx#:[id number] Heparin Sod,Pork in 0.45% 69.414 180.586 NaCl 25,000 unit In 0.45 % NaCl 1 250ml.bag @ 12 UNITS/KG/HR 8.981 mls/hr IV .Q24H YESENIA Rx#: [id number] cefTRIAXone 2 gm In 50 Sodium Chloride 0.9% 50 ml @ 100 mls/hr IVPB Q24HR YESENIA Rx#:[id number] Output: Urine 1155 1065 1600 Other: Voiding Method Indwelling Catheter Indwelling Catheter ABP, PAP, CO, CI - Last Documented Arterial Blood Pressure 149/85 - Exam patient is Awake, mildly short of breath, no acute distress Examination of the heart S1 and S2 Examination of the lungs, bilateral breath sounds are heard Abdomen is soft nontender Examination of lower extremity shows no significant edema - Labs CBC & Chem 7: 06/04/24 05:34 06/04/24 05:34 Labs: Abnormal Lab Results - Last 24 Hours (Table) 06/03/24 06/03/24 06/04/24 Range/Units 11:26 23:44 05:34 RBC (4.30-5.90) m/uL Hgb (13.0-17.5) gm/dL Hct (39.0-53.0) % Plt Count (150-450) k/uL APTT 59.0 H 37.7 H (22.0-30.0) sec Sodium (137-145) mmol/L BUN (9-20) mg/dL Glucose (74-99) mg/dL POC Glucose (mg/dL) 164 H (70-110) mg/dL Calcium (8.4-10.2) mg/dL 06/04/24 06/04/24 Range/Units 05:34 05:34 RBC 3.13 L (4.30-5.90) m/uL Hgb 10.3 L (13.0-17.5) gm/dL Hct 30.7 L (39.0-53.0) % Plt Count 113 L (150-450) k/uL APTT (22.0-30.0) sec Sodium 131 L (137-145) mmol/L BUN 23 H (9-20) mg/dL Glucose 101 H (74-99) mg/dL POC Glucose (mg/dL) (70-110) mg/dL Calcium 8.1 L (8.4-10.2) mg/dL Microbiology - Last 24 Hours (Table) 06/01/24 14:45 CSF Gram Stain - Preliminary Cerebral Spinal Fluid CSF Culture - Preliminary Assessment and Plan Assessment: 1. Acute kidney injury, ATN, nonoliguric secondary to hypotension and cardiac arrest. UA shows 1+ protein 3+ blood in ( it was a difficult Castellanos catheter placement). CT of the abdomen negative for any obstructive uropathy. CK is mildly elevated at [place] adrenal function has improved significantly. 2. New onset seizures, maintained on Keppra. Neurology on consult. ? related to alcohol withdrawal. 3. Severe metabolic acidosis possibly related to lactic acidosis volatile screen is negative. Serum acetone, salicylate and alcohol is negative. 4. Hyperkalemia associated with acute kidney injury and severe metabolic acidosis, improved. 5. New onset diabetes 6. Elevated troponins being followed by cardiology. 7. Volume overload Plan: maintain off of IV fluids. May repeat another dose of Lasix 40 mg IV this afternoon if patient remains short of breath. Repeat labs in a.m. Continue to avoid nephrotoxic agents.
[2024-06-04] MEDS ORDERED: amLODIPine 5 MG TAB PO SCH (12:15)
[2024-06-04 12:18] VITALS: BMI 27.8
[2024-06-04 12:22] LABS: Glucose,Whole Blood 106 mg/dL (70-110)
--- NOTE | 2024-06-04 12:31 | P.PN ---
Subjective Progress Note Date: 06/04/24 Principal diagnosis: New onset seizures, inability to protect airways, requiring intubation mechanical ventilation, May 30 2024 This is a 44-year-old male with a history of depression, possibly PTSD, and hypertension. The patient apparently had a new onset seizure today, and was found by his , at home. The patient apparently was acting strange, and subsequent to that, was found on the bedroom floor, having a seizure. EMS was called and brought the patient into the emergency room. The patient had at least 2 seizures in the emergency room, and could not protect his airway, and was intubated for airway protection. The patient is seen in the emergency department, in trauma room 1. The patient had a initial blood gas,, showing a pO2 of 170, pCO2 of 35, pH is 6.99. Subsequent blood gas on 100% showed a pO2 of greater than 420, pCO2 of 38, and a pH of 7.43. Lactic acid was 10.7. Glucose was 138. Additional labs include a white count of 16.6, hemoglobin 14. 8, hematocrit 46.1, and a platelet count of 285,000. Sodium 144, potassium 5.8, chlorides 105, CO2 less than 5, BUN 14, creatinine 1.52. Glucose was 345. Lactic acid was 10.7. N-terminal proBNP was 319. Troponin was 0.151. Albumin 5.3. Viral screen was negative. Serum alcohol level was less than 10. Brain CT showed nothing acute. Chest x-ray showed no acute cardiopulmonary changes. CT of the abdomen and pelvis, was also negative. The did state, that the patient does use marijuana, does not smoke cigarettes at this time, and drinks occasionally heavily. Patient was evaluated today on 05/31/2024, patient remains intubated [place] ventilated. He is on assist-control rate of 20 tidal volume 500 FiO2 40% PEEP of 5 ABG showed a pO2 of 155 pCO2 34 pH of 7.48. Patient remains on the [facility] protocol for history of alcoholism. Remains on propofol at 40 mcg/kg/min he is also on LR at 125 mL/h chest x-ray showed no evidence of active disease. Labs were reviewed WBC count 6.1 hemoglobin is 10.0. PTT is 60 ABG showed a pO2 of 155 pCO2 34 pH of 7.48, hence vent settings were adjusted with rate down to 18 FiO2 down to 35%. Basic metabolic profile is normal however BUN is 24 cr eatinine 2.99, patient apparently developed acute tubular necrosis/acute kidney injury being addressed by nephrology on the case CPK is elevated at 799, troponin 4.32 and total protein is 5.6 albumin 3.0, looking back at this patient presentation, he had a brief cardiac arrest in the ER, received 2 epinephrines, downtime was few minutes, hence we will try to assess his mental status today for possible weaning and extubation. After going off sedation, patient seems to be arousable, follows simple instructions but was extremely agitated and restless, could not proceed to full extubation on this patient. Patient was evaluated today on 06/01/24, patient remains in the ICU, intubated and mechanically ventilated. He is presently on assist-control rate of 18 tidal volume 500 FiO2 35% PEEP of 5 ABG showed a pO2 of 132 pCO2 40 pH of 7.42 hence no changes were made in present vent settings. Patient is being considered for lumbar puncture today by neurology. Patient remains on propofol at 50 mcg/kg/min, he is also on LR at 125 cc/h heparin drip, and I will likely transition the patient from propofol to Precedex to hopefully consider a weaning trial and possibly extubation. Patient has not had any seizures overnight, he is maintained on Keppra and ceftriaxone and he was also placed on acyclovir. Again neurology is considering a lumbar puncture to be done today. WBC count today is 5.2 hemoglobin is 10 electrolytes are normal BUN is 29 creatinine on the rise up to 3.41. Patient was seen by urology, did not feel that the patient had hydronephrosis, and recommended no intervention. Did not feel his acute kidney injury is secondary to any obstructive uropathy renal status is being closely monitored by nephrology on the case. X-ray showed no pulmonary process. Patient is showing group C beta-hemolytic strep in the sputum significance of which is not clear Patient was a on 06/02/24, patient remains in the tube, intubated and mechanically ventilated. He is on assist-control rate of 18 tidal volume 500 FiO2 35% and PEEP of 5 his ABG showed a pO2 of 102 pCO2 40 0 pH of 7.46. Patient remains on multiple drips including Precedex at 1.1 mcg/kg/h Cleviprex at 2 mg/h he is on LR at 125 cc/h he is also on propofol which was 30 mcg/kg/min, and I stopped it to wean and extubate the patient hopefully today. Patient remains on acyclovir and ceftriaxone, his preliminary findings on the spinal fluid seems to be unremarkable. Patient did undergo a lumbar puncture yesterday, the preliminary report is relatively normal. Chest x-ray is relatively unremarkable, endotracheal tube is sitting high up in the trachea. PTT is 49.4 WBC count is 6.1 hemoglobin 11.8 electrolytes are normal BUN is 22 creatinine trending down to 2.43. Liver enzymes are unremarkable Patient was evaluated today on 11/26, remains in the ICU, on Precedex at 1.4 mcg/kg/h patient is having intermittent episodes of agitations, restless at times, requiring Ativan intermittently clearly the patient has symptoms of alcohol withdrawal. Patient is supposed to have cardiac catheterization today, however considering his overall condition, may have to be placed on hold.WBC count is 8.9 hemoglobin 11.2 PTT is 59 electrolytes are normal renal profile is improving BUN is 22 creatinine 1.61 Patient was very on 06/04/2024, remains in the ICU, patient underwent cardiac catheterization today, and the findings were unremarkable. Patient is still requiring Precedex for alcohol withdrawal presently at 0.7 mcg/kg/h. Patient is on LR, he is also receiving Ativan intermittently as well as MS, and he is back on his Suboxone. He is on 4 L nasal cannula, chest x-ray showed evidence of pulmonary edema not to mention the patient had elevated left ventricular end- diastolic pressures from the cardiac catheterization report. The patient will have fluids at [facility], and I will start the patient on diuretics, will receive 40 mg of Lasix IV push WBC count today is 7.2 hemoglobin 10.3 PTT 37.7 electrolytes are normal BUN is 23 creatinine 1.11 Objective - Vital Signs Vital signs: Vital Signs Temp 98.7 F 06/04/24 08:30 Pulse 86 06/04/24 11:30 Resp 34 H 06/04/24 11:30 BP 134/91 06/04/24 11:30 Pulse Ox 90 L 06/04/24 12:00 FiO2 50 06/03/24 12:08 Intake & Output 06/03/24 06/04/24 06/04/24 18:59 06:59 18:59 Intake Total 5445.088 8929.003 362.279 Output Total 1155 1065 1600 Balance -67.573 116.003 -1237.721 Weight 84.6 kg 85.5 kg 85.5 kg Intake: IV 723 780 285 Lactated Ringers 1,000 ml 720 480 @ 60 mls/hr IV .[id number] YESENIA Rx#:[id number] Normal Saline Pressure 3 Bag Sodium Chloride 0.9% 1, 300 235 000 ml In Empty Bag 1 bag @ 75 mls/hr IV .[id number] YESENIA Rx#:[id number] Intake, IV Titration 364.427 401.003 77.279 Amount Dexmedetomidine/0.9% NaCl 245.013 220.417 77.279 (Pmx) 400 mcg In Empty Bag 1 bag @ 0.2 MCG/KG/HR 4.25 mls/hr IV .[id number] YESENIA Rx#:[id number] Heparin Sod,Pork in 0.45% 69.414 180.586 NaCl 25,000 unit In 0.45 % NaCl 1 250ml.bag @ 12 UNITS/KG/HR 8.981 mls/hr IV .Q24H YESENIA Rx#: [id number] cefTRIAXone 2 gm In 50 Sodium Chloride 0.9% 50 ml @ 100 mls/hr IVPB Q24HR YESENIA Rx#:[id number] Output: Urine 1155 1065 1600 Other: Voiding Method Indwelling Catheter Indwelling Catheter ABP, PAP, CO, CI - Last Documented Arterial Blood Pressure 149/85 - Exam General: Revealed 44-year-old white male, anxious, on 4 L nasal cannula Skin: Skin is warm and dry and no rashes or lesions are noted. Eye: Pupils are equal, round and reactive to light, extra-ocular movements are intact; there is normal conjunctiva bilaterally. Ears, nose, mouth and throat: There are moist mucous membranes and no oral lesions. Neck: The neck is supple, there is no tenderness or JVD. Cardiovascular: There is a regular rate and rhythm. No murmur, rub or gallop is appreciated. Respiratory: Minich breath sounds and crackles at the bases no rhonchi no wheezes Gastrointestinal: Soft, non-distended, non-tender abdomen without masses or organomegaly noted. There is no rebound or guarding present. Bowel sounds are unremarkable. Neurological: Anxious, oriented x 3, no gross focal neurologic deficit Psychiatric: Flat affect, anxious mood, normal mental status otherwise - Labs CBC & Chem 7: 06/04/24 05:34 06/04/24 05:34 Labs: Abnormal Lab Results - Last 24 Hours (Table) 06/03/24 06/04/24 06/04/24 Range/Units 23:44 05:34 05:34 RBC 3.13 L (4.30-5.90) m/uL Hgb 10.3 L (13.0-17.5) gm/dL Hct 30.7 L (39.0-53.0) % Plt Count 113 L (150-450) k/uL APTT 37.7 H (22.0-30.0) sec Sodium (137-145) mmol/L BUN (9-20) mg/dL Glucose (74-99) mg/dL POC Glucose (mg/dL) 164 H (70-110) mg/dL Calcium (8.4-10.2) mg/dL 06/04/24 Range/Units 05:34 RBC (4.30-5.90) m/uL Hgb (13.0-17.5) gm/dL Hct (39.0-53.0) % Plt Count (150-450) k/uL APTT (22.0-30.0) sec Sodium 131 L (137-145) mmol/L BUN 23 H (9-20) mg/dL Glucose 101 H (74-99) mg/dL POC Glucose (mg/dL) (70-110) mg/dL Calcium 8.1 L (8.4-10.2) mg/dL Microbiology - Last 24 Hours (Table) 06/01/24 14:45 CSF Gram Stain - Preliminary Cerebral Spinal Fluid CSF Culture - Preliminary Assessment and Plan Assessment: Impression: New onset seizures with inability to protect airway is required requiring intubation mechanical ventilation May 30, extubated on 06/02/2024 Brief cardiac arrest/asystole while in the ER requiring 2 doses of epinephrine Acute systolic congestive heart failure, reduced ejection fracture 35 to 40% Nonischemic cardiomyopathy and LV dysfunction Acute kidney injury/acute tubular necrosis, continues to improve History of alcoholism History of PTSD History of depression Benign essential hypertension Recommendations: Continue to monitor in the ICU for now, continue CIWA protocol/ Ativan and Precedex Continue antibiotics/ceftriaxone Continue seizure meds and seizure precautions Diet as tolerated Continue DVT prophylaxis and GI prophylaxis Gentle diuresis for his congestive heart failure, monitor electrolytes and renal profile closely while on diuretics Continue Keppra Continue to monitor in the ICU Cardiac catheterization report was reviewed, chest x-ray was reviewed, will diurese the patient and place IV fluid at KVO Will continue to follow Time with Patient: Less than 30
--- NOTE | 2024-06-04 12:57 | P.PN ---
Subjective Progress Note Date: 06/04/24 I am following-up with patient and he is doing better today. He continues to be on IV Precedex. He did acknowledge he drinks 2 tall boys beers daily but not more and he does not have history of alcohol withdrawal. He did acknowledge he drank a bit more only for that week of vacation but he did not feel he got out of hand. His father had history of seizure. Objective - Vital Signs Vital signs: Vital Signs Temp 98.7 F 06/04/24 08:30 Pulse 86 06/04/24 11:30 Resp 34 H 06/04/24 11:30 BP 134/91 06/04/24 11:30 Pulse Ox 90 L 06/04/24 12:00 FiO2 50 06/03/24 12:08 Intake & Output 06/03/24 06/04/24 06/04/24 18:59 06:59 18:59 Intake Total 6494.857 7201.003 382.396 Output Total 1155 1065 1600 Balance -67.573 116.003 -1217.604 Weight 84.6 kg 85.5 kg 85.5 kg Intake: IV 723 780 285 Lactated Ringers 1,000 ml 720 480 @ 60 mls/hr IV .[id number] [facility] Rx#:[id number] Normal Saline Pressure 3 Bag Sodium Chloride 0.9% 1, 300 235 000 ml In Empty Bag 1 bag @ 75 mls/hr IV .[id number] [facility] Rx#:[id number] Intake, IV Titration 364.427 401.003 97.396 Amount Dexmedetomidine/0.9% NaCl 245.013 220.417 97.396 (Pmx) 400 mcg In Empty Bag 1 bag @ 0.2 MCG/KG/HR 4.25 mls/hr IV .[id number] [facility] Rx#:[id number] Heparin Sod,Pork in 0.45% 69.414 180.586 NaCl 25,000 unit In 0.45 % NaCl 1 250ml.bag @ 12 UNITS/KG/HR 8.981 mls/hr IV .Q24H [facility] Rx#: [id number] cefTRIAXone 2 gm In 50 Sodium Chloride 0.9% 50 ml @ 100 mls/hr IVPB Q24HR [facility] Rx#:[id number] Output: Urine 1155 1065 1600 Other: Voiding Method Indwelling Catheter Indwelling Catheter ABP, PAP, CO, CI - Last Documented Arterial Blood Pressure 149/85 - Exam General: Lying in bed and not in acute distress. Neuro: Very Limited. Getting Ativan and IV Precedex. Is subtle drowsy. Is oriented to self, place and time. Is following simple commands. No aphasia. Pupils are round, equal and reactive to light. Visual lazo are full to confrontaiton. EOM intact and no nystagmus. No facial weakness. No dysarthria. Motor: Strength is 5/5 throughout. Sensation is normal to touch throughout. - Labs CBC & Chem 7: 06/04/24 05:34 06/04/24 05:34 Labs: Abnormal Lab Results - Last 24 Hours (Table) 06/03/24 06/04/24 06/04/24 Range/Units 23:44 05:34 05:34 RBC 3.13 L (4.30-5.90) m/uL Hgb 10.3 L (13.0-17.5) gm/dL Hct 30.7 L (39.0-53.0) % Plt Count 113 L (150-450) k/uL APTT 37.7 H (22.0-30.0) sec Sodium (137-145) mmol/L BUN (9-20) mg/dL Glucose (74-99) mg/dL POC Glucose (mg/dL) 164 H (70-110) mg/dL Calcium (8.4-10.2) mg/dL 06/04/24 Range/Units 05:34 RBC (4.30-5.90) m/uL Hgb (13.0-17.5) gm/dL Hct (39.0-53.0) % Plt Count (150-450) k/uL APTT (22.0-30.0) sec Sodium 131 L (137-145) mmol/L BUN 23 H (9-20) mg/dL Glucose 101 H (74-99) mg/dL POC Glucose (mg/dL) (70-110) mg/dL Calcium 8.1 L (8.4-10.2) mg/dL Microbiology - Last 24 Hours (Table) 06/01/24 14:45 CSF Gram Stain - Preliminary Cerebral Spinal Fluid CSF Culture - Preliminary Assessment and Plan Assessment: Is a 44-year-old gentleman with a history of alcohol use in which she drinks 2 tall boys who recently went to [place] for a week and was in multiple outdoor events. He did drink heavily during that week 1 week. They headed back him and his this past Friday and there is no issues. Also the next day he was doing well which was Friday and he was drinking back to his baseline without any issues. Then this past Friday he started having behavioral changes and had new onset seizure. Then had further seizure that led to postcardiac arrest. * New onset seizures, and there is ? due to alcohol withdrawal but I am not totally convinced since patient drank heavily only for 1 week and I am not sure how much dependence a person get only for 1 week. This is not encephalitis or meningitis and CSF nucleated cell is 3 which is normal and during this hospitalization patient is afebrile. He had one-time leukocytosis and I felt was reactive and which resolved. Sputum culture is positive for beta-hemolytic strep group C and unsure if this is normal remy vs ?pathogenic. Secondly patient's states that he does a lot of gardening and chews tobacco and unsure if he developed an ?infection while picking up contaminated soil. Cannot rule out new onset seizure especially with family history of seizure. * Status postcardiac arrest after third seizure, with downtime of 4 minutes. * Elevated cardiac enzymes, rule out acute ID * Lactic acidosis, due to recurrent seizures * Hyperkalemia * Elevated troponin * Leukocytosis on presentation that resolved--likely reactive. Is a febrile---resolved * Acute kidney injury * History of moderate alcoholism * Macrocytosis, likely due to alcoholism--resolved * Marijuana use * Vapes * History of PTSD * Family history of seizure Plan: * Is on Keppra 1gm bid. * Seizure precaution and pads. * EEG: It is reported as abnormal with the presence of excessive amount of low voltage fast frequency beta activity suggestions of benzodiazepine effect. Otherwise some intermittent slowing was seen with some periods of suppression, suggestive of encephalopathy/medication effect. No focal, lateralizing or epileptiform activity was seen. * Repeat EEG: Is abnormal. The background slowing suggestive of mild to moderate encephalopathy. Otherwise there is no focal slowing, OptiForm discharge or seizure on the EEG. * CSF study: Clear, colorless, red blood cells 108, total nucleated cells 3, fresh red blood cells 100, CSF glucose is 71 and the total protein is 45. CSF culture is no organisms detected. Opening anc losing pressure is 27/26 cm H20 respectively and felt slightly elevated due to position. * Lyme serum is negative. * VZV, Herpes 1/2 PCR is pending * Repeat CT head: No acute intracranial process seen at this time. * Ordered MRI Brain w/ and w/o. * Hemoglobin A1c 5.5 * Patient is on thiamine 100mg daily. * His sputum culture is positive for beta hemolytic strep group C. * I.D. is on board * Patient is on heparin for elevated cardiac enzymes. Cardiology on board. * Psychiatry is consulted for his emotion lability with psychiatry history. * Recommend abstinence from marijuana, alcoholism and vaping. * Other medical management as per IM and other specialties on board. The plan is discussed with patient and ICU nurse. Time with Patient: Less than 30
--- NOTE | 2024-06-04 13:59 | P.PN ---
Subjective Progress Note Date: 06/04/24 Hospital Course: 44 year old M with PMH of EtOH abuse, PTSD, Depression, h/o hypertension prese nts to the ED with seizure lasting 3 to 4 minutes. Patient was noted to have a grand mal seizure in the ED given 7 mg of IV Ativan. Following his seizure, had an episode of bradycardia and hypotension with loss of pulse. ACLS was initiated requiring 4 minutes of CPR, epinephrine and bicarb, ROSC was achieved. CBC and CMP was significant for WBC 16.6, MCV 103.6, K 5.8, bicarb < 5, Cr 1.52, glu 345, alb 5.3. Mag 2.8, Lactic acid 10.7-2.6. UA 3+ glucose and moderate blood, no LE or nitrite. UDS + benzo and THC. Serum alcohol and acetone negative. COVID/RSV/Flu negative. VBG pH 6.61, pCO2 62. Troponin 0.151, 7.01. ABG post cardiac arrest pH 6.99, pCO2 35 and subsequently pH 7.43, pCO2 38. CXR shows ET tube with no acute process. Brain CT negative. CT AP negative. EKG showed sinus rhythm with nonspecific ST and T wave abnormalities and evidence of LVH. Patient is admitted to ICU for further workup and management. Started on Keppra 1000 mg IV BID, Neurology consulted, EEG ordered showing excessive amount of low-voltage fast frequency beta activity suggestive of benzodiazepine effect. Due to elevated troponin, Cardiology consulted, started on a Heparin drip and Echo ordered. Echo showing EF 35-40%. Due to worsening renal function, nephrology also consulted. LP completed, unlikely to be meningitis. Patient remains on IV antibiotics per ID, on IV Keppra. Now extubated. Patient also having acute encephalopathy, possible alcohol withdrawal versus worsening PTSD versus ICU delirium. Psychiatry consulted. Likely has ICU delirium. Underwent cath which showed nonobstructive CAD, elevated filling pressures. Now has pulmonary edema secondary to CHF exacerbation. On diuretics. Subjective: Patient seen and examined at bedside. Remains on Precedex. A lot less agitated compared to yesterday. Pertinent positives and negatives as discussed above, a complete review of syste ms was performed and all other systems are negative. Vitals Signs Reviewed. General: Nontoxic, no distress, appears at stated age, Castellanos catheter in place Derm: Warm, dry Head: Atraumatic, normocephalic, symmetric Eyes: EOMI, no lid lag, anicteric sclera Mouth: No lip lesion, mucus membranes moist Cardiovascular: S1S2 reg, no murmur Lungs: Bilateral rales, no accessory muscle use Abdominal: Soft, nontender to palpation, no guarding, no appreciable organomegaly Ext: No gross muscle atrophy, no edema, no contractures Neuro: CN II-XI grossly intact, no focal neuro deficits Psych: Sedated Data Reviewed Today: Pertinent Labs: WBC 7.2, hemoglobin 10.3, platelet 113, potassium 3.6, creatinine 1.11, blood sugars range between 10 1-1 06 Imaging: Chest x-ray independently interpreted, shows bilateral interstitial opacities Assessment and Plan: Patient is critically ill, in medical ICU. Prognosis guarded. Acute encephalopathy, likely ICU delirium Alcohol dependence, with possible alcohol withdrawal History of opiate dependence Status post cardiac arrest New onset seizures NSTEMI, likely secondary to cardiac arrest Nonobstructive CAD Cardiomyopathy, possibly secondary to above, EF 35 to 40%, in acute exacerbation Hypertension Acute hypoxic respiratory failure, secondary to above LUCY, likely ATN secondary to above, improving Sepsis, suspected pneumonia versus [employer] source (less likely) -Discussed management with neurology, continue IV Keppra 1000 mg every 12 hours, Ativan as needed for seizures, MRI brain when stable -On CIWA protocol, IV Ativan as needed, monitor for sedation, on oral thiamine 100 mg daily -Was on Suboxone at home, restarted -Psychiatry following, likely ICU delirium, discontinued sertraline -Pulmonology note reviewed, maintained on Precedex drip, received 40 of IV Lasix -Continue telemetry monitoring -Currently on aspirin 81 mg daily, discontinued heparin drip -Cardiology following, has nonobstructive CAD, started on Entresto 24-26 mg twice daily, also started on hydralazine 25 every 6 hours, carvedilol 6.25 twice daily -Nephrology note reviewed, fluids discontinued renal function improving, strict I's and O's, Castellanos in place -ID following, patient maintained on Rocephin 2 g IV every 24 hours Alcohol dependence History of opioid dependence PTSD/depression -Psychiatry following, holding sertraline Macrocytic anemia Thrombocytopenia -Stable, likely secondary to alcohol use Resolved: Anion gap metabolic acidosis due to lactic acidosis, HyperK DVT ppx: Subcu heparin Code status: Full code Anticipated discharge place: Pending clinical course Anticipated discharge time: Pending clinical course Objective - Vital Signs Vital signs: Vital Signs Temp 98.7 F 06/04/24 08:30 Pulse 86 06/04/24 11:30 Resp 34 H 06/04/24 11:30 BP 134/91 06/04/24 11:30 Pulse Ox 90 L 06/04/24 12:00 FiO2 50 06/03/24 12:08 Intake & Output 06/03/24 06/04/24 06/04/24 18:59 06:59 18:59 Intake Total 5190.846 4994.003 382.396 Output Total 1155 1065 1600 Balance -67.573 116.003 -1217.604 Weight 84.6 kg 85.5 kg 85.5 kg Intake: IV 723 780 285 Lactated Ringers 1,000 ml 720 480 @ 60 mls/hr IV .[id number] [facility] Rx#:[id number] Normal Saline Pressure 3 Bag Sodium Chloride 0.9% 1, 300 235 000 ml In Empty Bag 1 bag @ 75 mls/hr IV .[id number] [facility] Rx#:[id number] Intake, IV Titration 364.427 401.003 97.396 Amount Dexmedetomidine/0.9% NaCl 245.013 220.417 97.396 (Pmx) 400 mcg In Empty Bag 1 bag @ 0.2 MCG/KG/HR 4.25 mls/hr IV .[id number] [facility] Rx#:[id number] Heparin Sod,Pork in 0.45% 69.414 180.586 NaCl 25,000 unit In 0.45 % NaCl 1 250ml.bag @ 12 UNITS/KG/HR 8.981 mls/hr IV .Q24H [facility] Rx#: [id number] cefTRIAXone 2 gm In 50 Sodium Chloride 0.9% 50 ml @ 100 mls/hr IVPB Q24HR [facility] Rx#:[id number] Output: Urine 1155 1065 1600 Other: Voiding Method Indwelling Catheter Indwelling Catheter ABP, PAP, CO, CI - Last Documented Arterial Blood Pressure 149/85 - Labs CBC & Chem 7: 06/04/24 05:34 06/04/24 05:34 Labs: Abnormal Lab Results - Last 24 Hours (Table) 06/03/24 06/04/24 06/04/24 Range/Units 23:44 05:34 05:34 RBC 3.13 L (4.30-5.90) m/uL Hgb 10.3 L (13.0-17.5) gm/dL Hct 30.7 L (39.0-53.0) % Plt Count 113 L (150-450) k/uL APTT 37.7 H (22.0-30.0) sec Sodium (137-145) mmol/L BUN (9-20) mg/dL Glucose (74-99) mg/dL POC Glucose (mg/dL) 164 H (70-110) mg/dL Calcium (8.4-10.2) mg/dL 06/04/24 Range/Units 05:34 RBC (4.30-5.90) m/uL Hgb (13.0-17.5) gm/dL Hct (39.0-53.0) % Plt Count (150-450) k/uL APTT (22.0-30.0) sec Sodium 131 L (137-145) mmol/L BUN 23 H (9-20) mg/dL Glucose 101 H (74-99) mg/dL POC Glucose (mg/dL) (70-110) mg/dL Calcium 8.1 L (8.4-10.2) mg/dL Microbiology - Last 24 Hours (Table) 06/01/24 14:45 CSF Gram Stain - Preliminary Cerebral Spinal Fluid CSF Culture - Preliminary
[2024-06-04] MEDS: SACUBITRIL/VALSARTAN 24 MG-26 MG TABLET PO SCH (15:31)
--- NOTE | 2024-06-04 16:42 | P.PN ---
Subjective Progress Note Date: 06/04/24 Principal diagnosis: Reason for follow-up is positive sputum cultures with group C strep/pneumonia Patient is a 44-year-old male with a past medical history significant for hypertension reflux chronic hepatitis C treated seizure disorder heavy drinking presented to hospital for evaluation of some weakness mental status changes did have seizure activity subsequently got intubated and admitted to ICU. On today's visit that is 06/04/2024,the patient is more awake and alert today denies any fever or any chills, patient is breathing comfortably on 4 L current oxygen, the patient denies chest pain shortness of breath and no significant cough, patient denies abdominal pain, no nausea vomiting or diarrhea. Patient white count is 7.2, creatinine is 1.11 Objective - Vital Signs Vital signs: Vital Signs Temp 98.4 F 06/04/24 12:00 Pulse 64 06/04/24 15:30 Resp 39 H 06/04/24 15:30 BP 131/93 06/04/24 15:00 Pulse Ox 95 06/04/24 15:32 FiO2 50 06/03/24 12:08 Intake & Output 06/03/24 06/04/24 06/04/24 18:59 06:59 18:59 Intake Total 9187.886 3843.003 523.480 Output Total 1155 1065 3200 Balance -67.573 116.003 -2676.520 Weight 84.6 kg 85.5 kg 85.5 kg Intake: IV 723 780 385 .9 NS 100 Lactated Ringers 1,000 ml 720 480 @ 60 mls/hr IV .[id number] [facility] Rx#:[id number] Normal Saline Pressure 3 Bag Sodium Chloride 0.9% 1, 300 235 000 ml In Empty Bag 1 bag @ 75 mls/hr IV .[id number] [facility] Rx#:[id number] Intake, IV Titration 364.427 401.003 138.480 Amount Dexmedetomidine/0.9% NaCl 245.013 220.417 138.480 (Pmx) 400 mcg In Empty Bag 1 bag @ 0.2 MCG/KG/HR 4.25 mls/hr IV .[id number] [facility] Rx#:[id number] Heparin Sod,Pork in 0.45% 69.414 180.586 NaCl 25,000 unit In 0.45 % NaCl 1 250ml.bag @ 12 UNITS/KG/HR 8.981 mls/hr IV .Q24H [facility] Rx#: [id number] cefTRIAXone 2 gm In 50 Sodium Chloride 0.9% 50 ml @ 100 mls/hr IVPB Q24HR [facility] Rx#:[id number] Output: Urine 1155 1065 3200 Other: Voiding Method Indwelling Catheter Indwelling Catheter Indwelling Catheter ABP, PAP, CO, CI - Last Documented Arterial Blood Pressure 149/85 - Exam GENERAL DESCRIPTION: Middle-age male intubated on the vent RESPIRATORY SYSTEM: Unlabored breathing , decreased breath sounds at bases HEART: S1 S2 regular rate and rhythm , ABDOMEN: Soft , no tenderness EXTREMITIES: No edema feet - Labs CBC & Chem 7: 06/04/24 05:34 06/04/24 05:34 Labs: Abnormal Lab Results - Last 24 Hours (Table) 06/03/24 06/04/24 06/04/24 Range/Units 23:44 05:34 05:34 RBC 3.13 L (4.30-5.90) m/uL Hgb 10.3 L (13.0-17.5) gm/dL Hct 30.7 L (39.0-53.0) % Plt Count 113 L (150-450) k/uL APTT 37.7 H (22.0-30.0) sec Sodium (137-145) mmol/L BUN (9-20) mg/dL Glucose (74-99) mg/dL POC Glucose (mg/dL) 164 H (70-110) mg/dL Calcium (8.4-10.2) mg/dL 06/04/24 Range/Units 05:34 RBC (4.30-5.90) m/uL Hgb (13.0-17.5) gm/dL Hct (39.0-53.0) % Plt Count (150-450) k/uL APTT (22.0-30.0) sec Sodium 131 L (137-145) mmol/L BUN 23 H (9-20) mg/dL Glucose 101 H (74-99) mg/dL POC Glucose (mg/dL) (70-110) mg/dL Calcium 8.1 L (8.4-10.2) mg/dL Microbiology - Last 24 Hours (Table) 06/01/24 14:45 CSF Gram Stain - Preliminary Cerebral Spinal Fluid CSF Culture - Preliminary Assessment and Plan (1) Positive culture findings in sputum Current Visit: Yes Status: Acute Code(s): R84.5 - ABNORMAL MICROBIOLOG FINDINGS IN SPECMN FROM RESP ORG/THRX SNOMED Code(s): 551830200 (2) Penicillin allergy Current Visit: Yes Status: Acute Code(s): Z88.0 - ALLERGY STATUS TO PENICILLIN SNOMED Code(s): 96405449 (3) Pneumonia Current Visit: Yes Status: Acute Code(s): J18.9 - PNEUMONIA, UNSPECIFIED ORGANISM SNOMED Code(s): 722184965 Plan: 1patient presented to hospital with seizure activity and this patient got intubated to protect airways chest x-ray did shows bilateral basilar infiltrate and concern for possible pneumonia not entirely excluded with a sputum positive for group C strep blood culture has been negative 2-patient is afebrile did have some clinical improvement continue with Rocephin and monitor clinical course closely Dictation was produced using x[employer] dictation software. please excuse any grammatical, word or spelling errors. Time with Patient: Less than 30
[2024-06-04] MEDS: HEPARIN SODIUM,PORCINE 5,000 UNIT/ML 1 ML VIAL SQ SCH (16:47)
[2024-06-04] MEDS: ALPRAZolam 0.5 MG TAB PO PRN (16:47)
[2024-06-04] MEDS: carvediloL 6.25 MG TAB PO SCH (18:42)
[2024-06-04 18:48] LABS: Glucose,Whole Blood 97 mg/dL (70-110)
[2024-06-04] MEDS: levETIRAcetam 500 MG TAB PO SCH (20:50)
[2024-06-04 23:45] LABS: Glucose,Whole Blood 148 mg/dL (70-110)
[2024-06-05 05:53] LABS: Glucose,Whole Blood 93 mg/dL (70-110)
[2024-06-05 06:34] LABS: Basophils # (A) 0.1 k/uL (0-0.2); Basophils % (A) 1 %; Eosinophils # (A) 0.2 k/uL (0-0.7); Eosinophils % (A) 3 %; HCT 37.1 % (39.0-53.0); HGB 12.7 gm/dL (13.0-17.5); Lymphocytes # (A) 1.3 k/uL (1.0-4.8); Lymphocytes % (A) 15 %; MCH 33.1 pg (25.0-35.0); MCHC 34.1 g/dL (31.0-37.0); Mean Platelet Volume 9.8; Monocytes # (A) 0.9 k/uL (0-1.0); Monocytes % (A) 10 %; Neutrophils % (A) 69 %; Platelet Count 148 k/uL (150-450); RBC 3.83 m/uL (4.30-5.90); RDW 13.5 % (11.5-15.5); WBC 8.7 k/uL (3.8-10.6)
[2024-06-05 06:50] LABS: African American GFR (CKD) >90 (>60 ml/min/1.73 sqM); Anion Gap 6 mmol/L; Blood Urea Nitrogen 16 mg/dL (9-20); Calcium 8.5 mg/dL (8.4-10.2); Carbon Dioxide 28 mmol/L (22-30); Chloride 105 mmol/L (98-107); Glucose 97 mg/dL (74-99); Magnesium 1.4 mg/dL (1.6-2.3); Non-African American GFR(CKD) >90 (>60 ml/min/1.73 sqM); Potassium 3.2 mmol/L (3.5-5.1); Sodium 139 mmol/L (137-145)
[2024-06-05] MEDS: POTASSIUM CHLORIDE ER 20 MEQ TAB.ER PO SCH (06:55)
[2024-06-05] MEDS: FUROSEMIDE 10 MG/ML 2 ML VIAL IV ONE (09:45)
[2024-06-05] MEDS: MAGNESIUM SULFATE-D5W PMX 1 GM in DEXTROSE/WATER 1 100ML.BAG IVPB SCH (09:45)
--- NOTE | 2024-06-05 10:43 | P.PN ---
Subjective Progress Note Date: 06/05/24 Principal diagnosis: New onset seizures, inability to protect airways, requiring intubation mechanical ventilation, May 30 2024 This is a 44-year-old male with a history of depression, possibly PTSD, and hypertension. The patient apparently had a new onset seizure today, and was found by his , at home. The patient apparently was acting strange, and subsequent to that, was found on the bedroom floor, having a seizure. EMS was called and brought the patient into the emergency room. The patient had at least 2 seizures in the emergency room, and could not protect his airway, and was intubated for airway protection. The patient is seen in the emergency department, in trauma room 1. The patient had a initial blood gas,, showing a pO2 of 170, pCO2 of 35, pH is 6.99. Subsequent blood gas on 100% showed a pO2 of greater than 420, pCO2 of 38, and a pH of 7.43. Lactic acid was 10.7. Glucose was 138. Additional labs include a white count of 16.6, hemoglobin 14. 8, hematocrit 46.1, and a platelet count of 285,000. Sodium 144, potassium 5.8, chlorides 105, CO2 less than 5, BUN 14, creatinine 1.52. Glucose was 345. Lactic acid was 10.7. N-terminal proBNP was 319. Troponin was 0.151. Albumin 5.3. Viral screen was negative. Serum alcohol level was less than 10. Brain CT showed nothing acute. Chest x-ray showed no acute cardiopulmonary changes. CT of the abdomen and pelvis, was also negative. The did state, that the patient does use marijuana, does not smoke cigarettes at this time, and drinks occasionally heavily. Patient was evaluated today on 05/31/2024, patient remains intubated [place] ventilated. He is on assist-control rate of 20 tidal volume 500 FiO2 40% PEEP of 5 ABG showed a pO2 of 155 pCO2 34 pH of 7.48. Patient remains on the [facility] protocol for history of alcoholism. Remains on propofol at 40 mcg/kg/min he is also on LR at 125 mL/h chest x-ray showed no evidence of active disease. Labs were reviewed WBC count 6.1 hemoglobin is 10.0. PTT is 60 ABG showed a pO2 of 155 pCO2 34 pH of 7.48, hence vent settings were adjusted with rate down to 18 FiO2 down to 35%. Basic metabolic profile is normal however BUN is 24 cr eatinine 2.99, patient apparently developed acute tubular necrosis/acute kidney injury being addressed by nephrology on the case CPK is elevated at 799, troponin 4.32 and total protein is 5.6 albumin 3.0, looking back at this patient presentation, he had a brief cardiac arrest in the ER, received 2 epinephrines, downtime was few minutes, hence we will try to assess his mental status today for possible weaning and extubation. After going off sedation, patient seems to be arousable, follows simple instructions but was extremely agitated and restless, could not proceed to full extubation on this patient. Patient was evaluated today on 06/01/24, patient remains in the ICU, intubated and mechanically ventilated. He is presently on assist-control rate of 18 tidal volume 500 FiO2 35% PEEP of 5 ABG showed a pO2 of 132 pCO2 40 pH of 7.42 hence no changes were made in present vent settings. Patient is being considered for lumbar puncture today by neurology. Patient remains on propofol at 50 mcg/kg/min, he is also on LR at 125 cc/h heparin drip, and I will likely transition the patient from propofol to Precedex to hopefully consider a weaning trial and possibly extubation. Patient has not had any seizures overnight, he is maintained on Keppra and ceftriaxone and he was also placed on acyclovir. Again neurology is considering a lumbar puncture to be done today. WBC count today is 5.2 hemoglobin is 10 electrolytes are normal BUN is 29 creatinine on the rise up to 3.41. Patient was seen by urology, did not feel that the patient had hydronephrosis, and recommended no intervention. Did not feel his acute kidney injury is secondary to any obstructive uropathy renal status is being closely monitored by nephrology on the case. X-ray showed no pulmonary process. Patient is showing group C beta-hemolytic strep in the sputum significance of which is not clear Patient was a on 06/02/24, patient remains in the tube, intubated and mechanically ventilated. He is on assist-control rate of 18 tidal volume 500 FiO2 35% and PEEP of 5 his ABG showed a pO2 of 102 pCO2 40 0 pH of 7.46. Patient remains on multiple drips including Precedex at 1.1 mcg/kg/h Cleviprex at 2 mg/h he is on LR at 125 cc/h he is also on propofol which was 30 mcg/kg/min, and I stopped it to wean and extubate the patient hopefully today. Patient remains on acyclovir and ceftriaxone, his preliminary findings on the spinal fluid seems to be unremarkable. Patient did undergo a lumbar puncture yesterday, the preliminary report is relatively normal. Chest x-ray is relatively unremarkable, endotracheal tube is sitting high up in the trachea. PTT is 49.4 WBC count is 6.1 hemoglobin 11.8 electrolytes are normal BUN is 22 creatinine trending down to 2.43. Liver enzymes are unremarkable Patient was evaluated today on 11/26, remains in the ICU, on Precedex at 1.4 mcg/kg/h patient is having intermittent episodes of agitations, restless at times, requiring Ativan intermittently clearly the patient has symptoms of alcohol withdrawal. Patient is supposed to have cardiac catheterization today, however considering his overall condition, may have to be placed on hold.WBC count is 8.9 hemoglobin 11.2 PTT is 59 electrolytes are normal renal profile is improving BUN is 22 creatinine 1.61 Patient was very on 06/04/2024, remains in the ICU, patient underwent cardiac catheterization today, and the findings were unremarkable. Patient is still requiring Precedex for alcohol withdrawal presently at 0.7 mcg/kg/h. Patient is on LR, he is also receiving Ativan intermittently as well as MS, and he is back on his Suboxone. He is on 4 L nasal cannula, chest x-ray showed evidence of pulmonary edema not to mention the patient had elevated left ventricular end- diastolic pressures from the cardiac catheterization report. The patient will have fluids at KVO, and I will start the patient on diuretics, will receive 40 mg of Lasix IV push WBC count today is 7.2 hemoglobin 10.3 PTT 37.7 electrolytes are normal BUN is 23 creatinine 1.11 Patient evaluated today on , remains in the ICU, still requiring sedation with Precedex and Ativan. He is now on 4 L nasal cannula, yesterday his chest x-ray showed significant pulmonary edema secondary to acute systolic congestive heart failure with cardiomyopathy most likely related to his alcoholism. This is a picture of nonischemic cardiomyopathy. Patient did well with Lasix given yesterday, chest x-ray is better his pulmonary status is better today, follow-up chest x-ray this morning still shows some pulmonary edema but improved and I am recommending another dose of Lasix 20 mg IV push to be given today. His IV fluid remains at KVO Precedex is at 0.3 mcg/kg/h. His echocardiogram showed LV dysfunction with ejection fraction of 35 to 40%. Cardiac catheterization showed no evidence of significant obstructive coronary artery disease. WBC count today is 8.7 hemoglobin 12.7 basic metabolic profile is normal potassium is a bit low at 3.2 being addressed accordingly Objective - Vital Signs Vital signs: Vital Signs Temp 98.9 F 06/05/24 08:00 Pulse 73 06/05/24 10:00 Resp 13 06/05/24 10:00 BP 114/77 06/05/24 10:00 Pulse Ox 97 06/05/24 10:00 FiO2 50 06/03/24 12:08 Intake & Output 06/04/24 06/05/24 06/05/24 18:59 06:59 18:59 Intake Total 563.480 290.718 110 Output Total 3400 1465 450 Balance -2836.520 -1174.282 -340 Weight 85.5 kg 83 kg Intake: IV 425 240 110 .9 NS 140 240 60 Sodium Chloride 0.9% 1, 235 000 ml In Empty Bag 1 bag @ 75 mls/hr IV .[id number] YESENIA Rx#:[id number] cefTRIAXone 2 gm In 50 Sodium Chloride 0.9% 50 ml @ 100 mls/hr IVPB Q24HR YESENIA Rx#:[id number] Intake, IV Titration 138.480 50.718 Amount Dexmedetomidine/0.9% NaCl 138.480 50.718 (Pmx) 400 mcg In Empty Bag 1 bag @ 0.2 MCG/KG/HR 4.25 mls/hr IV .[id number] YESENIA Rx#:[id number] Output: Urine 3400 1465 450 Other: Voiding Method Indwelling Catheter Indwelling Catheter ABP, PAP, CO, CI - Last Documented Arterial Blood Pressure 149/85 - Exam General: Revealed 44-year-old white male, anxious, on 2 L nasal cannula Skin: Skin is warm and dry and no rashes or lesions are noted. Eye: Pupils are equal, round and reactive to light, extra-ocular movements are intact; there is normal conjunctiva bilaterally. Ears, nose, mouth and throat: There are moist mucous membranes and no oral lesions. Neck: The neck is supple, there is no tenderness or JVD. Cardiovascular: There is a regular rate and rhythm. No murmur, rub or gallop is appreciated. Respiratory: Slightly diminished breath sounds at the bases Gastrointestinal: Soft, non-distended, non-tender abdomen without masses or organomegaly noted. There is no rebound or guarding present. Bowel sounds are unremarkable. Neurological: Anxious, oriented x 3, no gross focal neurologic deficit Psychiatric: Flat affect, anxious mood, normal mental status otherwise - Labs CBC & Chem 7: 06/05/24 05:58 06/05/24 05:58 Labs: Abnormal Lab Results - Last 24 Hours (Table) 06/04/24 06/05/24 06/05/24 Range/Units 23:44 05:58 05:58 RBC 3.83 L (4.30-5.90) m/uL Hgb 12.7 L (13.0-17.5) gm/dL Hct 37.1 L (39.0-53.0) % Plt Count 148 L (150-450) k/uL Potassium 3.2 L (3.5-5.1) mmol/L POC Glucose (mg/dL) 148 H (70-110) mg/dL Magnesium 1.4 L (1.6-2.3) mg/dL Microbiology - Last 24 Hours (Table) 06/01/24 14:45 CSF Gram Stain - Preliminary Cerebral Spinal Fluid CSF Culture - Preliminary 05/30/24 07:30 Blood Culture - Final Blood 05/30/24 07:25 Blood Culture - Final Blood Assessment and Plan Assessment: Impression: New onset seizures with inability to protect airway is required requiring intubation mechanical ventilation May 30, extubated on 06/02/2024 Brief cardiac arrest/asystole while in the ER requiring 2 doses of epinephrine Acute systolic congestive heart failure, reduced ejection fracture 35 to 40% Nonischemic cardiomyopathy and LV dysfunction, most likely secondary to alcohol induced cardiomyopathy Acute kidney injury/acute tubular necrosis, resolved History of alcoholism History of PTSD History of depression Benign essential hypertension Recommendations: Continue to monitor in the ICU for now, continue CIWA protocol/ Ativan and Precedex Continue antibiotics as per ID on the case Continue seizure meds and seizure precautions Diet as tolerated To be given a dose of Lasix today 20 mg IV push, his chest x-ray showed significant improvement compared to yesterday. Patient responded well to Lasix given yesterday Continue DVT prophylaxis and GI prophylaxis Continue to monitor renal status and profile daily Continue Lidia Continue to monitor in the ICU Will continue to follow Time with Patient: Less than 30
--- NOTE | 2024-06-05 11:00 | P.PN ---
Subjective Patient is seen for follow-up for acute kidney injury. status post cardiac cath on 06/04/2024 with no evidence of coronary artery disease. status post diuresis for volume overload and CHF. Volume status has improved with improvement in respiratory status. serum creatinine down to 0.8 mg/dL. Objective - Vital Signs Vital signs: Vital Signs Temp 98.9 F 06/05/24 08:00 Pulse 73 06/05/24 10:00 Resp 13 06/05/24 10:00 BP 114/77 06/05/24 10:00 Pulse Ox 97 06/05/24 10:00 FiO2 50 06/03/24 12:08 Intake & Output 06/04/24 06/05/24 06/05/24 18:59 06:59 18:59 Intake Total 563.480 290.718 110 Output Total 3400 1465 450 Balance -2836.520 -1174.282 -340 Weight 85.5 kg 83 kg Intake: IV 425 240 110 .9 NS 140 240 60 Sodium Chloride 0.9% 1, 235 000 ml In Empty Bag 1 bag @ 75 mls/hr IV .[id number] YESENIA Rx#:[id number] cefTRIAXone 2 gm In 50 Sodium Chloride 0.9% 50 ml @ 100 mls/hr IVPB Q24HR YESENIA Rx#:[id number] Intake, IV Titration 138.480 50.718 Amount Dexmedetomidine/0.9% NaCl 138.480 50.718 (Pmx) 400 mcg In Empty Bag 1 bag @ 0.2 MCG/KG/HR 4.25 mls/hr IV .[id number] YESENIA Rx#:[id number] Output: Urine 3400 1465 450 Other: Voiding Method Indwelling Catheter Indwelling Catheter ABP, PAP, CO, CI - Last Documented Arterial Blood Pressure 149/85 - Exam patient is Awake, mildly short of breath, no acute distress Examination of the heart S1 and S2 Examination of the lungs, bilateral breath sounds are heard Abdomen is soft nontender Examination of lower extremity shows no significant edema - Labs CBC & Chem 7: 06/05/24 05:58 06/05/24 05:58 Labs: Abnormal Lab Results - Last 24 Hours (Table) 06/04/24 06/05/24 06/05/24 Range/Units 23:44 05:58 05:58 RBC 3.83 L (4.30-5.90) m/uL Hgb 12.7 L (13.0-17.5) gm/dL Hct 37.1 L (39.0-53.0) % Plt Count 148 L (150-450) k/uL Potassium 3.2 L (3.5-5.1) mmol/L POC Glucose (mg/dL) 148 H (70-110) mg/dL Magnesium 1.4 L (1.6-2.3) mg/dL Microbiology - Last 24 Hours (Table) 06/01/24 14:45 CSF Gram Stain - Preliminary Cerebral Spinal Fluid CSF Culture - Preliminary 05/30/24 07:30 Blood Culture - Final Blood 05/30/24 07:25 Blood Culture - Final Blood Assessment and Plan Assessment: 1. Acute kidney injury, ATN, nonoliguric secondary to hypotension and cardiac arrest. UA shows 1+ protein 3+ blood in ( it was a difficult Castellanos catheter placement). CT of the abdomen negative for any obstructive uropathy. CK is mildly elevated at [place] adrenal function has improved significantly. 2. New onset seizures, maintained on Keppra. Neurology on consult. ? related to alcohol withdrawal. 3. Severe metabolic acidosis possibly related to lactic acidosis volatile screen is negative. Serum acetone, salicylate and alcohol is negative. 4. Hyperkalemia associated with acute kidney injury and severe metabolic acidosis, improved. 5. New onset diabetes 6. Elevated troponins being followed by cardiology. 7. Volume overload, improved 8. Hypokalemia being replaced Plan: maintain off of IV fluids. replace potassium Lasix as needed Repeat labs in a.m. Continue to avoid nephrotoxic agents.
--- NOTE | 2024-06-05 11:05 | XR ---
EXAM: XR chest 1V portable CLINICAL INDICATION:Male, 44 years old with history of respiratory status; [facility] COMPARISON: 06/04/2024 and older TECHNIQUE: Chest single view. FINDINGS: Lines/tubes/devices: EKG leads overlie the chest. Left subclavian central venous line with its tip ov er the inferior SVC. Cardiomediastinum: Cardiac silhouette appears mildly enlarged. Unremarkable mediastinal silhouette. Vasculature: Decreased pulmonary vascular congestion compared to prior. Lungs/pleura: Decreased bilateral perihilar infiltrates, right greater than left, compared to previous. No sizable pleural effusion is seen but the left costophrenic angle is partially excluded. No visualized pneumot horax. [Please note the prior study contains a typographical error, stating "new pulmonary mass or co ngestion" instead of "new pulmonary vascular congestion".] Bones/soft tissues: Bony thorax appears grossly intact as seen. Regional soft tissues appear unremarkable. IMPRESSION: Relatively decreased pulmonary vascular congestion and bilateral lung opacities, most likely represen ting improving pulmonary edema.
[2024-06-05 11:41] LABS: Glucose,Whole Blood 135 mg/dL (70-110)
--- NOTE | 2024-06-05 13:27 | P.PN ---
Subjective Progress Note Date: 06/05/24 Hospital Course: 44 year old M with PMH of EtOH abuse, PTSD, Depression, h/o hypertension prese nts to the ED with seizure lasting 3 to 4 minutes. Patient was noted to have a grand mal seizure in the ED given 7 mg of IV Ativan. Following his seizure, had an episode of bradycardia and hypotension with loss of pulse. ACLS was initiated requiring 4 minutes of CPR, epinephrine and bicarb, ROSC was achieved. CBC and CMP was significant for WBC 16.6, MCV 103.6, K 5.8, bicarb < 5, Cr 1.52, glu 345, alb 5.3. Mag 2.8, Lactic acid 10.7-2.6. UA 3+ glucose and moderate blood, no LE or nitrite. UDS + benzo and THC. Serum alcohol and acetone negative. COVID/RSV/Flu negative. VBG pH 6.61, pCO2 62. Troponin 0.151, 7.01. ABG post cardiac arrest pH 6.99, pCO2 35 and subsequently pH 7.43, pCO2 38. CXR shows ET tube with no acute process. Brain CT negative. CT AP negative. EKG showed sinus rhythm with nonspecific ST and T wave abnormalities and evidence of LVH. Patient is admitted to ICU for further workup and management. Started on Keppra 1000 mg IV BID, Neurology consulted, EEG ordered showing excessive amount of low-voltage fast frequency beta activity suggestive of benzodiazepine effect. Due to elevated troponin, Cardiology consulted, started on a Heparin drip and Echo ordered. Echo showing EF 35-40%. Due to worsening renal function, nephrology also consulted. LP completed, unlikely to be meningitis. Patient remains on IV antibiotics per ID, on IV Keppra. Now extubated. Patient also having acute encephalopathy, possible alcohol withdrawal versus worsening PTSD versus ICU delirium. Psychiatry consulted. Likely has ICU delirium. Underwent cath which showed nonobstructive CAD, elevated filling pressures. Now has pulmonary edema secondary to CHF exacerbation. On diuretics. Subjective: Patient seen and examined at bedside. Remains on Precedex. A lot less agitated compared to yesterday. Pertinent positives and negatives as discussed above, a complete review of syste ms was performed and all other systems are negative. Vitals Signs Reviewed. General: Nontoxic, no distress, appears at stated age, Castellanos catheter in place Derm: Warm, dry Head: Atraumatic, normocephalic, symmetric Eyes: EOMI, no lid lag, anicteric sclera Mouth: No lip lesion, mucus membranes moist Cardiovascular: S1S2 reg, no murmur Lungs: Bilateral rales, no accessory muscle use Abdominal: Soft, nontender to palpation, no guarding, no appreciable organomegaly Ext: No gross muscle atrophy, no edema, no contractures Neuro: CN II-XI grossly intact, no focal neuro deficits Psych: Cooperative Data Reviewed Today: Pertinent Labs: WBC 8.7, hemoglobin 12.7, platelet 48, potassium 3.2, magnesium 1.4, creatinine 0.88, glucose range between 93-1 48 Imaging: Chest x-ray independently interpreted, shows bilateral interstitial opacities, decreased Assessment and Plan: Patient is critically ill, in medical ICU. Prognosis guarded. Acute encephalopathy, likely ICU delirium Alcohol dependence, with possible alcohol withdrawal History of opiate dependence Status post cardiac arrest New onset seizures NSTEMI, likely secondary to cardiac arrest Nonobstructive CAD Cardiomyopathy, possibly secondary to above, EF 35 to 40%, in acute exacerbation Hypokalemia Hypomagnesemia Hypertension Acute hypoxic respiratory failure, secondary to above LUCY, likely ATN secondary to above, improving Sepsis, suspected pneumonia versus [employer] source (less likely) -Neurology following, continue IV Keppra 1000 mg every 12 hours, Ativan as needed for seizures, MRI brain when stable -On CIWA protocol, IV Ativan as needed, monitor for sedation, on oral thiamine 100 mg daily -Was on Suboxone at home, restarted -Psychiatry following, likely ICU delirium, discontinued sertraline -Pulmonology note reviewed, maintained on Precedex drip, received 20 of IV Lasix, monitor electrolytes -Continue telemetry monitoring -Currently on aspirin 81 mg daily, discontinued heparin drip -Cardiology following, has nonobstructive CAD, started on Entresto 24-26 mg twice daily, also started on hydralazine 25 every 6 hours, carvedilol 6.25 twice daily -Nephrology note reviewed, contain for fluids, repleted magnesium and potassium -ID following, patient maintained on Rocephin 2 g IV every 24 hours PTSD/depression -Psychiatry following, holding sertraline Macrocytic anemia Thrombocytopenia -Stable, likely secondary to alcohol use Resolved: Anion gap metabolic acidosis due to lactic acidosis, HyperK DVT ppx: Subcu heparin Code status: Full code Anticipated discharge place: Pending clinical course Anticipated discharge time: Pending clinical course Objective - Vital Signs Vital signs: Vital Signs Temp 98.4 F 06/05/24 12:00 Pulse 63 06/05/24 13:00 Resp 10 L 06/05/24 13:00 BP 142/97 06/05/24 13:00 Pulse Ox 96 06/05/24 13:00 FiO2 50 06/03/24 12:08 Intake & Output 06/04/24 06/05/24 06/05/24 18:59 06:59 18:59 Intake Total 563.480 290.718 343.044 Output Total 3400 1465 1950 Balance -2836.520 -1174.282 -1606.956 Weight 85.5 kg 83 kg Intake: IV 425 240 310 .9 NS 140 240 60 Magnesium Sulfate-D5w Pmx 200 1 gm In Dextrose/Water 1 100ml.bag @ 100 mls/hr IVPB Q1H YESENIA Rx#: [id number] Sodium Chloride 0.9% 1, 235 000 ml In Empty Bag 1 bag @ 75 mls/hr IV .[id number] YESENIA Rx#:[id number] cefTRIAXone 2 gm In 50 Sodium Chloride 0.9% 50 ml @ 100 mls/hr IVPB Q24HR YESENIA Rx#:[id number] Intake, IV Titration 138.480 50.718 33.044 Amount Dexmedetomidine/0.9% NaCl 138.480 50.718 33.044 (Pmx) 400 mcg In Empty Bag 1 bag @ 0.2 MCG/KG/HR 4.25 mls/hr IV .[id number] YESENIA Rx#:[id number] Output: Urine 3400 1465 1950 Other: Voiding Method Indwelling Catheter Indwelling Catheter Indwelling Catheter ABP, PAP, CO, CI - Last Documented Arterial Blood Pressure 149/85 - Labs CBC & Chem 7: 06/05/24 05:58 06/05/24 05:58 Labs: Abnormal Lab Results - Last 24 Hours (Table) 06/04/24 06/05/24 06/05/24 Range/Units 23:44 05:58 05:58 RBC 3.83 L (4.30-5.90) m/uL Hgb 12.7 L (13.0-17.5) gm/dL Hct 37.1 L (39.0-53.0) % Plt Count 148 L (150-450) k/uL Potassium 3.2 L (3.5-5.1) mmol/L POC Glucose (mg/dL) 148 H (70-110) mg/dL Magnesium 1.4 L (1.6-2.3) mg/dL 06/05/24 Range/Units 11:40 RBC (4.30-5.90) m/uL Hgb (13.0-17.5) gm/dL Hct (39.0-53.0) % Plt Count (150-450) k/uL Potassium (3.5-5.1) mmol/L POC Glucose (mg/dL) 135 H (70-110) mg/dL Magnesium (1.6-2.3) mg/dL Microbiology - Last 24 Hours (Table) 06/01/24 14:45 CSF Gram Stain - Preliminary Cerebral Spinal Fluid CSF Culture - Preliminary 05/30/24 07:30 Blood Culture - Final Blood 05/30/24 07:25 Blood Culture - Final Blood
--- NOTE | 2024-06-05 14:01 | P.PN ---
Subjective Progress Note Date: 06/05/24 I am following-up with patient and per the who is at bedside she feels he is doing better. No new neurological issues. Objective - Vital Signs Vital signs: Vital Signs Temp 98.4 F 06/05/24 12:00 Pulse 63 06/05/24 13:00 Resp 10 L 06/05/24 13:00 BP 142/97 06/05/24 13:00 Pulse Ox 96 06/05/24 13:00 FiO2 50 06/03/24 12:08 Intake & Output 06/04/24 06/05/24 06/05/24 18:59 06:59 18:59 Intake Total 563.480 290.718 343.044 Output Total 3400 1465 1950 Balance -2836.520 -1174.282 -1606.956 Weight 85.5 kg 83 kg Intake: IV 425 240 310 .9 NS 140 240 60 Magnesium Sulfate-D5w Pmx 200 1 gm In Dextrose/Water 1 100ml.bag @ 100 mls/hr IVPB Q1H [facility] Rx#: [id number] Sodium Chloride 0.9% 1, 235 000 ml In Empty Bag 1 bag @ 75 mls/hr IV .[id number] [facility] Rx#:[id number] cefTRIAXone 2 gm In 50 Sodium Chloride 0.9% 50 ml @ 100 mls/hr IVPB Q24HR [facility] Rx#:[id number] Intake, IV Titration 138.480 50.718 33.044 Amount Dexmedetomidine/0.9% NaCl 138.480 50.718 33.044 (Pmx) 400 mcg In Empty Bag 1 bag @ 0.2 MCG/KG/HR 4.25 mls/hr IV .[id number] [facility] Rx#:[id number] Output: Urine 3400 1465 1950 Other: Voiding Method Indwelling Catheter Indwelling Catheter Indwelling Catheter ABP, PAP, CO, CI - Last Documented Arterial Blood Pressure 149/85 - Exam General: Lying in bed and not in acute distress. Neuro: Somewhat limited. On IV Precedex. Is subtle drowsy. Is oriented to self, place and time. Is following simple commands. No aphasia. Pupils are round, equal and reactive to light. Visual lazo are full to confrontaiton. EOM intact and no nystagmus. No facial weakness. No dysarthria. Motor: Strength is 5/5 throughout. Sensation is normal to touch throughout. - Labs CBC & Chem 7: 06/05/24 05:58 06/05/24 13:28 Labs: Abnormal Lab Results - Last 24 Hours (Table) 06/04/24 06/05/24 06/05/24 Range/Units 23:44 05:58 05:58 RBC 3.83 L (4.30-5.90) m/uL Hgb 12.7 L (13.0-17.5) gm/dL Hct 37.1 L (39.0-53.0) % Plt Count 148 L (150-450) k/uL Potassium 3.2 L (3.5-5.1) mmol/L POC Glucose (mg/dL) 148 H (70-110) mg/dL Magnesium 1.4 L (1.6-2.3) mg/dL 06/05/24 06/05/24 Range/Units 11:40 13:28 RBC (4.30-5.90) m/uL Hgb (13.0-17.5) gm/dL Hct (39.0-53.0) % Plt Count (150-450) k/uL Potassium 3.3 L (3.5-5.1) mmol/L POC Glucose (mg/dL) 135 H (70-110) mg/dL Magnesium (1.6-2.3) mg/dL Microbiology - Last 24 Hours (Table) 06/01/24 14:45 CSF Gram Stain - Preliminary Cerebral Spinal Fluid CSF Culture - Preliminary 05/30/24 07:30 Blood Culture - Final Blood 05/30/24 07:25 Blood Culture - Final Blood Assessment and Plan Assessment: Is a 44-year-old gentleman with a history of alcohol use in which she drinks 2 tall boys who recently went to [place] for a week and was in multiple outdoor events. He did drink heavily during that week 1 week. They headed back him and his this past Friday and there is no issues. Also the next day he was doing well which was Friday and he was drinking back to his baseline without any issues. Then this past Friday he started having behavioral changes and had new onset seizure. Then had further seizure that led to postcardiac arrest. * New onset seizures, and there is ? due to alcohol withdrawal but I am not totally convinced since patient drank heavily only for 1 week and I am not sure how much dependence a person get only for 1 week. This is not encephalitis or meningitis and CSF nucleated cell is 3 which is normal and during this hospitalization patient is afebrile. He had one-time leukocytosis and I felt was reactive and which resolved. Sputum culture is positive for beta-hemolytic strep group C and unsure if this is normal remy vs ?pathogenic. Secondly patient's states that he does a lot of gardening and chews tobacco and unsure if he developed an ?infection while picking up contaminated soil. Cannot rule out new onset seizure especially with family history of seizure. * Status postcardiac arrest after third seizure, with downtime of 4 minutes. * Elevated cardiac enzymes, rule out acute VA * Lactic acidosis, due to recurrent seizures * Hyperkalemia * Elevated troponin * Leukocytosis on presentation that resolved--likely reactive. Is afebrile---resolved * Acute kidney injury * History of moderate alcoholism * Macrocytosis, likely due to alcoholism--resolved * Marijuana use * Vapes * History of PTSD * Family history of seizure Plan: * Is on Keppra 1gm bid. * Seizure precaution and pads. * EEG: It is reported as abnormal with the presence of excessive amount of low voltage fast frequency beta activity suggestions of benzodiazepine effect. Otherwise some intermittent slowing was seen with some periods of suppression, suggestive of encephalopathy/medication effect. No focal, lateralizing or epileptiform activity was seen. * Repeat EEG: Is abnormal. The background slowing suggestive of mild to moderate encephalopathy. Otherwise there is no focal slowing, OptiForm discharge or seizure on the EEG. * CSF study: Clear, colorless, red blood cells 108, total nucleated cells 3, fresh red blood cells 100, CSF glucose is 71 and the total protein is 45. CSF culture is no organisms detected. Opening anc losing pressure is 27/26 cm H20 respectively and felt slightly elevated due to position. * I added Cryptococcal antigen from CSF sample on 06/01/2024. I called lab and notified them about this. * Lyme serum is negative. * VZV, Herpes 1/2 PCR is pending * Repeat CT head: No acute intracranial process seen at this time. * Pending MRI Brain w/ and w/o. * Hemoglobin A1c 5.5 * Patient is on thiamine 100mg daily. * His sputum culture is positive for beta hemolytic strep group C. * I.D. is on board * Patient is on heparin for elevated cardiac enzymes. Cardiology on board. * Psychiatry is consulted for his emotion lability with psychiatry history. * Recommend abstinence from marijuana, alcoholism and vaping. * Other medical management as per IM and other specialties on board. The plan is discussed with patient and his who is at bedside. Dr. Fish will resume neurology service on 06/07/2024 A.M. Time with Patient: Less than 30
[2024-06-05] MEDS: POTASSIUM CHLORIDE 20 MEQ in WATER FOR INJECTION 1 100ML.BAG IVPB SCH (15:21)
--- NOTE | 2024-06-05 16:39 | P.PN ---
Subjective Progress Note Date: 06/05/24 This is a 45-year-old gentleman who requested to see the emergency department for further cardiac evaluation of abnormal cardiac enzymes. Currently the patient is intubated and he is on mechanical ventilation but the history was taken from the ER physician as well as from the patient's who was at be dside. The patient was noted to be in normal situation till yesterday. He woke up [employer] guidance [employer] and he was noted to be confused by his . Before that he was drinking excessively according to his . Ambulance was called and the patient was brought to the emergency department for further evaluation in the emergency department he was confused but subsequently he had a grand mal seizure witnessed by the ER staff. Subsequently the patient was intubated and placed on mechanical ventilation to protect the airway. Further evaluation was performed including an EKG. The first EKG showed sinus rhythm with nonspecific ST and T wave abnormalities and evidence of LVH. Second EKG showed sinus mechanism with no ST or T wave abnormalities. The troponin came in to be slightly elevated. According to the patient's he was not experiencing any cardiovascular symptoms of any chest pain or chest discomfort or shortness of breath. He never been diagnosed with diabetes. He was diagnosed in the past with hypertension and he was on medications but he stopped taking the medications. Please note that his blood glucose is elevated during the blood work today. The patient underwent also a CT scan of the brain which did show any acute abnormalities. Currently he is hemodynamically stable with soft blood pressure. Beside that he underwent a blood work and that revealed low GFR and elevated potassium. The chest x-ray showed possible underlying pneumonia and he was seen by the pulmon acosta/critical care team and he was placed on antibiotic. The examination is remarkable for patient to be intubated on mechanical ventilation with regular rate and rhythm and soft systolic murmur at the right upper sternal border and clear breathing sounds bilaterally and no edema was noted in the lower extremities with soft nontender abdomen May 31, 2024 Patient seen and examined at bedside. Family was present at bedside. Echocardiogram still pending, hemodynamic stable. No further episodes of asystole or any other pauses or any arrhythmias on telemetry monitoring. Appropriate urine output. No signs of bleeding on IV heparin drip. June 01, 2024 Patient is seen and examined at bedside this a.m. patient's echocardiogram showed an EF of 35 to 40% with no significant valvular abnormality. Appropriate urine output. No further episodes of seizure. Propofol was reduced and was started on Precedex. June 02, 2024 Patient is seen and examined at bedside this a.m. Patient was successfully extubated this morning. Since extubation patient's heart rate is much better. He was hypertensive last night for which she was started on clevidipine drip. This was weaned off this morning. He is currently under restraints as since extubation he has been confused and agitated. Renal function is improving, appropriate urine output June 03, 2024 Patient is seen and examined at bedside this a.m. His kidney function is continuing to be improving. His creatinine is 1.6 today. Appropriate urine output. Patient appears to be in some delirium. He continues to be in sinus rhythm with no concerns of arrhythmias on telemetry monitoring. His systolic blood pressure is around 140s. Jun 05, 2024 Patient is seen and examined at bedside this a.m. Right radial access site appears to be intact with no hematoma or swelling. Hemodynamically stable. On exam S1-S2 is audible, regular pulses, Mild crackles audible in bilateral lung lazo, diminished breath sounds, no significant rhonchi Patient is slightly agitated and is in delirium since extubation No swelling in bilateral lower extremity Assessment Asystolic cardiac arrest after a [place] seziure, required 4 mins of CPR Elevated troponin due to cardiac arrest, Likely Type II nstemi Vent dependent respiratory failure after cardiac arrest Cardiomyopathy with EF 35 to 40%, likely stress-induced cardiomyopathy. Possibility of ischemic heart disease cannot be ruled out LUCY, due to ATN likely due to hypoxic injury from cardiac arrest Grand Mal seizure Electrolytes abnormalities with hyperkalemia History of excessive alcohol use Plan Continue aspirin 81 mg, atorvastatin 20 mg, Coreg 6.25 mg twice daily, Stop hydralazine. Increase Entresto to 49/51 mg twice daily Add Aldactone 25 mg daily Consider adding Farxiga once infection is cleared up and patient is able to tolerate oral diet well Discontinue IV heparin drip Objective - Vital Signs Vital signs: Vital Signs Temp 99.5 F 06/05/24 16:00 Pulse 78 06/05/24 16:00 Resp 18 06/05/24 16:00 BP 121/81 06/05/24 16:00 Pulse Ox 96 06/05/24 16:00 FiO2 50 06/03/24 12:08 Intake & Output 06/04/24 06/05/24 06/05/24 18:59 06:59 18:59 Intake Total 563.480 290.718 485.794 Output Total 3400 1465 2500 Balance -2836.520 -1174.282 -206 Weight 85.5 kg 83 kg Intake: IV 425 240 440 .9 NS 140 240 80 LR KVO 60 Magnesium Sulfate-D5w Pmx 200 1 gm In Dextrose/Water 1 100ml.bag @ 100 mls/hr IVPB Q1H [facility] Rx#: [id number] Potassium Chloride 20 meq 50 In Water For Injection 1 100ml.bag @ 50 mls/hr IVPB Q2H [facility] Rx#: [id number] Sodium Chloride 0.9% 1, 235 000 ml In Empty Bag 1 bag @ 75 mls/hr IV .[id number] [facility] Rx#:[id number] cefTRIAXone 2 gm In 50 Sodium Chloride 0.9% 50 ml @ 100 mls/hr IVPB Q24HR [facility] Rx#:[id number] Intake, IV Titration 138.480 50.718 45.794 Amount Dexmedetomidine/0.9% NaCl 138.480 50.718 45.794 (Pmx) 400 mcg In Empty Bag 1 bag @ 0.2 MCG/KG/HR 4.25 mls/hr IV .[id number] [facility] Rx#:[id number] Output: Urine 3400 1465 2500 Other: Voiding Method Indwelling Catheter Indwelling Catheter Indwelling Catheter ABP, PAP, CO, CI - Last Documented Arterial Blood Pressure 149/85 - Labs CBC & Chem 7: 06/05/24 05:58 06/05/24 13:28 Labs: Abnormal Lab Results - Last 24 Hours (Table) 06/04/24 06/05/24 06/05/24 Range/Units 23:44 05:58 05:58 RBC 3.83 L (4.30-5.90) m/uL Hgb 12.7 L (13.0-17.5) gm/dL Hct 37.1 L (39.0-53.0) % Plt Count 148 L (150-450) k/uL Potassium 3.2 L (3.5-5.1) mmol/L POC Glucose (mg/dL) 148 H (70-110) mg/dL Magnesium 1.4 L (1.6-2.3) mg/dL 06/05/24 06/05/24 Range/Units 11:40 13:28 RBC (4.30-5.90) m/uL Hgb (13.0-17.5) gm/dL Hct (39.0-53.0) % Plt Count (150-450) k/uL Potassium 3.3 L (3.5-5.1) mmol/L POC Glucose (mg/dL) 135 H (70-110) mg/dL Magnesium (1.6-2.3) mg/dL Microbiology - Last 24 Hours (Table) 06/01/24 14:45 CSF Gram Stain - Final Cerebral Spinal Fluid CSF Culture - Final 05/30/24 07:30 Blood Culture - Final Blood 05/30/24 07:25 Blood Culture - Final Blood
--- NOTE | 2024-06-05 16:43 | P.PN ---
Subjective Progress Note Date: 06/05/24 Principal diagnosis: Reason for follow-up is positive sputum cultures with group C strep/pneumonia Patient is a 44-year-old male with a past medical history significant for hypertension reflux chronic hepatitis C treated seizure disorder heavy drinking presented to hospital for evaluation of some weakness mental status changes did have seizure activity subsequently got intubated and admitted to ICU. On today's visit that is 06/05/2024,the patient remains to be afebrile, patient is on room air not requiring supplemental oxygen and denies any shortness of breath no chest pain or cough.Patient denies having any nausea or vomiting, no abdominal pain and no diarrhea has been reported. Patient white count is 8.7, creatinine 0.88 Objective - Vital Signs Vital signs: Vital Signs Temp 99.5 F 06/05/24 16:00 Pulse 78 06/05/24 16:00 Resp 18 06/05/24 16:00 BP 121/81 06/05/24 16:00 Pulse Ox 96 06/05/24 16:00 FiO2 50 06/03/24 12:08 Intake & Output 06/04/24 06/05/24 06/05/24 18:59 06:59 18:59 Intake Total 563.480 290.718 485.794 Output Total 3400 1465 2500 Balance -2836.520 -1174.282 -2014.206 Weight 85.5 kg 83 kg Intake: IV 425 240 440 .9 NS 140 240 80 LR KVO 60 Magnesium Sulfate-D5w Pmx 200 1 gm In Dextrose/Water 1 100ml.bag @ 100 mls/hr IVPB Q1H [facility] Rx#: [id number] Potassium Chloride 20 meq 50 In Water For Injection 1 100ml.bag @ 50 mls/hr IVPB Q2H [facility] Rx#: [id number] Sodium Chloride 0.9% 1, 235 000 ml In Empty Bag 1 bag @ 75 mls/hr IV .[id number] [facility] Rx#:[id number] cefTRIAXone 2 gm In 50 Sodium Chloride 0.9% 50 ml @ 100 mls/hr IVPB Q24HR [facility] Rx#:[id number] Intake, IV Titration 138.480 50.718 45.794 Amount Dexmedetomidine/0.9% NaCl 138.480 50.718 45.794 (Pmx) 400 mcg In Empty Bag 1 bag @ 0.2 MCG/KG/HR 4.25 mls/hr IV .[id number] [facility] Rx#:[id number] Output: Urine 3400 1465 2500 Other: Voiding Method Indwelling Catheter Indwelling Catheter Indwelling Catheter ABP, PAP, CO, CI - Last Documented Arterial Blood Pressure 149/85 - Exam GENERAL DESCRIPTION: Middle-age male intubated on the vent RESPIRATORY SYSTEM: Unlabored breathing , decreased breath sounds at bases HEART: S1 S2 regular rate and rhythm , ABDOMEN: Soft , no tenderness EXTREMITIES: No edema feet - Labs CBC & Chem 7: 06/05/24 05:58 06/05/24 13:28 Labs: Abnormal Lab Results - Last 24 Hours (Table) 06/04/24 06/05/24 06/05/24 Range/Units 23:44 05:58 05:58 RBC 3.83 L (4.30-5.90) m/uL Hgb 12.7 L (13.0-17.5) gm/dL Hct 37.1 L (39.0-53.0) % Plt Count 148 L (150-450) k/uL Potassium 3.2 L (3.5-5.1) mmol/L POC Glucose (mg/dL) 148 H (70-110) mg/dL Magnesium 1.4 L (1.6-2.3) mg/dL 06/05/24 06/05/24 Range/Units 11:40 13:28 RBC (4.30-5.90) m/uL Hgb (13.0-17.5) gm/dL Hct (39.0-53.0) % Plt Count (150-450) k/uL Potassium 3.3 L (3.5-5.1) mmol/L POC Glucose (mg/dL) 135 H (70-110) mg/dL Magnesium (1.6-2.3) mg/dL Microbiology - Last 24 Hours (Table) 06/01/24 14:45 CSF Gram Stain - Final Cerebral Spinal Fluid CSF Culture - Final 05/30/24 07:30 Blood Culture - Final Blood 05/30/24 07:25 Blood Culture - Final Blood Assessment and Plan (1) Positive culture findings in sputum Current Visit: Yes Status: Acute Code(s): R84.5 - ABNORMAL MICROBIOLOG FINDINGS IN SPECMN FROM RESP ORG/THRX SNOMED Code(s): 263160513 (2) Penicillin allergy Current Visit: Yes Status: Acute Code(s): Z88.0 - ALLERGY STATUS TO PENICILLIN SNOMED Code(s): 29662301 (3) Pneumonia Current Visit: Yes Status: Acute Code(s): J18.9 - PNEUMONIA, UNSPECIFIED ORGANISM SNOMED Code(s): 780659775 Plan: 1patient presented to hospital with seizure activity and this patient got intubated to protect airways chest x-ray did shows bilateral basilar infiltrate and concern for possible pneumonia not entirely excluded with a sputum positive for group C strep blood culture has been negative 2-patient is afebrile and white count has normalized we will keep the patient on Rocephin and monitor clinical course closely Dictation was produced using [employer] dictation software. please excuse any grammatical, word or spelling errors.
[2024-06-05] MEDS: SPIRONOLACTONE 25 MG TAB PO SCH (17:35)
[2024-06-05 17:40] LABS: Glucose,Whole Blood 120 mg/dL (70-110)
[2024-06-05] MEDS: SACUBITRIL/VALSARTAN 49 MG-51 MG TABLET PO SCH (20:50)
[2024-06-05 23:30] LABS: Glucose,Whole Blood 120 mg/dL (70-110)
[2024-06-06] MEDS: POTASSIUM CHLORIDE 10 MEQ in WATER FOR INJECTION 1 100ML.BAG IVPB SCH ×2 (01:09→06:39)
[2024-06-06 05:05] LABS: Glucose,Whole Blood 128 mg/dL (70-110)
[2024-06-06 06:16] LABS: HCT 34.6 % (39.0-53.0); HGB 11.9 gm/dL (13.0-17.5); MCH 32.7 pg (25.0-35.0); MCHC 34.4 g/dL (31.0-37.0); MCV 95.2 fL (80.0-100.0); Mean Platelet Volume 8.8; Platelet Count 201 k/uL (150-450); RBC 3.63 m/uL (4.30-5.90); WBC 6.4 k/uL (3.8-10.6)
[2024-06-06 06:29] LABS: ALT 107 U/L (4-49); AST 194 U/L (17-59); African American GFR (CKD) >90 (>60 ml/min/1.73 sqM); Albumin 3.3 g/dL (3.5-5.0); Alkaline Phosphatase 100 U/L (38-126); Anion Gap 6 mmol/L; Blood Urea Nitrogen 12 mg/dL (9-20); Calcium 8.9 mg/dL (8.4-10.2); Carbon Dioxide 26 mmol/L (22-30); Chloride 107 mmol/L (98-107); Glucose 123 mg/dL (74-99); Magnesium 1.7 mg/dL (1.6-2.3); Non-African American GFR(CKD) >90 (>60 ml/min/1.73 sqM); Potassium 3.6 mmol/L (3.5-5.1); Sodium 139 mmol/L (137-145); Total Bilirubin 0.7 mg/dL (0.2-1.3); Total Protein 6.2 g/dL (6.3-8.2)
[2024-06-06] MEDS: MAGNESIUM SULFATE-D5W PMX 1 GM in DEXTROSE/WATER 1 100ML.BAG IVPB ONE (06:39)
[2024-06-06] MEDS: FUROSEMIDE 10 MG/ML 2 ML VIAL IV ONE (06:44)
--- NOTE | 2024-06-06 07:33 | XR ---
EXAM: XR chest 1V portable CLINICAL INDICATION:Male, 44 years old with history of respiratory evaluation; [facility] COMPARISON: 06/05/2024 TECHNIQUE: Chest single view. FINDINGS: Stable left-sided subclavian central venous line with tip near the SVC/RA junction. Pulmonary vascular congestion continues to decrease. Decreased bilateral perihilar infiltrates. No new or worsening pulmonary infiltrate, sizable effusion, or pneumothorax. Stable cardiomediastinal silhouette. Heart appears mildly enlarged. Bones and soft tissues are grossly stable. No acute osseous abnormality is seen. IMPRESSION: Continued decreased pulmonary vascular congestion and perihilar infiltrates, likely resolving pulmona ry edema.
--- NOTE | 2024-06-06 10:24 | P.PN ---
Subjective Progress Note Date: 06/06/24 Principal diagnosis: New onset seizures, inability to protect airways, requiring intubation mechanical ventilation, May 30 2024 This is a 44-year-old male with a history of depression, possibly PTSD, and hypertension. The patient apparently had a new onset seizure today, and was found by his , at home. The patient apparently was acting strange, and subsequent to that, was found on the bedroom floor, having a seizure. EMS was called and brought the patient into the emergency room. The patient had at least 2 seizures in the emergency room, and could not protect his airway, and was intubated for airway protection. The patient is seen in the emergency department, in trauma room 1. The patient had a initial blood gas,, showing a pO2 of 170, pCO2 of 35, pH is 6.99. Subsequent blood gas on 100% showed a pO2 of greater than 420, pCO2 of 38, and a pH of 7.43. Lactic acid was 10.7. Glucose was 138. Additional labs include a white count of 16.6, hemoglobin 14. 8, hematocrit 46.1, and a platelet count of 285,000. Sodium 144, potassium 5.8, chlorides 105, CO2 less than 5, BUN 14, creatinine 1.52. Glucose was 345. Lactic acid was 10.7. N-terminal proBNP was 319. Troponin was 0.151. Albumin 5.3. Viral screen was negative. Serum alcohol level was less than 10. Brain CT showed nothing acute. Chest x-ray showed no acute cardiopulmonary changes. CT of the abdomen and pelvis, was also negative. The did state, that the patient does use marijuana, does not smoke cigarettes at this time, and drinks occasionally heavily. Patient was evaluated today on 05/31/2024, patient remains intubated [place] ventilated. He is on assist-control rate of 20 tidal volume 500 FiO2 40% PEEP of 5 ABG showed a pO2 of 155 pCO2 34 pH of 7.48. Patient remains on the [facility] protocol for history of alcoholism. Remains on propofol at 40 mcg/kg/min he is also on LR at 125 mL/h chest x-ray showed no evidence of active disease. Labs were reviewed WBC count 6.1 hemoglobin is 10.0. PTT is 60 ABG showed a pO2 of 155 pCO2 34 pH of 7.48, hence vent settings were adjusted with rate down to 18 FiO2 down to 35%. Basic metabolic profile is normal however BUN is 24 cr eatinine 2.99, patient apparently developed acute tubular necrosis/acute kidney injury being addressed by nephrology on the case CPK is elevated at 799, troponin 4.32 and total protein is 5.6 albumin 3.0, looking back at this patient presentation, he had a brief cardiac arrest in the ER, received 2 epinephrines, downtime was few minutes, hence we will try to assess his mental status today for possible weaning and extubation. After going off sedation, patient seems to be arousable, follows simple instructions but was extremely agitated and restless, could not proceed to full extubation on this patient. Patient was evaluated today on 06/01/24, patient remains in the ICU, intubated and mechanically ventilated. He is presently on assist-control rate of 18 tidal volume 500 FiO2 35% PEEP of 5 ABG showed a pO2 of 132 pCO2 40 pH of 7.42 hence no changes were made in present vent settings. Patient is being considered for lumbar puncture today by neurology. Patient remains on propofol at 50 mcg/kg/min, he is also on LR at 125 cc/h heparin drip, and I will likely transition the patient from propofol to Precedex to hopefully consider a weaning trial and possibly extubation. Patient has not had any seizures overnight, he is maintained on Keppra and ceftriaxone and he was also placed on acyclovir. Again neurology is considering a lumbar puncture to be done today. WBC count today is 5.2 hemoglobin is 10 electrolytes are normal BUN is 29 creatinine on the rise up to 3.41. Patient was seen by urology, did not feel that the patient had hydronephrosis, and recommended no intervention. Did not feel his acute kidney injury is secondary to any obstructive uropathy renal status is being closely monitored by nephrology on the case. X-ray showed no pulmonary process. Patient is showing group C beta-hemolytic strep in the sputum significance of which is not clear Patient was a on 06/02/24, patient remains in the tube, intubated and mechanically ventilated. He is on assist-control rate of 18 tidal volume 500 FiO2 35% and PEEP of 5 his ABG showed a pO2 of 102 pCO2 40 0 pH of 7.46. Patient remains on multiple drips including Precedex at 1.1 mcg/kg/h Cleviprex at 2 mg/h he is on LR at 125 cc/h he is also on propofol which was 30 mcg/kg/min, and I stopped it to wean and extubate the patient hopefully today. Patient remains on acyclovir and ceftriaxone, his preliminary findings on the spinal fluid seems to be unremarkable. Patient did undergo a lumbar puncture yesterday, the preliminary report is relatively normal. Chest x-ray is relatively unremarkable, endotracheal tube is sitting high up in the trachea. PTT is 49.4 WBC count is 6.1 hemoglobin 11.8 electrolytes are normal BUN is 22 creatinine trending down to 2.43. Liver enzymes are unremarkable Patient was evaluated today on 11/26, remains in the ICU, on Precedex at 1.4 mcg/kg/h patient is having intermittent episodes of agitations, restless at times, requiring Ativan intermittently clearly the patient has symptoms of alcohol withdrawal. Patient is supposed to have cardiac catheterization today, however considering his overall condition, may have to be placed on hold.WBC count is 8.9 hemoglobin 11.2 PTT is 59 electrolytes are normal renal profile is improving BUN is 22 creatinine 1.61 Patient was very on 06/04/2024, remains in the ICU, patient underwent cardiac catheterization today, and the findings were unremarkable. Patient is still requiring Precedex for alcohol withdrawal presently at 0.7 mcg/kg/h. Patient is on LR, he is also receiving Ativan intermittently as well as MS, and he is back on his Suboxone. He is on 4 L nasal cannula, chest x-ray showed evidence of pulmonary edema not to mention the patient had elevated left ventricular end- diastolic pressures from the cardiac catheterization report. The patient will have fluids at KVO, and I will start the patient on diuretics, will receive 40 mg of Lasix IV push WBC count today is 7.2 hemoglobin 10.3 PTT 37.7 electrolytes are normal BUN is 23 creatinine 1.11 Patient evaluated today on , remains in the ICU, still requiring sedation with Precedex and Ativan. He is now on 4 L nasal cannula, yesterday his chest x-ray showed significant pulmonary edema secondary to acute systolic congestive heart failure with cardiomyopathy most likely related to his alcoholism. This is a picture of nonischemic cardiomyopathy. Patient did well with Lasix given yesterday, chest x-ray is better his pulmonary status is better today, follow-up chest x-ray this morning still shows some pulmonary edema but improved and I am recommending another dose of Lasix 20 mg IV push to be given today. His IV fluid remains at KVO Precedex is at 0.3 mcg/kg/h. His echocardiogram showed LV dysfunction with ejection fraction of 35 to 40%. Cardiac catheterization showed no evidence of significant obstructive coronary artery disease. WBC count today is 8.7 hemoglobin 12.7 basic metabolic profile is normal potassium is a bit low at 3.2 being addressed accordingly Patient was evaluated today 06/06/2024, remains in the ICU, patient is off Precedex, not requiring a significant amount of Ativan for sedation, patient is on room air, not in any distress, he is significantly improved compared to the last few days. His withdrawal is under control, his labs are unremarkable including WBC of 6.4 hemoglobin 11.9 electrolytes are normal BUN is 12 creatinine 0.7. Chest x-ray showed near complete resolution of his interstitial edema, but not completely resolved, patient to receive another dose of Lasix today. Remind you patient has alcohol induced cardiomyopathy and LV dysfunction/nonischemic in nature based on his cardiac catheterization. Objective - Vital Signs Vital signs: Vital Signs Temp 97.9 F 06/06/24 08:00 Pulse 64 06/06/24 08:00 Resp 13 06/06/24 09:00 BP 104/79 06/06/24 09:00 Pulse Ox 95 06/06/24 09:00 FiO2 50 06/03/24 12:08 Intake & Output 06/05/24 06/06/24 06/06/24 18:59 06:59 18:59 Intake Total 652.169 490 110 Output Total 2950 1850 1675 Balance -2297.831 -1360 -1565 Weight 83 kg Intake: IV 600 490 110 .9 NS 80 LR KVO 120 240 60 Magnesium Sulfate-D5w Pmx 200 1 gm In Dextrose/Water 1 100ml.bag @ 100 mls/hr IVPB Q1H [facility] Rx#: [id number] Potassium Chloride 20 meq 150 250 In Water For Injection 1 100ml.bag @ 50 mls/hr IVPB Q2H [facility] Rx#: [id number] cefTRIAXone 2 gm In 50 50 Sodium Chloride 0.9% 50 ml @ 100 mls/hr IVPB Q24HR [facility] Rx#:[id number] Intake, IV Titration 52.169 Amount Dexmedetomidine/0.9% NaCl 52.169 (Pmx) 400 mcg In Empty Bag 1 bag @ 0.2 MCG/KG/HR 4.25 mls/hr IV .[id number] [facility] Rx#:[id number] Output: Urine 2950 1850 1675 Other: Voiding Method Indwelling Catheter Indwelling Catheter ABP, PAP, CO, CI - Last Documented Arterial Blood Pressure 149/85 - Exam General: Revealed 44-year-old white male, calm, not anxious, on room air Skin: Skin is warm and dry and no rashes or lesions are noted. Eye: Pupils are equal, round and reactive to light, extra-ocular movements are intact; there is normal conjunctiva bilaterally. Ears, nose, mouth and throat: There are moist mucous membranes and no oral lesions. Neck: The neck is supple, there is no tenderness or JVD. Cardiovascular: There is a regular rate and rhythm. No murmur, rub or gallop is appreciated. Respiratory: Clear throughout no crackles rhonchi or wheezes Gastrointestinal: Soft, non-distended, non-tender abdomen without masses or organomegaly noted. There is no rebound or guarding present. Bowel sounds are unremarkable. Neurological: oriented x 3, no gross focal neurologic deficit Psychiatric: Normal mood, affect and normal mental status examination - Labs CBC & Chem 7: 06/06/24 05:52 06/06/24 05:52 Labs: Abnormal Lab Results - Last 24 Hours (Table) 06/05/24 06/05/24 06/05/24 Range/Units 11:40 13:28 17:39 RBC (4.30-5.90) m/uL Hgb (13.0-17.5) gm/dL Hct (39.0-53.0) % Potassium 3.3 L (3.5-5.1) mmol/L Glucose (74-99) mg/dL POC Glucose (mg/dL) 135 H 120 H (70-110) mg/dL AST (17-59) U/L ALT (4-49) U/L Total Protein (6.3-8.2) g/dL Albumin (3.5-5.0) g/dL 06/05/24 06/06/24 06/06/24 Range/Units 23:29 05:04 05:52 RBC (4.30-5.90) m/uL Hgb (13.0-17.5) gm/dL Hct (39.0-53.0) % Potassium (3.5-5.1) mmol/L Glucose 123 H (74-99) mg/dL POC Glucose (mg/dL) 120 H 128 H (70-110) mg/dL AST 194 H (17-59) U/L ALT 107 H (4-49) U/L Total Protein 6.2 L (6.3-8.2) g/dL Albumin 3.3 L (3.5-5.0) g/dL 06/06/24 Range/Units 05:52 RBC 3.63 L (4.30-5.90) m/uL Hgb 11.9 L (13.0-17.5) gm/dL Hct 34.6 L (39.0-53.0) % Potassium (3.5-5.1) mmol/L Glucose (74-99) mg/dL POC Glucose (mg/dL) (70-110) mg/dL AST (17-59) U/L ALT (4-49) U/L Total Protein (6.3-8.2) g/dL Albumin (3.5-5.0) g/dL Microbiology - Last 24 Hours (Table) 06/01/24 14:45 CSF Gram Stain - Final Cerebral Spinal Fluid CSF Culture - Final Assessment and Plan Assessment: Impression: New onset seizures with inability to protect airway is required requiring intubation mechanical ventilation May 30, extubated on 06/02/2024 Brief cardiac arrest/asystole while in the ER requiring 2 doses of epinephrine Acute systolic congestive heart failure, reduced ejection fracture 35 to 40% Nonischemic cardiomyopathy and LV dysfunction, most likely secondary to alcohol induced cardiomyopathy Acute kidney injury/acute tubular necrosis, resolved History of alcoholism History of PTSD History of depression Benign essential hypertension Recommendations: Consider transferring the patient to a monitored bed and selective once a bed is available. No need for ICU at this point. Continue antibiotics as per ID on the case Continue seizure meds and seizure precautions Diet as tolerated Gentle diuresis intermittently as needed Continue DVT prophylaxis and GI prophylaxis Continue to monitor renal status and profile daily Continue Kedarrellra Will continue to follow Time with Patient: Less than 30
--- NOTE | 2024-06-06 10:55 | P.PN ---
Subjective Progress Note Date: 06/06/24 Hospital Course: 44 year old M with PMH of EtOH abuse, PTSD, Depression, h/o hypertension prese nts to the ED with seizure lasting 3 to 4 minutes. Patient was noted to have a grand mal seizure in the ED given 7 mg of IV Ativan. Following his seizure, had an episode of bradycardia and hypotension with loss of pulse. ACLS was initiated requiring 4 minutes of CPR, epinephrine and bicarb, ROSC was achieved. CBC and CMP was significant for WBC 16.6, MCV 103.6, K 5.8, bicarb < 5, Cr 1.52, glu 345, alb 5.3. Mag 2.8, Lactic acid 10.7-2.6. UA 3+ glucose and moderate blood, no LE or nitrite. UDS + benzo and THC. Serum alcohol and acetone negative. COVID/RSV/Flu negative. VBG pH 6.61, pCO2 62. Troponin 0.151, 7.01. ABG post cardiac arrest pH 6.99, pCO2 35 and subsequently pH 7.43, pCO2 38. CXR shows ET tube with no acute process. Brain CT negative. CT AP negative. EKG showed sinus rhythm with nonspecific ST and T wave abnormalities and evidence of LVH. Patient is admitted to ICU for further workup and management. Started on Keppra 1000 mg IV BID, Neurology consulted, EEG ordered showing excessive amount of low-voltage fast frequency beta activity suggestive of benzodiazepine effect. Due to elevated troponin, Cardiology consulted, started on a Heparin drip and Echo ordered. Echo showing EF 35-40%. Due to worsening renal function, nephrology also consulted. LP completed, unlikely to be meningitis. Patient remains on IV antibiotics per ID, on IV Keppra. Now extubated. Patient also having acute encephalopathy, possible alcohol withdrawal versus worsening PTSD versus ICU delirium. Psychiatry consulted. Likely has ICU delirium. Underwent cath which showed nonobstructive CAD, elevated filling pressures. Now has pulmonary edema secondary to CHF exacerbation. On diuretics. MRI brain pending. Subjective: Patient seen and examined at bedside. He claims that his breathing is a lot better. He has gotten out of the bed to go to the bathroom. Castellanos catheter still in place. Pertinent positives and negatives as discussed above, a complete review of systems was performed and all other systems are negative. Vitals Signs Reviewed. General: Nontoxic, no distress, appears at stated age, Castellanos catheter in place Derm: Warm, dry Head: Atraumatic, normocephalic, symmetric Eyes: EOMI, no lid lag, anicteric sclera Mouth: No lip lesion, mucus membranes moist Cardiovascular: S1S2 reg, no murmur Lungs: Bilateral rales, no accessory muscle use Abdominal: Soft, nontender to palpation, no guarding, no appreciable organomegaly Ext: No gross muscle atrophy, no edema, no contractures Neuro: CN II-XI grossly intact, no focal neuro deficits Psych: Cooperative, alert and oriented Data Reviewed Today: Pertinent Labs: WBC 6.4, hemoglobin 11.9, potassium 3.6, creatinine 0.76, glucose range between 1 20-1 28 Imaging: Chest x-ray independently interpreted, interstitial opacities mostly resolved Assessment and Plan: Acute encephalopathy, likely ICU delirium, resolved Alcohol dependence, with possible alcohol withdrawal History of opiate dependence Status post cardiac arrest New onset seizures NSTEMI, likely secondary to cardiac arrest Nonobstructive CAD Cardiomyopathy, possibly secondary to above, EF 35 to 40%, in acute exacerbation Hypokalemia Hypomagnesemia Hypertension Acute hypoxic respiratory failure, secondary to above, resolved LUCY, likely ATN secondary to above, resolved Sepsis, suspected pneumonia versus [employer] source (less likely), resolved -Neurology following, continue IV Keppra 1000 mg every 12 hours, Ativan as needed for seizures, MRI brain when stable -On CIWA protocol, IV Ativan as needed, monitor for sedation, on oral thiamine 100 mg daily -Was on Suboxone at home, restarted -Psychiatry following, likely ICU delirium, discontinued sertraline -Pulmonology note reviewed, transfer out of the ICU, received another 20 mg IV Lasix -Continue telemetry monitoring -Currently on aspirin 81 mg daily, discontinued heparin drip -Cardiology following, has nonobstructive CAD, started on Entresto 24-26 mg twice daily, also started on hydralazine 25 every 6 hours, carvedilol 6.25 twice daily -Nephrology following, continue diuretics, repleted magnesium and potassium -ID following, patient maintained on Rocephin 2 g IV every 24 hours PTSD/depression -Psychiatry following, holding sertraline Macrocytic anemia Thrombocytopenia, resolved -Stable, likely secondary to alcohol use Resolved: Anion gap metabolic acidosis due to lactic acidosis, HyperK DVT ppx: Subcu heparin Code status: Full code Anticipated discharge place: Pending clinical course Anticipated discharge time: Pending clinical course Objective - Vital Signs Vital signs: Vital Signs Temp 97.9 F 06/06/24 08:00 Pulse 108 H 06/06/24 10:00 Resp 21 06/06/24 10:00 BP 141/86 06/06/24 10:00 Pulse Ox 90 L 06/06/24 10:00 FiO2 50 06/03/24 12:08 Intake & Output 06/05/24 06/06/24 06/06/24 18:59 06:59 18:59 Intake Total 652.169 490 110 Output Total 2950 1850 1675 Balance -2297.831 -5576 -5625 Weight 83 kg Intake: IV 600 490 110 .9 NS 80 LR KVO 120 240 60 Magnesium Sulfate-D5w Pmx 200 1 gm In Dextrose/Water 1 100ml.bag @ 100 mls/hr IVPB Q1H [facility] Rx#: [id number] Potassium Chloride 20 meq 150 250 In Water For Injection 1 100ml.bag @ 50 mls/hr IVPB Q2H [facility] Rx#: [id number] cefTRIAXone 2 gm In 50 50 Sodium Chloride 0.9% 50 ml @ 100 mls/hr IVPB Q24HR [facility] Rx#:[id number] Intake, IV Titration 52.169 Amount Dexmedetomidine/0.9% NaCl 52.169 (Pmx) 400 mcg In Empty Bag 1 bag @ 0.2 MCG/KG/HR 4.25 mls/hr IV .[id number] [facility] Rx#:[id number] Output: Urine 2950 1850 1675 Other: Voiding Method Indwelling Catheter Indwelling Catheter Indwelling Catheter ABP, PAP, CO, CI - Last Documented Arterial Blood Pressure 149/85 - Labs CBC & Chem 7: 06/06/24 05:52 06/06/24 05:52 Labs: Abnormal Lab Results - Last 24 Hours (Table) 06/05/24 06/05/24 06/05/24 Range/Units 11:40 13:28 17:39 RBC (4.30-5.90) m/uL Hgb (13.0-17.5) gm/dL Hct (39.0-53.0) % Potassium 3.3 L (3.5-5.1) mmol/L Glucose (74-99) mg/dL POC Glucose (mg/dL) 135 H 120 H (70-110) mg/dL AST (17-59) U/L ALT (4-49) U/L Total Protein (6.3-8.2) g/dL Albumin (3.5-5.0) g/dL 06/05/24 06/06/24 06/06/24 Range/Units 23:29 05:04 05:52 RBC (4.30-5.90) m/uL Hgb (13.0-17.5) gm/dL Hct (39.0-53.0) % Potassium (3.5-5.1) mmol/L Glucose 123 H (74-99) mg/dL POC Glucose (mg/dL) 120 H 128 H (70-110) mg/dL AST 194 H (17-59) U/L ALT 107 H (4-49) U/L Total Protein 6.2 L (6.3-8.2) g/dL Albumin 3.3 L (3.5-5.0) g/dL 06/06/24 Range/Units 05:52 RBC 3.63 L (4.30-5.90) m/uL Hgb 11.9 L (13.0-17.5) gm/dL Hct 34.6 L (39.0-53.0) % Potassium (3.5-5.1) mmol/L Glucose (74-99) mg/dL POC Glucose (mg/dL) (70-110) mg/dL AST (17-59) U/L ALT (4-49) U/L Total Protein (6.3-8.2) g/dL Albumin (3.5-5.0) g/dL Microbiology - Last 24 Hours (Table) 06/01/24 14:45 CSF Gram Stain - Final Cerebral Spinal Fluid CSF Culture - Final
--- NOTE | 2024-06-06 12:19 | P.PN ---
Subjective Patient is seen for follow-up for acute kidney injury. Status post cardiac cath on 06/04/2024 with no evidence of coronary artery disease. status post diuresis for volume overload and CHF. Volume status has improved with improvement in respiratory status. serum creatinine down to 0.7 mg/dL. Objective - Vital Signs Vital signs: Vital Signs Temp 97.9 F 06/06/24 08:00 Pulse 108 H 06/06/24 10:00 Resp 21 06/06/24 10:00 BP 141/86 06/06/24 10:00 Pulse Ox 90 L 06/06/24 10:00 FiO2 50 06/03/24 12:08 Intake & Output 06/05/24 06/06/24 06/06/24 18:59 06:59 18:59 Intake Total 652.169 490 110 Output Total 2950 1850 1675 Balance -2297.831 -0643 -2135 Weight 83 kg Intake: IV 600 490 110 .9 NS 80 LR KVO 120 240 60 Magnesium Sulfate-D5w Pmx 200 1 gm In Dextrose/Water 1 100ml.bag @ 100 mls/hr IVPB Q1H [facility] Rx#: [id number] Potassium Chloride 20 meq 150 250 In Water For Injection 1 100ml.bag @ 50 mls/hr IVPB Q2H [facility] Rx#: [id number] cefTRIAXone 2 gm In 50 50 Sodium Chloride 0.9% 50 ml @ 100 mls/hr IVPB Q24HR [facility] Rx#:[id number] Intake, IV Titration 52.169 Amount Dexmedetomidine/0.9% NaCl 52.169 (Pmx) 400 mcg In Empty Bag 1 bag @ 0.2 MCG/KG/HR 4.25 mls/hr IV .[id number] [facility] Rx#:[id number] Output: Urine 2950 1850 1675 Other: Voiding Method Indwelling Catheter Indwelling Catheter Indwelling Catheter ABP, PAP, CO, CI - Last Documented Arterial Blood Pressure 149/85 - Exam patient is Awake, mildly short of breath, no acute distress Examination of the heart S1 and S2 Examination of the lungs, bilateral breath sounds are heard Abdomen is soft nontender Examination of lower extremity shows no significant edema - Labs CBC & Chem 7: 06/06/24 05:52 06/06/24 05:52 Labs: Abnormal Lab Results - Last 24 Hours (Table) 06/05/24 06/05/24 06/05/24 Range/Units 13:28 17:39 23:29 RBC (4.30-5.90) m/uL Hgb (13.0-17.5) gm/dL Hct (39.0-53.0) % Potassium 3.3 L (3.5-5.1) mmol/L Glucose (74-99) mg/dL POC Glucose (mg/dL) 120 H 120 H (70-110) mg/dL AST (17-59) U/L ALT (4-49) U/L Total Protein (6.3-8.2) g/dL Albumin (3.5-5.0) g/dL 06/06/24 06/06/24 06/06/24 Range/Units 05:04 05:52 05:52 RBC 3.63 L (4.30-5.90) m/uL Hgb 11.9 L (13.0-17.5) gm/dL Hct 34.6 L (39.0-53.0) % Potassium (3.5-5.1) mmol/L Glucose 123 H (74-99) mg/dL POC Glucose (mg/dL) 128 H (70-110) mg/dL AST 194 H (17-59) U/L ALT 107 H (4-49) U/L Total Protein 6.2 L (6.3-8.2) g/dL Albumin 3.3 L (3.5-5.0) g/dL Microbiology - Last 24 Hours (Table) 06/01/24 14:45 CSF Gram Stain - Final Cerebral Spinal Fluid CSF Culture - Final Assessment and Plan Assessment: 1. Acute kidney injury, ATN, nonoliguric secondary to hypotension and cardiac arrest. UA shows 1+ protein 3+ blood in ( it was a difficult Castellanos catheter placement). CT of the abdomen negative for any obstructive uropathy. CK is mildly elevated at 799. Renal function has improved significantly. 2. New onset seizures, maintained on Keppra. Neurology on consult. ? related to alcohol withdrawal. 3. Severe metabolic acidosis possibly related to lactic acidosis volatile screen is negative. Serum acetone, salicylate and alcohol is negative. 4. Hyperkalemia associated with acute kidney injury and severe metabolic acidosis, improved. 5. New onset diabetes 6. Elevated troponins being followed by cardiology. 7. Volume overload, improved 8. Hypokalemia being replaced Plan: maintain off of IV fluids. replace potassium Lasix as needed Repeat labs in a.m. Continue to avoid nephrotoxic agents.
[2024-06-06] MEDS: ONDANSETRON 4 MG/2 ML VIAL IVP PRN (12:41)
[2024-06-06 12:46] LABS: Glucose,Whole Blood 124 mg/dL (70-110)
--- NOTE | 2024-06-06 13:27 | P.PN ---
Subjective Progress Note Date: 06/06/24 This is a 45-year-old gentleman who requested to see the emergency department for further cardiac evaluation of abnormal cardiac enzymes. Currently the patient is intubated and he is on mechanical ventilation but the history was taken from the ER physician as well as from the patient's who was at be dside. The patient was noted to be in normal situation till yesterday. 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 Before that he was drinking excessively according to his . Ambulance was called and the patient was brought to the emergency department for further evaluation in the emergency department he was confused but subsequently he had a grand mal seizure witnessed by the ER staff. Subsequently the patient was intubated and placed on mechanical ventilation to protect the airway. Further evaluation was performed including an EKG. The first EKG showed sinus rhythm with nonspecific ST and T wave abnormalities and evidence of LVH. Second EKG showed sinus mechanism with no ST or T wave abnormalities. The troponin came in to be slightly elevated. According to the patient's he was not experiencing any cardiovascular symptoms of any chest pain or chest discomfort or shortness of breath. He never been diagnosed with diabetes. He was diagnosed in the past with hypertension and he was on medications but he stopped taking the medications. Please note that his blood glucose is elevated during the blood work today. The patient underwent also a CT scan of the brain which did show any acute abnormalities. Currently he is hemodynamically stable with soft blood pressure. Beside that he underwent a blood work and that revealed low GFR and elevated potassium. The chest x-ray showed possible underlying pneumonia and he was seen by the pulmon acosta/critical care team and he was placed on antibiotic. The examination is remarkable for patient to be intubated on mechanical ventilation with regular rate and rhythm and soft systolic murmur at the right upper sternal border and clear breathing sounds bilaterally and no edema was noted in the lower extremities with soft nontender abdomen May 31, 2024 Patient seen and examined at bedside. Family was present at bedside. Echocardiogram still pending, hemodynamic stable. No further episodes of asystole or any other pauses or any arrhythmias on telemetry monitoring. Appropriate urine output. No signs of bleeding on IV heparin drip. June 01, 2024 Patient is seen and examined at bedside this a.m. patient's echocardiogram showed an EF of 35 to 40% with no significant valvular abnormality. Appropriate urine output. No further episodes of seizure. Propofol was reduced and was started on Precedex. June 02, 2024 Patient is seen and examined at bedside this a.m. Patient was successfully extubated this morning. Since extubation patient's heart rate is much better. He was hypertensive last night for which she was started on clevidipine drip. This was weaned off this morning. He is currently under restraints as since extubation he has been confused and agitated. Renal function is improving, appropriate urine output June 03, 2024 Patient is seen and examined at bedside this a.m. His kidney function is continuing to be improving. His creatinine is 1.6 today. Appropriate urine output. Patient appears to be in some delirium. He continues to be in sinus rhythm with no concerns of arrhythmias on telemetry monitoring. His systolic blood pressure is around 140s. Jun 05, 2024 Patient is seen and examined at bedside this a.m. Right radial access site appears to be intact with no hematoma or swelling. Hemodynamically stable. On exam S1-S2 is audible, regular pulses, Mild crackles audible in bilateral lung lazo, diminished breath sounds, no significant rhonchi Patient is slightly agitated and is in delirium since extubation No swelling in bilateral lower extremity Assessment Asystolic cardiac arrest after a Grand [place] seziure, required 4 mins of CPR Elevated troponin due to cardiac arrest, Likely Type II nstemi Essential hypertension Cardiomyopathy with EF 35 to 40%, likely stress-induced cardiomyopathy. Nonischemic with negative heart cath LUCY, due to ATN likely due to hypoxic injury from cardiac arrest Grand Mal seizure Electrolytes abnormalities with hyperkalemia History of excessive alcohol use Plan Plan for getting patient set up with a wearable ICD prior to the discharge. Would recommend at least for 3 months. For repeat echocardiogram prior to deciding if it should be approved or should we proceed for ICD evaluation. Patient's family was educated and verbal consent was obtained. Indication is dilated cardiomyopathy and concerns of asystole cardiac arrest Continue aspirin 81 mg, atorvastatin 20 mg, Coreg 6.25 mg twice daily, Stop hydralazine. Increase Entresto to 49/51 mg twice daily Add Aldactone 25 mg daily Consider adding Farxiga once infection is cleared up and patient is able to tolerate oral diet well Discontinue IV heparin drip Objective - Vital Signs Vital signs: Vital Signs Temp 98.0 F 06/06/24 12:00 Pulse 87 06/06/24 12:00 Resp 20 06/06/24 12:00 BP 124/70 06/06/24 12:00 Pulse Ox 91 L 06/06/24 12:00 FiO2 50 06/03/24 12:08 Intake & Output 06/05/24 06/06/24 06/06/24 18:59 06:59 18:59 Intake Total 652.169 490 190 Output Total 2950 1850 1900 Balance -2297.831 -1360 -1710 Weight 83 kg Intake: IV 600 490 190 .9 NS 80 40 LR KVO 120 240 100 Magnesium Sulfate-D5w Pmx 200 1 gm In Dextrose/Water 1 100ml.bag @ 100 mls/hr IVPB Q1H YESENIA Rx#: [id number] Potassium Chloride 20 meq 150 250 In Water For Injection 1 100ml.bag @ 50 mls/hr IVPB Q2H YESENIA Rx#: [id number] cefTRIAXone 2 gm In 50 50 Sodium Chloride 0.9% 50 ml @ 100 mls/hr IVPB Q24HR YESENIA Rx#:[id number] Intake, IV Titration 52.169 Amount Dexmedetomidine/0.9% NaCl 52.169 (Pmx) 400 mcg In Empty Bag 1 bag @ 0.2 MCG/KG/HR 4.25 mls/hr IV .[id number] YESENIA Rx#:[id number] Output: Urine 2950 1850 1900 Other: Voiding Method Indwelling Catheter Indwelling Catheter Indwelling Catheter ABP, PAP, CO, CI - Last Documented Arterial Blood Pressure 149/85 - Labs CBC & Chem 7: 06/06/24 05:52 06/06/24 05:52 Labs: Abnormal Lab Results - Last 24 Hours (Table) 06/05/24 06/05/24 06/05/24 Range/Units 13:28 17:39 23:29 RBC (4.30-5.90) m/uL Hgb (13.0-17.5) gm/dL Hct (39.0-53.0) % Potassium 3.3 L (3.5-5.1) mmol/L Glucose (74-99) mg/dL POC Glucose (mg/dL) 120 H 120 H (70-110) mg/dL AST (17-59) U/L ALT (4-49) U/L Total Protein (6.3-8.2) g/dL Albumin (3.5-5.0) g/dL 06/06/24 06/06/24 06/06/24 Range/Units 05:04 05:52 05:52 RBC 3.63 L (4.30-5.90) m/uL Hgb 11.9 L (13.0-17.5) gm/dL Hct 34.6 L (39.0-53.0) % Potassium (3.5-5.1) mmol/L Glucose 123 H (74-99) mg/dL POC Glucose (mg/dL) 128 H (70-110) mg/dL AST 194 H (17-59) U/L ALT 107 H (4-49) U/L Total Protein 6.2 L (6.3-8.2) g/dL Albumin 3.3 L (3.5-5.0) g/dL 06/06/24 Range/Units 12:45 RBC (4.30-5.90) m/uL Hgb (13.0-17.5) gm/dL Hct (39.0-53.0) % Potassium (3.5-5.1) mmol/L Glucose (74-99) mg/dL POC Glucose (mg/dL) 124 H (70-110) mg/dL AST (17-59) U/L ALT (4-49) U/L Total Protein (6.3-8.2) g/dL Albumin (3.5-5.0) g/dL Microbiology - Last 24 Hours (Table) 06/01/24 14:45 CSF Gram Stain - Final Cerebral Spinal Fluid CSF Culture - Final
--- NOTE | 2024-06-06 15:59 | P.PN ---
Subjective Progress Note Date: 06/06/24 Principal diagnosis: Reason for follow-up is positive sputum cultures with group C strep/pneumonia Patient is a 44-year-old male with a past medical history significant for hypertension reflux chronic hepatitis C treated seizure disorder heavy drinking presented to hospital for evaluation of some weakness mental status changes did have seizure activity subsequently got intubated and admitted to ICU. On today's visit that is 06/06/2024, the patient continues to be afebrile, the patient is on room air and breathing comfortably, the Pt denies having any chest pain or cough, the patient denies having any abdominal pain no vomiting or any diarrhea has been reported by the nursing staff, mention feeling better. The patient white count 6.4, creatinine 0.76 Objective - Vital Signs Vital signs: Vital Signs Temp 98.0 F 06/06/24 12:00 Pulse 103 H 06/06/24 15:00 Resp 18 06/06/24 15:00 BP 126/84 06/06/24 15:00 Pulse Ox 98 06/06/24 15:00 FiO2 50 06/03/24 12:08 Intake & Output 06/05/24 06/06/24 06/06/24 18:59 06:59 18:59 Intake Total 652.169 490 230 Output Total 2950 1850 1900 Balance -2297.831 -1360 -1670 Weight 83 kg Intake: IV 600 490 230 .9 NS 80 60 LR KVO 120 240 120 Magnesium Sulfate-D5w Pmx 200 1 gm In Dextrose/Water 1 100ml.bag @ 100 mls/hr IVPB Q1H YESENIA Rx#: [id number] Potassium Chloride 20 meq 150 250 In Water For Injection 1 100ml.bag @ 50 mls/hr IVPB Q2H YESENIA Rx#: [id number] cefTRIAXone 2 gm In 50 50 Sodium Chloride 0.9% 50 ml @ 100 mls/hr IVPB Q24HR YESENIA Rx#:[id number] Intake, IV Titration 52.169 Amount Dexmedetomidine/0.9% NaCl 52.169 (Pmx) 400 mcg In Empty Bag 1 bag @ 0.2 MCG/KG/HR 4.25 mls/hr IV .[id number] YESENIA Rx#:[id number] Output: Urine 2950 1850 1900 Other: Voiding Method Indwelling Catheter Indwelling Catheter Indwelling Catheter # Voids 1 # Bowel Movements 1 ABP, PAP, CO, CI - Last Documented Arterial Blood Pressure 149/85 - Exam GENERAL DESCRIPTION: Middle-age male intubated on the vent RESPIRATORY SYSTEM: Unlabored breathing , decreased breath sounds at bases HEART: S1 S2 regular rate and rhythm , ABDOMEN: Soft , no tenderness EXTREMITIES: No edema feet - Labs CBC & Chem 7: 06/06/24 05:52 06/06/24 05:52 Labs: Abnormal Lab Results - Last 24 Hours (Table) 06/05/24 06/05/24 06/06/24 Range/Units 17:39 23:29 05:04 RBC (4.30-5.90) m/uL Hgb (13.0-17.5) gm/dL Hct (39.0-53.0) % Glucose (74-99) mg/dL POC Glucose (mg/dL) 120 H 120 H 128 H (70-110) mg/dL AST (17-59) U/L ALT (4-49) U/L Total Protein (6.3-8.2) g/dL Albumin (3.5-5.0) g/dL 06/06/24 06/06/24 06/06/24 Range/Units 05:52 05:52 12:45 RBC 3.63 L (4.30-5.90) m/uL Hgb 11.9 L (13.0-17.5) gm/dL Hct 34.6 L (39.0-53.0) % Glucose 123 H (74-99) mg/dL POC Glucose (mg/dL) 124 H (70-110) mg/dL AST 194 H (17-59) U/L ALT 107 H (4-49) U/L Total Protein 6.2 L (6.3-8.2) g/dL Albumin 3.3 L (3.5-5.0) g/dL Microbiology - Last 24 Hours (Table) 06/01/24 14:45 CSF Gram Stain - Final Cerebral Spinal Fluid CSF Culture - Final Assessment and Plan (1) Positive culture findings in sputum Current Visit: Yes Status: Acute Code(s): R84.5 - ABNORMAL MICROBIOLOG FINDINGS IN SPECMN FROM RESP ORG/THRX SNOMED Code(s): 303849226 (2) Penicillin allergy Current Visit: Yes Status: Acute Code(s): Z88.0 - ALLERGY STATUS TO PENICILLIN SNOMED Code(s): 35470243 (3) Pneumonia Current Visit: Yes Status: Acute Code(s): J18.9 - PNEUMONIA, UNSPECIFIED ORGANISM SNOMED Code(s): 236949496 Plan: 1patient presented to hospital with seizure activity and this patient got intubated to protect airways chest x-ray did shows bilateral basilar infiltrate and concern for possible pneumonia not entirely excluded with a sputum positive for group C strep blood culture has been negative 2-patient is afebrile and white count has normalized 3-we will keep the patient on Rocephin and transition to short course of oral Ceftin on discharge Dictation was produced using [employer] dictation software. please excuse any grammatical, word or spelling errors.
[2024-06-06] MEDS: NON FORMULARY DRUG (Buprenorphine/Naloxone 8mg/2mg 1 EACH Film) SUBLINGUAL SCH (16:41)
[2024-06-06] MEDS: amLODIPine 5 MG TAB PO SCH (16:46)
[2024-06-06 18:04] LABS: Glucose,Whole Blood 110 mg/dL (70-110)
[2024-06-06 23:28] VITALS: RESP 16
[2024-06-06 23:48] LABS: Glucose,Whole Blood 126 mg/dL (70-110)
[2024-06-07 06:00] LABS: Glucose,Whole Blood 112 mg/dL (70-110)
[2024-06-07 06:11] VITALS: BP 104/56; PULSE 76; TEMP 97.9
[2024-06-07 11:25] LABS: Glucose,Whole Blood 113 mg/dL (70-110)
[2024-06-07 17:03] LABS: Glucose,Whole Blood 116 mg/dL (70-110)
[2024-06-07 20:06] LABS: Glucose,Whole Blood 132 mg/dL (70-110)
[2024-06-08 00:07] LABS: Glucose,Whole Blood 112 mg/dL (70-110)
[2024-06-08 05:59] LABS: Glucose,Whole Blood 98 mg/dL (70-110)
--- NOTE | 2024-06-30 09:13 | MR ---
EXAMINATION TYPE: MR brain wo/w con DATE OF EXAM: 06/07/2024 COMPARISON: None available during downtime HISTORY: 44-year-old male with seizure TECHNIQUE: Multiplanar, multisequence images of the brain and brainstem were acquired before and aft er administration of 8 mL IV Gadavist. Diffusion weighted imaging is performed. FINDINGS: No evidence for acute infarction, hemorrhage, mass, mass effect, midline shift, herniation, effacemen t of basal cisterns, or extra-axial fluid collection. The ventricles and sulci are age-appropriate. Major intracranial flow voids are intact. T2/FLAIR weighted sequences show no white matter signal abnormality. Symmetric appearance to the bilateral fornices and medial temporal lobes. No lowery matter heterotopia identified. Midline structures demonstrate normal morphology. The craniocervical junction is normal. Post contrast images demonstrate no evidence of pathologic enhancement. Dural venous sinuses are pat ent. Mild mucosal thickening ethmoid air cells. Minimal scattered fluid within the bilateral mastoid air c ells. Globes are intact. IMPRESSION: 1. No specific intracranial abnormality identified on pre and postcontrast assessment of the brain. 2. Minimal scattered fluid in the bilateral mastoid air cells. Correlate for any mastoid pain to excl ude mastoiditis.
[2024-06-30 12:04] LABS: Glucose 111 mg/dL (74-99); Potassium 3.9 mmol/L (3.5-5.1); Sodium 143 mmol/L (137-145)
[2024-06-30 12:05] LABS: ALT 118 U/L (4-49); AST 120 U/L (17-59); African American GFR (CKD) >90 (>60 ml/min/1.73 sqM); Albumin 3.7 g/dL (3.5-5.0); Alkaline Phosphatase 101 U/L (38-126); Anion Gap 11 mmol/L; Blood Urea Nitrogen 15 mg/dL (9-20); Calcium 9.3 mg/dL (8.4-10.2); Carbon Dioxide 29 mmol/L (22-30); Chloride 103 mmol/L (98-107); Non-African American GFR(CKD) >90 (>60 ml/min/1.73 sqM); Total Bilirubin 0.6 mg/dL (0.2-1.3); Total Protein 6.9 g/dL (6.3-8.2)
== END 2024-06-08 12:46 | disposition home or self-care (01) | DRG 896 ==
LOC: EC 06:26 → 2SICU 09:20 → 3SCARD 06-06 17:08
PROVIDERS: ADMIT Family Medicine; ATTEND Family Medicine
PROC: 0BH18EZ Insertion of Endotracheal Airway into Trachea, Via Natural or Artificial Opening Endoscopic (ICD-10-PCS; principal; 2024-05-30)
PROC: 5A1945Z Respiratory Ventilation, 24-96 Consecutive Hours (ICD-10-PCS; 2024-05-30)
PROC: 02HV33Z Insertion of Infusion Device into Superior Vena Cava, Percutaneous Approach (ICD-10-PCS; 2024-05-30)
PROC: 04HY32Z Insertion of Monitoring Device into Lower Artery, Percutaneous Approach (ICD-10-PCS; 2024-05-30)
PROC: 4A133B1 Monitoring of Arterial Pressure, Peripheral, Percutaneous Approach (ICD-10-PCS; 2024-05-30)
PROC: 4A133J1 Monitoring of Arterial Pulse, Peripheral, Percutaneous Approach (ICD-10-PCS; 2024-05-30)
PROC: 3E043XZ Introduction of Vasopressor into Central Vein, Percutaneous Approach (ICD-10-PCS; 2024-05-30)
PROC: 5A12012 Performance of Cardiac Output, Single, Manual (ICD-10-PCS; 2024-05-30)
PROC: 3E033XZ Introduction of Vasopressor into Peripheral Vein, Percutaneous Approach (ICD-10-PCS; 2024-05-30)
PROC: 0D9670Z Drainage of Stomach with Drainage Device, Via Natural or Artificial Opening (ICD-10-PCS; 2024-05-30)
PROC: 4A023N7 Measurement of Cardiac Sampling and Pressure, Left Heart, Percutaneous Approach (ICD-10-PCS; 2024-06-04)
PROC: B2111ZZ Fluoroscopy of Multiple Coronary Arteries using Low Osmolar Contrast (ICD-10-PCS; 2024-06-04)
DX: F10.288 Alcohol dependence with other alcohol-induced disorder (principal); A41.9 Sepsis, unspecified organism; J96.01 Acute respiratory failure with hypoxia; I46.8 Cardiac arrest due to other underlying condition; N17.0 Acute kidney failure with tubular necrosis; I50.21 Acute systolic (congestive) heart failure; J15.4 Pneumonia due to other streptococci; I21.A1 Myocardial infarction type 2; F11.20 Opioid dependence, uncomplicated; G93.49 Other encephalopathy; I42.6 Alcoholic cardiomyopathy; E87.20 Acidosis, unspecified; F05 Delirium due to known physiological condition; G40.409 Other generalized epilepsy and epileptic syndromes, not intractable, without status epilepticus; I11.0 Hypertensive heart disease with heart failure; E11.65 Type 2 diabetes mellitus with hyperglycemia; D53.8 Other specified nutritional anemias; B19.20 Unspecified viral hepatitis C without hepatic coma; D69.59 Other secondary thrombocytopenia; F32.A Depression, unspecified; N28.89 Other specified disorders of kidney and ureter; E83.42 Hypomagnesemia; E87.6 Hypokalemia; B95.4 Other streptococcus as the cause of diseases classified elsewhere; F17.290 Nicotine dependence, other tobacco product, uncomplicated; F41.9 Anxiety disorder, unspecified; E87.5 Hyperkalemia; D75.89 Other specified diseases of blood and blood-forming organs; F43.10 Post-traumatic stress disorder, unspecified; I25.10 Atherosclerotic heart disease of native coronary artery without angina pectoris; Y90.0 Blood alcohol level of less than 20 mg/100 ml; Z79.899 Other long term (current) drug therapy; Z81.8 Family history of other mental and behavioral disorders; Z88.0 Allergy status to penicillin; Z86.16 Personal history of COVID-19; Z11.52 Encounter for screening for COVID-19
CPT/HCPCS: 31500; 36415; 36600; 70450; 71045; 74176; 76770; 80048; 80053; 80061; 80179; 80306; 80320; 81001; 82009; 82550; 82803; 82805; 82945; 82947; 83036; 83605; 83735; 83873; 83880; 84100; 84132; 84145; 84157; 84484; 84600; 85025; 85027; 85610; 85730; 86022; 86592; 86618; 87040; 87070; 87086; 87205; 87449; 87529; 87636; 87798; 89050; 92950; 93005; 93306; 94002; 94003; 94640; 94660; 95816; 95822; 96365; 96366; 96368; 96375; 96376; 99291